=== PATIENT | female | born 1940 | race African-American/Black ===

== ENCOUNTER 2016-10-22 23:25 | Observation (INO) ==
[2016-10-22] MEDS ORDERED: Furosemide 40 MG/4 ML VIAL IVP ONE (23:55)
[2016-10-22] MEDS ORDERED: *HR* Morphine 2 MG/ML SYRINGE IV ONE (23:57)
[2016-10-23] MEDS ORDERED: Ondansetron 4 MG/2 ML VIAL IVP ONE
[2016-10-23 00:12] LABS: Basophils % 0.2 %; Eosinophils # 0.1 K/mcL (0.0-0.6); Eosinophils % 2.1 %; Hematocrit 38.8 % (35.3-44.9); Immature Granulocytes % 0.2 % (0-4); Lymphocytes # 1.4 K/mcL (0.6-4.6); Lymphocytes % 27.5 %; Mean Corpuscular HGB Conc 30.9 g/dL (31.6-35.5); Mean Corpuscular Hemoglobin 31.5 pg (28.0-33.3); Mean Corpuscular Volume 101.8 fL (83.0-100.0); Mean Platelet Volume 9.2 fL (9.4-12.4); Monocytes # 0.5 K/mcL (0.0-1.3); Monocytes % 8.9 %; Neutrophils # 3.2 K/mcL (1.6-8.9); Platelet Count 311 K/mcL (140-400); Red Blood Count 3.81 M/mcL (3.82-4.97); Red Cell Distribution Width 14.1 % (11.5-14.5); Segmented Neutrophils % 61.1 %
[2016-10-23 00:24] LABS: INR 2.3; Prothrombin Time 25.8 Seconds (9.4-12.1)
[2016-10-23 00:25] LABS: BUN/Creatinine Ratio 16 (6-26); Blood Urea Nitrogen 15 mg/dL (7-20); Calcium 9.4 mg/dL (8.6-10.8); Carbon Dioxide 29 mEq/L (19-29); Chloride 107 mEq/L (98-109); Glucose 121 mg/dL (70-99); Osmolality,Calculated 298 (280-300); Potassium 3.6 mEq/L (3.5-4.5); Sodium 143 mEq/L (136-145); eGFR For African Americans > 60 (> 60); eGFR For Non-African Americans 56 (> 60)
[2016-10-23 00:26] LABS: Activated Partial Thrombo Time 47.6 Seconds (26.0-36.0)
--- NOTE | 2016-10-23 00:30 | Emergency Department Note ---
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 Patient states that she is not able to walk and that her pain and swelling is gotten progressively worse over the last week. Patient was previously on Eliquis and was transitioned to Coumadin week ago. Patient normally goes to [place] for medical care. Onset (ago): week(s) (1) Radiation: extremity Pain Severity: moderate Pain Scale: 10 Improves with: nothing Worsens with: nothing Associated symptoms: Reports: denies other symptoms Treatments Prior to Arrival: none - Related Data Allergies Allergy/AdvReac Type Severity Reaction Status Date / Time amlodipine [From [facility]] Allergy See Verified 10/22/16 23:34 Comments Review of Systems: All systems were reviewed with historian and negative except as per below, or as documented in the HPI. Constitutional: Denies: fever, chills, weight changes Eyes: Denies: vision changes, eye pain ENT: Denies: nasal congestion, sore throat CV: Denies: chest pain, palpitations Resp: Denies: cough, dyspnea, wheezes, hemoptysis GI: Denies: abdominal pain, N/V/D/C MSK: Positive for bilateral lower extremity pain Denies: back pain, neck pain, Skin: Positive for lower swelling Denies: new rashes, new lesions Neuro: Denies: VALADEZ, weakness, sensory changes, gait difficulty All systems ED: reviewed and negative except as stated. Past Medical History - Past Medical History Attestation: Yes The following information was validated with the patient. Source: patient Medical history: Reports: arthritis, asthma, COPD, DVT, GERD, migraine, pulmonary embolus - Social History Smoking Status: Former smoker Alcohol use: Reports: none Drug use: Reports: none Physical Exam Constitutional: Obese female elderly appears stated age, mild distress, very tender to palpation of lower extremities, hypoxic on 2 L at 96% HEENT: NCAT, sclera anicteric, PERRLA bilaterally, normal external ears bilaterally, nasal septum nondeviated, average dentition, MMM Neck: normal inspection, neck is supple, trachea midline Resp: normal chest inspection, CTA bilaterally, no resp distres +Homans sign CV: RRR, no m/g/r, +3 pitting edema bilateral lower extremities GI: normal inspection, Soft, NTND, BS present Back: normal inspection, no tenderness to palpation Neuro: A&O3, no gross motor or sensory deficits bilaterally MSK: Palpation bilateral calves, Psych: normal mood, normal affect Skin: No rashes, skin warm, dry, intact - General General appearance: alert Course Course Narrative: 76-year-old female with bilateral lower surgery swelling, suspect possible DVTs given that she was off Eliquis in transition to Coumadin will check coagulation studies basic lab work. He reassessed - Reevaluation(s) Reevaluation #1: She is read as acute initially then preliminary read now says chronic, after discussing with [place] in flight technician, so concern given the acuity of her symptoms as gotten worse in the last 1 week and she is unable to ambulate will admit for pain bilateral lower extremity swelling, DVT is chronic for subcutaneous. Time: 04:00 Vital Signs Temperature 98.1 F 10/22/16 23:26 Pulse Rate 104 10/22/16 23:26 Respiratory Rate 20 10/22/16 23:26 Blood Pressure 186/96 10/22/16 23:26 O2 Sat by Pulse Oximetry 0 L 10/22/16 23:26 Temperature 98.1 F 10/22/16 23:26 Pulse Rate 97 10/23/16 00:59 Respiratory Rate 16 10/23/16 03:20 Blood Pressure 106/72 10/23/16 03:20 O2 Sat by Pulse Oximetry 100 10/23/16 00:59 Oxygen Delivery Oxygen Delivery Nasal Cannula Medical Decision Making - Medical Records Medical records reviewed: Yes I reviewed the patient's medical records. - Lab Data Lab results reviewed: Yes I reviewed the patient's lab results. Result diagrams: 10/23/16 00:03 10/23/16 00:03 Lab Results 10/23/16 10/23/16 10/23/16 Range/Units 00:03 00:03 00:03 WBC 5.2 (4.3-11.1) K/mcL RBC 3.81 L (3.82-4.97) M/mcL Hgb 12.0 (11.5-15.4) g/dL Hct 38.8 (35.3-44.9) % MCV 101.8 H (83.0-100.0) fL MCH 31.5 (28.0-33.3) pg MCHC 30.9 L (31.6-35.5) g/dL RDW 14.1 (11.5-14.5) % Plt Count 311 (140-400) K/mcL MPV 9.2 L (9.4-12.4) fL Immature Gran % 0.2 (0-4) % Seg Neutrophils % 61.1 % Lymphocytes % 27.5 % Monocytes % 8.9 % Eosinophils % 2.1 % Basophils % 0.2 % Neutrophils # 3.2 (1.6-8.9) K/mcL Lymphocytes # 1.4 (0.6-4.6) K/mcL Monocytes # 0.5 (0.0-1.3) K/mcL Eosinophils # 0.1 (0.0-0.6) K/mcL Basophils # 0.0 (0.0-0.2) K/mcL PT (9.4-12.1) Seconds INR APTT (26.0-36.0) Seconds Sodium 143 (136-145) mEq/L Potassium 3.6 (3.5-4.5) mEq/L Chloride 107 (98-109) mEq/L Carbon Dioxide 29 (19-29) mEq/L BUN 15 (7-20) mg/dL Creatinine 0.96 (0.57-1.11) mg/dL Est GFR ( Amer) > 60 (> 60) Est GFR (Non-Af Amer) 56 L (> 60) BUN/Creatinine Ratio 16 (6-26) Glucose 121 H (70-99) mg/dL Calculated Osmolality 298 (280-300) Calcium 9.4 (8.6-10.8) mg/dL Troponin I 0.01 (0-0.03) ng/mL B-Natriuretic Peptide (0-100) pg/mL 10/23/16 10/23/16 Range/Units 00:03 00:03 WBC (4.3-11.1) K/mcL RBC (3.82-4.97) M/mcL Hgb (11.5-15.4) g/dL Hct (35.3-44.9) % MCV (83.0-100.0) fL MCH (28.0-33.3) pg MCHC (31.6-35.5) g/dL RDW (11.5-14.5) % Plt Count (140-400) K/mcL MPV (9.4-12.4) fL Immature Gran % (0-4) % Seg Neutrophils % % Lymphocytes % % Monocytes % % Eosinophils % % Basophils % % Neutrophils # (1.6-8.9) K/mcL Lymphocytes # (0.6-4.6) K/mcL Monocytes # (0.0-1.3) K/mcL Eosinophils # (0.0-0.6) K/mcL Basophils # (0.0-0.2) K/mcL PT 25.8 H (9.4-12.1) Seconds INR 2.3 APTT 47.6 H (26.0-36.0) Seconds Sodium (136-145) mEq/L Potassium (3.5-4.5) mEq/L Chloride (98-109) mEq/L Carbon Dioxide (19-29) mEq/L BUN (7-20) mg/dL Creatinine (0.57-1.11) mg/dL Est GFR ( Amer) (> 60) Est GFR (Non-Af Amer) (> 60) BUN/Creatinine Ratio (6-26) Glucose (70-99) mg/dL Calculated Osmolality (280-300) Calcium (8.6-10.8) mg/dL Troponin I (0-0.03) ng/mL B-Natriuretic Peptide 77 (0-100) pg/mL - Radiology Data Radiology results reviewed: Yes I reviewed the patient's radiology results. Chest X-Ray 10/23/16 00:00 IMPRESSION: No acute cardiopulmonary process. D/ / Darell Martinez MD / Darell Martinez MD Interpreting Provider: Darell Martinez MD - EKG Data EKG #1 EKG attestation: Yes I reviewed and interpreted this EKG. EKG shows normal: sinus rhythm ( 90 bpm OH 198 QRS 79 QTC 390elevations or depressions, Q waves in lead 3. ) Rate: normal Rhythm: NSR [place]/QRS: normal, left axis deviation When compared to previous EKG there are: previous EKG unavailable - Core Measures AMI Core Measures Followed: No Measure Exclusions: not indicated Attestation Statement - Attestation Attestation: I, Rudi Ceja MD, personally performed a history and physical exam of the patient and discussed their management with the resident. I reviewed the resident's note and agree with the documented findings, medical decision making , and plan of care. 76-year-old female with history of DVT and is on Coumadin. She states that recently her doctor stopped her Coumadin. Her on Eliquis. She was unable to tolerate the Eliquis because it caused headache. They stopped the Eliquis and put her back on her Coumadin about a week ago. She presents tonight complaining that for the past 3 days she has had increasing swelling and pain in both lower extremities to the point she is unable to get around or walk. No cough or chest pain or shortness of breath. No palpitations. No fever. On examination patient is a well-developed obese elderly female in no acute distress. She is alert and oriented 3. There is no cyanosis or diaphoresis. A equal bilaterally. Heart regular rate and rhythm. Abdomen soft with normal bowel sounds. There is marked edema of the lower extremities bilaterally with diffuse tenderness to palpation, especially over the medial aspect of the eyes bilaterally and popliteal area and calves bilaterally. Labs reviewed. INR therapeutic. Venous Doppler shows bilateral DVT in the common femoral veins. The hospitalist, Dr. Nixon, was consulted and accepted admission of the patient.
[2016-10-23] MEDS ORDERED: *HR* HYDROmorphone (PF) 1 MG/ML SYRINGE IVP ONE (01:33)
[2016-10-23] MEDS ORDERED: Naloxone 0.4 MG/ML INJ IVP PRN (03:40)
[2016-10-23] MEDS ORDERED: Acetaminophen 325 MG TABLET PO PRN (03:40)
[2016-10-23] MEDS ORDERED: Ondansetron ODT 4 MG TAB.RAPDIS SL PRN (03:40)
--- NOTE | 2016-10-23 04:02 | Internal Med History&Physical ---
<Mihaela Aguirre - Last Filed: 10/23/16 05:32> Date of Encounter: 10/23/16 Time of Encounter: 03:45 Assessment and Plan (1) Pedal edema Current visit: Yes Status: Acute bilateral compression stockings PT/ OT consult due to decreased mobility INR therapeutic in ER - coumadin pharmacy to dose (2) Chronic deep vein thrombosis (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 Current visit: Yes Status: Chronic (3) COPD (chronic obstructive pulmonary disease) Current visit: Yes Status: Chronic Qualifiers: COPD type: chronic bronchitis Chronic bronchitis type: unspecified Qualified Code(s): J42 - Unspecified chronic bronchitis (4) HTN (hypertension) Current visit: Yes Status: Chronic Qualifiers: Hypertension type: essential hypertension Qualified Code(s): I10 - Essential (primary) hypertension (5) Hx of pulmonary embolus Current visit: Yes Status: Chronic (6) History of DVT (deep vein thrombosis) Current visit: Yes Status: Chronic Internal Medicine - H&P: HPI Chief complaint: bilateral LE edema Admitted From: Emergency Dept Plans for Post Hospital Care: Home History of present illness: Ms. Mcclure is a 76 year old female with a PMH of multiple DVT/PE, HTN, COPD, and migraines presents to the ER with a 3 day history of increasing bilateral lower extremity swelling and pain. She is currently anticoagulated on coumadin - this was switched from Eliquis one week ago. (Review of medical records show that she was from coumadin to Eliquis in the middle of September - she switched back due to Eliquis causing headache.) She has had several previous DVT/PE that were unprovoked and states that the most recent was approximately 4 months ago. She came to the ER due to decreased ability to ambulate: at baseline she ambulates with a walker. Past Med Surg Social Fam HX - Past Medical History Medical history: arthritis, asthma, COPD, DVT, GERD, hypertension, migraine, pulmonary embolus - Social History Smoking Status: Former smoker Alcohol use: none Drug use: none - Family History Father Adopted: [place]: HERI Family Member Ethnicity: Non- Living Status: Age at : 83 Cause of : ASPERATION PNE Hx Family Cardiac Disorders: Yes Hx Family Respiratory Disorders: Yes Hx Family Cancer: Yes Hx Family GI Disorders: Yes Hx Family Genitourinary Disorders: No Hx Family Endocrine Disorder: Yes Hx Family Musculoskeletal Disorders: No Hx Family Neuromuscular Disorders: No Hx Family Neurologic Disorders: Yes Hx Family HEENT Disorders: No Hx Family Autoimmune Disorders: No Hx Family Reproductive Disorders: No Hx Family Psychosocial Disorders: No Hx Family Medical Disorders: No Internal Medicine - H&P: Meds Albuterol Sulfate [Ventolin Hfa] 2 puff IH Q6HR PRN 10/23/16 [History] Alendronate Sodium [Fosamax] 70 mg PO QWEEK 10/23/16 [History] Budesonide [Pulmicort] 1 inh IH BID 10/23/16 [History] Budesonide/Formoterol 160/4.5 [Symbicort 160/4.5] 2 puff IH BID 10/23/16 [ History] Calcium Carb, Citrate/Vit D3 [Calcium + D3 ER Tablet] 1 tab PO DAILY 10/23/16 [ History] Carvedilol 1 tab PO BID 10/23/16 [History] CloNIDine HCl [Kapvay] 0.1 mg PO BID 10/23/16 [History] Diclofenac Sodium [Voltaren] 1 appl TP QID PRN 10/23/16 [History] Diphenoxylate/Atropine [Lomotil 2.5 mg/0.025 mg] 1 tab PO DAILY PRN 10/23/16 [ History] Docusate Sodium [Colace] 100 mg PO BID 10/23/16 [History] Duoneb Q4HR PRN 10/23/16 [History] Folic Acid 1 tab PO DAILY 10/23/16 [History] Furosemide [Lasix] 40 mg PO DAILY 10/23/16 [History] Gabapentin [Neurontin] 600 mg PO BID 10/23/16 [History] Hydrocortisone Rectal CRM [Proctosol-HC] 1 appl RC TID PRN 10/23/16 [History] Lubiprostone [Amitiza] 1 tab PO DAILY PRN 10/23/16 [History] Nasonex 1 spray BID PRN 10/23/16 [History] Ondansetron HCl [Zofran] 4 mg PO BID PRN 10/23/16 [History] Oxycodone HCl/Acetaminophen [Percocet 10-325 mg Tablet] 1 each PO TID PRN [History] Oxygen 10/23/16 [History] Polyethylene Glycol 3350 [MiraLAX Powder Bulk 17.9 Oz] 1 scoop PO DAILY PRN 01/04 [History] Potassium Chloride [K-Tab ER] 2 meq PO QAM 10/23/16 [History] Potassium Chloride [Klor-Con 10] 30 meq PO QPM 10/23/16 [History] PredniSONE [Prednisone] 10 mg PO DAILY 10/23/16 [History] Ranitidine HCl [Acid Change Control Specialist] 150 mg PO DAILY 10/23/16 [History] Ropinirole [Requip] 2 mg PO QPM 10/23/16 [History] Theophylline Anhydrous [Andrea-24] 400 mg PO DAILY 10/23/16 [History] Tizanidine HCl [Zanaflex] 4 mg PO TID PRN 10/23/16 [History] Topiramate [Topamax] 1 tab PO BID 10/23/16 [History] Allergies amlodipine [From [facility]] Allergy (Verified 10/22/16 23:34) See Comments All Systems PM: A 10-system review of systems was performed and is negative for pertinent findings except as documented above in the HPI. - Constitutional Constitutional: no chills, no fever(s), no night sweats - EENT Eyes: no change in vision, no discharge, no pain, no photophobia Ears: no ear discharge, no ear pain, no tinnitus Nose, mouth and throat: no dysphagia, no nasal discharge, no neck pain, no sore throat - Cardiovascular Cardiovascular ROS IM: no chest pain, no diaphoresis, no dyspnea, no lightheadedness, no palpitations, no syncope - Respiratory Respiratory: no cough, no dyspnea, no wheezing, no excessive phlegm production - Gastrointestinal Gastrointestinal: no abdominal pain, no diarrhea, no hematemesis, no hematochezia, no melena, no nausea, no vomiting - Genitourinary Genitourinary: no change in urinary stream, no dysuria, no flank pain, no hematuria - Musculoskeletal Musculoskeletal ROS IM: no numbness, no tingling - Integumentary Integumentary IM: no rash, no unusual bruising - Neurological Neurological ROS: weakness, no confusion, no convulsions, no focal weakness, no numbness, no tingling, no tremor(s) - Hematologic/Lymphatic Hematologic/Lymphatic: no easy bruising - Constitutional Vitals: Temp Pulse Resp BP Pulse Ox 98.1 F 97 16 106/72 100 10/22/16 23:26 10/23/16 00:59 10/23/16 03:20 10/23/16 03:20 10/23/16 00:59 General appearance: Present: A&O X 3, pleasant, no acute distress, obese, answers questions appropriately - Head Head exam: Present: atraumatic, normocephalic - Eye Eye exam: Present: PERRL, conjuntiva pink, sclera anicteric Pupils: Present: PERRL - Neck Neck exam general surgery: Present: supple, trachea midline. Absent: lymphadenopathy - Respiratory Respiratory exam: Present: decreased breath sounds, prolonged expiratory phase. Absent: accessory muscle use, rales, rhonchi, wheezes - Cardiovascular Cardiovascular exam: Present: RRR, +S1, +S2. Absent: diastolic murmur, gallop, rubs, systolic murmur - GI/Abdominal GI/Abdominal exam: Present: normal bowel sounds, soft, no peritoneal signs. Absent: distended, tenderness - Extremities Exam Extremities exam: Present: calf tenderness, pedal edema (3+ pitting ), tenderness, warm, radial pulses palpable and symetrical. Absent: cyanotic - Neurological Exam Neurological exam: Present: CN II-XII intact, oriented X3, no focal deficits. Absent: pronater drift, facial droop, speech deficit - Skin Skin exam: Present: dry, intact Internal Med - H&P Results - Labs CBC & Chem 7: 10/23/16 00:03 10/23/16 00:03 <Edgar Nixon - Last Filed: 10/23/16 07:01> Date of Encounter: 10/23/16 Time of Encounter: 04:15 Assessment and Plan (1) Pedal edema Current visit: Yes Status: Acute (2) COPD (chronic obstructive pulmonary disease) Current visit: Yes Status: Chronic Qualifiers: COPD type: chronic bronchitis Chronic bronchitis type: unspecified Qualified Code(s): J42 - Unspecified chronic bronchitis (3) Chronic deep vein thrombosis (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 Current visit: Yes Status: Chronic (4) HTN (hypertension) Current visit: Yes Status: Chronic Qualifiers: Hypertension type: essential hypertension Qualified Code(s): I10 - Essential (primary) hypertension Internal Medicine - H&P: HPI Admitted From: Emergency Dept Plans for Post Hospital Care: Home History of present illness: I examined this patient and my medical decision-making was reviewed with the Resident Physician. I agree with the documented history of present illness, review of systems, past medical, surgical social and family histories and examination findings, disposition and treatment plan as described above except to any changes set forth below. Ms. Mcclure is a 76 year old female patient with a history of multiple DVT, pulmonary embolism, hypertension, COPD who presented to the ER complaining of bilateral lower extremity edema and pain. Her symptoms have been going on for about a week now and progressively getting worse. Patient is currently on Coumadin for anticoagulation. Recently this was changed to Eliquis but patient began to have headache with it and so was changed back to Coumadin for 2 weeks back. She denies any fever or chills or night sweats. No nausea or vomiting. No chest pain or palpitations. She does get occasional shortness of breath with ambulation. All Systems PM: A 10-system review of systems was performed and is negative for pertinent findings except as documented above in the HPI. - Constitutional Vitals: Temp Pulse Resp BP Pulse Ox 97.5 F L 84 16 138/83 100 10/23/16 05:22 10/23/16 05:22 10/23/16 05:22 10/23/16 05:22 10/23/16 05:22 General appearance: Present: cooperative, mild distress, A&O X 3, pleasant, answers questions appropriately - Eye Eye exam: Present: EOMI, PERRL, conjuntiva pink, sclera anicteric - Neck Neck exam general surgery: Present: supple, trachea midline. Absent: lymphadenopathy - Respiratory Respiratory exam: Present: decreased breath sounds, prolonged expiratory phase. Absent: accessory muscle use, rales, rhonchi, wheezes - Cardiovascular Cardiovascular exam: Present: RRR, +S1, +S2. Absent: diastolic murmur, gallop, rubs, systolic murmur - GI/Abdominal GI/Abdominal exam: Present: normal bowel sounds, soft, no peritoneal signs. Absent: distended, tenderness - Extremities Exam Extremities exam: Present: pedal edema (3+ pitting pedal edema with tenderness and mild erythema involving the bilateral lower extremities.), tenderness, warm , radial pulses palpable and symetrical. Absent: calf tenderness, cyanotic - Neurological Exam Neurological exam: Present: CN II-XII intact, oriented X3, no focal deficits, strengths equal and symetr throughout. Absent: facial droop, speech deficit - Skin Skin exam: Present: dry, intact Internal Med - H&P Results - Labs CBC & Chem 7: 10/23/16 00:03 10/23/16 00:03 - Attending Attestation Patient with bilateral pitting pedal edema: Most likely related to chronic DVT in bilateral lower extremities. Continue coumadin. On Lasix at home. Will change to IV Lasix. Leg elevation. Will also prescribe compression stockings. Although both lower extremities are warm to touch and mildly erythematous, she does not appear to be having cellulitis yet although she is at increased risk for developing cellulitis. May need further evaluation with 2-D echocardiogram. This document has been at least partially created by [employer] recognition technology by Dr. Nixon. Errors in grammar, wording or other phrases may exist. If errors are found after the documentation is signed, they will be addressed individually in the addendum section of this document when appropriate.
[2016-10-23] MEDS ORDERED: POTASSIUM CHLORIDE PO SCH (09:00)
[2016-10-23] MEDS ORDERED: CARVEDILOL PO SCH (09:00)
[2016-10-23] MEDS ORDERED: TOPIRAMATE PO SCH (09:00)
[2016-10-23] MEDS: Famotidine 20 MG TABLET PO SCH (09:37)
[2016-10-23] MEDS: Topiramate 25 MG TABLET PO SCH ×2 (09:37→22:24)
[2016-10-23] MEDS: cloNIDine HCl 0.1 MG TABLET PO SCH ×2 (09:39→22:24)
[2016-10-23] MEDS: Furosemide 20 MG TABLET PO SCH (09:39)
[2016-10-23] MEDS: predniSONE 10 MG TABLET PO SCH (09:40)
[2016-10-23] MEDS: Gabapentin 300 MG CAPSULE PO SCH ×2 (09:40→22:24)
--- NOTE | 2016-10-23 10:12 | Internal Med Progress Note ---
Date of Encounter: 10/23/16 Time of Encounter: 10:11 - Assessment and plan (1) Leg swelling Current Visit: Yes Status: Acute Assessment and plan: Bilateral leg swelling in the setting of patient with chronic DVT, currently on Coumadin. INR 2.3. We will continue with Coumadin therapy, monitor INR tomorrow in a.m. Pharmacy to dose Coumadin according to INR levels. Generalized weakness, will obtain vitamin B12 levels, TSH. Patient is not in respiratory distress, brain natruretic peptide 77. Chest x-ray did not reveal any acute process. Consultation with both physical therapy and occupational therapy. eligibility services representative evaluation. Discussed with patient and family members. (2) Obesity Current Visit: Yes Status: Acute Qualifiers: Obesity type: unspecified obesity type Obesity severity: non-morbid Qualified Code(s): E66.9 - Obesity, unspecified (3) COPD (chronic obstructive pulmonary disease) Current Visit: Yes Status: Chronic Assessment and plan: She is on long-term oxygen therapy, continue with oxygen therapy, monitor oxygen saturation. No evidence of COPD exacerbation at this point. Qualifiers: COPD type: chronic bronchitis Chronic bronchitis type: unspecified Qualified Code(s): J42 - Unspecified chronic bronchitis (4) Chronic deep vein thrombosis (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 Current Visit: Yes Status: Chronic Assessment and plan: Continue with Coumadin therapy, monitor INR levels. (5) HTN (hypertension) Current Visit: Yes Status: Chronic Assessment and plan: Blood pressure levels controlled, continue monitoring the patient closely. Qualifiers: Hypertension type: essential hypertension Qualified Code(s): I10 - Essential (primary) hypertension (6) History of DVT (deep vein thrombosis) Current Visit: Yes Status: Chronic Assessment and plan: Continue with anticoagulation. - Subjective Interval history: This is my first encounter with the patient. The patient was seen and examined in [facility]. Her daughter and grandmother were present during this encounter. She is complaining of swelling in both lower extremities along with generalized pain. Denies fevers, shortness of breath. Patient is status unable to walk, she normally walks with a walker. The patient needs in [place], and is considering about moving to [place] to live with one of her daughters. - Constitutional Vitals: Temp Pulse Resp BP Pulse Ox 98.6 F 71 16 110/66 99 10/23/16 07:58 10/23/16 07:58 10/23/16 07:58 10/23/16 07:58 10/23/16 07:58 General appearance: Present: cooperative, mild distress, A&O X 3, pleasant, obese, answers questions appropriately - Head Head exam: Present: atraumatic, normocephalic - Eye Eye exam: Present: PERRL, conjuntiva pink, sclera anicteric Pupils: Present: PERRL - Neck Neck exam general surgery: Present: supple, trachea midline. Absent: lymphadenopathy - Respiratory Respiratory exam: Present: CTAB. Absent: accessory muscle use, rales, rhonchi, wheezes - Cardiovascular Cardiovascular exam: Present: RRR, +S1, +S2. Absent: diastolic murmur, gallop, rubs, systolic murmur - GI/Abdominal GI/Abdominal exam: Present: normal bowel sounds, soft, no peritoneal signs. Absent: distended, tenderness - Extremities Exam Extremities exam: Present: pedal edema, warm, radial pulses palpable and symetrical. Absent: calf tenderness, cyanotic Additional comments: Bilateral swelling in both lower extremities, left more than the right. - Neurological Exam Neurological exam: Present: CN II-XII intact, oriented X3, no focal deficits. Absent: pronater drift, facial droop, speech deficit - Skin Skin exam: Present: dry, intact Internal Medicine: Result - Labs CBC & Chem 7: 10/23/16 00:03 10/23/16 00:03 - ABG Interpretation ABG results: PT/INR, D-dimer PT 25.8 Seconds (9.4-12.1) H 10/23/16 00:03 - VTE Documentation of Mechanical Device: Graduated compression elastic hosiery Consult Discharge Plan - Plan Referrals: NO,PCP [Primary Care Provider] -
[2016-10-23] MEDS: *HR* OxyCODONE/APAP 10/325 TABLET PO PRN ×2 (10:36→22:27)
[2016-10-23] MEDS: Budesonide/Formoterol 160/4.5 MDI IH SCH (10:45)
[2016-10-23] MEDS: rOPINIRole 1 MG TABLET PO SCH (17:16)
[2016-10-23] MEDS: *HR* Warfarin 5 MG TABLET PO SCH (17:17)
[2016-10-23] MEDS ORDERED: Warfarin perPT PO PRN (18:00)
[2016-10-24] MEDS: Budesonide/Formoterol 160/4.5 MDI IH SCH ×3 (00:19→23:08)
[2016-10-24 05:31] LABS: Basophils % 0.2 %; Eosinophils # 0.1 K/mcL (0.0-0.6); Eosinophils % 1.6 %; Hematocrit 38.1 % (35.3-44.9); Hemoglobin 11.3 g/dL (11.5-15.4); Immature Granulocytes % 0.2 % (0-4); Lymphocytes % 41.8 %; Mean Corpuscular HGB Conc 29.7 g/dL (31.6-35.5); Mean Corpuscular Hemoglobin 31.5 pg (28.0-33.3); Mean Corpuscular Volume 106.1 fL (83.0-100.0); Mean Platelet Volume 9.2 fL (9.4-12.4); Monocytes # 0.6 K/mcL (0.0-1.3); Monocytes % 12.3 %; Neutrophils # 2.1 K/mcL (1.6-8.9); Platelet Count 314 K/mcL (140-400); Red Blood Count 3.59 M/mcL (3.82-4.97); Red Cell Distribution Width 14.2 % (11.5-14.5); Segmented Neutrophils % 43.9 %
[2016-10-24 05:38] LABS: INR 2.4; Prothrombin Time 26.6 Seconds (9.4-12.1)
[2016-10-24 05:46] LABS: Alanine Aminotransferase 15 Units/L (0-55); Albumin 2.9 g/dL (3.5-5.0); Albumin/Globulin Ratio 0.8 (1.1-2.2); Alkaline Phosphatase 50 Units/L (38-126); Aspartate Amino Transferase 14 Units/L (5-34); BUN/Creatinine Ratio 17 (6-26); Bilirubin,Direct 0.1 mg/dL (0.0-0.5); Bilirubin,Indirect 0.1 mg/dL (0.0-1.2); Bilirubin,Total 0.2 mg/dL (0.2-1.2); Blood Urea Nitrogen 16 mg/dL (7-20); Calcium 8.9 mg/dL (8.6-10.8); Carbon Dioxide 29 mEq/L (19-29); Chloride 108 mEq/L (98-109); Globulin 3.6 g/dL (2.4-3.5); Glucose 111 mg/dL (70-99); Magnesium 1.9 mg/dL (1.6-2.6); Osmolality,Calculated 296 (280-300); Potassium 4.5 mEq/L (3.5-4.5); Sodium 142 mEq/L (136-145); Total Protein 6.5 g/dL (6.0-8.3); eGFR For African Americans > 60 (> 60); eGFR For Non-African Americans 56 (> 60)
[2016-10-24 06:25] LABS: Folate 15.6 ng/mL (7.0-31.4)
--- NOTE | 2016-10-24 07:31 | Electrocardiograph Report ---
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
[2016-10-24] MEDS: Gabapentin 300 MG CAPSULE PO SCH ×2 (09:04→22:40)
[2016-10-24] MEDS: cloNIDine HCl 0.1 MG TABLET PO SCH ×2 (09:04→22:40)
[2016-10-24] MEDS: Furosemide 20 MG TABLET PO SCH (09:04)
[2016-10-24] MEDS: predniSONE 10 MG TABLET PO SCH (09:05)
[2016-10-24] MEDS: Famotidine 20 MG TABLET PO SCH (09:05)
[2016-10-24] MEDS: Topiramate 25 MG TABLET PO SCH ×2 (09:05→22:39)
[2016-10-24] MEDS: *HR* OxyCODONE/APAP 10/325 TABLET PO PRN ×2 (09:20→22:40)
--- NOTE | 2016-10-24 11:37 | Discharge Summary ---
<ChrisNhan seymour - Last Filed: 10/24/16 11:33> Date of Encounter: 10/24/16 Time of Encounter: 11:33 - Discharge Diagnosis (1) Leg swelling Priority: Primary Status: Acute Comments: 10/24/16 INR is therapeutic at 2.4 this morning PT/OT evaluation pending 10/23/16 Bilateral leg swelling in the setting of patient with chronic DVT, currently on Coumadin. INR 2.3. We will continue with Coumadin therapy, monitor INR tomorrow in a.m. Pharmacy to dose Coumadin according to INR levels. Generalized weakness, will obtain vitamin B12 levels, TSH. Patient is not in respiratory distress, brain natruretic peptide 77. Chest x-ray did not reveal any acute process. Consultation with both physical therapy and occupational therapy. caseworker protective services evaluation. Discussed with patient and family members. (2) Obesity Priority: Secondary Status: Acute Qualifiers: Obesity type: unspecified obesity type Obesity severity: non-morbid Qualified Code(s): E66.9 - Obesity, unspecified (3) COPD (chronic obstructive pulmonary disease) Priority: Secondary Status: Chronic Comments: 10/24/16 Stable 10/23/16 She is on long-term oxygen therapy, continue with oxygen therapy, monitor oxygen saturation. No evidence of COPD exacerbation at this point. Qualifiers: COPD type: chronic bronchitis Chronic bronchitis type: unspecified Qualified Code(s): J42 - Unspecified chronic bronchitis (4) Chronic deep vein thrombosis (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 Priority: Secondary Status: Chronic Comments: 10/23/16 Continue with Coumadin therapy, monitor INR levels (5) HTN (hypertension) Priority: Secondary Status: Chronic Comments: Blood pressure has been stable with elevated reading this morning Recheck after morning medications administered Qualifiers: Hypertension type: essential hypertension Qualified Code(s): I10 - Essential (primary) hypertension (6) History of DVT (deep vein thrombosis) Priority: Secondary Status: Chronic Comments: Continue anticoagulation - Discharge Medications Prescriptions: Oxycodone HCl/Acetaminophen [Percocet 10-325 mg Tablet] 1 tab PO TID PRN #30 tablet PRN Reason: Pain Home Medications: Albuterol Sulfate [Ventolin Hfa] 2 puff IH Q6HR PRN 10/23/16 [History] Alendronate Sodium [Fosamax] 70 mg PO QWEEK 10/23/16 [History] Budesonide [Pulmicort] 2 ml IH BID 10/23/16 [History] Budesonide/Formoterol 160/4.5 [Symbicort 160/4.5] 2 puff IH BID 10/23/16 [ History] Calcium Carb, Citrate/Vit D3 [Calcium + D3 ER Tablet] 1 tab PO DAILY 10/23/16 [ History] Carvedilol 12.5 mg PO BID 10/23/16 [History] CloNIDine HCl [Kapvay] 0.1 mg PO BID 10/23/16 [History] Diclofenac Sodium [Voltaren] 1 appl TP QID PRN 10/23/16 [History] Diphenoxylate/Atropine [Lomotil 2.5 mg/0.025 mg] 1 tab PO DAILY PRN 10/23/16 [ History] Docusate Sodium [Colace] 100 mg PO BID 10/23/16 [History] Folic Acid 1 mg PO DAILY 10/23/16 [History] Furosemide [Lasix] 40 mg PO DAILY 10/23/16 [History] Gabapentin [Neurontin] 600 mg PO BID 10/23/16 [History] Hydrocortisone Rectal CRM [Proctosol-Hc] 1 appl RC TID PRN 10/23/16 [History] Ipratropium/Albuterol Neb [Duoneb] 3 ml IH Q4HR PRN 10/23/16 [History] Lisinopril [Zestril] 20 mg PO DAILY 10/23/16 [History] Lubiprostone [Amitiza] 8 mcg PO DAILY PRN 10/23/16 [History] Mometasone Furoate [Nasonex] 50 mcg NS DAILY 10/23/16 [History] Ondansetron HCl [Zofran] 4 mg PO BID PRN 10/23/16 [History] Oxygen 2 l .ROUTE AD 10/23/16 [History] Polyethylene Glycol 3350 [MiraLAX Powder Bulk 17.9 Oz] 17 gm PO DAILY PRN [History] Potassium Chloride [K-Tab ER] 20 meq PO QAM 10/23/16 [History] Potassium Chloride [Klor-Con 10] 30 meq PO QPM 10/23/16 [History] PredniSONE [Prednisone] 10 mg PO DAILY 10/23/16 [History] Ranitidine HCl [Acid Maritime Pilot] 150 mg PO DAILY 10/23/16 [History] Ropinirole [Requip] 2 mg PO HS 10/23/16 [History] Theophylline Anhydrous [Andrea-24] 400 mg PO DAILY 10/23/16 [History] Tizanidine HCl [Zanaflex] 2 mg PO TID PRN 10/23/16 [History] Topiramate [Topamax] 50 mg PO BID 10/23/16 [History] Warfarin [Coumadin] 6 mg PO SUTUTHSA 10/23/16 [History] Warfarin [Coumadin] 7 mg PO MOWEFR 10/23/16 [History] Oxycodone HCl/Acetaminophen [Percocet 10-325 mg Tablet] 1 tab PO TID PRN #30 tablet 10/24/16 [Rx] Allergies/Adverse Reactions: Allergies amlodipine [From [facility]] Allergy (Verified 10/22/16 23:34) See Comments Date of admission: 10/23/16 02:50 Primary care physician: PCP NO Consults: 10/23/16 05:23 Consult to Physical Therapy [CONS] Routine Comment: Evaluate, develop and implement POC OT [Consult to Occupational Therapy] [CONS] Routine Comment: Evaluate, develop and implement POC 10/23/16 08:26 Consult to Electrotype Molder [CONS] Routine Reason for SW Consult: d/c planning Discharging clinician: Nhan Perez Anticipated date of discharge: 10/24/16 - Patient Status Disposition: Transfer SNF Condition: Fair Functional capacity at discharge: uses cane/walker Overall status at discharge: patient is progressing back to baseline - Discharge Instructions Follow Up With: Amanda Torres MD [Partnered Physician] - 10/31/16 1:45 pm - Diet and Activity Activity: as per physical therapy Diet: advance to your usual diet Hospital course: Ms. Mcclure is a 76 year old female with past medical history significant for COPD present (on oxygen at home), hypertension, pulmonary embolism, and chronic DVTs. The patient relates that she had been on Coumadin long-term but was switched to Eliquis recently but within a few days of starting Eliquis she began having bad headaches. She was switched back to Coumadin one week ago and began developing swelling/pain in bilateral lower extremities. INR in the emergency department was 2.3 and she continued to receive Coumadin during her hospitalization. INR this morning = 2.4. BN P = 77, chest x-ray negative for any acute abnormalities. Doppler ultrasound revealed DVTs in bilateral common femoral veins that appear chronic and nonocclusive. We recommended PT/OT evaluation and outpatient rehabilitation if appropriate. Patient exhibited reticence to this - Time Spent with Patient Total time spent providing and/or coordinating discharge services: Greater than 30 minutes - Constitutional Vitals: Temp Pulse Resp BP Pulse Ox 98.5 F 98 20 185/101 97 10/24/16 08:10 10/24/16 08:10 10/24/16 08:10 10/24/16 08:10 10/24/16 08:10 General appearance: Present: cooperative, mild distress, A&O X 3, pleasant, obese, answers questions appropriately - Head Head exam: Present: atraumatic, normocephalic - Eye Eye exam: Present: PERRL, conjuntiva pink, sclera anicteric Pupils: Present: PERRL - Neck Neck exam general surgery: Present: supple, trachea midline. Absent: lymphadenopathy - Respiratory Respiratory exam: Present: CTAB. Absent: accessory muscle use, rales, rhonchi, wheezes - Cardiovascular Cardiovascular exam: Present: RRR, +S1, +S2. Absent: diastolic murmur, gallop, rubs, systolic murmur - GI/Abdominal GI/Abdominal exam: Present: normal bowel sounds, soft, no peritoneal signs. Absent: distended, tenderness - Extremities Exam Extremities exam: Present: warm, radial pulses palpable and symetrical. Absent : cyanotic, pedal edema Additional comments: Diffuse tenderness to palpation in all extremities. Patient is wearing compression stockings on BLEs which demonstrated mild edema - Neurological Exam Neurological exam: Present: CN II-XII intact, oriented X3, no focal deficits. Absent: pronater drift, facial droop, speech deficit - Skin Skin exam: Present: dry, intact - VTE Documentation of Mechanical Device: Graduated compression elastic hosiery <Dawood Lee - Last Filed: 10/24/16 18:02> Date of Encounter: 10/24/16 - Discharge Diagnosis (1) Leg swelling Status: Acute (2) Obesity Status: Acute Qualifiers: Obesity type: unspecified obesity type Obesity severity: non-morbid Qualified Code(s): E66.9 - Obesity, unspecified (3) COPD (chronic obstructive pulmonary disease) Status: Chronic Qualifiers: COPD type: chronic bronchitis Chronic bronchitis type: unspecified Qualified Code(s): J42 - Unspecified chronic bronchitis (4) Chronic deep vein thrombosis (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 Status: Chronic (5) HTN (hypertension) Status: Chronic Qualifiers: Hypertension type: essential hypertension Qualified Code(s): I10 - Essential (primary) hypertension (6) History of DVT (deep vein thrombosis) Status: Chronic Date of admission: 10/23/16 02:50 Primary care physician: PCP NO Consults: 10/23/16 05:23 Consult to Physical Therapy [CONS] Routine Comment: Evaluate, develop and implement POC OT [Consult to Occupational Therapy] [CONS] Routine Comment: Evaluate, develop and implement POC 10/23/16 08:26 Consult to Electrotype Molder [CONS] Routine Reason for SW Consult: d/c planning Hospital course: Ms. Mcclure is a 76 year old female - Time Spent with Patient Total time spent providing and/or coordinating discharge services: - Constitutional Vitals: Temp Pulse Resp BP Pulse Ox 98.2 F 93 20 154/83 97 10/24/16 16:38 10/24/16 16:38 10/24/16 16:38 10/24/16 16:38 10/24/16 16:38 - Attending Attestation I examined this patient and my medical decision-making was reviewed with the PREFINISH OPERATOR/PA/Advanced Practice Nurse/Resident Physician. I agree with the documented findings, disposition and treatment plan as described except to the extent set forth below. Bilateral leg swelling in the setting of patient with chronic DVT, currently on Coumadin. INR 2.4. Weakness, PT recommended ECF. D/C today.
--- NOTE | 2016-10-24 12:14 | Physician Discharge Referral ---
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 Priority: Secondary Status: Chronic (5) HTN (hypertension) Priority: Secondary Status: Chronic (6) History of DVT (deep vein thrombosis) Priority: Secondary Status: Chronic - Transfer Medications Prescriptions: Oxycodone HCl/Acetaminophen [Percocet 10-325 mg Tablet] 1 tab PO TID PRN #30 tablet PRN Reason: Pain Home Medications: Albuterol Sulfate [Ventolin Hfa] 2 puff IH Q6HR PRN 10/23/16 [History] Alendronate Sodium [Fosamax] 70 mg PO QWEEK 10/23/16 [History] Budesonide [Pulmicort] 2 ml IH BID 10/23/16 [History] Budesonide/Formoterol 160/4.5 [Symbicort 160/4.5] 2 puff IH BID 10/23/16 [ History] Calcium Carb, Citrate/Vit D3 [Calcium + D3 ER Tablet] 1 tab PO DAILY 10/23/16 [ History] Carvedilol 12.5 mg PO BID 10/23/16 [History] CloNIDine HCl [Kapvay] 0.1 mg PO BID 10/23/16 [History] Diclofenac Sodium [Voltaren] 1 appl TP QID PRN 10/23/16 [History] Diphenoxylate/Atropine [Lomotil 2.5 mg/0.025 mg] 1 tab PO DAILY PRN 10/23/16 [ History] Docusate Sodium [Colace] 100 mg PO BID 10/23/16 [History] Folic Acid 1 mg PO DAILY 10/23/16 [History] Furosemide [Lasix] 40 mg PO DAILY 10/23/16 [History] Gabapentin [Neurontin] 600 mg PO BID 10/23/16 [History] Hydrocortisone Rectal CRM [Proctosol-Hc] 1 appl RC TID PRN 10/23/16 [History] Ipratropium/Albuterol Neb [Duoneb] 3 ml IH Q4HR PRN 10/23/16 [History] Lisinopril [Zestril] 20 mg PO DAILY 10/23/16 [History] Lubiprostone [Amitiza] 8 mcg PO DAILY PRN 10/23/16 [History] Mometasone Furoate [Nasonex] 50 mcg NS DAILY 10/23/16 [History] Ondansetron HCl [Zofran] 4 mg PO BID PRN 10/23/16 [History] Oxygen 2 l .ROUTE AD 10/23/16 [History] Polyethylene Glycol 3350 [MiraLAX Powder Bulk 17.9 Oz] 17 gm PO DAILY PRN [History] Potassium Chloride [K-Tab ER] 20 meq PO QAM 10/23/16 [History] Potassium Chloride [Klor-Con 10] 30 meq PO QPM 10/23/16 [History] PredniSONE [Prednisone] 10 mg PO DAILY 10/23/16 [History] Ranitidine HCl [Acid Truck Shop Mechanic] 150 mg PO DAILY 10/23/16 [History] Ropinirole [Requip] 2 mg PO HS 10/23/16 [History] Theophylline Anhydrous [Andrea-24] 400 mg PO DAILY 10/23/16 [History] Tizanidine HCl [Zanaflex] 2 mg PO TID PRN 10/23/16 [History] Topiramate [Topamax] 50 mg PO BID 10/23/16 [History] Warfarin [Coumadin] 6 mg PO SUTUTHSA 10/23/16 [History] Warfarin [Coumadin] 7 mg PO MOWEFR 10/23/16 [History] Oxycodone HCl/Acetaminophen [Percocet 10-325 mg Tablet] 1 tab PO TID PRN #30 tablet 10/24/16 [Rx] Allergies/Adverse Reactions: Allergies amlodipine [From [facility]] Allergy (Verified 10/22/16 23:34) See Comments - Respiratory Orders Oxygen / L per min (2) Smoking Cessation: Smoking cessation has been advised. For more information, call the [employer] Quit Line at 1-131-KXYZ-NOW. - Mobility Orders Ambulate - Rehabiliation Orders Rehab Potential: Fair Rehab Orders: Evaluation for Physical Therapy, Evaluation for Occupational Therapy - Diet Orders Regular CERTIFICATION: I certify that the transfer of the above named patient to an Extended Care Facility is necessary for the continuing treatment of the diagnosis listed. The above information is true and accurate reflection of patient's current condition. Confidential - Redisclosure prohibited without a patient's written consent.
[2016-10-24] MEDS: *HR* Warfarin 5 MG TABLET PO SCH (18:17)
[2016-10-24] MEDS: rOPINIRole 1 MG TABLET PO SCH (18:17)
[2016-10-25 06:54] LABS: Basophils % 0.4 %; Eosinophils # 0.1 K/mcL (0.0-0.6); Eosinophils % 1.8 %; Hematocrit 35.1 % (35.3-44.9); Hemoglobin 10.8 g/dL (11.5-15.4); Immature Granulocytes % 0.2 % (0-4); Lymphocytes % 43.2 %; Mean Corpuscular HGB Conc 30.8 g/dL (31.6-35.5); Mean Corpuscular Hemoglobin 32.3 pg (28.0-33.3); Mean Corpuscular Volume 105.1 fL (83.0-100.0); Mean Platelet Volume 10.1 fL (9.4-12.4); Monocytes # 0.7 K/mcL (0.0-1.3); Monocytes % 14.7 %; Neutrophils # 1.8 K/mcL (1.6-8.9); Platelet Count 299 K/mcL (140-400); Red Blood Count 3.34 M/mcL (3.82-4.97); Segmented Neutrophils % 39.7 %
[2016-10-25 06:56] LABS: INR 2.1; Prothrombin Time 23.3 Seconds (9.4-12.1)
[2016-10-25 07:05] LABS: BUN/Creatinine Ratio 18 (6-26); Blood Urea Nitrogen 15 mg/dL (7-20); Calcium 8.5 mg/dL (8.6-10.8); Carbon Dioxide 29 mEq/L (19-29); Chloride 107 mEq/L (98-109); Glucose 80 mg/dL (70-99); Osmolality,Calculated 294 (280-300); Potassium 3.8 mEq/L (3.5-4.5); Sodium 142 mEq/L (136-145); eGFR For African Americans > 60 (> 60); eGFR For Non-African Americans > 60 (> 60)
[2016-10-25 07:58] VITALS: BP 164/86
[2016-10-25] MEDS: Gabapentin 300 MG CAPSULE PO SCH (08:58)
[2016-10-25] MEDS: Furosemide 20 MG TABLET PO SCH (08:59)
[2016-10-25] MEDS: *HR* OxyCODONE/APAP 10/325 TABLET PO PRN (08:59)
[2016-10-25] MEDS: cloNIDine HCl 0.1 MG TABLET PO SCH (08:59)
[2016-10-25] MEDS: predniSONE 10 MG TABLET PO SCH (09:00)
[2016-10-25] MEDS: Famotidine 20 MG TABLET PO SCH (09:00)
[2016-10-25] MEDS: Topiramate 25 MG TABLET PO SCH (09:00)
--- NOTE | 2016-10-25 10:43 | Event Note ---
Date of Encounter: 10/25/16 Time of Encounter: 09:15 Patient seen and examined. On examination, patient sitting upright in bed watching television. Patient denies pain at this time and states she ate all of her breakfast. In review of her chart over the course of her 2 day admission , her lower extremity edema has lessened according to the patient. OT and PT recommended ECF which the patient refused. Patient will be taken back home to [place] per family and will see her primary care provider on 11/01/16 at which time primary care provider will send a nurse out to her home to recommend first individual needs for home health. Patient was alert and oriented 3 on day of discharge and again refused to go to a retirement. I did review her OARRS report which was negative in [place], [place], and [place]. We will send her with one weeks supply of pain medication and have her follow-up with her primary care provider as scheduled. Coumadin therapeutic on day of discharge with INR of 2.1.
--- NOTE | 2016-10-25 10:44 | Physician Discharge Referral ---
Home Health/Hosp Referral Info Transfer to: Home Health Attending Provider: Kim Stiles CNP Provider in Charge Post Discharge: PCP - Diagnosis (1) Leg pain Priority: Primary Status: Acute (2) Leg swelling Priority: Primary Status: Acute (3) Obesity Priority: Secondary Status: Chronic (4) Pedal edema Priority: Primary Status: Acute (5) COPD (chronic obstructive pulmonary disease) Priority: Secondary Status: Chronic (6) Chronic deep vein thrombosis (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 Priority: Secondary Status: Chronic (7) HTN (hypertension) Priority: Secondary Status: Chronic (8) History of DVT (deep vein thrombosis) Priority: Secondary Status: Chronic (9) Hx of pulmonary embolus Priority: Secondary Status: Chronic - Respiratory Orders Oxygen / L per min (2) Smoking Cessation: Smoking cessation has been advised. For more information, call the [employer]uit Line at 2-298-EOYI-NOW. - Diet/Nutrition Diet/Nutrition Orders: No Added Salt (TREVER) - Activity Activity Orders: Ambulate (per PT) - Services Needed Following services are medically necessary services: Nursing, Home Health Aide, Physical Therapy, Occupational Therapy - Transfer Medications Prescriptions: Oxycodone HCl/Acetaminophen [Percocet 10-325 mg Tablet] 1 tab PO TID PRN #30 tablet PRN Reason: Pain Home Medications: Albuterol Sulfate [Ventolin Hfa] 2 puff IH Q6HR PRN 10/23/16 [History] Alendronate Sodium [Fosamax] 70 mg PO QWEEK 10/23/16 [History] Budesonide [Pulmicort] 2 ml IH BID 10/23/16 [History] Budesonide/Formoterol 160/4.5 [Symbicort 160/4.5] 2 puff IH BID 10/23/16 [ History] Calcium Carb, Citrate/Vit D3 [Calcium + D3 ER Tablet] 1 tab PO DAILY 10/23/16 [ History] Carvedilol 12.5 mg PO BID 10/23/16 [History] CloNIDine HCl [Kapvay] 0.1 mg PO BID 10/23/16 [History] Diclofenac Sodium [Voltaren] 1 appl TP QID PRN 10/23/16 [History] Diphenoxylate/Atropine [Lomotil 2.5 mg/0.025 mg] 1 tab PO DAILY PRN 10/23/16 [ History] Docusate Sodium [Colace] 100 mg PO BID 10/23/16 [History] Folic Acid 1 mg PO DAILY 10/23/16 [History] Furosemide [Lasix] 40 mg PO DAILY 10/23/16 [History] Gabapentin [Neurontin] 600 mg PO BID 10/23/16 [History] Hydrocortisone Rectal CRM [Proctosol-Hc] 1 appl RC TID PRN 10/23/16 [History] Ipratropium/Albuterol Neb [Duoneb] 3 ml IH Q4HR PRN 10/23/16 [History] Lisinopril [Zestril] 20 mg PO DAILY 10/23/16 [History] Lubiprostone [Amitiza] 8 mcg PO DAILY PRN 10/23/16 [History] Mometasone Furoate [Nasonex] 50 mcg NS DAILY 10/23/16 [History] Ondansetron HCl [Zofran] 4 mg PO BID PRN 10/23/16 [History] Oxygen 2 l .ROUTE AD 10/23/16 [History] Polyethylene Glycol 3350 [MiraLAX Powder Bulk 17.9 Oz] 17 gm PO DAILY PRN [History] Potassium Chloride [K-Tab ER] 20 meq PO QAM 10/23/16 [History] Potassium Chloride [Klor-Con 10] 30 meq PO QPM 10/23/16 [History] PredniSONE [Prednisone] 10 mg PO DAILY 10/23/16 [History] Ranitidine HCl [Acid Finish Mixer] 150 mg PO DAILY 10/23/16 [History] Ropinirole [Requip] 2 mg PO HS 10/23/16 [History] Theophylline Anhydrous [Andrea-24] 400 mg PO DAILY 10/23/16 [History] Tizanidine HCl [Zanaflex] 2 mg PO TID PRN 10/23/16 [History] Topiramate [Topamax] 50 mg PO BID 10/23/16 [History] Warfarin [Coumadin] 6 mg PO SUTUTHSA 10/23/16 [History] Warfarin [Coumadin] 7 mg PO MOWEFR 10/23/16 [History] Oxycodone HCl/Acetaminophen [Percocet 10-325 mg Tablet] 1 tab PO TID PRN #30 tablet 10/24/16 [Rx] Allergies/Adverse Reactions: Allergies amlodipine [From [facility]] Allergy (Verified 10/22/16 23:34) See Comments Certification: Further, I certify that my clinical findings support that this patient is homebound (i.e. absences from home require considerable and taxing effort and are for medical reasons or mandaeism services or infrequently or short duration when for other reasons) because: Homebound Reason: Leaving home requires considerable and taxing effort due to condition, Severity of cardiac or pulmonary status limits activity tolerance Attestation: My signature below is to certify that this patient is under my care and that I, or nurse practitioner, or a physician's wet process assistant head miller working with me, has a face-to -face encounter with this patient.
[2016-10-25] MEDS: Budesonide/Formoterol 160/4.5 MDI IH SCH (11:33)
--- NOTE | 2016-10-25 17:36 | Venous Imaging Report ---
LE Venous Duplex Patient Name:Zulma Mcclure Order Number:[id number] Procedure Date:10/23/2016 Date:1940ge:76 yrs Gender:Female Location:[facility] Room #: Penciller:Santiago Conroy RDCS Referring MD:DO Pat Castillo MD:Miguel Fernandez MD Primary Indications:Swelling of limb Secondary Indications: Risk Factors Yes/No Anticoagulants Hx of DVT Impressions: Chronic deep venous thrombosis is present in the right common femoral vein. Normal right lower extremity superficial venous exam. Chronic deep venous thrombosis is present in the left common femoral vein. Normal left lower extremity superficial venous exam. Findings Venous Duplex Results: Right: Venous imaging of the lower extremity reveals full patency and normal vessel compressibility of the right superficial femoral, right popliteal, right posterior tibial, right peroneal, right saphenofemoral junction and right great saphenous. Doppler signals in the evaluated veins were normal. There is a chronic thrombus seen in the right common femoral. It demonstrates a partially compressible vein. Flow was phasic and it did not augment. Left: Venous imaging of the lower extremity reveals full patency and normal vessel compressibility of the left superficial femoral, left popliteal, left posterior tibial, left peroneal, left saphenofemoral junction and left great saphenous. Doppler signals in the evaluated veins were normal. There is a chronic thrombus seen in the left common femoral. It demonstrates a partially compressible vein. Flow was phasic and it did not augment. Prior Study: Patient was very uncooperative during study. Technically Challenging Study. Lower Extremity Venous Duplex Side Vein Compress Spontaneous Flow Augment Diameter (cm) Depth (cm) Right Common Femoral Partial yes Phasic no Right Superficial Femoral Normal Yes Phasic Yes Right Popliteal Normal Yes Phasic Yes Right Posterior Tibial Normal Yes Phasic Yes Right Peroneal Normal Yes Phasic Yes Right Saphenofemoral Junction Normal Yes Phasic Yes Right Great Saphenous Normal Yes Phasic Yes Left Common Femoral Partial yes Phasic no Left Superficial Femoral Normal Yes Phasic Yes Left Popliteal Normal Yes Phasic Yes Left Posterior Tibial Normal Yes Phasic Yes Left Peroneal Normal Yes Phasic Yes Left Saphenofemoral Junction Normal Yes Phasic Yes Left Great Saphenous Normal Yes Phasic Yes Updated by Miguel Fernandez MD on 10/25/2016 5:31:00 PM electronically signed on 10/25/2016 5:32:06 PM with status of Final
== END 2016-10-25 11:41 | disposition home health service (06) ==
LOC: EMEROO 23:25 → 3BNU 23:25
PROVIDERS: ADMIT Internal Medicine; ATTEND Nurse Practitioner Family

== ENCOUNTER 2018-05-04 09:51 | Inpatient (IN) ==
[2018-05-04] MEDS ORDERED: Ipratropium/Albuterol Neb 3 ML IH ONE (09:58)
[2018-05-04] MEDS ORDERED: methylPREDNISolone 125 MG/2 ML VIAL IVP ONE (09:58)
--- NOTE | 2018-05-04 10:39 | Emergency Department Note ---
Disposition Clinical Impression: Acute exacerbation of chronic obstructive airways disease Hypercapnic respiratory failure Qualifiers: Chronicity: acute on chronic Qualified Code(s): J96.22 - Acute and chronic respiratory failure with hypercapnia Disposition: Admitted As Inpatient Referrals: NONE,PCP [Primary Care Provider] - Forms: ED Satisfaction Letter Time of Disposition: 13:59 General Adult HPI - General Chief complaint: ED Shortness of Breath/Dyspnea Stated complaint: SOB Time Seen by Provider: 05/04/18 09:54 Source: EMS Limitations: no limitations - History of Present Illness Pain Scale: 0 - Related Data Home Medications Medication Instructions Recorded Confirmed Alendronate Sodium [Fosamax] 70 mg PO QWEEK 10/23/16 05/04/18 Budesonide [Pulmicort] 2 ml IH BID 10/23/16 05/04/18 Budesonide/Formoterol 160/4.5 2 puff IH BID 10/23/16 05/04/18 [Symbicort 160/4.5] Calcium Carb, Citrate/Vit D3 1 tab PO DAILY 10/23/16 05/04/18 [Calcium + D3 ER Tablet] Carvedilol 12.5 mg PO BID 10/23/16 05/04/18 CloNIDine HCl [Kapvay] 0.1 mg PO BID 10/23/16 05/04/18 Diclofenac Sodium [Voltaren] 1 appl TP QID PRN 10/23/16 05/04/18 Diphenoxylate/Atropine [Lomotil 1 tab PO DAILY PRN 10/23/16 05/04/18 2.5 mg/0.025 mg] Docusate Sodium [Colace] 100 mg PO BID 10/23/16 05/04/18 Folic Acid 1 mg PO DAILY 10/23/16 05/04/18 Furosemide [Lasix] 40 mg PO DAILY 10/23/16 05/04/18 Gabapentin [Neurontin] 600 mg PO BID 10/23/16 05/04/18 Hydrocortisone Rectal CRM 1 appl RC TID PRN 10/23/16 05/04/18 [Proctosol-Hc] Ipratropium/Albuterol Neb [Duoneb] 3 ml IH Q4HR PRN 10/23/16 05/04/18 Mometasone Furoate [Nasonex] 50 mcg NS DAILY 10/23/16 05/04/18 Ondansetron HCl [Zofran] 4 mg PO BID PRN 10/23/16 05/04/18 Oxygen 2 l .ROUTE AD 10/23/16 05/04/18 Potassium Chloride [K-Tab ER] 20 meq PO BID 10/23/16 05/04/18 Ranitidine HCl [Acid Signs Cleaner] 150 mg PO DAILY 10/23/16 05/04/18 Tizanidine HCl [Zanaflex] 2 mg PO TID PRN 10/23/16 05/04/18 Topiramate [Topamax] 50 mg PO BID 10/23/16 05/04/18 Warfarin [Coumadin] 7 mg PO DAILY 10/23/16 05/04/18 predniSONE [Prednisone] 10 mg PO DAILY 10/23/16 05/04/18 rOPINIRole [Requip] 2 mg PO HS 10/23/16 05/04/18 Celecoxib [Celebrex] 200 mg PO DAILY 05/04/18 05/04/18 Cyanocobalamin (Vitamin B-12) 1,000 mcg PO DAILY 05/04/18 05/04/18 [Vitamin B-12] Ipratropium/Albuterol Sulfate 1 puff IH Q4-6H PRN 05/04/18 05/04/18 [Combivent Respimat Inhal [place]] Methotrexate [Otrexup] 15 mg PO QWEEK 05/04/18 05/04/18 Sulfasalazine [Azulfidine] 1,000 mg PO BID 05/04/18 05/04/18 Theophylline Anhydrous [Andrea-24] 300 mg PO DAILY 05/04/18 05/04/18 Allergies Allergy/AdvReac Type Severity Reaction Status Date / Time amlodipine [From [facility]] Allergy See Verified 05/04/18 10:23 Comments Past Medical History - Past Medical History Medical history: Reports: arthritis, asthma, COPD, DVT, GERD, hypertension, migraine, pulmonary embolus Psychiatric history: Reports: no psych history - Social History Smoking Status: Former smoker Smokeless Tobacco Status: No Alcohol use: Reports: none Drug use: Reports: none Physical Exam - General Limitations: no limitations General appearance: alert, in no apparent distress Course Vital Signs Temperature 98.1 F 05/04/18 09:56 Pulse Rate 88 05/04/18 09:56 Respiratory Rate 20 05/04/18 09:56 Blood Pressure 162/94 05/04/18 09:56 O2 Sat by Pulse Oximetry 95 05/04/18 09:56 Temperature 98.1 F 05/04/18 09:56 Pulse Rate 83 05/04/18 13:23 Respiratory Rate 20 05/04/18 13:23 Blood Pressure 121/85 05/04/18 13:23 O2 Sat by Pulse Oximetry 99 05/04/18 13:23 Oxygen Delivery Oxygen Delivery Bipap Medical Decision Making - Lab Data Result diagrams: 05/04/18 12:21 05/04/18 12:21 Lab Results 05/04/18 05/04/18 05/04/18 Range/Units 10:41 10:58 12:21 WBC 4.3 (4.3-11.1) K/mcL RBC 3.98 (3.82-4.97) M/mcL Hgb 13.0 (11.5-15.4) g/dL Hct 42.9 (35.3-44.9) % MCV 107.8 H (83.0-100.0) fL MCH 32.7 (28.0-33.3) pg MCHC 30.3 L (31.6-35.5) g/dL RDW 14.0 (11.5-14.5) % Plt Count 173 (140-400) K/mcL MPV 9.9 (9.4-12.4) fL Immature Gran % 0.5 (0-4) % Seg Neutrophils % 44.2 % Lymphocytes % 38.6 % Monocytes % 12.1 % Eosinophils % 4.4 % Basophils % 0.2 % Neutrophils # 1.9 (1.6-8.9) K/mcL Lymphocytes # 1.7 (0.6-4.6) K/mcL Monocytes # 0.5 (0.0-1.3) K/mcL Eosinophils # 0.2 (0.0-0.6) K/mcL Basophils # 0.0 (0.0-0.2) K/mcL ABG pH 7.16 L* (7.32-7.45) pH Units ABG pCO2 121 H* (35-45) mmHg ABG pO2 75 L (85-104) mmHg ABG HCO3 43 H (21-27) mEq/L ABG Total CO2 46 H (20-26) mEq/L ABG O2 Saturation 88 L (95-98) % ABG Base Excess 8 H (-2 to 3) mEq/L O2 Delivery Device Oxy Mask Inspired O2 8.0 (1-15=lpm qg74-280=%) PEEP cm H2O Pressure Support cm H2O Sodium (136-145) mEq/L Potassium (3.5-5.1) mEq/L Chloride (98-107) mEq/L Carbon Dioxide (23-29) mEq/L BUN (8-23) mg/dL Creatinine (0.60-1.20) mg/dL Est GFR ( Amer) (> 60) Est GFR (Non-Af Amer) (> 60) BUN/Creatinine Ratio (6-26) Glucose (70-105) mg/dL Calculated Osmolality (280-300) Calcium (8.6-10.3) mg/dL Troponin I (< 0.04) ng/mL Urine Color Yellow (Yellow) Urine Clarity Clear (Clear) Urine pH 6.5 (5.0-8.0) pH Units Ur Specific [place] 1.007 L (1.010-1.025) Urine Protein Negative (Neg-Trace) mg/dL Urine Glucose (UA) Normal (Normal) mg/dL Urine Ketones Negative (Negative) mg/dL Urine Blood Negative (Negative) Urine Nitrite Negative (Negative) Urine Bilirubin Negative (Negative) Urine Urobilinogen Normal (Normal) mg/dL Ur Leukocyte Esterase Negative (Negative) Ur Culture Indicated? NO (NO) 05/04/18 05/04/18 Range/Units 12:21 12:54 WBC (4.3-11.1) K/mcL RBC (3.82-4.97) M/mcL Hgb (11.5-15.4) g/dL Hct (35.3-44.9) % MCV (83.0-100.0) fL MCH (28.0-33.3) pg MCHC (31.6-35.5) g/dL RDW (11.5-14.5) % Plt Count (140-400) K/mcL MPV (9.4-12.4) fL Immature Gran % (0-4) % Seg Neutrophils % % Lymphocytes % % Monocytes % % Eosinophils % % Basophils % % Neutrophils # (1.6-8.9) K/mcL Lymphocytes # (0.6-4.6) K/mcL Monocytes # (0.0-1.3) K/mcL Eosinophils # (0.0-0.6) K/mcL Basophils # (0.0-0.2) K/mcL ABG pH 7.30 L D (7.32-7.45) pH Units ABG pCO2 78 H* D (35-45) mmHg ABG pO2 105 H (85-104) mmHg ABG HCO3 39 H (21-27) mEq/L ABG Total CO2 41 H (20-26) mEq/L ABG O2 Saturation 97 (95-98) % ABG Base Excess 9 H (-2 to 3) mEq/L O2 Delivery Device BiPAP Inspired O2 35.0 (1-15=lpm tf00-833=%) PEEP 14 cm H2O Pressure Support 8 cm H2O Sodium 137 (136-145) mEq/L Potassium 4.0 (3.5-5.1) mEq/L Chloride 98 (98-107) mEq/L Carbon Dioxide 35 H (23-29) mEq/L BUN 13 (8-23) mg/dL Creatinine 0.89 (0.60-1.20) mg/dL Est GFR ( Amer) > 60 (> 60) Est GFR (Non-Af Amer) > 60 (> 60) BUN/Creatinine Ratio 15 (6-26) Glucose 124 H (70-105) mg/dL Calculated Osmolality 286 (280-300) Calcium 9.3 (8.6-10.3) mg/dL Troponin I < 0.03 (< 0.04) ng/mL Urine Color (Yellow) Urine Clarity (Clear) Urine pH (5.0-8.0) pH Units Ur Specific [place] (1.010-1.025) Urine Protein (Neg-Trace) mg/dL Urine Glucose (UA) (Normal) mg/dL Urine Ketones (Negative) mg/dL Urine Blood (Negative) Urine Nitrite (Negative) Urine Bilirubin (Negative) Urine Urobilinogen (Normal) mg/dL Ur Leukocyte Esterase (Negative) Ur Culture Indicated? (NO) Critical Care Time Critical Care Time: Yes Total Critical Care Time: 40 Attestation: Critical care performed: Time is exclusive of separately billable procedures. Time includes: direct patient care, patient reassessment, coordination of patient care, interpretation of data (laboratory data, radiology data, and respiratory data), review of patient's medical records, medical consultation and documentation of patient care. Procedures included in critical care time: Procedures excluded from critical care time: Attestation Statement - Attestation Attestation: I examined this patient and my medical decision-making was reviewed with the Resident Physician. I agree with the documented findings, disposition and treatment plan as described except to the extent set forth below. Patient to the ED with altered mental status shortness of breath. Daughter states she was hypoxic in the 60s at home. History of COPD. Daughter states she is acting as she normally does when she is hypercapnic. On examination she is awake alert. Pleasantly confused. Lungs diminished with expiratory wheezing. Plan. steroids. ABG on BiPAP. Cardiac workup and admission. Patient with a CO2 of 120 and a pH of 7.1. Starting BiPAP. Patient improved after an hour on BiPAP. Improvement in her pH and CO2. Admitted to medicine. Chest X-Ray 05/04/18 09:58 IMPRESSION: Cardiomegaly with pulmonary vascular congestion D/ / Abdiel Regalado MD / Abdiel Regalado MD Interpreting Provider: Abdiel Regalado MD
--- NOTE | 2018-05-04 10:41 | Emergency Department Note ---
Disposition Clinical Impression: Acute exacerbation of chronic obstructive airways disease Hypercapnic respiratory failure Qualifiers: Chronicity: acute on chronic Qualified Code(s): J96.22 - Acute and chronic respiratory failure with hypercapnia Disposition: Admitted As Inpatient General Adult HPI - General Chief complaint: ED Shortness of Breath/Dyspnea Stated complaint: SOB Time Seen by Provider: 05/04/18 09:54 Source: patient, family, EMS Mode of arrival: EMS Limitations: no limitations Nursing Notes Reviewed: Yes Vital Signs Reviewed: Yes - History of Present Illness HPI Narrative: Patient is a 77-year-old female with a past medical history of DVT/PE is, COPD on 2 L and CPAP at home, presents to the emergency department for concerns for altered mental status as well as dyspnea. According to the patient's daughter states that initially the patient began having shortness of breath and her oxygen saturation was falling to the 70s on 2 L at home. She states that the patient is also been acting confused which she is normal at baseline and states that the last time this happened was a couple months ago when she was found to be retaining CO2. Pain Scale: 0 - Related Data Home Medications Medication Instructions Recorded Confirmed Alendronate Sodium [Fosamax] 70 mg PO QWEEK 10/23/16 05/04/18 Budesonide [Pulmicort] 2 ml IH BID 10/23/16 05/04/18 Budesonide/Formoterol 160/4.5 2 puff IH BID 10/23/16 05/04/18 [Symbicort 160/4.5] Calcium Carb, Citrate/Vit D3 1 tab PO DAILY 10/23/16 05/04/18 [Calcium + D3 ER Tablet] Carvedilol 12.5 mg PO BID 10/23/16 05/04/18 CloNIDine HCl [Kapvay] 0.1 mg PO BID 10/23/16 05/04/18 Diclofenac Sodium [Voltaren] 1 appl TP QID PRN 10/23/16 05/04/18 Diphenoxylate/Atropine [Lomotil 1 tab PO DAILY PRN 10/23/16 05/04/18 2.5 mg/0.025 mg] Docusate Sodium [Colace] 100 mg PO BID 10/23/16 05/04/18 Folic Acid 1 mg PO DAILY 10/23/16 05/04/18 Furosemide [Lasix] 40 mg PO DAILY 10/23/16 05/04/18 Gabapentin [Neurontin] 600 mg PO BID 10/23/16 05/04/18 Hydrocortisone Rectal CRM 1 appl RC TID PRN 10/23/16 05/04/18 [Proctosol-Hc] Ipratropium/Albuterol Neb [Duoneb] 3 ml IH Q4HR PRN 10/23/16 05/04/18 Mometasone Furoate [Nasonex] 50 mcg NS DAILY 10/23/16 05/04/18 Ondansetron HCl [Zofran] 4 mg PO BID PRN 10/23/16 05/04/18 Oxygen 2 l .ROUTE AD 10/23/16 05/04/18 Potassium Chloride [K-Tab ER] 20 meq PO BID 10/23/16 05/04/18 Ranitidine HCl [Acid Chief Operator Hydroformer] 150 mg PO DAILY 10/23/16 05/04/18 Tizanidine HCl [Zanaflex] 2 mg PO TID PRN 10/23/16 05/04/18 Topiramate [Topamax] 50 mg PO BID 10/23/16 05/04/18 Warfarin [Coumadin] 7 mg PO DAILY 10/23/16 05/04/18 predniSONE [Prednisone] 10 mg PO DAILY 10/23/16 05/04/18 rOPINIRole [Requip] 2 mg PO HS 10/23/16 05/04/18 Celecoxib [Celebrex] 200 mg PO DAILY 05/04/18 05/04/18 Cyanocobalamin (Vitamin B-12) 1,000 mcg PO DAILY 05/04/18 05/04/18 [Vitamin B-12] Ipratropium/Albuterol Sulfate 1 puff IH Q4-6H PRN 05/04/18 05/04/18 [Combivent Respimat Inhal [place]] Methotrexate [Otrexup] 15 mg PO QWEEK 05/04/18 05/04/18 Sulfasalazine [Azulfidine] 1,000 mg PO BID 05/04/18 05/04/18 Theophylline Anhydrous [Andrea-24] 300 mg PO DAILY 05/04/18 05/04/18 Allergies Allergy/AdvReac Type Severity Reaction Status Date / Time amlodipine [From [facility]] Allergy See Verified 05/04/18 10:23 Comments Past Medical History - Past Medical History Medical history: Reports: arthritis, asthma, COPD, DVT, GERD, hypertension, migraine, pulmonary embolus Psychiatric history: Reports: no psych history - Social History Smoking Status: Former smoker Smokeless Tobacco Status: No Alcohol use: Reports: none Drug use: Reports: none Physical Exam - General Limitations: no limitations General appearance: alert, in no apparent distress Course - Reevaluation(s) Reevaluation #1: Bipap ordered. Time: 10:38 Vital Signs Temperature 98.1 F 05/04/18 09:56 Pulse Rate 88 05/04/18 09:56 Respiratory Rate 20 05/04/18 09:56 Blood Pressure 162/94 05/04/18 09:56 O2 Sat by Pulse Oximetry 95 05/04/18 09:56 Temperature 98.9 F 05/04/18 19:16 Pulse Rate 87 05/04/18 19:16 Respiratory Rate 18 05/04/18 19:16 Blood Pressure 152/73 05/04/18 19:16 O2 Sat by Pulse Oximetry 93 05/04/18 19:16 Oxygen Delivery Oxygen Delivery Bipap Medical Decision Making - Medical Records Medical records reviewed: Yes I reviewed the patient's medical records. - Lab Data Lab results reviewed: Yes I reviewed the patient's lab results. Result diagrams: 05/04/18 12:21 05/04/18 12:21 Lab Results 05/04/18 05/04/18 05/04/18 Range/Units 10:41 10:58 12:21 WBC 4.3 (4.3-11.1) K/mcL RBC 3.98 (3.82-4.97) M/mcL Hgb 13.0 (11.5-15.4) g/dL Hct 42.9 (35.3-44.9) % MCV 107.8 H (83.0-100.0) fL MCH 32.7 (28.0-33.3) pg MCHC 30.3 L (31.6-35.5) g/dL RDW 14.0 (11.5-14.5) % Plt Count 173 (140-400) K/mcL MPV 9.9 (9.4-12.4) fL Immature Gran % 0.5 (0-4) % Seg Neutrophils % 44.2 % Lymphocytes % 38.6 % Monocytes % 12.1 % Eosinophils % 4.4 % Basophils % 0.2 % Neutrophils # 1.9 (1.6-8.9) K/mcL Lymphocytes # 1.7 (0.6-4.6) K/mcL Monocytes # 0.5 (0.0-1.3) K/mcL Eosinophils # 0.2 (0.0-0.6) K/mcL Basophils # 0.0 (0.0-0.2) K/mcL PT (9.4-12.1) Seconds INR ABG pH 7.16 L* (7.32-7.45) pH Units ABG pCO2 121 H* (35-45) mmHg ABG pO2 75 L (85-104) mmHg ABG HCO3 43 H (21-27) mEq/L ABG Total CO2 46 H (20-26) mEq/L ABG O2 Saturation 88 L (95-98) % ABG Base Excess 8 H (-2 to 3) mEq/L O2 Delivery Device Oxy Mask Inspired O2 8.0 (1-15=lpm ic50-476=%) PEEP cm H2O Pressure Support cm H2O Sodium (136-145) mEq/L Potassium (3.5-5.1) mEq/L Chloride (98-107) mEq/L Carbon Dioxide (23-29) mEq/L BUN (8-23) mg/dL Creatinine (0.60-1.20) mg/dL Est GFR ( Amer) (> 60) Est GFR (Non-Af Amer) (> 60) BUN/Creatinine Ratio (6-26) Glucose (70-105) mg/dL Calculated Osmolality (280-300) Calcium (8.6-10.3) mg/dL Troponin I (< 0.04) ng/mL B-Natriuretic Peptide (Less than 100) pg/mL Urine Color Yellow (Yellow) Urine Clarity Clear (Clear) Urine pH 6.5 (5.0-8.0) pH Units Ur Specific [place] 1.007 L (1.010-1.025) Urine Protein Negative (Neg-Trace) mg/dL Urine Glucose (UA) Normal (Normal) mg/dL Urine Ketones Negative (Negative) mg/dL Urine Blood Negative (Negative) Urine Nitrite Negative (Negative) Urine Bilirubin Negative (Negative) Urine Urobilinogen Normal (Normal) mg/dL Ur Leukocyte Esterase Negative (Negative) Ur Culture Indicated? NO (NO) 05/04/18 05/04/18 05/04/18 Range/Units 12:21 12:21 12:54 WBC (4.3-11.1) K/mcL RBC (3.82-4.97) M/mcL Hgb (11.5-15.4) g/dL Hct (35.3-44.9) % MCV (83.0-100.0) fL MCH (28.0-33.3) pg MCHC (31.6-35.5) g/dL RDW (11.5-14.5) % Plt Count (140-400) K/mcL MPV (9.4-12.4) fL Immature Gran % (0-4) % Seg Neutrophils % % Lymphocytes % % Monocytes % % Eosinophils % % Basophils % % Neutrophils # (1.6-8.9) K/mcL Lymphocytes # (0.6-4.6) K/mcL Monocytes # (0.0-1.3) K/mcL Eosinophils # (0.0-0.6) K/mcL Basophils # (0.0-0.2) K/mcL PT (9.4-12.1) Seconds INR ABG pH 7.30 L D (7.32-7.45) pH Units ABG pCO2 78 H* D (35-45) mmHg ABG pO2 105 H (85-104) mmHg ABG HCO3 39 H (21-27) mEq/L ABG Total CO2 41 H (20-26) mEq/L ABG O2 Saturation 97 (95-98) % ABG Base Excess 9 H (-2 to 3) mEq/L O2 Delivery Device BiPAP Inspired O2 35.0 (1-15=lpm pg42-212=%) PEEP 14 cm H2O Pressure Support 8 cm H2O Sodium 137 (136-145) mEq/L Potassium 4.0 (3.5-5.1) mEq/L Chloride 98 (98-107) mEq/L Carbon Dioxide 35 H (23-29) mEq/L BUN 13 (8-23) mg/dL Creatinine 0.89 (0.60-1.20) mg/dL Est GFR ( Amer) > 60 (> 60) Est GFR (Non-Af Amer) > 60 (> 60) BUN/Creatinine Ratio 15 (6-26) Glucose 124 H (70-105) mg/dL Calculated Osmolality 286 (280-300) Calcium 9.3 (8.6-10.3) mg/dL Troponin I < 0.03 (< 0.04) ng/mL B-Natriuretic Peptide 101 H (Less than 100) pg/mL Urine Color (Yellow) Urine Clarity (Clear) Urine pH (5.0-8.0) pH Units Ur Specific [place] (1.010-1.025) Urine Protein (Neg-Trace) mg/dL Urine Glucose (UA) (Normal) mg/dL Urine Ketones (Negative) mg/dL Urine Blood (Negative) Urine Nitrite (Negative) Urine Bilirubin (Negative) Urine Urobilinogen (Normal) mg/dL Ur Leukocyte Esterase (Negative) Ur Culture Indicated? (NO) 05/04/18 Range/Units 14:34 WBC (4.3-11.1) K/mcL RBC (3.82-4.97) M/mcL Hgb (11.5-15.4) g/dL Hct (35.3-44.9) % MCV (83.0-100.0) fL MCH (28.0-33.3) pg MCHC (31.6-35.5) g/dL RDW (11.5-14.5) % Plt Count (140-400) K/mcL MPV (9.4-12.4) fL Immature Gran % (0-4) % Seg Neutrophils % % Lymphocytes % % Monocytes % % Eosinophils % % Basophils % % Neutrophils # (1.6-8.9) K/mcL Lymphocytes # (0.6-4.6) K/mcL Monocytes # (0.0-1.3) K/mcL Eosinophils # (0.0-0.6) K/mcL Basophils # (0.0-0.2) K/mcL PT 17.4 H (9.4-12.1) Seconds INR 1.5 ABG pH (7.32-7.45) pH Units ABG pCO2 (35-45) mmHg ABG pO2 (85-104) mmHg ABG HCO3 (21-27) mEq/L ABG Total CO2 (20-26) mEq/L ABG O2 Saturation (95-98) % ABG Base Excess (-2 to 3) mEq/L O2 Delivery Device Inspired O2 (1-15=lpm ol43-660=%) PEEP cm H2O Pressure Support cm H2O Sodium (136-145) mEq/L Potassium (3.5-5.1) mEq/L Chloride (98-107) mEq/L Carbon Dioxide (23-29) mEq/L BUN (8-23) mg/dL Creatinine (0.60-1.20) mg/dL Est GFR ( Amer) (> 60) Est GFR (Non-Af Amer) (> 60) BUN/Creatinine Ratio (6-26) Glucose (70-105) mg/dL Calculated Osmolality (280-300) Calcium (8.6-10.3) mg/dL Troponin I (< 0.04) ng/mL B-Natriuretic Peptide (Less than 100) pg/mL Urine Color (Yellow) Urine Clarity (Clear) Urine pH (5.0-8.0) pH Units Ur Specific [place] (1.010-1.025) Urine Protein (Neg-Trace) mg/dL Urine Glucose (UA) (Normal) mg/dL Urine Ketones (Negative) mg/dL Urine Blood (Negative) Urine Nitrite (Negative) Urine Bilirubin (Negative) Urine Urobilinogen (Normal) mg/dL Ur Leukocyte Esterase (Negative) Ur Culture Indicated? (NO) - Radiology Data Radiology results reviewed: Yes I reviewed the patient's radiology results. Chest X-Ray 05/04/18 09:58 IMPRESSION: Cardiomegaly with pulmonary vascular congestion D/ / Abdiel Regalado MD / Abdiel Regalado MD Interpreting Provider: Abdiel Regalado MD - EKG Data EKG #1 EKG attestation: Yes I reviewed and interpreted this EKG. EKG results narrative: EKG done at 10:00 shows sinus rhythm at rate 87 bpm. Normal axis. Intervals within normal limits. No signs of ST elevation, ST depression or Q waves present in this EKG is unchanged from EKG on October [id number].
[2018-05-04 11:01] LABS: Bilirubin,Urine Negative (Negative); Blood,Urine Negative (Negative); Clarity,Urine Clear (Clear); Color,Urine Yellow (Yellow); Glucose,Urine (UA) Normal (Normal); Ketones,Urine Negative (Negative); Leukocyte Esterase,Urine Negative (Negative); Nitrite,Urine Negative (Negative); PH,Urine 6.5 pH Units (5.0-8.0); Protein,Urine Negative (Neg-Trace); Specific Gravity,Urine 1.007 (1.010-1.025); Urobilinogen,Urine Normal (Normal)
[2018-05-04 11:02] LABS: ABG Base Excess 8 mEq/L (-2 to 3); ABG HCO3 43 mEq/L (21-27); ABG Oxygen Saturation 88 % (95-98); ABG PCO2 121 mmHg (35-45); ABG PH 7.16 pH Units (7.32-7.45); ABG PO2 75 mmHg (85-104); ABG TCO2 46 mEq/L (20-26)
--- NOTE | 2018-05-04 11:34 | Emergency Department Note ---
Disposition Clinical Impression: Acute exacerbation of chronic obstructive airways disease Hypercapnic respiratory failure Qualifiers: Chronicity: acute on chronic Qualified Code(s): J96.22 - Acute and chronic respiratory failure with hypercapnia Disposition: Admitted As Inpatient SOB HPI - General Chief Complaint: ED Shortness of Breath/Dyspnea Stated Complaint: SOB Time Seen by Provider: 05/04/18 09:54 Source: EMS Mode of arrival: EMS Limitations: no limitations Nursing Notes Reviewed: Yes Vital Signs Reviewed: Yes - History of Present Illness Zulma Mcclure is a 77-yo female patient with PMHx of HTN, COPD with recent exacerbation (hospitalized "a couple months ago," according to family), and spontaneous DVT and PE, who quit smoking 13 years ago. She is complaining of gradual onset, severe shortness of breath for the past day. Her symptoms are worse with exertion, and are accompanied by a cough productive of clear/yellow sputum, as well as generalized weakness, fatigue, and tremors/flailing that are similar to her last exacerbation according to family, when she was retaining CO2. Family also states that she has been mildly confused, with short-term memory loss (forgot that she ate breakfast today). She denies any chest pain, palpitations, fever, chills, nausea, vomiting, bowel or urinary symptoms, focal weakness, numbness, tingling, calf tenderness, recent trauma or surgery, or immobilization. She lives on her own near family and is usually ambulatory with a walker and on 2L of O2. She has no other complaints at this time. Pt Subjective Complaint: shortness of breath, cough Onset (ago): day(s) (1) Context: occurred during exertion Severity: severe Consistency/Duration: gradually worsening Improves with: oxygen, bronchodilators Worsens with: exertion Known history of: COPD, asthma Associated symptoms: Reports: sputum production Treatment prior to arrival: oxygen, bronchodilator Cough Description: Productive Cough Frequency: Intermittent Sputum production: Yes Sputum Amount: Small Sputum Color: White, Yellow - Related Data Home oxygen amount: 2 liters Home Medications Medication Instructions Recorded Confirmed Alendronate Sodium [Fosamax] 70 mg PO QWEEK 10/23/16 05/04/18 Budesonide [Pulmicort] 2 ml IH BID 10/23/16 05/04/18 Budesonide/Formoterol 160/4.5 2 puff IH BID 10/23/16 05/04/18 [Symbicort 160/4.5] Calcium Carb, Citrate/Vit D3 1 tab PO DAILY 10/23/16 05/04/18 [Calcium + D3 ER Tablet] Carvedilol 12.5 mg PO BID 10/23/16 05/04/18 CloNIDine HCl [Kapvay] 0.1 mg PO BID 10/23/16 05/04/18 Diclofenac Sodium [Voltaren] 1 appl TP QID PRN 10/23/16 05/04/18 Diphenoxylate/Atropine [Lomotil 1 tab PO DAILY PRN 10/23/16 05/04/18 2.5 mg/0.025 mg] Docusate Sodium [Colace] 100 mg PO BID 10/23/16 05/04/18 Folic Acid 1 mg PO DAILY 10/23/16 05/04/18 Furosemide [Lasix] 40 mg PO DAILY 10/23/16 05/04/18 Gabapentin [Neurontin] 600 mg PO BID 10/23/16 05/04/18 Hydrocortisone Rectal CRM 1 appl RC TID PRN 10/23/16 05/04/18 [Proctosol-Hc] Ipratropium/Albuterol Neb [Duoneb] 3 ml IH Q4HR PRN 10/23/16 05/04/18 Mometasone Furoate [Nasonex] 50 mcg NS DAILY 10/23/16 05/04/18 Ondansetron HCl [Zofran] 4 mg PO BID PRN 10/23/16 05/04/18 Oxygen 2 l .ROUTE AD 10/23/16 05/04/18 Potassium Chloride [K-Tab ER] 20 meq PO BID 10/23/16 05/04/18 Ranitidine HCl [Acid Pediatrician/Medical Doctor] 150 mg PO DAILY 10/23/16 05/04/18 Tizanidine HCl [Zanaflex] 2 mg PO TID PRN 10/23/16 05/04/18 Topiramate [Topamax] 50 mg PO BID 10/23/16 05/04/18 Warfarin [Coumadin] 7 mg PO DAILY 10/23/16 05/04/18 predniSONE [Prednisone] 10 mg PO DAILY 10/23/16 05/04/18 rOPINIRole [Requip] 2 mg PO HS 10/23/16 05/04/18 Celecoxib [Celebrex] 200 mg PO DAILY 05/04/18 05/04/18 Cyanocobalamin (Vitamin B-12) 1,000 mcg PO DAILY 05/04/18 05/04/18 [Vitamin B-12] Ipratropium/Albuterol Sulfate 1 puff IH Q4-6H PRN 05/04/18 05/04/18 [Combivent Respimat Inhal [place]] Methotrexate [Otrexup] 15 mg PO QWEEK 05/04/18 05/04/18 Sulfasalazine [Azulfidine] 1,000 mg PO BID 05/04/18 05/04/18 Theophylline Anhydrous [Andrea-24] 300 mg PO DAILY 05/04/18 05/04/18 Allergies Allergy/AdvReac Type Severity Reaction Status Date / Time amlodipine [From [facility]] Allergy See Verified 05/04/18 10:23 Comments Constitutional: Reports: weakness. Denies: fever, chills Cardiovascular: Reports: dyspnea on exertion. Denies: chest pain, palpitations , edema Respiratory: Reports: cough, dyspnea, sputum production. Denies: wheezes, hemoptysis Neurological: Reports: headache, weakness, confusion. Denies: numbness, paresthesias Past Medical History - Past Medical History Medical history: Reports: arthritis, asthma, COPD, DVT, GERD, hypertension, migraine, pulmonary embolus Psychiatric history: Reports: no psych history - Social History Smoking Status: Former smoker Smokeless Tobacco Status: No Alcohol use: Reports: none Drug use: Reports: none Physical Exam On exam, patient is intermittently somnolent and oriented to person and place but not time. She is in mild distress and has some difficulty with respiration. Her heart has RRR and lungs are CTAB but with decreased air movement throughout. Abdomen is soft and nontender, and there is no swelling or tenderness to palpation of the lower extremities except for some "muscle soreness" that is typical for her, and Nuno sign is negative. Neurological exam is normal aside from increased effort with extraocular muscle movement and some weakness upon lifting the upper extremities, although she has good strength with flexion. - General Limitations: no limitations General appearance: alert, in no apparent distress - Head Head exam: atraumatic, normocephalic - Eye Eye exam: Present: normal appearance, PERRL, EOMI - ENT ENT exam: normal exam, normal oropharynx - Respiratory Respiratory exam: Present: respiratory distress, accessory muscle use - Cardiovascular Cardiovascular exam: Present: regular rate, normal rhythm - Abdominal Exam Abdominal exam: Present: soft, Non-Tender - Extremities Exam Extremities exam: Present: normal inspection - Neurological Exam Neurological exam: Present: alert, oriented X3, CN II-XII intact, motor sensory deficit (mild upper extremity weakness) - Psychiatric Psychiatric exam: Present: normal affect, normal mood - Skin Skin exam: Present: warm, dry, intact Course Vital Signs Temperature 98.1 F 05/04/18 09:56 Pulse Rate 88 05/04/18 09:56 Respiratory Rate 20 05/04/18 09:56 Blood Pressure 162/94 05/04/18 09:56 O2 Sat by Pulse Oximetry 95 05/04/18 09:56 Temperature 98.9 F 05/04/18 19:16 Pulse Rate 87 05/04/18 19:16 Respiratory Rate 18 05/04/18 19:16 Blood Pressure 152/73 05/04/18 19:16 O2 Sat by Pulse Oximetry 93 05/04/18 19:16 Oxygen Delivery Oxygen Delivery Bipap Shortness of Breath/Dyspnea - Lab Data Result diagrams: 05/04/18 12:21 05/04/18 12:21 Lab Results 05/04/18 05/04/18 05/04/18 Range/Units 10:41 10:58 12:21 WBC 4.3 (4.3-11.1) K/mcL RBC 3.98 (3.82-4.97) M/mcL Hgb 13.0 (11.5-15.4) g/dL Hct 42.9 (35.3-44.9) % MCV 107.8 H (83.0-100.0) fL MCH 32.7 (28.0-33.3) pg MCHC 30.3 L (31.6-35.5) g/dL RDW 14.0 (11.5-14.5) % Plt Count 173 (140-400) K/mcL MPV 9.9 (9.4-12.4) fL Immature Gran % 0.5 (0-4) % Seg Neutrophils % 44.2 % Lymphocytes % 38.6 % Monocytes % 12.1 % Eosinophils % 4.4 % Basophils % 0.2 % Neutrophils # 1.9 (1.6-8.9) K/mcL Lymphocytes # 1.7 (0.6-4.6) K/mcL Monocytes # 0.5 (0.0-1.3) K/mcL Eosinophils # 0.2 (0.0-0.6) K/mcL Basophils # 0.0 (0.0-0.2) K/mcL PT (9.4-12.1) Seconds INR ABG pH 7.16 L* (7.32-7.45) pH Units ABG pCO2 121 H* (35-45) mmHg ABG pO2 75 L (85-104) mmHg ABG HCO3 43 H (21-27) mEq/L ABG Total CO2 46 H (20-26) mEq/L ABG O2 Saturation 88 L (95-98) % ABG Base Excess 8 H (-2 to 3) mEq/L O2 Delivery Device Oxy Mask Inspired O2 8.0 (1-15=lpm [id number]=%) PEEP cm H2O Pressure Support cm H2O Sodium (136-145) mEq/L Potassium (3.5-5.1) mEq/L Chloride (98-107) mEq/L Carbon Dioxide (23-29) mEq/L BUN (8-23) mg/dL Creatinine (0.60-1.20) mg/dL Est GFR ( Amer) (> 60) Est GFR (Non-Af Amer) (> 60) BUN/Creatinine Ratio (6-26) Glucose (70-105) mg/dL Calculated Osmolality (280-300) Calcium (8.6-10.3) mg/dL Troponin I (< 0.04) ng/mL B-Natriuretic Peptide (Less than 100) pg/mL Urine Color Yellow (Yellow) Urine Clarity Clear (Clear) Urine pH 6.5 (5.0-8.0) pH Units Ur Specific [place] 1.007 L (1.010-1.025) Urine Protein Negative (Neg-Trace) mg/dL Urine Glucose (UA) Normal (Normal) mg/dL Urine Ketones Negative (Negative) mg/dL Urine Blood Negative (Negative) Urine Nitrite Negative (Negative) Urine Bilirubin Negative (Negative) Urine Urobilinogen Normal (Normal) mg/dL Ur Leukocyte Esterase Negative (Negative) Ur Culture Indicated? NO (NO) 05/04/18 05/04/18 05/04/18 Range/Units 12:21 12:21 12:54 WBC (4.3-11.1) K/mcL RBC (3.82-4.97) M/mcL Hgb (11.5-15.4) g/dL Hct (35.3-44.9) % MCV (83.0-100.0) fL MCH (28.0-33.3) pg MCHC (31.6-35.5) g/dL RDW (11.5-14.5) % Plt Count (140-400) K/mcL MPV (9.4-12.4) fL Immature Gran % (0-4) % Seg Neutrophils % % Lymphocytes % % Monocytes % % Eosinophils % % Basophils % % Neutrophils # (1.6-8.9) K/mcL Lymphocytes # (0.6-4.6) K/mcL Monocytes # (0.0-1.3) K/mcL Eosinophils # (0.0-0.6) K/mcL Basophils # (0.0-0.2) K/mcL PT (9.4-12.1) Seconds INR ABG pH 7.30 L D (7.32-7.45) pH Units ABG pCO2 78 H* D (35-45) mmHg ABG pO2 105 H (85-104) mmHg ABG HCO3 39 H (21-27) mEq/L ABG Total CO2 41 H (20-26) mEq/L ABG O2 Saturation 97 (95-98) % ABG Base Excess 9 H (-2 to 3) mEq/L O2 Delivery Device BiPAP Inspired O2 35.0 (1-15=lpm [id number]=%) PEEP 14 cm H2O Pressure Support 8 cm H2O Sodium 137 (136-145) mEq/L Potassium 4.0 (3.5-5.1) mEq/L Chloride 98 (98-107) mEq/L Carbon Dioxide 35 H (23-29) mEq/L BUN 13 (8-23) mg/dL Creatinine 0.89 (0.60-1.20) mg/dL Est GFR ( Amer) > 60 (> 60) Est GFR (Non-Af Amer) > 60 (> 60) BUN/Creatinine Ratio 15 (6-26) Glucose 124 H (70-105) mg/dL Calculated Osmolality 286 (280-300) Calcium 9.3 (8.6-10.3) mg/dL Troponin I < 0.03 (< 0.04) ng/mL B-Natriuretic Peptide 101 H (Less than 100) pg/mL Urine Color (Yellow) Urine Clarity (Clear) Urine pH (5.0-8.0) pH Units Ur Specific [place] (1.010-1.025) Urine Protein (Neg-Trace) mg/dL Urine Glucose (UA) (Normal) mg/dL Urine Ketones (Negative) mg/dL Urine Blood (Negative) Urine Nitrite (Negative) Urine Bilirubin (Negative) Urine Urobilinogen (Normal) mg/dL Ur Leukocyte Esterase (Negative) Ur Culture Indicated? (NO) 05/04/18 Range/Units 14:34 WBC (4.3-11.1) K/mcL RBC (3.82-4.97) M/mcL Hgb (11.5-15.4) g/dL Hct (35.3-44.9) % MCV (83.0-100.0) fL MCH (28.0-33.3) pg MCHC (31.6-35.5) g/dL RDW (11.5-14.5) % Plt Count (140-400) K/mcL MPV (9.4-12.4) fL Immature Gran % (0-4) % Seg Neutrophils % % Lymphocytes % % Monocytes % % Eosinophils % % Basophils % % Neutrophils # (1.6-8.9) K/mcL Lymphocytes # (0.6-4.6) K/mcL Monocytes # (0.0-1.3) K/mcL Eosinophils # (0.0-0.6) K/mcL Basophils # (0.0-0.2) K/mcL PT 17.4 H (9.4-12.1) Seconds INR 1.5 ABG pH (7.32-7.45) pH Units ABG pCO2 (35-45) mmHg ABG pO2 (85-104) mmHg ABG HCO3 (21-27) mEq/L ABG Total CO2 (20-26) mEq/L ABG O2 Saturation (95-98) % ABG Base Excess (-2 to 3) mEq/L O2 Delivery Device Inspired O2 (1-15=lpm [id number]=%) PEEP cm H2O Pressure Support cm H2O Sodium (136-145) mEq/L Potassium (3.5-5.1) mEq/L Chloride (98-107) mEq/L Carbon Dioxide (23-29) mEq/L BUN (8-23) mg/dL Creatinine (0.60-1.20) mg/dL Est GFR ( Amer) (> 60) Est GFR (Non-Af Amer) (> 60) BUN/Creatinine Ratio (6-26) Glucose (70-105) mg/dL Calculated Osmolality (280-300) Calcium (8.6-10.3) mg/dL Troponin I (< 0.04) ng/mL B-Natriuretic Peptide (Less than 100) pg/mL Urine Color (Yellow) Urine Clarity (Clear) Urine pH (5.0-8.0) pH Units Ur Specific [place] (1.010-1.025) Urine Protein (Neg-Trace) mg/dL Urine Glucose (UA) (Normal) mg/dL Urine Ketones (Negative) mg/dL Urine Blood (Negative) Urine Nitrite (Negative) Urine Bilirubin (Negative) Urine Urobilinogen (Normal) mg/dL Ur Leukocyte Esterase (Negative) Ur Culture Indicated? (NO)
[2018-05-04 12:53] LABS: Basophils % 0.2 %; Eosinophils # 0.2 K/mcL (0.0-0.6); Eosinophils % 4.4 %; Hematocrit 42.9 % (35.3-44.9); Immature Granulocytes % 0.5 % (0-4); Lymphocytes # 1.7 K/mcL (0.6-4.6); Lymphocytes % 38.6 %; Mean Corpuscular HGB Conc 30.3 g/dL (31.6-35.5); Mean Corpuscular Hemoglobin 32.7 pg (28.0-33.3); Mean Corpuscular Volume 107.8 fL (83.0-100.0); Mean Platelet Volume 9.9 fL (9.4-12.4); Monocytes # 0.5 K/mcL (0.0-1.3); Monocytes % 12.1 %; Neutrophils # 1.9 K/mcL (1.6-8.9); Platelet Count 173 K/mcL (140-400); Red Blood Count 3.98 M/mcL (3.82-4.97); Segmented Neutrophils % 44.2 %
[2018-05-04 13:01] LABS: ABG Base Excess 9 mEq/L (-2 to 3); ABG HCO3 39 mEq/L (21-27); ABG Oxygen Saturation 97 % (95-98); ABG PCO2 78 mmHg (35-45); ABG PO2 105 mmHg (85-104); ABG TCO2 41 mEq/L (20-26); Blood Gas PEEP 14 cm H2O; Blood Gas Pressure Support 8 cm H2O
[2018-05-04 13:11] LABS: Troponin I < 0.03 ng/mL (< 0.04)
[2018-05-04 13:16] LABS: BUN/Creatinine Ratio 15 (6-26); Blood Urea Nitrogen 13 mg/dL (8-23); Calcium 9.3 mg/dL (8.6-10.3); Carbon Dioxide 35 mEq/L (23-29); Chloride 98 mEq/L (98-107); Glucose 124 mg/dL (70-105); Osmolality,Calculated 286 (280-300); Sodium 137 mEq/L (136-145); eGFR For Non-African Americans > 60 (> 60)
[2018-05-04] MEDS ORDERED: Furosemide 40 MG/4 ML VIAL IVP ONE (13:31)
[2018-05-04] MEDS ORDERED: Albuterol 2.5 MG/3 ML NEBULIZER IH PRN (13:41)
[2018-05-04] MEDS ORDERED: Diphenoxylate/Atropine 1 TAB TABLET PO PRN (13:42)
[2018-05-04] MEDS ORDERED: Hydrocortisone Rectal 2.5% CRM 28 GM TUBE RC PRN (13:42)
[2018-05-04] MEDS ORDERED: NON-FORMULARY MEDICATION 1 EACH EACH (Diclofenac Sodium [Voltaren] 1 APPL) TP PRN (13:42)
[2018-05-04] MEDS ORDERED: Naloxone 0.4 MG/ML INJ IVP PRN (13:48)
--- NOTE | 2018-05-04 13:55 | Internal Med History&Physical ---
Date of Encounter: 05/04/18 Time of Encounter: 14:20 Internal Medicine - H&P: HPI Chief complaint: "Acting funny" Admitted From: Home Plans for Post Hospital Care: Home History of present illness: Ms. Mcclure is a 77 year old female with PMH of Chronic resp failure on home O2 and BIPAP, DVT/PE on anticoagulation, HTN, COPD, Restless leg syndrome She presented to the ER in company of her daughter who lives across from her and brought her in for 'acting not herself, having the shakes" Her daughter reports the patient has just moved to [place] from [place] and had been hospitalized multiple times at [place] for "too much CO2". Therefore when patient started acting funny last night, she though her C02 might be building up again. She reports associated increasing SOB, and difficulty breathing. They deny fever or chills, no recent travels and no sick contacts. She has no chest pain, nausea, vomiting or diarrhea and there is no change in her urinary habits. She reports leg swelling at the baseline, no orthopnea or PND On presentation to the ER, patient found to be acidemic with PH of 7.16, PCO2 121 and PO2 75 on 8L Oxymask.CBC was unremarkable and Chem showed metabolic alkalosis. trop negative. CXR showed pulmonary vascular congestion and cardiomegaly. EKG was NSR with normal axis. UA is negative for any abnormality She was placed on BIPAP with improvement and presented for admission Patient states she has a living will and wants a trial of intubation if need be , but does not want it more than 5 days, daughter at the bedside attests to this , they will bring in a copy Past Med Surg Social Fam HX - Past Medical History Medical history: arthritis, asthma, COPD, DVT, GERD, hypertension, migraine, pulmonary embolus Psychiatric history: no psych history - Past Surgical History Additional surgical history: back stimulator, carpal tunnel surgery - Social History Smoking Status: Former smoker Smokeless Tobacco Status: No Alcohol use: none Drug use: none - Family History Father Adopted: No Family Member Ethnicity: Non- Living Status: Hx Family Cardiac Disorders: Yes Hx Family Respiratory Disorders: Yes Hx Family Cancer: Yes Hx Family GI Disorders: Yes Hx Family Endocrine Disorder: Yes Hx Family Neuromuscular Disorders: No Hx Family Neurologic Disorders: Yes Hx Family HEENT Disorders: No Hx Family Autoimmune Disorders: No Internal Medicine - H&P: Meds Alendronate Sodium [Fosamax] 70 mg PO QWEEK 10/23/16 [History] Budesonide [Pulmicort] 2 ml IH BID 10/23/16 [History] Budesonide/Formoterol 160/4.5 [Symbicort 160/4.5] 2 puff IH BID 10/23/16 [ History] Calcium Carb, Citrate/Vit D3 [Calcium + D3 ER Tablet] 1 tab PO DAILY 10/23/16 [ History] Carvedilol 12.5 mg PO BID 10/23/16 [History] CloNIDine HCl [Kapvay] 0.1 mg PO BID 10/23/16 [History] Diclofenac Sodium [Voltaren] 1 appl TP QID PRN 10/23/16 [History] Diphenoxylate/Atropine [Lomotil 2.5 mg/0.025 mg] 1 tab PO DAILY PRN 10/23/16 [ History] Docusate Sodium [Colace] 100 mg PO BID 10/23/16 [History] Folic Acid 1 mg PO DAILY 10/23/16 [History] Furosemide [Lasix] 40 mg PO DAILY 10/23/16 [History] Gabapentin [Neurontin] 600 mg PO BID 10/23/16 [History] Hydrocortisone Rectal CRM [Proctosol-Hc] 1 appl RC TID PRN 10/23/16 [History] Ipratropium/Albuterol Neb [Duoneb] 3 ml IH Q4HR PRN 10/23/16 [History] Mometasone Furoate [Nasonex] 50 mcg NS DAILY 10/23/16 [History] Ondansetron HCl [Zofran] 4 mg PO BID PRN 10/23/16 [History] Oxygen 2 l .ROUTE AD 10/23/16 [History] Potassium Chloride [K-Tab ER] 20 meq PO BID 10/23/16 [History] Ranitidine HCl [Acid Incising Machine Operator] 150 mg PO DAILY 10/23/16 [History] Tizanidine HCl [Zanaflex] 2 mg PO TID PRN 10/23/16 [History] Topiramate [Topamax] 50 mg PO BID 10/23/16 [History] Warfarin [Coumadin] 7 mg PO DAILY 10/23/16 [History] predniSONE [Prednisone] 10 mg PO DAILY 10/23/16 [History] rOPINIRole [Requip] 2 mg PO HS 10/23/16 [History] Celecoxib [Celebrex] 200 mg PO DAILY 05/04/18 [History] Cyanocobalamin (Vitamin B-12) [Vitamin B-12] 1,000 mcg PO DAILY 05/04/18 [ History] Ipratropium/Albuterol Sulfate [Combivent Respimat Inhal [place]] 1 puff IH Q4-6H PRN 05/04/18 [History] Methotrexate [Otrexup] 15 mg PO QWEEK 05/04/18 [History] Sulfasalazine [Azulfidine] 1,000 mg PO BID 05/04/18 [History] Theophylline Anhydrous [Andrea-24] 300 mg PO DAILY 05/04/18 [History] 3 Allergy/AdvReac Type Severity Reaction Status Date / Time amlodipine [From [facility]] Allergy See Verified 05/04/18 10:23 Comments All Systems PM: A 10-system review of systems was performed and is negative for pertinent findings except as documented above in the HPI. - Constitutional Constitutional: as per HPI - EENT Eyes: as per HPI Ears: as per HPI Nose, mouth and throat: as per HPI - Cardiovascular Cardiovascular ROS IM: as per HPI - Respiratory Respiratory: as per HPI - Gastrointestinal Gastrointestinal: as per HPI - Genitourinary Genitourinary: as per HPI - Musculoskeletal Musculoskeletal ROS IM: as per HPI - Integumentary Integumentary IM: as per HPI - Neurological Neurological ROS: as per HPI - Hematologic/Lymphatic Hematologic/Lymphatic: as per HPI - Constitutional Vitals: Temp Pulse Resp BP Pulse Ox 98.1 F 83 20 121/85 99 05/04/18 09:56 05/04/18 13:23 05/04/18 13:23 05/04/18 13:23 05/04/18 13:23 General appearance: Present: mild distress, A&O X 3, pleasant, obese Exam: see detailed exam below - Head Head exam: Present: atraumatic, normocephalic - Eye Eye exam: Present: PERRL, conjuntiva pink, sclera anicteric Pupils: Present: PERRL - Neck Neck exam general surgery: Present: supple, trachea midline. Absent: lymphadenopathy - Respiratory Respiratory exam: Present: decreased breath sounds, wheezes. Absent: accessory muscle use, rales, rhonchi - Cardiovascular Cardiovascular exam: Present: RRR, +S1, +S2. Absent: diastolic murmur, gallop, rubs, systolic murmur - GI/Abdominal GI/Abdominal exam: Present: normal bowel sounds, soft, no peritoneal signs. Absent: distended, tenderness - Extremities Exam Extremities exam: Present: pedal edema (trace bilateral piting pedal edema), warm, radial pulses palpable and symmetrical. Absent: calf tenderness, cyanotic - Neurological Exam Neurological exam: Present: alert, CN II-XII intact, oriented X3, no focal deficits. Absent: pronater drift, facial droop, speech deficit - Skin Skin exam: Present: dry, intact Internal Med - H&P Results - Labs CBC & Chem 7: 05/04/18 12:21 05/04/18 12:21 Labs: Short CBC 05/04/18 Range/Units 12:21 WBC 4.3 (4.3-11.1) K/mcL Hgb 13.0 (11.5-15.4) g/dL Hct 42.9 (35.3-44.9) % Plt Count 173 (140-400) K/mcL Neutrophils # 1.9 (1.6-8.9) K/mcL BMP 05/04/18 12:21 Sodium 137 Potassium 4.0 Chloride 98 Carbon Dioxide 35 H BUN 13 Creatinine 0.89 Glucose 124 H Calcium 9.3 Cardiac Enzymes 05/04/18 Range/Units 12:21 Troponin I < 0.03 (< 0.04) ng/mL Urine 05/04/18 Range/Units 10:41 Urine Color Yellow (Yellow) Urine Clarity Clear (Clear) Urine pH 6.5 (5.0-8.0) pH Units Ur Specific [place] 1.007 L (1.010-1.025) Urine Protein Negative (Neg-Trace) mg/dL Urine Glucose (UA) Normal (Normal) mg/dL - ABG Interpretation ABG results: 05/04/18 05/04/18 10:58 12:54 ABG pH 7.16 L* 7.30 L D ABG pCO2 121 H* 78 H* D ABG pO2 75 L 105 H ABG HCO3 43 H 39 H ABG Total CO2 46 H 41 H ABG O2 Saturation 88 L 97 ABG Base Excess 8 H 9 H - Impressions ITS Impressions Chest X-Ray 05/04/18 09:58 IMPRESSION: Cardiomegaly with pulmonary vascular congestion D/ / Abdiel Regalado MD / Abdiel Regalado MD Interpreting Provider: Abdiel Regalado MD - Assessment and plan (1) Respiratory failure Current Visit: Yes Status: Acute Assessment and plan: Patient with known hypoxic and hypercapneic resp failure on home O2 and Home BiPAP Her daughter believes the home BiPAP is not working Patient presented with altered mentation At time of review, alert and oriented X3 ABG on presentation 7.121/75 2 hrs after BIPAP 7.3078/105 Continue BIPAP Actively wheezing on exam Continue solumedrol Continue duonebs q4h Alb prn q2h Add levaquin 500mg IV daily Rpt ABG in 2 hrs Patient may get a break from BiPAP if ABG continues to improve, but needs to wear it at bedtime and when taking a nap technical services analyst consult for dysfunction of chasity BiPAP Patient is full code Qualifiers: Chronicity: acute on chronic Respiratory failure complication: hypoxia and hypercapnia Qualified Code(s): J96.21 - Acute and chronic respiratory failure with hypoxia; J96.22 - Acute and chronic respiratory failure with hypercapnia (2) COPD (chronic obstructive pulmonary disease) Current Visit: Yes Status: Acute Assessment and plan: as above Qualifiers: COPD type: COPD with acute exacerbation Qualified Code(s): J44.1 - Chronic obstructive pulmonary disease with (acute) exacerbation (3) HTN (hypertension) Current Visit: Yes Status: Chronic Assessment and plan: continue home meds Qualifiers: Hypertension type: essential hypertension Qualified Code(s): I10 - Essential (primary) hypertension (4) History of DVT (deep vein thrombosis) Current Visit: Yes Status: Chronic Assessment and plan: Check INR today Resume warfarin per PT-pharmacy to dose (5) Hx of pulmonary embolus Current Visit: Yes Status: Chronic Assessment and plan: Resume coumadin after INR check (6) Obesity Current Visit: Yes Status: Chronic Assessment and plan: lifestyle modification Qualifiers: Obesity type: unspecified obesity type Obesity classification: adult class 2 (BMI 35 - 39.9) Serious obesity comorbidity presence: without serious comorbidity Body mass index: BMI 37.0-37.9 Qualified Code(s): E66.9 - Obesity, unspecified; Z68.37 - Body mass index (BMI) 37.0-37.9, adult (7) Encephalopathy Current Visit: Yes Status: Resolved Assessment and plan: resolved Patient is AAOX3 Monitor closely (8) CHF (congestive heart failure) Current Visit: Yes Status: Chronic Assessment and plan: patient is on lasix at home Unknown if EF is preserved Trop negative EKG unremarkable BNP 101 Continue home lasix Qualifiers: Heart failure type: unspecified Heart failure chronicity: chronic Qualified Code(s): I50.9 - Heart failure, unspecified - Time Spent With Patient Total time spent is greater than 50% in coordination of care (as documented) at patient's floor/unit and/or counseling patient:
[2018-05-04 15:06] LABS: INR 1.5; Prothrombin Time 17.4 Seconds (9.4-12.1)
[2018-05-04] MEDS: Ipratropium/Albuterol Neb 3 ML IH SCH ×2 (15:56→22:55)
[2018-05-04] MEDS: Levofloxacin 500 MG/100 ML 500 MG/100 ML BAG IVPB SCH (17:07)
[2018-05-04] MEDS: MethylPREDNISolone 40 MG/ML VIAL IVP SCH (17:07)
[2018-05-04] MEDS ORDERED: Warfarin perPT PO PRN (18:00)
[2018-05-04] MEDS: Gabapentin 300 MG CAPSULE PO SCH (20:48)
[2018-05-04] MEDS: rOPINIRole 1 MG TABLET PO SCH (20:48)
[2018-05-04] MEDS: Topiramate 25 MG TABLET PO SCH (20:48)
[2018-05-04] MEDS: sulfaSALAzine 500 MG TABLET PO SCH (20:48)
[2018-05-04] MEDS: cloNIDine HCl 0.1 MG TABLET PO SCH (20:48)
[2018-05-04] MEDS ORDERED: NON-FORMULARY MEDICATION 1 EACH EACH (Carvedilol [Carvedilol] 12.5 MG) PO SCH (21:00)
[2018-05-04] MEDS ORDERED: NON-FORMULARY MEDICATION 1 EACH EACH (Potassium Chloride [K-Tab Er] 20 MEQ) PO SCH (21:00)
[2018-05-05] MEDS: MethylPREDNISolone 40 MG/ML VIAL IVP SCH ×3 (00:17→15:45)
[2018-05-05] MEDS: Ipratropium/Albuterol Neb 3 ML IH SCH ×4 (04:28→22:39)
[2018-05-05 05:02] LABS: ABG Base Excess 12 mEq/L (-2 to 3); ABG HCO3 41 mEq/L (21-27); ABG Oxygen Saturation 82 % (95-98); ABG PCO2 72 mmHg (35-45); ABG PH 7.36 pH Units (7.32-7.45); ABG PO2 51 mmHg (85-104); ABG TCO2 43 mEq/L (20-26); Blood Gas Modality NIV
[2018-05-05 05:15] LABS: ABG Base Excess 12 mEq/L (-2 to 3); ABG HCO3 41 mEq/L (21-27); ABG Oxygen Saturation 95 % (95-98); ABG PCO2 72 mmHg (35-45); ABG PH 7.36 pH Units (7.32-7.45); ABG PO2 84 mmHg (85-104); ABG TCO2 43 mEq/L (20-26); Blood Gas Modality NIV
[2018-05-05 06:58] LABS: Hematocrit 38.8 % (35.3-44.9); Hemoglobin 12.2 g/dL (11.5-15.4); Immature Granulocytes % 0.6 % (0-4); Lymphocytes # 1.1 K/mcL (0.6-4.6); Lymphocytes % 19.9 %; Mean Corpuscular HGB Conc 31.4 g/dL (31.6-35.5); Mean Corpuscular Volume 104.9 fL (83.0-100.0); Monocytes # 0.3 K/mcL (0.0-1.3); Monocytes % 4.6 %; Platelet Count 214 K/mcL (140-400); Red Cell Distribution Width 13.7 % (11.5-14.5); Segmented Neutrophils % 74.9 %
[2018-05-05 07:03] LABS: INR 1.5; Prothrombin Time 16.8 Seconds (9.4-12.1)
[2018-05-05 07:18] LABS: BUN/Creatinine Ratio 16 (6-26); Blood Urea Nitrogen 17 mg/dL (8-23); Calcium 9.5 mg/dL (8.6-10.3); Carbon Dioxide 38 mEq/L (23-29); Chloride 95 mEq/L (98-107); Glucose 125 mg/dL (70-105); Osmolality,Calculated 289 (280-300); Potassium 4.2 mEq/L (3.5-5.1); Sodium 138 mEq/L (136-145); eGFR For Non-African Americans 50 (> 60)
[2018-05-05] MEDS ORDERED: VIT D3 PO SCH (09:00)
[2018-05-05] MEDS ORDERED: CALCIUM CARB CITRATE PO SCH (09:00)
[2018-05-05] MEDS ORDERED: [UNRECOGNIZED DRUG - OTHER] PO SCH (09:00)
[2018-05-05] MEDS: Famotidine 20 MG TABLET PO SCH (09:53)
[2018-05-05] MEDS: Topiramate 25 MG TABLET PO SCH ×2 (09:54→20:32)
[2018-05-05] MEDS: Folic Acid 1 MG TABLET PO SCH (09:54)
[2018-05-05] MEDS: sulfaSALAzine 500 MG TABLET PO SCH ×2 (09:54→20:31)
[2018-05-05] MEDS: Gabapentin 300 MG CAPSULE PO SCH ×2 (09:54→20:32)
[2018-05-05] MEDS: Furosemide 20 MG TABLET PO SCH (09:54)
[2018-05-05] MEDS: cloNIDine HCl 0.1 MG TABLET PO SCH ×2 (09:54→20:32)
[2018-05-05] MEDS: Cholecalciferol (D-3) 1,000 UNIT TABLET PO SCH (09:54)
[2018-05-05] MEDS: Cyanocobalamin (B-12) 1,000 MCG TABLET PO SCH (09:54)
--- NOTE | 2018-05-05 10:13 | Internal Med Progress Note ---
Hospitalist Progress Note - Encounter Date of Encounter: 05/05/18 Time of Encounter: 10:06 - Subjective Interval History: Patient seen and examined at bedside. Patient no acute overnight events. Patient currently on nasal cannula. Patient states she is feeling much improved. Patient states that she really believes her home BiPAP was not working because she has been using it and continues to get worse and improved rapidly with our BiPAP. Patient states that he is still somewhat short of breath but approaching her baseline. Patient denies any chest pain, shortness breath, nausea, vomiting, diarrhea. Denies orthopnea. - Exam Vitals: Temp Pulse Resp BP Pulse Ox 98.4 F 70 16 140/80 95 05/05/18 06:44 05/05/18 06:44 05/05/18 06:44 05/05/18 06:44 05/05/18 06:44 Exam: Constitutional: No acute distress, Alert Psych: AAO x 3 HEENT: NCAT, EOMI Neck: supple, no JVD Cardio: regular rate and rhythm, +s1s2, no murmurs/rubs/gallops, no JVD Resp: Very decreased breath sounds and poor air exchange; expiratory wheezing; no retractions or accessory muscle use, no respiratory distress Abd: soft, non tender/non distended, positive bowel sounds Extremities: no clubbing/cyanosis/edema appreciated Neuro: no focal deficits appreciated - Assessment and Plan (1) Respiratory failure Current Visit: Yes Status: Acute Assessment and Plan: Patient with acute on chronic respiratory failure with hypercapnia and hypoxia -Secondary to acute exacerbation of COPD -There is question whether home BiPAP is working we will await social worker clinical to evaluate likely will not happen until Monday -Respiratory failure is improving and approaching baseline ABG is much improved ; and mentation is now normal -continue IV steroids will likely start weaning tomorrow -Given one-time dose of IV Lasix in ED for pulmonary edema seen on imaging; no orthopnea crackles or edema today, continue home Lasix -Continue Levaquin for now -Continue BiPAP when napping, when necessary, daily at bedtime (2) COPD (chronic obstructive pulmonary disease) Current Visit: Yes Status: Acute Assessment and Plan: as above (3) HTN (hypertension) Current Visit: Yes Status: Chronic Assessment and Plan: continue home meds (4) Hx of pulmonary embolus Current Visit: Yes Status: Chronic Assessment and Plan: -INR subtherapeutic -Continue Coumadin -Start heparin drip until INR therapeutic (5) History of DVT (deep vein thrombosis) Current Visit: Yes Status: Chronic Assessment and Plan: Subtherapeutic INR -Continue Coumadin pharmacy to dose -Heparin drip until therapeutic INR (6) Obesity Current Visit: Yes Status: Chronic Assessment and Plan: lifestyle modification (7) Encephalopathy Current Visit: Yes Status: Resolved Assessment and Plan: -toxic metabolic encephalopathy due to hypercapnea -resovled -Patient is AAOX3 -Monitor closely (8) CHF (congestive heart failure) Current Visit: Yes Status: Chronic Assessment and Plan: -Chronic compensated congestive heart failure with diastolic dysfunction -patient is on lasix at home -Unknown if EF is preserved -Trop negative -EKG unremarkable -BNP 101 -Continue home lasix; given one time dose IV in ed -No Orthopnea DVT Prophylaxis: Heparin drip, Coumadin - Summary of Assessment and Plan Summary of Assessment and Plan: We will need evaluation of home BiPAP prior to discharge, continue IV steroids wean as tolerated, continue BiPAP when necessary, heparin drip until INR therapeutic - Time Spent with Patient Total time spent is greater than 50% in coordination of care (as documented) at patient's floor/unit and/or counseling patient: 25 - 35 minutes Plan of Care Discussed with: patient Internal Medicine: Result - Labs CBC & Chem 7: 05/05/18 06:20 05/05/18 06:20 Labs: Short CBC 05/05/18 Range/Units 06:20 WBC 5.4 (4.3-11.1) K/mcL Hgb 12.2 (11.5-15.4) g/dL Hct 38.8 (35.3-44.9) % Plt Count 214 (140-400) K/mcL Neutrophils # 4.0 (1.6-8.9) K/mcL BMP 05/05/18 06:20 Sodium 138 Potassium 4.2 Chloride 95 L Carbon Dioxide 38 H BUN 17 Creatinine 1.06 Glucose 125 H Calcium 9.5 - ABG Interpretation ABG results: ABG ABG pH 7.36 pH Units (7.32-7.45) 05/05/18 05:11 ABG pCO2 72 mmHg (35-45) H* 05/05/18 05:11 ABG pO2 84 mmHg (85-104) L 05/05/18 05:11 ABG O2 Saturation 95 % (95-98) 05/05/18 05:11 PT/INR, D-dimer PT 16.8 Seconds (9.4-12.1) H 05/05/18 06:20 Consult Discharge Plan - Plan Referrals: NONE,PCP [Primary Care Provider] - (1) Respiratory failure Qualifiers: Chronicity: acute on chronic Respiratory failure complication: hypoxia and hypercapnia Qualified Code(s): J96.21 - Acute and chronic respiratory failure with hypoxia; J96.22 - Acute and chronic respiratory failure with hypercapnia (2) COPD (chronic obstructive pulmonary disease) Qualifiers: COPD type: COPD with acute exacerbation Qualified Code(s): J44.1 - Chronic obstructive pulmonary disease with (acute) exacerbation (3) HTN (hypertension) Qualifiers: Hypertension type: essential hypertension Qualified Code(s): I10 - Essential (primary) hypertension (6) Obesity Qualifiers: Obesity type: unspecified obesity type Obesity classification: adult class 2 (BMI 35 - 39.9) Serious obesity comorbidity presence: without serious comorbidity Body mass index: BMI 37.0-37.9 Qualified Code(s): E66.9 - Obesity , unspecified; Z68.37 - Body mass index (BMI) 37.0-37.9, adult (8) CHF (congestive heart failure) Qualifiers: Heart failure type: unspecified Heart failure chronicity: chronic Qualified Code(s): I50.9 - Heart failure, unspecified
[2018-05-05] MEDS ORDERED: *HR* Heparin 5,000 UNIT/ML VIAL IVP PRN ×2 (10:29)
[2018-05-05] MEDS ORDERED: *HR* Heparin 5,000 UNIT/ML VIAL IVP ONE (10:29)
[2018-05-05 12:38] LABS: Hematocrit 40.3 % (35.3-44.9); Hemoglobin 12.8 g/dL (11.5-15.4); Mean Corpuscular HGB Conc 31.8 g/dL (31.6-35.5); Mean Corpuscular Hemoglobin 33.7 pg (28.0-33.3); Mean Corpuscular Volume 106.1 fL (83.0-100.0); Mean Platelet Volume 9.8 fL (9.4-12.4); Platelet Count 197 K/mcL (140-400); Red Cell Distribution Width 13.5 % (11.5-14.5)
[2018-05-05 12:42] LABS: Heparin anti-factor XA UFH 0.02 IU/mL (0.30-0.70); INR 1.4
[2018-05-05] MEDS: Heparin 25,000 UNIT/500 ML D5W 25,000 UNIT/500 ML BAG IVC SCH (13:48)
[2018-05-05] MEDS: Levofloxacin 500 MG/100 ML 500 MG/100 ML BAG IVPB SCH (15:47)
--- NOTE | 2018-05-05 17:10 | Electrocardiograph Report ---
[facility] [employer] Test Date: 2018-05-04 Pat Name: Zulma Mcclure Department: EXAM8 Room: 2A23 Gender: F Swatch Checker: : 1940 Requested By: Ruel White Order Number: [id number] Reading MD: Jeremias Rodríguez Measurements Intervals [place] Rate: 87 P: 84 SC: 197 QRS: 63 QRSD: 85 T: 77 QT: 366 QTc: 441 Interpretive Statements Sinus rhythm Anteroseptal infarct, old Electronically Signed On 05-05-2018 17:08:24 EDT by Jeremias Rodríguez
[2018-05-05] MEDS: rOPINIRole 1 MG TABLET PO SCH (20:32)
[2018-05-06] MEDS: MethylPREDNISolone 40 MG/ML VIAL IVP SCH ×3 (01:12→17:37)
[2018-05-06 03:28] LABS: Hematocrit 38.4 % (35.3-44.9); Hemoglobin 12.2 g/dL (11.5-15.4); Immature Granulocytes % 0.3 % (0-4); Lymphocytes # 1.3 K/mcL (0.6-4.6); Mean Corpuscular HGB Conc 31.8 g/dL (31.6-35.5); Mean Corpuscular Hemoglobin 33.4 pg (28.0-33.3); Mean Corpuscular Volume 105.2 fL (83.0-100.0); Mean Platelet Volume 9.8 fL (9.4-12.4); Monocytes # 0.4 K/mcL (0.0-1.3); Monocytes % 5.9 %; Neutrophils # 5.3 K/mcL (1.6-8.9); Platelet Count 218 K/mcL (140-400); Red Blood Count 3.65 M/mcL (3.82-4.97); Segmented Neutrophils % 74.8 %
[2018-05-06 03:36] LABS: INR 1.5; Prothrombin Time 17.4 Seconds (9.4-12.1)
[2018-05-06 03:43] LABS: Calcium 9.1 mg/dL (8.6-10.3); Phosphorous 1.8 mg/dL (2.7-4.5); Potassium 4.7 mEq/L (3.5-5.1)
[2018-05-06] MEDS: Ipratropium/Albuterol Neb 3 ML IH SCH ×4 (03:46→19:52)
--- NOTE | 2018-05-06 08:43 | Internal Med Progress Note ---
Hospitalist Progress Note - Encounter Date of Encounter: 05/06/18 Time of Encounter: 08:40 - Subjective Interval History: Patient seen and examined at bedside. Patient no acute overnight events. Patient currently on nasal cannula. Patient states that her breathing is much improved and close to baseline. Patient denies any chest pain, nausea, cough, diarrhea, abdominal pain. Has been afebrile. - Exam Vitals: Temp Pulse Resp BP Pulse Ox 98.1 F 81 18 155/83 94 05/06/18 06:25 05/06/18 06:25 05/06/18 06:25 05/06/18 06:25 05/06/18 06:25 Exam: Constitutional: No acute distress, Alert Psych: AAO x 3 HEENT: NCAT, EOMI Neck: supple Cardio: regular rate and rhythm, +s1s2 Resp: decreased breath sounds but improved air movement; still with expiratory wheezing Abd: soft, non tender/non distended, positive bowel sounds Extremities: no clubbing/cyanosis/edema appreciated Neuro: no focal deficits appreciated - Assessment and Plan (1) Respiratory failure Current Visit: Yes Status: Acute Assessment and Plan: Patient with acute on chronic respiratory failure with hypercapnia and hypoxia -Secondary to acute exacerbation of COPD -There is question whether home BiPAP is working we will await social science research assistant to evaluate likely will not happen until Monday -Respiratory failure is improving, mentation is normal -Wean IV steroids Solu-Medrol 40 mg twice a day -continue home lasix -De-escalate Levaquin to doxycycline for COPD exacerbation -Continue BiPAP at bedtime (2) COPD (chronic obstructive pulmonary disease) Current Visit: Yes Status: Acute Assessment and Plan: as above (3) HTN (hypertension) Current Visit: Yes Status: Chronic Assessment and Plan: continue home meds (4) Hx of pulmonary embolus Current Visit: Yes Status: Chronic Assessment and Plan: -INR subtherapeutic -Continue Coumadin -Start heparin drip until INR therapeutic -Pharmacy to dose Coumadin (5) History of DVT (deep vein thrombosis) Current Visit: Yes Status: Chronic (6) Obesity Current Visit: Yes Status: Chronic Assessment and Plan: lifestyle modification (7) Encephalopathy Current Visit: Yes Status: Resolved Assessment and Plan: -toxic metabolic encephalopathy due to hypercapnea -resovled -Patient is AAOX3 -Continue to monitor (8) CHF (congestive heart failure) Current Visit: Yes Status: Chronic Assessment and Plan: -Chronic compensated congestive heart failure with diastolic dysfunction -patient is on lasix at home -Unknown if EF is preserved -Trop negative -EKG unremarkable -BNP 101 -Continue home lasix; given one time dose IV in ed -Watch renal function -No Orthopnea DVT Prophylaxis: Heparin drip, Coumadin - Time Spent with Patient Total time spent is greater than 50% in coordination of care (as documented) at patient's floor/unit and/or counseling patient: 25 - 35 minutes Plan of Care Discussed with: patient Internal Medicine: Result - Labs CBC & Chem 7: 05/06/18 03:08 05/06/18 03:08 Labs: Short CBC 05/05/18 05/06/18 Range/Units 12:25 03:08 WBC 6.8 7.1 (4.3-11.1) K/mcL Hgb 12.8 12.2 (11.5-15.4) g/dL Hct 40.3 38.4 (35.3-44.9) % Plt Count 197 218 (140-400) K/mcL Neutrophils # 5.3 (1.6-8.9) K/mcL BMP 05/06/18 03:08 Sodium 139 Potassium 4.7 Chloride 97 L Carbon Dioxide 38 H BUN 23 Creatinine 1.14 Glucose 133 H Calcium 9.1 - ABG Interpretation ABG results: ABG ABG pH 7.36 pH Units (7.32-7.45) 05/05/18 05:11 ABG pCO2 72 mmHg (35-45) H* 05/05/18 05:11 ABG pO2 84 mmHg (85-104) L 05/05/18 05:11 ABG O2 Saturation 95 % (95-98) 05/05/18 05:11 PT/INR, D-dimer PT 17.4 Seconds (9.4-12.1) H 05/06/18 03:08 Consult Discharge Plan - Plan Referrals: NONE,PCP [Primary Care Provider] - (1) Respiratory failure Qualifiers: Chronicity: acute on chronic Respiratory failure complication: hypoxia and hypercapnia Qualified Code(s): J96.21 - Acute and chronic respiratory failure with hypoxia; J96.22 - Acute and chronic respiratory failure with hypercapnia (2) COPD (chronic obstructive pulmonary disease) Qualifiers: COPD type: COPD with acute exacerbation Qualified Code(s): J44.1 - Chronic obstructive pulmonary disease with (acute) exacerbation (3) HTN (hypertension) Qualifiers: Hypertension type: essential hypertension Qualified Code(s): I10 - Essential (primary) hypertension (6) Obesity Qualifiers: Obesity type: unspecified obesity type Obesity classification: adult class 2 (BMI 35 - 39.9) Serious obesity comorbidity presence: without serious comorbidity Body mass index: BMI 37.0-37.9 Qualified Code(s): E66.9 - Obesity , unspecified; Z68.37 - Body mass index (BMI) 37.0-37.9, adult (8) CHF (congestive heart failure) Qualifiers: Heart failure type: unspecified Heart failure chronicity: chronic Qualified Code(s): I50.9 - Heart failure, unspecified
[2018-05-06] MEDS: Doxycycline 100 MG CAPSULE PO SCH ×2 (09:18→20:56)
[2018-05-06] MEDS: Famotidine 20 MG TABLET PO SCH (09:19)
[2018-05-06] MEDS: cloNIDine HCl 0.1 MG TABLET PO SCH ×2 (09:19→20:56)
[2018-05-06] MEDS: Furosemide 20 MG TABLET PO SCH (09:19)
[2018-05-06] MEDS: Cholecalciferol (D-3) 1,000 UNIT TABLET PO SCH (09:19)
[2018-05-06] MEDS: Folic Acid 1 MG TABLET PO SCH (09:20)
[2018-05-06] MEDS: Cyanocobalamin (B-12) 1,000 MCG TABLET PO SCH (09:20)
[2018-05-06] MEDS: Topiramate 25 MG TABLET PO SCH ×2 (09:20→20:56)
[2018-05-06] MEDS: Gabapentin 300 MG CAPSULE PO SCH ×2 (09:21→20:56)
[2018-05-06] MEDS: sulfaSALAzine 500 MG TABLET PO SCH ×2 (09:21→20:55)
[2018-05-06] MEDS ORDERED: *HR* Warfarin 3 MG TABLET PO ONE (19:05)
[2018-05-06] MEDS: rOPINIRole 1 MG TABLET PO SCH (20:56)
[2018-05-06] MEDS: Heparin 25,000 UNIT/500 ML D5W 25,000 UNIT/500 ML BAG IVC SCH (21:08)
[2018-05-07] MEDS: Ipratropium/Albuterol Neb 3 ML IH SCH ×4 (03:32→21:56)
[2018-05-07] MEDS: MethylPREDNISolone 40 MG/ML VIAL IVP SCH ×2 (05:30→18:13)
[2018-05-07 08:10] LABS: INR 1.7
[2018-05-07 08:39] LABS: Calcium 9.2 mg/dL (8.6-10.3); Potassium 4.4 mEq/L (3.5-5.1)
[2018-05-07] MEDS: Furosemide 20 MG TABLET PO SCH (09:32)
[2018-05-07] MEDS: Cyanocobalamin (B-12) 1,000 MCG TABLET PO SCH (09:32)
[2018-05-07] MEDS: Doxycycline 100 MG CAPSULE PO SCH ×2 (09:32→21:15)
[2018-05-07] MEDS: Topiramate 25 MG TABLET PO SCH ×2 (09:33→21:15)
[2018-05-07] MEDS: cloNIDine HCl 0.1 MG TABLET PO SCH ×2 (09:33→21:15)
[2018-05-07] MEDS: Gabapentin 300 MG CAPSULE PO SCH ×2 (09:33→21:14)
[2018-05-07] MEDS: Cholecalciferol (D-3) 1,000 UNIT TABLET PO SCH (09:34)
[2018-05-07] MEDS: Folic Acid 1 MG TABLET PO SCH (09:34)
[2018-05-07] MEDS: Famotidine 20 MG TABLET PO SCH (09:34)
[2018-05-07] MEDS: sulfaSALAzine 500 MG TABLET PO SCH ×2 (09:34→21:14)
--- NOTE | 2018-05-07 12:09 | Internal Med Progress Note ---
Hospitalist Progress Note - Encounter Date of Encounter: 05/07/18 Time of Encounter: 12:04 - Subjective Interval History: Patient seen and examined at bedside. Patient no acute overnight events. Patient currently on nasal cannula. Patient states her breathing is approaching baseline. However daughter says that she is not quite there yet. Case management contacted [place] to see if home BiPAP is working. She denies any chest pain, cough, nausea, vomiting, diarrhea. Patient is not short of breath at rest but with exertion. - Exam Vitals: Temp Pulse Resp BP Pulse Ox 97.9 F 97 17 165/82 95 05/07/18 11:48 05/07/18 11:48 05/07/18 11:48 05/07/18 11:48 05/07/18 11:48 Exam: Constitutional: No acute distress, Alert Psych: AAO x 3 HEENT: NCAT, EOMI Neck: supple Cardio: regular rate and rhythm, +s1s2 Resp: decreased breath sounds but improved air movement; still with expiratory wheezing but improving Abd: soft, non tender/non distended, positive bowel sounds Extremities: no clubbing/cyanosis/edema appreciated Neuro: no focal deficits appreciated - Assessment and Plan (1) Respiratory failure Current Visit: Yes Status: Acute Assessment and Plan: Patient with acute on chronic respiratory failure with hypercapnia and hypoxia -Secondary to acute exacerbation of COPD -There is question whether home BiPAP is working we will await social problems specialist to evaluate likely will not happen until Monday -Respiratory failure is improving, mentation is normal -Wean IV steroids Solu-Medrol 40 mg twice a day now; will change to PO in am -continue home lasix -continue doxycycline -Continue BiPAP at bedtime (2) COPD (chronic obstructive pulmonary disease) Current Visit: Yes Status: Acute Assessment and Plan: as above (3) HTN (hypertension) Current Visit: Yes Status: Chronic Assessment and Plan: continue home meds (4) Hx of pulmonary embolus Current Visit: Yes Status: Chronic Assessment and Plan: -INR subtherapeutic -Continue Coumadin -heparin drip until INR therapeutic -Pharmacy to dose Coumadin (5) History of DVT (deep vein thrombosis) Current Visit: Yes Status: Chronic Assessment and Plan: Subtherapeutic INR -Continue Coumadin pharmacy to dose -Heparin drip until therapeutic INR (6) Obesity Current Visit: Yes Status: Chronic Assessment and Plan: lifestyle modification (7) Encephalopathy Current Visit: Yes Status: Resolved Assessment and Plan: -toxic metabolic encephalopathy due to hypercapnea -resovled -Patient is AAOX3 -Continue to monitor (8) CHF (congestive heart failure) Current Visit: Yes Status: Chronic Assessment and Plan: -Chronic compensated congestive heart failure with diastolic dysfunction -patient is on lasix at home -Unknown if EF is preserved -Trop negative -EKG unremarkable -BNP 101 -Continue home lasix; given one time dose IV in ed -Watch renal function -continues to have no Orthopnea DVT Prophylaxis: Heparin drip, Coumadin - Time Spent with Patient Total time spent is greater than 50% in coordination of care (as documented) at patient's floor/unit and/or counseling patient: 25 - 35 minutes Plan of Care Discussed with: patient Internal Medicine: Result - Labs CBC & Chem 7: 05/06/18 03:08 05/07/18 07:13 Labs: BMP 05/07/18 07:13 Sodium 137 Potassium 4.4 Chloride 101 Carbon Dioxide 32 H BUN 25 H Creatinine 1.11 Glucose 98 Calcium 9.2 - ABG Interpretation ABG results: ABG ABG pH 7.36 pH Units (7.32-7.45) 05/05/18 05:11 ABG pCO2 72 mmHg (35-45) H* 05/05/18 05:11 ABG pO2 84 mmHg (85-104) L 05/05/18 05:11 ABG O2 Saturation 95 % (95-98) 05/05/18 05:11 PT/INR, D-dimer PT 19.0 Seconds (9.4-12.1) H 05/07/18 07:13 Consult Discharge Plan - Plan Referrals: NONE,PCP [Primary Care Provider] - (1) Respiratory failure Qualifiers: Chronicity: acute on chronic Respiratory failure complication: hypoxia and hypercapnia Qualified Code(s): J96.21 - Acute and chronic respiratory failure with hypoxia; J96.22 - Acute and chronic respiratory failure with hypercapnia (2) COPD (chronic obstructive pulmonary disease) Qualifiers: COPD type: COPD with acute exacerbation Qualified Code(s): J44.1 - Chronic obstructive pulmonary disease with (acute) exacerbation (3) HTN (hypertension) Qualifiers: Hypertension type: essential hypertension Qualified Code(s): I10 - Essential (primary) hypertension (6) Obesity Qualifiers: Obesity type: unspecified obesity type Obesity classification: adult class 2 (BMI 35 - 39.9) Serious obesity comorbidity presence: without serious comorbidity Body mass index: BMI 37.0-37.9 Qualified Code(s): E66.9 - Obesity , unspecified; Z68.37 - Body mass index (BMI) 37.0-37.9, adult (8) CHF (congestive heart failure) Qualifiers: Heart failure type: unspecified Heart failure chronicity: chronic Qualified Code(s): I50.9 - Heart failure, unspecified
[2018-05-07] MEDS ORDERED: Levofloxacin 500 MG/100 ML 500 MG/100 ML BAG IVPB SCH (16:00)
[2018-05-07] MEDS ORDERED: *HR* Warfarin 5 MG TABLET PO ONE (18:00)
[2018-05-07] MEDS ORDERED: *HR* Warfarin 1 MG TABLET PO ONE (18:00)
[2018-05-07] MEDS ORDERED: *HR* Warfarin 2 MG TABLET PO ONE (18:00)
[2018-05-07] MEDS: rOPINIRole 1 MG TABLET PO SCH (21:14)
[2018-05-08 02:44] LABS: Prothrombin Time 22.5 Seconds (9.4-12.1)
[2018-05-08] MEDS: Ipratropium/Albuterol Neb 3 ML IH SCH ×2 (04:03→10:44)
[2018-05-08] MEDS: Topiramate 25 MG TABLET PO SCH (08:13)
[2018-05-08] MEDS: Famotidine 20 MG TABLET PO SCH (08:13)
[2018-05-08] MEDS: sulfaSALAzine 500 MG TABLET PO SCH (08:14)
[2018-05-08] MEDS: Cholecalciferol (D-3) 1,000 UNIT TABLET PO SCH (08:14)
[2018-05-08] MEDS: Cyanocobalamin (B-12) 1,000 MCG TABLET PO SCH (08:14)
[2018-05-08] MEDS: Folic Acid 1 MG TABLET PO SCH (08:14)
[2018-05-08] MEDS: Gabapentin 300 MG CAPSULE PO SCH (08:14)
[2018-05-08] MEDS: cloNIDine HCl 0.1 MG TABLET PO SCH (08:15)
[2018-05-08] MEDS: Doxycycline 100 MG CAPSULE PO SCH (08:15)
[2018-05-08] MEDS: Furosemide 20 MG TABLET PO SCH (08:15)
[2018-05-08] MEDS: Heparin 25,000 UNIT/500 ML D5W 25,000 UNIT/500 ML BAG IVC SCH (08:58)
[2018-05-08] MEDS ORDERED: predniSONE 20 MG TABLET PO SCH (09:00)
--- NOTE | 2018-05-08 10:49 | Discharge Summary ---
- NOTES TO OUTPATIENT PROVIDER Notes to Outpatient Provider: Patient was hospitalized with acute COPD exacerbation and acute respiratory failure. She was treated with bronchodilators, steroids and antibiotics. She is clinically getting better and is stable to be discharged home. She does use home BiPAP and has been having some issues with that. bank worker and case management have made arrangements for that this can be rectified when she reaches home. She will be discharged today on a tapering course of steroids and will complete antibiotic course. We will also arrange for follow-up with pulmonology. INR was subtherapeutic on admission here and patient was placed on heparin. She is on Coumadin for prior PE. We will make arrangements for her to follow up with PCP and continue Coumadin to keep INR between 2 and 3. Orders not resulted at time of discharge: Pending orders 05/09/18 04:00 PT/INR [Prothrombin Time INR] [COAG] AM 0400 05/10/18 04:00 PT/INR [Prothrombin Time INR] [COAG] AM 0400 05/11/18 04:00 PT/INR [Prothrombin Time INR] [COAG] AM 0400 05/12/18 04:00 PT/INR [Prothrombin Time INR] [COAG] AM 0400 Date of Encounter: 05/08/18 Time of Encounter: 10:47 - Discharge Diagnosis (1) COPD (chronic obstructive pulmonary disease) Priority: Primary Status: Acute Qualifiers: COPD type: COPD with acute exacerbation Qualified Code(s): J44.1 - Chronic obstructive pulmonary disease with (acute) exacerbation (2) HTN (hypertension) Priority: Secondary Status: Chronic Qualifiers: Hypertension type: essential hypertension Qualified Code(s): I10 - Essential (primary) hypertension (3) Hx of pulmonary embolus Priority: Secondary Status: Chronic (4) History of DVT (deep vein thrombosis) Priority: Secondary Status: Chronic (5) Obesity Priority: Secondary Status: Chronic Qualifiers: Obesity type: unspecified obesity type Obesity classification: adult class 2 (BMI 35 - 39.9) Serious obesity comorbidity presence: without serious comorbidity Body mass index: BMI 37.0-37.9 Qualified Code(s): E66.9 - Obesity, unspecified; Z68.37 - Body mass index (BMI) 37.0-37.9, adult (6) Respiratory failure Priority: Secondary Status: Acute Qualifiers: Chronicity: acute on chronic Respiratory failure complication: hypoxia and hypercapnia Qualified Code(s): J96.21 - Acute and chronic respiratory failure with hypoxia; J96.22 - Acute and chronic respiratory failure with hypercapnia (7) Encephalopathy Priority: Secondary Status: Resolved Assessment and Plan: Acute metabolic encephalopathy. Now resolved (8) CHF (congestive heart failure) Priority: Secondary Status: Chronic Qualifiers: Heart failure type: unspecified Heart failure chronicity: chronic Qualified Code(s): I50.9 - Heart failure, unspecified Hospital course: Ms. Mcclure is a 77 year old female Patient with history of COPD, hypertension, PE who was hospitalized with acute COPD exacerbation and acute respiratory failure. She was treated with bronchodilators, steroids and antibiotics. She is clinically getting better and is stable to be discharged home. She does use home BiPAP and has been having some issues with that. bank worker and case management have made arrangements for that this can be rectified when she reaches home. She will be discharged today on a tapering course of steroids and will complete antibiotic course. We will also arrange for follow-up with pulmonology. INR was subtherapeutic on admission here and patient was placed on heparin. She is on Coumadin for prior PE. We will make arrangements for her to follow up with PCP and continue Coumadin to keep INR between 2 and 3. Discharge discussed with: patient, family, nurse - Time Spent with Patient Total time spent providing and/or coordinating discharge services: Greater than 30 minutes (35 min) - Discharge Medications Prescriptions: Doxycycline 100 mg PO BID #7 capsule predniSONE [PredniSONE] 10 mg PO DAILY 8 Days tablet Warfarin [Coumadin] 1 mg PO 1800 #60 tablet Warfarin [Coumadin] 5 mg PO 1800 #30 tablet Home Medications: Alendronate Sodium [Fosamax] 70 mg PO QWEEK 10/23/16 [History] Budesonide [Pulmicort] 2 ml IH BID 10/23/16 [History] Budesonide/Formoterol 160/4.5 [Symbicort 160/4.5] 2 puff IH BID 10/23/16 [ History] Calcium Carb, Citrate/Vit D3 [Calcium + D3 ER Tablet] 1 tab PO DAILY 10/23/16 [ History] Carvedilol 12.5 mg PO BID 10/23/16 [History] CloNIDine HCl [Kapvay] 0.1 mg PO BID 10/23/16 [History] Diclofenac Sodium [Voltaren] 1 appl TP QID PRN 10/23/16 [History] Diphenoxylate/Atropine [Lomotil 2.5 mg/0.025 mg] 1 tab PO DAILY PRN 10/23/16 [ History] Docusate Sodium [Colace] 100 mg PO BID 10/23/16 [History] Folic Acid 1 mg PO DAILY 10/23/16 [History] Furosemide [Lasix] 40 mg PO DAILY 10/23/16 [History] Gabapentin [Neurontin] 600 mg PO BID 10/23/16 [History] Hydrocortisone Rectal CRM [Proctosol-Hc] 1 appl RC TID PRN 10/23/16 [History] Ipratropium/Albuterol Neb [Duoneb] 3 ml IH Q4HR PRN 10/23/16 [History] Mometasone Furoate [Nasonex] 50 mcg NS DAILY 10/23/16 [History] Ondansetron HCl [Zofran] 4 mg PO BID PRN 10/23/16 [History] Oxygen 2 l .ROUTE AD 10/23/16 [History] Potassium Chloride [K-Tab ER] 20 meq PO BID 10/23/16 [History] Ranitidine HCl [Acid [employer]] 150 mg PO DAILY 10/23/16 [History] Tizanidine HCl [Zanaflex] 2 mg PO TID PRN 10/23/16 [History] Topiramate [Topamax] 50 mg PO BID 10/23/16 [History] rOPINIRole [Requip] 2 mg PO HS 10/23/16 [History] Celecoxib [Celebrex] 200 mg PO DAILY 05/04/18 [History] Cyanocobalamin (Vitamin B-12) [Vitamin B-12] 1,000 mcg PO DAILY 05/04/18 [ History] Ipratropium/Albuterol Sulfate [Combivent Respimat 20-100 Mcg] 1 puff IH Q4-6H PRN 05/04/18 [History] Methotrexate [Otrexup] 15 mg PO QWEEK 05/04/18 [History] Sulfasalazine [Azulfidine] 1,000 mg PO BID 05/04/18 [History] Theophylline Anhydrous [Andrea-24] 300 mg PO DAILY 05/04/18 [History] Doxycycline 100 mg PO BID #7 capsule 05/08/18 [Rx] Warfarin [Coumadin] 1 mg PO 1800 #60 tablet 05/08/18 [Rx] Warfarin [Coumadin] 5 mg PO 1800 #30 tablet 05/08/18 [Rx] predniSONE [PredniSONE] 10 mg PO DAILY 8 Days tablet 05/08/18 [Rx] Allergies/Adverse Reactions: 3 Allergy/AdvReac Type Severity Reaction Status Date / Time amlodipine [From [facility]] Allergy See Verified 05/04/18 10:23 Comments Date of admission: 05/04/18 15:33 Primary care physician: PCP NONE Consults: 05/04/18 16:49 Consult to Pastoral Services [CONS] Routine Comment: Consult to Single Fold Machine Operator [CONS] Routine Reason for SW Consult: discharge planning 05/07/18 11:33 Consult to Occupational Therapy [CONS] Routine Comment: Evaluate, develop and implement POC Reason for Consult: Possible need for HH - PT/OT Does patient have active BEDREST order?: No Is patient medically & hemodynamically stable?: No Patient assessed for mobility or mobilized this visit?: No Consult to Physical Therapy [CONS] Routine Comment: Evaluate, develop and implement POC Reason for Consult: Possible need for HH - PT/OT Does patient have active BEDREST order?: No Is patient medically & hemodynamically stable?: Yes Patient assessed for mobility or mobilized this visit?: No Discharging clinician: Edgar Nixon Anticipated date of discharge: 05/08/18 - Constitutional Vitals: Temp Pulse Resp BP Pulse Ox 98.2 F 83 18 149/77 94 05/08/18 07:39 05/08/18 07:39 05/08/18 10:46 05/08/18 07:39 05/08/18 10:46 General appearance: Present: mild distress, A&O X 3, pleasant, obese Exam: General: Patient is alert, no acute distress, oriented x 3 Respiratory: Minimal wheezing bilaterally. Cardiovascular: Regular rate and rhythm. s1 and s2 normal No clicks, rubs, gallops, or murmurs. No pedal edema Abdomen: Abdomen is soft, nontender. Bowel sounds are present - Neck Neck exam general surgery: Present: supple, trachea midline. Absent: lymphadenopathy - Patient Status Disposition: Home, Self-Care Condition: Good Functional capacity at discharge: independent ambulation Overall status at discharge: patient is progressing back to baseline - Discharge Instructions Instructions: Chronic Obstructive Pulmonary Disease (DC) Follow Up With: Celia Proctor MD [Partnered Physician] - (in 1-2 weeks Web requested 05/08/2018) Amanda Torres MD [Partnered Physician] - 05/11/18 10:45 am (Be sure to keep this appointment for your home health set up) NONE,PCP [Primary Care Provider] - - Diet and Activity Activity: increase activity as tolerated Diet: advance to your usual diet, low salt diet
[2018-05-08 11:37] VITALS: BP 159/81
[2018-05-08] MEDS ORDERED: *HR* Warfarin 1 MG TABLET PO ONE (18:00)
== END 2018-05-08 12:52 | disposition home or self-care (01) | DRG 189 ==
LOC: EMEROOARM 09:51 → 2ANU 09:51 → SUATTDRO 15:33
PROVIDERS: ADMIT Student in an Organized Health Care Education/Training Program; ATTEND Internal Medicine

== ENCOUNTER 2018-07-02 09:54 | Observation (INO) ==
[2018-07-02] MEDS ORDERED: Ipratropium/Albuterol Neb 3 ML IH ONE (10:18)
--- NOTE | 2018-07-02 10:20 | Emergency Department Note ---
Disposition Clinical Impression: GUARDADO (dyspnea on exertion), SOB (shortness of breath), COPD (chronic obstructive pulmonary disease) Disposition: Admitted As Inpatient Condition: Good Forms: ED Satisfaction Letter General Adult HPI - General Chief complaint: ED Chest Pain Stated complaint: LIZZY/CP Time Seen by Provider: 07/02/18 10:06 Source: EMS Mode of arrival: ambulatory Limitations: no limitations Nursing Notes Reviewed: Yes Vital Signs Reviewed: Yes - History of Present Illness HPI Narrative: 77-year-old female presents emergency room for shortness of breath. Onset a few days ago up to more than a week. States she has had increasing cough with some green phlegm production. There is been no documented fevers. She states she has pain all over her chest along both sides of her abdomen. She states mostly that she does feels more short of breath and is been more dyspnea on exertion. She was at urgent care and they sent her to the emergency room. She does have a history of COPD. She does wear chronic home oxygen and does use home nebulizer treatments. She denies any vomiting or diarrhea. No other complaints at this time other than the above-mentioned shortness of breath and dyspnea on exertion. She did have a history of smoking but no longer does any smoking. She denies any cardiac history. No reports of any CHF. hx of bilat DVT on coumadin Pain Scale: 7 - Related Data Home Medications Medication Instructions Recorded Confirmed Alendronate Sodium [Fosamax] 70 mg PO QWEEK 10/23/16 07/02/18 Budesonide [Pulmicort] 2 ml IH BID 10/23/16 07/02/18 Budesonide/Formoterol 160/4.5 2 puff IH BID 10/23/16 07/02/18 [Symbicort 160/4.5] Calcium Carb, Citrate/Vit D3 1 tab PO DAILY 10/23/16 07/02/18 [Calcium + D3 ER Tablet] Carvedilol 12.5 mg PO BID 10/23/16 07/02/18 CloNIDine HCl [Kapvay] 0.1 mg PO BID 10/23/16 07/02/18 Diclofenac Sodium [Voltaren] 1 appl TP QID PRN 10/23/16 07/02/18 Diphenoxylate/Atropine [Lomotil 1 tab PO DAILY PRN 10/23/16 07/02/18 2.5 mg/0.025 mg] Docusate Sodium [Colace] 100 mg PO BID 10/23/16 07/02/18 Folic Acid 1 mg PO DAILY 10/23/16 07/02/18 Furosemide [Lasix] 40 mg PO DAILY 10/23/16 07/02/18 Gabapentin [Neurontin] 600 mg PO BID 10/23/16 07/02/18 Hydrocortisone Rectal CRM 1 appl RC TID PRN 10/23/16 07/02/18 [Proctosol-Hc] Ipratropium/Albuterol Neb [Duoneb] 3 ml IH Q4HR PRN 10/23/16 07/02/18 Mometasone Furoate [Nasonex] 50 mcg NS DAILY 10/23/16 07/02/18 Ondansetron HCl [Zofran] 4 mg PO BID PRN 10/23/16 07/02/18 Oxygen 2 l .ROUTE AD 10/23/16 07/02/18 Potassium Chloride [K-Tab ER] 20 meq PO BID 10/23/16 07/02/18 Ranitidine HCl [Acid Party Plan Selling Distributor] 150 mg PO DAILY 10/23/16 07/02/18 Tizanidine HCl [Zanaflex] 2 mg PO TID PRN 10/23/16 07/02/18 Topiramate [Topamax] 50 mg PO BID 10/23/16 07/02/18 rOPINIRole [Requip] 2 mg PO HS 10/23/16 07/02/18 Celecoxib [Celebrex] 200 mg PO DAILY 05/04/18 07/02/18 Cyanocobalamin (Vitamin B-12) 1,000 mcg PO DAILY 05/04/18 07/02/18 [Vitamin B-12] Ipratropium/Albuterol Sulfate 1 puff IH Q4-6H PRN 05/04/18 07/02/18 [Combivent Respimat 20-100 Mcg] Methotrexate [Otrexup] 15 mg PO QWEEK 05/04/18 07/02/18 Sulfasalazine [Azulfidine] 1,000 mg PO BID 05/04/18 07/02/18 Theophylline Anhydrous [Andrea-24] 300 mg PO DAILY 05/04/18 07/02/18 Previous Rx's Medication Instructions Recorded Doxycycline 100 mg PO BID #7 capsule 05/08/18 Warfarin [Coumadin] 1 mg PO 1800 #60 tablet 05/08/18 Warfarin [Coumadin] 5 mg PO 1800 #30 tablet 05/08/18 predniSONE [PredniSONE] 10 mg PO DAILY 8 Days tablet 05/08/18 Allergies Allergy/AdvReac Type Severity Reaction Status Date / Time amlodipine [From Norvasc] Allergy See Verified 07/02/18 09:58 Comments All systems ED: reviewed and negative except as stated. Constitutional: Denies: fever ENT ED: Reports: as per HPI Cardiovascular: Denies: chest pain Respiratory: Reports: cough, dyspnea Gastrointestinal: Reports: as per HPI Genitourinary: Reports: as per HPI Musculoskeletal: Reports: as per HPI Integumentary: Reports: as per HPI Neurological: Reports: as per HPI Psychiatric: Reports: as per HPI Endocrine: Reports: as per HPI Hematological/Lymphatic: Reports: as per HPI Allergic/Immunologic: Reports: as per HPI Past Medical History - Past Medical History Medical history: Reports: COPD, hypertension, other Psychiatric history: Reports: no psych history - Social History Smoking Status: Former smoker Smokeless Tobacco Status: No Alcohol use: Reports: none Drug use: Reports: none Physical Exam - General Limitations: no limitations General appearance: alert, in no apparent distress - Head Head exam: atraumatic, normocephalic - Eye Eye exam: Present: normal appearance - ENT ENT exam: normal exam - Neck Neck exam: Present: normal inspection, trachea midline - Chest Chest inspection: Present: normal inspection, symmetric chest wall rise - Respiratory Respiratory exam: Present: other (Decreased breath sounds bilaterally. She has some crackles bilaterally.) - Cardiovascular Cardiovascular exam: Present: regular rate, normal rhythm - Abdominal Exam Abdominal exam: Present: soft, Non-Tender, normal bowel sounds - Extremities Exam Extremities exam: Present: normal inspection. Absent: pedal edema - Neurological Exam Neurological exam: Present: alert, oriented X3 - Psychiatric Psychiatric exam: Present: normal affect, normal mood Course Vital Signs Temperature 98.6 F 07/02/18 10:03 Pulse Rate 72 07/02/18 10:03 Respiratory Rate 20 07/02/18 10:03 Blood Pressure 160/74 07/02/18 10:03 O2 Sat by Pulse Oximetry 100 07/02/18 10:03 Temperature 98.6 F 07/02/18 10:03 Pulse Rate 68 07/02/18 10:13 Respiratory Rate 20 07/02/18 10:22 Blood Pressure 160/74 07/02/18 10:13 O2 Sat by Pulse Oximetry 99 07/02/18 10:26 Oxygen Delivery Oxygen Delivery Nasal Cannula Medical Decision Making - MDM Narrative Medical decision making narrative: Patient states she is unable to walk more than 5-10 feet without becoming more short of breath. This seems to be worse for her than normal. Her Coumadin l evels greater than 3. I do not suspect any pulmonary embolus. No significant lab abnormalities. Patient will be admitted for cardiac workup for this dyspnea on exertion. This could also be a straightforward COPD but she does not feel like it is bad at this time. I also give her some steroids. - Medical Records Medical records reviewed: Yes I reviewed the patient's medical records. - Lab Data Lab results reviewed: Yes I reviewed the patient's lab results. Result diagrams: 07/02/18 10:13 07/02/18 10:13 Lab Results 07/02/18 07/02/18 07/02/18 Range/Units 10:13 10:13 10:13 WBC 4.3 (4.3-11.1) K/mcL RBC 3.72 L (3.82-4.97) M/mcL Hgb 12.1 (11.5-15.4) g/dL Hct 38.8 (35.3-44.9) % MCV 104.3 H (83.0-100.0) fL MCH 32.5 (28.0-33.3) pg MCHC 31.2 L (31.6-35.5) g/dL RDW 13.4 (11.5-14.5) % Plt Count 214 (140-400) K/mcL MPV 9.8 (9.4-12.4) fL Immature Gran % 0.0 (0-4) % Seg Neutrophils % 37.3 % Lymphocytes % 45.3 % Monocytes % 12.1 % Eosinophils % 5.1 % Basophils % 0.2 % Neutrophils # 1.6 (1.6-8.9) K/mcL Lymphocytes # 1.9 (0.6-4.6) K/mcL Monocytes # 0.5 (0.0-1.3) K/mcL Eosinophils # 0.2 (0.0-0.6) K/mcL Basophils # 0.0 (0.0-0.2) K/mcL PT 44.3 H* (9.4-12.1) Seconds INR 3.9 APTT 52.7 H (26.0-36.0) Seconds Sodium 139 (136-145) mEq/L Potassium 4.5 (3.5-5.1) mEq/L Chloride 98 (98-107) mEq/L Carbon Dioxide 34 H (23-29) mEq/L BUN 12 (8-23) mg/dL Creatinine 0.82 (0.60-1.20) mg/dL Est GFR ( Amer) > 60 (> 60) Est GFR (Non-Af Amer) > 60 (> 60) BUN/Creatinine Ratio 15 (6-26) Glucose 92 (70-105) mg/dL Calculated Osmolality 287 (280-300) Calcium 9.7 (8.6-10.3) mg/dL Troponin I < 0.03 (< 0.04) ng/mL B-Natriuretic Peptide (Less than 100) pg/mL 07/02/18 Range/Units 10:13 WBC (4.3-11.1) K/mcL RBC (3.82-4.97) M/mcL Hgb (11.5-15.4) g/dL Hct (35.3-44.9) % MCV (83.0-100.0) fL MCH (28.0-33.3) pg MCHC (31.6-35.5) g/dL RDW (11.5-14.5) % Plt Count (140-400) K/mcL MPV (9.4-12.4) fL Immature Gran % (0-4) % Seg Neutrophils % % Lymphocytes % % Monocytes % % Eosinophils % % Basophils % % Neutrophils # (1.6-8.9) K/mcL Lymphocytes # (0.6-4.6) K/mcL Monocytes # (0.0-1.3) K/mcL Eosinophils # (0.0-0.6) K/mcL Basophils # (0.0-0.2) K/mcL PT (9.4-12.1) Seconds INR APTT (26.0-36.0) Seconds Sodium (136-145) mEq/L Potassium (3.5-5.1) mEq/L Chloride (98-107) mEq/L Carbon Dioxide (23-29) mEq/L BUN (8-23) mg/dL Creatinine (0.60-1.20) mg/dL Est GFR ( Amer) (> 60) Est GFR (Non-Af Amer) (> 60) BUN/Creatinine Ratio (6-26) Glucose (70-105) mg/dL Calculated Osmolality (280-300) Calcium (8.6-10.3) mg/dL Troponin I (< 0.04) ng/mL B-Natriuretic Peptide 119 H (Less than 100) pg/mL - Radiology Data Radiology results reviewed: Yes I reviewed the patient's radiology results. - EKG Data EKG #1 EKG attestation: Yes I reviewed and interpreted this EKG. EKG results narrative: EKG shows a rate of 68. Normal sinus rhythm. Normal axis. WI interval 170. QRS 82. QTC 406.
[2018-07-02 10:34] LABS: Basophils % 0.2 %; Eosinophils # 0.2 K/mcL (0.0-0.6); Eosinophils % 5.1 %; Hematocrit 38.8 % (35.3-44.9); Hemoglobin 12.1 g/dL (11.5-15.4); Lymphocytes # 1.9 K/mcL (0.6-4.6); Lymphocytes % 45.3 %; Mean Corpuscular HGB Conc 31.2 g/dL (31.6-35.5); Mean Corpuscular Hemoglobin 32.5 pg (28.0-33.3); Mean Corpuscular Volume 104.3 fL (83.0-100.0); Mean Platelet Volume 9.8 fL (9.4-12.4); Monocytes # 0.5 K/mcL (0.0-1.3); Monocytes % 12.1 %; Neutrophils # 1.6 K/mcL (1.6-8.9); Platelet Count 214 K/mcL (140-400); Red Blood Count 3.72 M/mcL (3.82-4.97); Red Cell Distribution Width 13.4 % (11.5-14.5); Segmented Neutrophils % 37.3 %
[2018-07-02 10:41] LABS: INR 3.9
[2018-07-02 10:43] LABS: Activated Partial Thrombo Time 52.7 Seconds (26.0-36.0)
[2018-07-02 10:50] LABS: Troponin I < 0.03 ng/mL (< 0.04)
[2018-07-02 11:11] LABS: Prothrombin Time 44.3 Seconds (9.4-12.1)
[2018-07-02 11:35] LABS: BUN/Creatinine Ratio 15 (6-26); Blood Urea Nitrogen 12 mg/dL (8-23); Calcium 9.7 mg/dL (8.6-10.3); Carbon Dioxide 34 mEq/L (23-29); Chloride 98 mEq/L (98-107); Glucose 92 mg/dL (70-105); Osmolality,Calculated 287 (280-300); Potassium 4.5 mEq/L (3.5-5.1); Sodium 139 mEq/L (136-145); eGFR For Non-African Americans > 60 (> 60)
[2018-07-02] MEDS ORDERED: methylPREDNISolone 125 MG/2 ML VIAL IVP ONE (11:54)
[2018-07-02] MEDS ORDERED: Isovue-370 500 ML INFUS..BTL IV ONE (11:57)
--- NOTE | 2018-07-02 13:03 | Internal Med History&Physical ---
Date of Encounter: 07/02/18 Time of Encounter: 12:59 Internal Medicine - H&P: HPI Chief complaint: Shortness of breath Admitted From: Home Plans for Post Hospital Care: Home History of present illness: Ms. Mcclure is a 77 year old female history of COPD on home oxygen, rheumatoid arthritis on methotrexate and prednisone, pulmonary embolism and DVT on Coumadin presented to the emergency department with shortness of breath. As per patient her shortness of breath started about 2 weeks ago and is progressively worsening. She reports that she is unable to ambulate as well as she used to because of her shortness of breath. Typically she is able to ambulate while using her oxygen for more than 50 feet however currently she is unable to ambulate more than a few feet without having to use her rescue inhaler. Her exertional shortness of breath is also associated with wheezing and nonproductive cough. She reports that she has difficulty breathing at baseline however its progressively worsened for the past 2 weeks. Family decided to bring her to the hospital as she was complaining that she cannot ambulate around her house anymore because of shortness of breath. She reports that she is compliant with her inhalers, has never had any pulmonary function tests performed, denies having echocardiogram performed. She denies sick contacts or recent travel. She denies fever, chills, palpitations, nausea, vomiting, diarrhea, leg swelling, calf tenderness, heat or cold intolerance, LOC, syncope, headache, vi junior changes, loss of function in her extremities, PND or orthopnea. While in the emergency department she was saturating well on nasal cannula however she had difficulty ambulating secondary to shortness of breath she was admitted for further evaluation of exertional dyspnea. Past Med Surg Social Fam HX - Past Medical History Medical history: COPD, hypertension, other Additional medical history: unspecified lung problem Psychiatric history: no psych history - Past Surgical History Additional surgical history: back stimulator, carpal tunnel surgery - Social History Smoking Status: Former smoker Smokeless Tobacco Status: No Alcohol use: none Drug use: none - Family History Father Adopted: No Family Member Ethnicity: Non- Living Status: Hx Family Cardiac Disorders: Yes Hx Family Respiratory Disorders: Yes Hx Family Cancer: Yes Hx Family GI Disorders: Yes Hx Family Endocrine Disorder: Yes Hx Family Neuromuscular Disorders: No Hx Family Neurologic Disorders: Yes Hx Family HEENT Disorders: No Hx Family Autoimmune Disorders: No Internal Medicine - H&P: Meds Alendronate Sodium [Fosamax] 70 mg PO TH 10/23/16 [History] Budesonide/Formoterol 160/4.5 [Symbicort 160/4.5] 2 puff IH BID 10/23/16 [History] Calcium Carb, Citrate/Vit D3 [Calcium + D3 ER Tablet] 1 tab PO DAILY 10/23/16 [History] Diclofenac Sodium [Voltaren] 1 appl TP QID PRN 10/23/16 [History] Docusate Sodium [Colace] 100 mg PO DAILY 10/23/16 [History] Folic Acid 1 mg PO DAILY 10/23/16 [History] Gabapentin [Neurontin] 300 mg PO BID 10/23/16 [History] Ipratropium/Albuterol Neb [Duoneb] 3 ml IH Q4HR PRN 10/23/16 [History] Ondansetron HCl [Zofran] 4 mg PO Q8H PRN 10/23/16 [History] Oxygen 2 l NS AD 10/23/16 [History] Potassium Chloride [K-Tab ER] 10 meq PO DAILY 10/23/16 [History] Ranitidine HCl [Acid Dovetail Machine Operator] 150 mg PO DAILY 10/23/16 [History] Topiramate [Topamax] 50 mg PO BID 10/23/16 [History] rOPINIRole [Requip] 2 mg PO HS 10/23/16 [History] Celecoxib [Celebrex] 200 mg PO DAILY 05/04/18 [History] Cyanocobalamin (Vitamin B-12) [Vitamin B-12] 1,000 mcg PO DAILY 05/04/18 [History] Ipratropium/Albuterol Sulfate [Combivent Respimat 20-100 Mcg] 1 puff IH Q4-6H PRN 05/04/18 [History] Methotrexate [Otrexup] 10 mg PO TH 05/04/18 [History] Sulfasalazine [Azulfidine] 1,000 mg PO BID 05/04/18 [History] Theophylline Anhydrous [Andrea-24] 300 mg PO DAILY 05/04/18 [History] Warfarin [Coumadin] 5 mg PO 1800 #30 tablet 05/08/18 [Rx] Carvedilol [Coreg] 25 mg PO BID 07/02/18 [History] Furosemide [Lasix] 40 mg PO BID 07/02/18 [History] Warfarin [Coumadin] 2 mg PO 1800 07/02/18 [History] cloNIDine HCl [CloNIDine HCl] 0.1 mg PO BID 07/02/18 [History] predniSONE [Prednisone] 2.5 mg PO Q48H 07/02/18 [History] Allergy/AdvReac Type Severity Reaction Status Date / Time amlodipine [From [facility]] Allergy See Verified 07/02/18 09:58 Comments All Systems PM: A 10-system review of systems was performed and is negative for pertinent findings except as documented above in the HPI. - Constitutional Vitals: Temp Pulse Resp BP Pulse Ox 98.6 F 84 16 184/90 99 07/02/18 10:03 07/02/18 12:51 07/02/18 12:51 07/02/18 12:51 07/02/18 12:51 Exam: General: Patient is alert, oriented, no acute distress, Head: atraumatic, normocephalic, Eye: normal appearance, PERRL, no scleral icterus, no conjunctival injection ENT: mucous membranes moist, normal external ear exam Neck: normal inspection, trachea midline, full ROM, no carotid bruits Chest: normal inspection, symmetric chest rise Respiratory: Good respiratory effort. Bilateral breath sounds are decreased with occasional wheezing in the anterior chest, no crackles Cardiovascular: Regular rate and rhythm. s1 and s2 No clicks, rubs, gallops, or murmors. Abdomen: Bowel sounds present normoactive x-4 quadrants. Abdomen is soft, nondistended. no Epigastric tenderness. No guarding or rebound. No organomegaly noted, obese musculoskeletal: Spontaneously moving all extremities. no edema, no calf tenderness Skin: warm, dry, intact. Neuro: Alert and oriented x4. Sensation light touch intact. Cranial nerves 2- 12 is intact. No focal deficit Psych: Patient's affect is normal Internal Med - H&P Results - Labs CBC & Chem 7: 07/02/18 10:13 07/02/18 10:13 Labs: Short CBC 07/02/18 Range/Units 10:13 WBC 4.3 (4.3-11.1) K/mcL Hgb 12.1 (11.5-15.4) g/dL Hct 38.8 (35.3-44.9) % Plt Count 214 (140-400) K/mcL Neutrophils # 1.6 (1.6-8.9) K/mcL BMP 07/02/18 10:13 Sodium 139 Potassium 4.5 Chloride 98 Carbon Dioxide 34 H BUN 12 Creatinine 0.82 Glucose 92 Calcium 9.7 Cardiac Enzymes 07/02/18 Range/Units 10:13 Troponin I < 0.03 (< 0.04) ng/mL - EKG Data -: EKG Interpreted by Myself (Normal sinus rhythm, questionable left atrial enlargement Q waves in the se) - EKG Data Prior EKG available for review: yes - Impressions ITS Impressions Chest X-Ray 07/02/18 10:17 IMPRESSION: No acute cardiopulmonary disease D/ / Reuben Robb MD / Reuben Robb MD Interpreting Provider: Reuben Robb MD - Assessment and plan (1) Acute exacerbation of chronic obstructive airways disease Current Visit: No Status: Acute Assessment and plan: Acute COPD exacerbation We will start her on Solu-Medrol 40 mg every 8 hours Levaquin IV Urine antigens, sputum cultures, viral respiratory panel Continue home inhalers Duo nebs every 4 hours Oxygen via nasal cannula to keep saturations above 92% Continuous pulse ox ABG stat as her bicarbonate is elevated on BMP most likely secondary to chronic hypercapnia also addition to hypoxemia Evaluate for home BiPAP BiPAP at night' and as needed for respiratory distress Will need outpatient pulmonology follow-up for PFTs and sleep study Consider pulmonology consult (2) Acute and chronic respiratory failure with hypoxia Current Visit: Yes Status: Acute Assessment and plan: Secondary to above Obese on methotrexate and most likely has a combination of restrictive and obstructive disease Will need outpatient pulmonology follow-up for PFTs and sleep study Management as per above (3) Chronic deep vein thrombosis (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 Current Visit: No Status: Chronic Assessment and plan: On Coumadin INR is 3.8 Pharmacy to dose Coumadin (4) Hx of pulmonary embolus Current Visit: No Status: Chronic Assessment and plan: On Coumadinpharmacy to dose Questionable pulmonary hypertension will get echocardiogram if pulm HTN consider V/Q scan INR is subtherapeutic (5) HTN (hypertension) Current Visit: No Status: Chronic Assessment and plan: Continue home medications if not contraindicated Qualifiers: Hypertension type: essential hypertension Qualified Code(s): I10 - Essential (primary) hypertension (6) Obesity Current Visit: No Status: Chronic Assessment and plan: Was counseled on nutrition Evaluated for home BiPAP as she most likely has MATA contributing to her respiratory failure Will need outpatient pulmonology follow-up for PFTs and sleep study Qualifiers: Obesity type: unspecified obesity type Obesity classification: adult class 2 (BMI 35 - 39.9) Serious obesity comorbidity presence: without serious comorbidity Body mass index: BMI 37.0-37.9 Qualified Code(s): E66.9 - Obesity, unspecified; Z68.37 - Body mass index (BMI) 37.0-37.9, adult (7) Rheumatoid arthritis Current Visit: Yes Status: Acute Assessment and plan: Continue home medications if not contraindicated Qualifiers: Rheumatoid factor presence: unspecified presence Laterality: unspecified laterality Qualified Code(s): M06.9 - Rheumatoid arthritis, unspecified (8) DVT prophylaxis Current Visit: Yes Status: Acute Assessment and plan: On Coumadin - Time Spent With Patient Total time spent is greater than 50% in coordination of care (as documented) at patient's floor/unit and/or counseling patient:
[2018-07-02] MEDS ORDERED: Naloxone 0.4 MG/ML INJ IVP PRN (13:11)
[2018-07-02] MEDS ORDERED: Ipratropium/Albuterol Neb 3 ML IH PRN (13:16)
[2018-07-02] MEDS ORDERED: (Diclofenac Sodium [Voltaren] 1 APPL) TP PRN (15:11)
[2018-07-02] MEDS ORDERED: Ondansetron ODT 4 MG TAB.RAPDIS PO PRN (15:11)
[2018-07-02] MEDS: Levofloxacin 750 MG/150 ML 750 MG/150 ML BAG IVPB SCH (15:23)
[2018-07-02] MEDS: Folic Acid 1 MG TABLET PO SCH (15:23)
[2018-07-02 16:45] LABS: Adenovirus Not Detected (Not Detect); Bordetella Pertussis Not Detected (Not Detect); Chlamydophila pneumoniae Not Detected (Not Detect); Coronavirus 229E Not Detected (Not Detect); Coronavirus HKU1 Not Detected (Not Detect); Coronavirus NL63 Not Detected (Not Detect); Coronavirus OC43 Not Detected (Not Detect); Human Metapneumovirus Not Detected (Not Detect); Human Rhinovirus/Enterovirus Not Detected (Not Detect); Influenza A Subtype 2009 H1 Not Detected (Not Detect); Influenza A Untypeable Not Detected (Not Detect); Influenza B Not Detected (Not Detect); Mycoplasma pneumoniae Not Detected (Not Detect); Parainfluenza Virus 1 Not Detected (Not Detect); Parainfluenza Virus 2 Not Detected (Not Detect); Parainfluenza Virus 3 Not Detected (Not Detect); Parainfluenza Virus 4 Not Detected (Not Detect); Respiratory Syncytial Virus Not Detected (Not Detect)
[2018-07-02] MEDS: Budesonide/Formoterol 160/4.5 1 PUFF INH IH SCH ×2 (16:49→19:46)
[2018-07-02 17:16] LABS: ABG Base Excess 10 mEq/L (-2 to 3); ABG HCO3 37 mEq/L (21-27); ABG Oxygen Saturation 98 % (95-98); ABG PCO2 54 mmHg (35-45); ABG PH 7.44 pH Units (7.32-7.45); ABG PO2 103 mmHg (85-104); ABG TCO2 38 mEq/L (20-26); Blood Gas FiO2 2.5 (1-15=lpm or21-100=%)
[2018-07-02] MEDS: Furosemide 40 MG TABLET PO SCH (17:20)
[2018-07-02] MEDS ORDERED: Warfarin perPT PO PRN (18:00)
[2018-07-02 18:08] LABS: Bilirubin,Urine Negative (Negative); Blood,Urine Negative (Negative); Clarity,Urine Clear (Clear); Color,Urine Yellow (Yellow); Glucose,Urine (UA) Normal (Normal); Ketones,Urine Negative (Negative); Leukocyte Esterase,Urine Negative (Negative); Nitrite,Urine Negative (Negative); Protein,Urine Trace mg/dL (Neg-Trace); Specific Gravity,Urine 1.022 (1.010-1.025); Urobilinogen,Urine Normal (Normal)
[2018-07-02 18:12] LABS: Bacteria,Urine None Seen per hpf (None-Few); Hyaline Casts,Urine None Seen per lpf (None-Few); RBC,Urine 0-3 per hpf (0-3); Squamous Epithelial Cell,Urine Many per lpf (None-Few); WBC,Urine 0-3 per hpf (0-3)
[2018-07-02] MEDS: cloNIDine HCl 0.1 MG TABLET PO SCH (20:51)
[2018-07-02] MEDS: Topiramate 25 MG TABLET PO SCH (20:51)
[2018-07-02] MEDS: Gabapentin 300 MG CAPSULE PO SCH (20:51)
[2018-07-02] MEDS: sulfaSALAzine 500 MG TABLET PO SCH (20:52)
[2018-07-02] MEDS ORDERED: rOPINIRole 1 MG TABLET PO SCH (21:00)
[2018-07-02] MEDS ORDERED: Acetaminophen 325 MG TABLET PO PRN (22:00)
[2018-07-02] MEDS ORDERED: *HR* HYDROcodone/Acet 7.5/325 mg TABLET PO PRN (22:01)
[2018-07-03] MEDS ORDERED: MethylPREDNISolone 40 MG/ML VIAL IVP SCH
[2018-07-03 05:37] LABS: Hematocrit 41.7 % (35.3-44.9); Hemoglobin 13.2 g/dL (11.5-15.4); Immature Granulocytes % 0.2 % (0-4); Lymphocytes % 21.9 %; Mean Corpuscular HGB Conc 31.7 g/dL (31.6-35.5); Mean Corpuscular Hemoglobin 32.3 pg (28.0-33.3); Mean Platelet Volume 9.8 fL (9.4-12.4); Monocytes # 0.1 K/mcL (0.0-1.3); Monocytes % 2.6 %; Neutrophils # 3.5 K/mcL (1.6-8.9); Platelet Count 237 K/mcL (140-400); Red Blood Count 4.09 M/mcL (3.82-4.97); Red Cell Distribution Width 13.5 % (11.5-14.5); Segmented Neutrophils % 75.3 %
[2018-07-03 05:40] LABS: INR 3.2; Prothrombin Time 36.3 Seconds (9.4-12.1)
[2018-07-03 06:35] LABS: BUN/Creatinine Ratio 14 (6-26); Blood Urea Nitrogen 13 mg/dL (8-23); Calcium 10.2 mg/dL (8.6-10.3); Carbon Dioxide 35 mEq/L (23-29); Chloride 96 mEq/L (98-107); Chol/HDL Ratio 3.1 (0-4.9); Cholesterol 233 mg/dL (< 200); Glucose 121 mg/dL (70-105); HDL Cholesterol 75 mg/dL (40-59); LDL Cholesterol,Calculated 143 mg/dL (0-99); Osmolality,Calculated 295 (280-300); Potassium 4.1 mEq/L (3.5-5.1); Sodium 142 mEq/L (136-145); Thyroid Stimulating Hormone 0.723 mcIU/mL (0.340-5.600); Triglycerides 75 mg/dL (< 150); eGFR For Non-African Americans 60 (> 60)
[2018-07-03] MEDS: Budesonide/Formoterol 160/4.5 1 PUFF INH IH SCH (08:06)
[2018-07-03] MEDS ORDERED: Famotidine 20 MG TABLET PO SCH (09:00)
[2018-07-03] MEDS ORDERED: THEOPHYLLINE ANHYDROUS 300 MG PO SCH (09:00)
[2018-07-03] MEDS ORDERED: (Calcium Carb, Citrate/Vit D3 [Calcium + D3 Er Tablet) PO SCH (09:00)
[2018-07-03] MEDS ORDERED: Cyanocobalamin (B-12) 1,000 MCG TABLET PO SCH (09:00)
[2018-07-03 09:14] LABS: Estimated Average Glucose 111 mg/dl; Hemoglobin A1C 5.5 %
[2018-07-03] MEDS: Gabapentin 300 MG CAPSULE PO SCH (10:43)
[2018-07-03] MEDS: Topiramate 25 MG TABLET PO SCH (10:43)
[2018-07-03] MEDS: Furosemide 40 MG TABLET PO SCH (10:43)
[2018-07-03] MEDS: sulfaSALAzine 500 MG TABLET PO SCH (10:43)
[2018-07-03] MEDS: cloNIDine HCl 0.1 MG TABLET PO SCH (10:43)
[2018-07-03] MEDS: Folic Acid 1 MG TABLET PO SCH (10:44)
[2018-07-03] MEDS: Levofloxacin 750 MG/150 ML 750 MG/150 ML BAG IVPB SCH (10:47)
[2018-07-03] MEDS ORDERED: predniSONE 20 MG TABLET PO SCH (11:15)
[2018-07-03 11:36] VITALS: BP 161/84
--- NOTE | 2018-07-03 12:46 | Discharge Summary ---
- NOTES TO OUTPATIENT PROVIDER Notes to Outpatient Provider: Follow up with PCP in one week. please continue taking tapering dose of steroids Orders not resulted at time of discharge: Pending orders 07/02/18 13:12 Culture,Urine [RM] Stat 07/04/18 04:00 INR/PT [Prothrombin Time INR] [COAG] AM 0400 07/05/18 04:00 INR/PT [Prothrombin Time INR] [COAG] AM 0400 07/06/18 04:00 INR/PT [Prothrombin Time INR] [COAG] AM 0400 Date of Encounter: 07/03/18 Time of Encounter: 12:46 - Discharge Diagnosis (1) Acute bronchitis Priority: Primary Status: Acute Qualifiers: Bronchitis organism: unspecified organism Qualified Code(s): J20.9 - Acute bronchitis, unspecified (2) Acute exacerbation of chronic obstructive airways disease Priority: Primary Status: Acute (3) Chronic deep vein thrombosis (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 Priority: Secondary Status: Chronic (4) HTN (hypertension) Priority: Secondary Status: Chronic Qualifiers: Hypertension type: essential hypertension Qualified Code(s): I10 - Essential (primary) hypertension (5) Hx of pulmonary embolus Priority: Secondary Status: Chronic (6) Obesity Priority: Secondary Status: Chronic Qualifiers: Obesity type: unspecified obesity type Obesity classification: adult class 2 (BMI 35 - 39.9) Serious obesity comorbidity presence: without serious comorbidity Body mass index: BMI 37.0-37.9 Qualified Code(s): E66.9 - Obesity, unspecified; Z68.37 - Body mass index (BMI) 37.0-37.9, adult (7) Acute and chronic respiratory failure with hypoxia Priority: Primary Status: Acute (8) DVT prophylaxis Priority: Secondary Status: Acute Hospital course: Ms. Mcclure is a 77 year old female history of COPD on home oxygen, rheumatoid arthritis on methotrexate and prednisone, pulmonary embolism and DVT on Coumadin presented to the emergency department with shortness of breath and generalized body pains. As per patient her shortness of breath started about 2 weeks ago and is progressively worsening. Her exertional shortness of breath is also associated with wheezing and nonproductive cough. She reports that she has difficulty breathing at baseline however its progressively worsened for the past 2 weeks. Patient was admitted in the hospital and placed on right of way clearer. She was started on prophylactic antibiotic and IV steroids. Patient states that she is feeling better today and seems like almost back to baseline. Currently she is breathing comfortably on 2 lit oxygen. So will discharge her home in a stable condition with oral antibiotic as well as tapering dose of steroids. INR slightly elevated 3.2, so recommend to hold today Coumadin dose. Will do ambulating pulse oxy study before she leaves. - Time Spent with Patient Total time spent providing and/or coordinating discharge services: - Discharge Medications Prescriptions: Cephalexin [Keflex] 500 mg PO TID #4 capsule predniSONE [PredniSONE] 40 mg PO DAILY #10 tablet Home Medications: Alendronate Sodium [Fosamax] 70 mg PO TH 10/23/16 [History] Budesonide/Formoterol 160/4.5 [Symbicort 160/4.5] 2 puff IH BID 10/23/16 [History] Calcium Carb, Citrate/Vit D3 [Calcium + D3 ER Tablet] 1 tab PO DAILY 10/23/16 [History] Diclofenac Sodium [Voltaren] 1 appl TP QID PRN 10/23/16 [History] Docusate Sodium [Colace] 100 mg PO DAILY 10/23/16 [History] Folic Acid 1 mg PO DAILY 10/23/16 [History] Gabapentin [Neurontin] 300 mg PO BID 10/23/16 [History] Ipratropium/Albuterol Neb [Duoneb] 3 ml IH Q4HR PRN 10/23/16 [History] Ondansetron HCl [Zofran] 4 mg PO Q8H PRN 10/23/16 [History] Oxygen 2 l NS AD 10/23/16 [History] Potassium Chloride [K-Tab ER] 10 meq PO DAILY 10/23/16 [History] Ranitidine HCl [Acid Ekg Monitor] 150 mg PO DAILY 10/23/16 [History] Topiramate [Topamax] 50 mg PO BID 10/23/16 [History] rOPINIRole [Requip] 2 mg PO HS 10/23/16 [History] Celecoxib [Celebrex] 200 mg PO DAILY 05/04/18 [History] Cyanocobalamin (Vitamin B-12) [Vitamin B-12] 1,000 mcg PO DAILY 05/04/18 [History] Ipratropium/Albuterol Sulfate [Combivent Respimat 20-100 Mcg] 1 puff IH Q4-6H PRN 05/04/18 [History] Methotrexate [Otrexup] 10 mg PO TH 05/04/18 [History] Sulfasalazine [Azulfidine] 1,000 mg PO BID 05/04/18 [History] Theophylline Anhydrous [Andrea-24] 300 mg PO DAILY 05/04/18 [History] Carvedilol [Coreg] 25 mg PO BID 07/02/18 [History] Furosemide [Lasix] 40 mg PO BID 07/02/18 [History] Warfarin [Coumadin] 2 mg PO 1800 07/02/18 [History] cloNIDine HCl [CloNIDine HCl] 0.1 mg PO BID 07/02/18 [History] predniSONE [Prednisone] 2.5 mg PO Q48H 07/02/18 [History] Cephalexin [Keflex] 500 mg PO TID #4 capsule 07/03/18 [Rx] predniSONE [PredniSONE] 40 mg PO DAILY #10 tablet 07/03/18 [Rx] Allergies/Adverse Reactions: Allergy/AdvReac Type Severity Reaction Status Date / Time amlodipine [From [facility]] Allergy See Verified 07/02/18 09:58 Comments Date of admission: 07/02/18 12:44 Primary care physician: Amanda Torres Consults: 07/02/18 13:12 Consult to Case Management [CONS] Routine Comment: Consult to Physical Therapy [CONS] Routine Comment: Evaluate, develop and implement POC Reason for Consult: dispostion Does patient have active BEDREST order?: No Is patient medically & hemodynamically stable?: Yes Patient assessed for mobility or mobilized this visit?: Yes OT [Consult to Occupational Therapy] [CONS] Routine Comment: Evaluate, develop and implement POC Reason for Consult: disposition Does patient have active BEDREST order?: No Is patient medically & hemodynamically stable?: Yes Patient assessed for mobility or mobilized this visit?: Yes 07/02/18 13:19 Consult to Nutrition [CONS] Routine Comment: Consulting Provider: NUTRITION Reason for Dietary Consult: PO Supplementation - Constitutional Vitals: Temp Pulse Resp BP Pulse Ox 97.9 F 98 16 161/84 98 07/03/18 11:35 07/03/18 11:35 07/03/18 11:35 07/03/18 11:35 07/03/18 11:35 Exam: Gen: Alert, awake, Oriented to time,place and person Chest: Diminished breath sounds B/L, Mild wheezing, No crackles, No rales Heart: S1S2+ RRR No murmurs Abd: Soft, NT, BS +, No organomegaly Ext: No edema, pulses are palpable, No calf tenderness Neuro : Benign findings Skin: No rash. - Patient Status Disposition: Home Health Service Condition: Good Overall status at discharge: patient is back to baseline - Discharge Instructions Follow Up With: Amanda Torres MD [Primary Care Provider] - - Diet and Activity Activity: increase activity as tolerated, wear oxygen at all times Diet: low salt diet
--- NOTE | 2018-07-03 14:50 | Physician Discharge Referral ---
Home Health/Hosp Referral Info Transfer to: Home Health Provider in Charge Post Discharge: PCP - Diagnosis (1) Acute bronchitis Status: Acute (2) Acute exacerbation of chronic obstructive airways disease Status: Acute (3) Chronic deep vein thrombosis (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 Status: Chronic (4) HTN (hypertension) Status: Chronic (5) Hx of pulmonary embolus Status: Chronic (6) Obesity Status: Chronic (7) Acute and chronic respiratory failure with hypoxia Status: Acute (8) DVT prophylaxis Status: Acute - Respiratory Orders Smoking Cessation: Smoking cessation has been advised. For more information, call the [place] Tobacco Quit Line at 9-187-BXUB-NOW. - Services Needed Following services are medically necessary services: Nursing, Physical Therapy, Occupational Therapy - Transfer Medications Prescriptions: Cephalexin [Keflex] 500 mg PO TID #4 capsule predniSONE [PredniSONE] 40 mg PO DAILY #10 tablet Home Medications: Alendronate Sodium [Fosamax] 70 mg PO TH 10/23/16 [History] Budesonide/Formoterol 160/4.5 [Symbicort 160/4.5] 2 puff IH BID 10/23/16 [History] Calcium Carb, Citrate/Vit D3 [Calcium + D3 ER Tablet] 1 tab PO DAILY 10/23/16 [History] Diclofenac Sodium [Voltaren] 1 appl TP QID PRN 10/23/16 [History] Docusate Sodium [Colace] 100 mg PO DAILY 10/23/16 [History] Folic Acid 1 mg PO DAILY 10/23/16 [History] Gabapentin [Neurontin] 300 mg PO BID 10/23/16 [History] Ipratropium/Albuterol Neb [Duoneb] 3 ml IH Q4HR PRN 10/23/16 [History] Ondansetron HCl [Zofran] 4 mg PO Q8H PRN 10/23/16 [History] Oxygen 2 l NS AD 10/23/16 [History] Potassium Chloride [K-Tab ER] 10 meq PO DAILY 10/23/16 [History] Ranitidine HCl [Acid Vertica Architect] 150 mg PO DAILY 10/23/16 [History] Topiramate [Topamax] 50 mg PO BID 10/23/16 [History] rOPINIRole [Requip] 2 mg PO HS 10/23/16 [History] Celecoxib [Celebrex] 200 mg PO DAILY 05/04/18 [History] Cyanocobalamin (Vitamin B-12) [Vitamin B-12] 1,000 mcg PO DAILY 05/04/18 [History] Ipratropium/Albuterol Sulfate [Combivent Respimat 20-100 Mcg] 1 puff IH Q4-6H ID N 05/04/18 [History] Methotrexate [Otrexup] 10 mg PO TH 05/04/18 [History] Sulfasalazine [Azulfidine] 1,000 mg PO BID 05/04/18 [History] Theophylline Anhydrous [Andrea-24] 300 mg PO DAILY 05/04/18 [History] Carvedilol [Coreg] 25 mg PO BID 07/02/18 [History] Furosemide [Lasix] 40 mg PO BID 07/02/18 [History] Warfarin [Coumadin] 2 mg PO 1800 07/02/18 [History] cloNIDine HCl [CloNIDine HCl] 0.1 mg PO BID 07/02/18 [History] predniSONE [Prednisone] 2.5 mg PO Q48H 07/02/18 [History] Cephalexin [Keflex] 500 mg PO TID #4 capsule 07/03/18 [Rx] predniSONE [PredniSONE] 40 mg PO DAILY #10 tablet 07/03/18 [Rx] Allergies/Adverse Reactions: Allergy/AdvReac Type Severity Reaction Status Date / Time amlodipine [From [facility]] Allergy See Verified 07/02/18 09:58 Comments Certification: Further, I certify that my clinical findings support that this patient is homebound (i.e. absences from home require considerable and taxing effort and ar e for medical reasons or adventism services or infrequently or short duration when for other reasons) because: Homebound Reason: Patient requires assistance of a person or device to safely leave home Attestation: My signature below is to certify that this patient is under my care and that I, or nurse practitioner, or a physician's assistant bookkeeper working with me, has a [id number] encounter with this patient.
[2018-07-03] MEDS ORDERED: *HR* Warfarin 5 MG TABLET PO ONE (18:00)
--- NOTE | 2018-07-03 22:26 | Electrocardiograph Report ---
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
[2018-07-05] MEDS ORDERED: Levofloxacin 750 MG/150 ML 750 MG/150 ML BAG IVPB SCH (09:00)
[2018-07-05] MEDS ORDERED: *HR* Methotrexate 2.5 MG TABLET PO SCH (09:00)
== END 2018-07-03 17:29 | disposition home health service (06) ==
LOC: 3BNU 09:54 → EMEROOARM 09:54 → 3BNU 13:30
PROVIDERS: ADMIT Internal Medicine; ATTEND Internal Medicine

== ENCOUNTER 2018-09-24 22:25 | Observation (INO) ==
[2018-09-24] MEDS ORDERED: methylPREDNISolone 125 MG/2 ML VIAL IVP ONE (22:32)
--- NOTE | 2018-09-24 22:37 | Emergency Department Note ---
Disposition Clinical Impression: COPD (chronic obstructive pulmonary disease) Disposition: Still a Patient Condition: Fair Time of Disposition: 22:48 General Adult HPI - General Stated complaint: nai Time Seen by Provider: 09/24/18 22:31 Source: patient, EMS Mode of arrival: EMS Limitations: no limitations Nursing Notes Reviewed: Yes Vital Signs Reviewed: Yes - History of Present Illness HPI Narrative: 78 yo female with past medical history of COPD and chronic pain presents to the emergency department via EMS with the chief complaint of shortness of breath. She states she has been slowly getting more short of breath over the past week but called the squad today because she felt like she could not breathe. The EMS state her pulse ox was 85% when they got there she was on 2 L home O2. They gave her DuoNeb on the way here and she increased to 99%. She denies fever, chest pain, abdominal pain, nausea and vomiting. She has not been around anyone sick recently. She does have chronic leg pain and hand numbness. She denies other symptoms at this time. She states she normally takes 2 mg of prednisone at home on Tuesdays and but took 2 pills today due to her increased shortness of breath. - Related Data Home Medications Medication Instructions Recorded Confirmed Alendronate Sodium [Fosamax] 70 mg PO TH 10/23/16 07/28/18 Budesonide/Formoterol 160/4.5 2 puff IH BID 10/23/16 07/28/18 [Symbicort 160/4.5] Calcium Carb, Citrate/Vit D3 1 tab PO DAILY 10/23/16 07/28/18 [Calcium + D3 ER Tablet] Diclofenac Sodium [Voltaren] 1 appl TP QID PRN 10/23/16 07/28/18 Folic Acid 1 mg PO DAILY 10/23/16 07/28/18 Ondansetron HCl [Zofran] 4 mg PO Q8H PRN 10/23/16 07/28/18 Oxygen 2 l NS AD 10/23/16 07/28/18 Potassium Chloride [K-Tab ER] 10 meq PO DAILY 10/23/16 07/28/18 Ranitidine HCl [Acid Associate Data Scientist] 150 mg PO DAILY 10/23/16 07/28/18 rOPINIRole [Requip] 1 - 2 mg PO HS 10/23/16 07/28/18 Celecoxib [Celebrex] 200 mg PO DAILY 05/04/18 07/28/18 Cyanocobalamin (Vitamin B-12) 5,000 mcg PO DAILY 05/04/18 07/28/18 [Vitamin B-12] Ipratropium/Albuterol Sulfate 1 puff IH Q4-6H PRN 05/04/18 07/28/18 [Combivent Respimat 20-100 Mcg] Methotrexate [Otrexup] 10 mg PO TH 05/04/18 07/28/18 Sulfasalazine [Azulfidine] 1,000 mg PO BID 05/04/18 07/28/18 Carvedilol [Coreg] 25 mg PO BID 07/02/18 07/28/18 Furosemide [Lasix] 40 mg PO DAILY 07/02/18 07/28/18 Warfarin [Coumadin] 5 mg PO 1800 07/02/18 07/28/18 cloNIDine HCl [CloNIDine HCl] 0.1 mg PO BID 07/02/18 07/28/18 Albuterol Sulfate [Proair Hfa] 2 puff IH Q6H PRN 07/28/18 07/28/18 Diphenoxylate/Atropine [Lomotil 1 tab PO QID PRN MDD 20MG/24HOURS 07/28/18 07/28/18 2.5 mg/0.025 mg] Docusate [Colace] 100 mg PO DAILY 07/28/18 07/28/18 Lactulose 10 gm PO DAILY PRN 07/28/18 07/28/18 Losartan Potassium [Cozaar] 50 mg PO DAILY 07/28/18 07/28/18 OxyCODONE/APAP 5/325 [Percocet 1 tab PO Q12H PRN 07/28/18 07/28/18 5/325 MG] Previous Rx's Medication Instructions Recorded Chlorthalidone 25 mg PO DAILY #30 tablet 07/29/18 Allergies Allergy/AdvReac Type Severity Reaction Status Date / Time amlodipine [From [facility]] Allergy See Verified 07/28/18 14:49 Comments All systems ED: reviewed and negative except as stated. Review of Systems: As Per HPI Constitutional: Denies: fever, chills, weakness Cardiovascular: Reports: dyspnea on exertion. Denies: chest pain, palpitations, orthopnea, edema, syncope Respiratory: Reports: cough, dyspnea, sputum production. Denies: wheezes, hemoptysis, stridor Gastrointestinal: Denies: abdominal pain, nausea, vomiting, diarrhea, constipation, hematemesis, melena, hematochezia Genitourinary: Reports: dysuria. Denies: hematuria Musculoskeletal: Denies: back pain, neck pain Integumentary: Denies: rash Neurological: Denies: headache, weakness, numbness, paresthesias Endocrine: Reports: fatigue Past Medical History - Past Medical History Medical history: Reports: COPD, hypertension, other Surgical history: Reports: no surgical history Psychiatric history: Reports: no psych history - Social History Smoking Status: Former smoker Smokeless Tobacco Status: No Alcohol use: Reports: none Drug use: Reports: none Physical Exam - General Limitations: no limitations General appearance: alert, in no apparent distress - Head Head exam: atraumatic, normocephalic - Eye Eye exam: Present: normal appearance, PERRL, EOMI - ENT ENT exam: normal exam - Neck Neck exam: Present: normal inspection. Absent: tenderness, lymphadenopathy - Chest Chest inspection: Present: tenderness. Absent: rash - Respiratory Respiratory exam: Present: wheezes, other (Diminished breath sounds bilaterally) - Cardiovascular Cardiovascular exam: Present: regular rate, normal rhythm - Abdominal Exam Abdominal exam: Present: soft, Non-Tender. Absent: distention, guarding, rebound, rigidity Abdominal tenderness: Absent: suprapubic - Extremities Exam Extremities exam: Present: tenderness. Absent: pedal edema - Neurological Exam Neurological exam: Present: alert, oriented X3 - Psychiatric Psychiatric exam: Present: normal affect, normal mood - Skin Skin exam: Present: warm, dry, intact Medical Decision Making - [facility] Narrative Medical decision making narrative: This patient presents with signs and symptoms concerning for COPD exacerbation versus other cardiopulmonary disease. We will do chest x-ray, EKG, lab work to rule out cardiopulmonary processes. We will give the patient Solu-Medrol and breathing treatments as needed. This patient will be signed out to Dr. Saunders for further treatment. - Medical Records Medical records reviewed: Yes I reviewed the patient's medical records. - Lab Data Lab results reviewed: Yes I reviewed the patient's lab results. - Radiology Data Radiology results reviewed: Yes I reviewed the patient's radiology results.
[2018-09-24 23:03] LABS: Basophils % 0.1 %; Eosinophils # 0.2 K/mcL (0.0-0.6); Eosinophils % 3.4 %; Hematocrit 36.7 % (35.3-44.9); Hemoglobin 11.8 g/dL (11.5-15.4); Immature Granulocytes % 0.3 % (0-4); Lymphocytes # 1.7 K/mcL (0.6-4.6); Lymphocytes % 24.6 %; Mean Corpuscular HGB Conc 32.2 g/dL (31.6-35.5); Mean Corpuscular Hemoglobin 33.5 pg (28.0-33.3); Mean Corpuscular Volume 104.3 fL (83.0-100.0); Mean Platelet Volume 9.5 fL (9.4-12.4); Monocytes # 0.7 K/mcL (0.0-1.3); Monocytes % 9.6 %; Neutrophils # 4.2 K/mcL (1.6-8.9); Platelet Count 244 K/mcL (140-400); Red Blood Count 3.52 M/mcL (3.82-4.97); Red Cell Distribution Width 13.7 % (11.5-14.5)
[2018-09-24] MEDS ORDERED: Ipratropium/Albuterol Neb 3 ML IH ONE (23:23)
--- NOTE | 2018-09-24 23:27 | Emergency Department Note ---
Disposition Clinical Impression: COPD (chronic obstructive pulmonary disease) Disposition: Admitted As Inpatient Condition: Fair Referrals: Amanda Torres MD [Primary Care Provider] - General Adult HPI - General Chief complaint: ED Shortness of Breath/Dyspnea Stated complaint: nai Time Seen by Provider: 09/24/18 22:31 Source: patient, EMS Mode of arrival: EMS Limitations: no limitations - History of Present Illness Pain Scale: 8 - Related Data Home Medications Medication Instructions Recorded Confirmed Alendronate Sodium [Fosamax] 70 mg PO TH 10/23/16 07/28/18 Budesonide/Formoterol 160/4.5 2 puff IH BID 10/23/16 07/28/18 [Symbicort 160/4.5] Calcium Carb, Citrate/Vit D3 1 tab PO DAILY 10/23/16 07/28/18 [Calcium + D3 ER Tablet] Diclofenac Sodium [Voltaren] 1 appl TP QID PRN 10/23/16 07/28/18 Folic Acid 1 mg PO DAILY 10/23/16 07/28/18 Ondansetron HCl [Zofran] 4 mg PO Q8H PRN 10/23/16 07/28/18 Oxygen 2 l NS AD 10/23/16 07/28/18 Potassium Chloride [K-Tab ER] 10 meq PO DAILY 10/23/16 07/28/18 Ranitidine HCl [Acid Leather Shaver] 150 mg PO DAILY 10/23/16 07/28/18 rOPINIRole [Requip] 1 - 2 mg PO HS 10/23/16 07/28/18 Celecoxib [Celebrex] 200 mg PO DAILY 05/04/18 07/28/18 Cyanocobalamin (Vitamin B-12) 5,000 mcg PO DAILY 05/04/18 07/28/18 [Vitamin B-12] Ipratropium/Albuterol Sulfate 1 puff IH Q4-6H PRN 05/04/18 07/28/18 [Combivent Respimat 20-100 Mcg] Methotrexate [Otrexup] 10 mg PO TH 05/04/18 07/28/18 Sulfasalazine [Azulfidine] 1,000 mg PO BID 05/04/18 07/28/18 Carvedilol [Coreg] 25 mg PO BID 07/02/18 07/28/18 Furosemide [Lasix] 40 mg PO DAILY 07/02/18 07/28/18 Warfarin [Coumadin] 5 mg PO 1800 07/02/18 07/28/18 cloNIDine HCl [CloNIDine HCl] 0.1 mg PO BID 07/02/18 07/28/18 Albuterol Sulfate [Proair Hfa] 2 puff IH Q6H PRN 07/28/18 07/28/18 Diphenoxylate/Atropine [Lomotil 1 tab PO QID PRN MDD 20MG/24HOURS 07/28/18 07/28/18 2.5 mg/0.025 mg] Docusate [Colace] 100 mg PO DAILY 07/28/18 07/28/18 Lactulose 10 gm PO DAILY PRN 07/28/18 07/28/18 Losartan Potassium [Cozaar] 50 mg PO DAILY 07/28/18 07/28/18 OxyCODONE/APAP 5/325 [Percocet 1 tab PO Q12H PRN 07/28/18 07/28/18 5/325 MG] Previous Rx's Medication Instructions Recorded Chlorthalidone 25 mg PO DAILY #30 tablet 07/29/18 Allergies Allergy/AdvReac Type Severity Reaction Status Date / Time amlodipine [From [facility]] Allergy See Verified 07/28/18 14:49 Comments Constitutional: Denies: fever, chills, weakness Cardiovascular: Reports: dyspnea on exertion. Denies: chest pain, palpitations, orthopnea, edema, syncope Respiratory: Reports: cough, dyspnea, sputum production. Denies: wheezes, hemoptysis, stridor Gastrointestinal: Denies: abdominal pain, nausea, vomiting, diarrhea, constipation, hematemesis, melena, hematochezia Genitourinary: Reports: dysuria. Denies: hematuria Musculoskeletal: Denies: back pain, neck pain Integumentary: Denies: rash Neurological: Denies: headache, weakness, numbness, paresthesias Endocrine: Reports: fatigue Past Medical History - Past Medical History Medical history: Reports: COPD, hypertension, other Surgical history: Reports: no surgical history Psychiatric history: Reports: no psych history - Social History Smoking Status: Former smoker Smokeless Tobacco Status: No Alcohol use: Reports: none Drug use: Reports: none Physical Exam - General Limitations: no limitations General appearance: alert, in no apparent distress Course Vital Signs Temperature 99.2 F 09/24/18 22:36 Pulse Rate 93 09/24/18 22:36 Respiratory Rate 24 09/24/18 22:36 Blood Pressure 153/85 09/24/18 22:36 O2 Sat by Pulse Oximetry 100 09/24/18 22:36 Temperature 99.2 F 09/24/18 22:36 Pulse Rate 93 09/24/18 22:36 Respiratory Rate 24 09/24/18 22:36 Blood Pressure 153/85 09/24/18 22:36 O2 Sat by Pulse Oximetry 100 09/24/18 22:36 Oxygen Delivery Oxygen Delivery Nasal Cannula Medical Decision Making - Medical Records Medical records reviewed: Yes I reviewed the patient's medical records. - Lab Data Lab results reviewed: Yes I reviewed the patient's lab results. Result diagrams: 09/24/18 22:32 Lab Results 09/24/18 Range/Units 22:32 WBC 6.7 (4.3-11.1) K/mcL RBC 3.52 L (3.82-4.97) M/mcL Hgb 11.8 (11.5-15.4) g/dL Hct 36.7 (35.3-44.9) % MCV 104.3 H (83.0-100.0) fL MCH 33.5 H (28.0-33.3) pg MCHC 32.2 (31.6-35.5) g/dL RDW 13.7 (11.5-14.5) % Plt Count 244 (140-400) K/mcL MPV 9.5 (9.4-12.4) fL Immature Gran % 0.3 (0-4) % Seg Neutrophils % 62.0 % Lymphocytes % 24.6 % Monocytes % 9.6 % Eosinophils % 3.4 % Basophils % 0.1 % Neutrophils # 4.2 (1.6-8.9) K/mcL Lymphocytes # 1.7 (0.6-4.6) K/mcL Monocytes # 0.7 (0.0-1.3) K/mcL Eosinophils # 0.2 (0.0-0.6) K/mcL Basophils # 0.0 (0.0-0.2) K/mcL - Radiology Data Radiology results reviewed: Yes I reviewed the patient's radiology results. - EKG Data EKG #1 EKG attestation: Yes I reviewed and interpreted this EKG. EKG results narrative: EKG shows a rate of 91. Normal sinus rhythm. Normal axis. IL interval 188. QRS 75. QTC 436. Attestation Statement - Attestation Attestation: I examined this patient and my medical decision-making was reviewed with the Resident Physician. I agree with the documented findings, disposition and treatment plan as described except to the extent set forth below. 78-year-old female presents emergency room for shortness of breath. History of COPD. She states for the past couple days her breathing getting worse. Worse with exertion. Admits to wheezing and tightness in her chest. History again of COPD from smoking in the past. She is no longer a smoker. She does wear chronic home oxygen. She denies any active chest pain at this time. The family states she has had some problems with ambulation getting around from room to room home secondary to the shortness of breath. Is take some chronic steroids at home. She does have some breathing treatments at home but has not had much relief. Her chest x-ray is stable today. Patient states she feels too short of breath and weak to go home. Patient will be admitted for pulmonary treatments and observation.
[2018-09-24 23:48] LABS: Chloride 91 mEq/L (98-107); Potassium 3.8 mEq/L (3.5-5.1); Sodium 141 mEq/L (136-145); Troponin I < 0.03 ng/mL (< 0.04)
[2018-09-25 00:07] LABS: BUN/Creatinine Ratio 14 (6-26); Blood Urea Nitrogen 25 mg/dL (8-23); Calcium 10.2 mg/dL (8.6-10.3); Carbon Dioxide 42 mEq/L (23-29); Glucose 139 mg/dL (70-105); Osmolality,Calculated 299 (280-300); eGFR For Non-African Americans 28 (> 60)
[2018-09-25] MEDS ORDERED: 0.9 % Sodium Chloride 1,000 ML IVC ONE (00:08)
[2018-09-25] MEDS ORDERED: Furosemide 40 MG/4 ML VIAL IVP ONE (00:59)
[2018-09-25] MEDS ORDERED: GuaiFENesin Liq 200 MG/10 ML UDC PO PRN (01:09)
[2018-09-25] MEDS ORDERED: NON-FORMULARY MEDICATION 1 EACH EACH (Oxygen [Oxygen] 2 L) NS SCH (01:15)
--- NOTE | 2018-09-25 01:19 | Internal Med History&Physical ---
Date of Encounter: 09/25/18 Time of Encounter: 01: Internal Medicine - H&P: HPI Chief complaint: Shortness of breath Admitted From: Home Plans for Post Hospital Care: Home History of present illness: Zulma Mcclure is a 78-year-old obese woman with COPD on home oxygen, hypertension, DVT/PE now on rivaroxaban and rheumatoid arthritis previously on methotrexate and steroids who has been admitted here 4 times over the past 1 year for acute respiratory failure who presents now with increasing shortness of breath that has been worsening over the past week associated with poorly productive cough. The EMS she was saturating at 85% when they got there and she was on 2 L home oxygen which is her baseline. She received duo nebs on Route with improvement in her oxygen saturation. She denied any fever, chest pain or associated nausea and vomiting. She denies any sick contacts. In the ER she had signs and symptoms concerning for COPD exacerbation and was treated accordingly with high-dose steroids and nebulizer therapy. On my assessment she says she feels much better with that therapy but she is still not back to baseline. Chest x-ray on my interpretation had some vascular congestion on the lower bases and no appeared grossly unchanged from prior study. Labs reveal a serum creatinine of 1.76 and bicarbonate of 42. She will be admitted for ongoing care. Past Med Surg Social Fam HX - Past Medical History Medical history: COPD, hypertension, other Additional medical history: unspecified lung problem Psychiatric history: no psych history - Past Surgical History Surgical History: no surgical history Additional surgical history: back stimulator, carpal tunnel surgery - Social History Smoking Status: Former smoker Smokeless Tobacco Status: No Alcohol use: none Drug use: none - Family History Father Adopted: No Family Member Ethnicity: Non- Living Status: Hx Family Cardiac Disorders: Yes Hx Family Respiratory Disorders: Yes Hx Family Cancer: Yes Hx Family GI Disorders: Yes Hx Family Endocrine Disorder: Yes Hx Family Neuromuscular Disorders: No Hx Family Neurologic Disorders: Yes Hx Family HEENT Disorders: No Hx Family Autoimmune Disorders: No Internal Medicine - H&P: Meds Alendronate Sodium [Fosamax] 70 mg PO TH 10/23/16 [History] Budesonide/Formoterol 160/4.5 [Symbicort 160/4.5] 2 puff IH BID 10/23/16 [History] Calcium Carb, Citrate/Vit D3 [Calcium + D3 ER Tablet] 1 tab PO DAILY 10/23/16 [History] Diclofenac Sodium [Voltaren] 1 appl TP QID PRN 10/23/16 [History] Folic Acid 1 mg PO DAILY 10/23/16 [History] Ondansetron HCl [Zofran] 4 mg PO Q8H PRN 10/23/16 [History] Oxygen 2 l NS AD 10/23/16 [History] Potassium Chloride [K-Tab ER] 10 meq PO DAILY 10/23/16 [History] Ranitidine HCl [Acid Blasting Entry Specialist] 150 mg PO DAILY 10/23/16 [History] rOPINIRole [Requip] 1 - 2 mg PO HS 10/23/16 [History] Celecoxib [Celebrex] 200 mg PO DAILY 05/04/18 [History] Cyanocobalamin (Vitamin B-12) [Vitamin B-12] 5,000 mcg PO DAILY 05/04/18 [History] Ipratropium/Albuterol Sulfate [Combivent Respimat 20-100 Mcg] 1 puff IH Q4-6H PRN 05/04/18 [History] Methotrexate [Otrexup] 10 mg PO TH 05/04/18 [History] Sulfasalazine [Azulfidine] 1,000 mg PO BID 05/04/18 [History] Carvedilol [Coreg] 25 mg PO BID 07/02/18 [History] Furosemide [Lasix] 40 mg PO DAILY 07/02/18 [History] Warfarin [Coumadin] 5 mg PO 1800 07/02/18 [History] cloNIDine HCl [CloNIDine HCl] 0.1 mg PO BID 07/02/18 [History] Albuterol Sulfate [Proair Hfa] 2 puff IH Q6H PRN 07/28/18 [History] Diphenoxylate/Atropine [Lomotil 2.5 mg/0.025 mg] 1 tab PO QID PRN MDD 20MG/24HOURS 07/28/18 [History] Docusate [Colace] 100 mg PO DAILY 07/28/18 [History] Lactulose 10 gm PO DAILY PRN 07/28/18 [History] Losartan Potassium [Cozaar] 50 mg PO DAILY 07/28/18 [History] OxyCODONE/APAP 5/325 [Percocet 5/325 MG] 1 tab PO Q12H PRN 07/28/18 [History] Chlorthalidone 25 mg PO DAILY #30 tablet 07/29/18 [Rx] Allergy/AdvReac Type Severity Reaction Status Date / Time amlodipine [From [facility]] Allergy See Verified 07/28/18 14:49 Comments All Systems PM: A 10-system review of systems was performed and is negative for pertinent findings except as documented above in the HPI. - Constitutional Vitals: Temp Pulse Resp BP Pulse Ox 99.2 F 93 19 153/85 100 09/24/18 22:36 09/24/18 22:36 09/24/18 23:46 09/24/18 22:36 09/24/18 23:46 Exam: Vitals: Reviewed General: Obese AA F lying in bed in NAD Skin: Warm and supple. HEENT: Moist mucous membranes. No conjunctivae pallor. Neck: No lymphadenopathy. No JVD. No carotid bruits. No palpable thyroid. Chest: Normal thoracic expansion. Scattered wheezes in both upper lung duncan and coarse rales in the lower lung duncan. Heart: Normal S1 & S2; rhythmic. No rubs or murmurs. Abdomen: Non-distended, soft and non-tender to palpation. No peritoneal reaction. Extremities: No clubbing, cyanosis. 1+ edema. No calf tenderness. Normal distal pulses. Neurological: Awake, alert and oriented to person, place and time. No focal deficits. Psych: Affect appropriate. Internal Med - H&P Results - Labs CBC & Chem 7: 09/24/18 22:32 09/24/18 22:32 Labs: Short CBC 09/24/18 Range/Units 22:32 WBC 6.7 (4.3-11.1) K/mcL Hgb 11.8 (11.5-15.4) g/dL Hct 36.7 (35.3-44.9) % Plt Count 244 (140-400) K/mcL Neutrophils # 4.2 (1.6-8.9) K/mcL BMP 09/24/18 22:32 Sodium 141 Potassium 3.8 Chloride 91 L Carbon Dioxide 42 H* BUN 25 H Creatinine 1.76 H Glucose 139 H Calcium 10.2 Cardiac Enzymes 09/24/18 Range/Units 22:32 Troponin I < 0.03 (< 0.04) ng/mL - Impressions ITS Impressions Chest X-Ray 09/24/18 22:32 IMPRESSION: No acute process. D/ / Abdiel Regalado MD / Abdiel Regalado MD Interpreting Provider: Abdiel Regalado MD - Assessment and plan (1) Acute and chronic respiratory failure with hypoxia Current Visit: Yes Status: Acute Assessment and plan: Secondary to COPD exacerbation which will be treated accordingly. She also has some crackles on her lower lungs and mild edema which concerns me for concomitan t fluid buildup which could be adding to her symptoms. She was getting a 1L bolus of saline in the ER at the time of my exam presumably for her noted acute kidney injury however I stopped this and will give 1 dose of IVP furosemide 40 mg to assess if that actually helps in ameliorating her symptoms. Continue supplemental oxygen and if she declines will get a blood gas and place on Bipap. (2) Acute exacerbation of chronic obstructive airways disease Current Visit: Yes Status: Acute Assessment and plan: Will continue nebulizer therapy q4hrs, steroids and start azithromycin more so for its additional anti-inflammatory properties than anti-infective. (3) ABRAHAM (acute kidney injury) Current Visit: Yes Status: Acute Assessment and plan: Unclear if this is renal in etiology or from intravascular depletion. She does have notable rales on lung auscultation which worries me in terms of giving a fluid trial especially with her symptomatic respiratory state. Will give a dose of furosemide to see if that will bring volume from her interstitium to her vessels and in turn improve diuresis and kidney function while also relieving pressure from her lungs. If this does not work but rather worsens her CrCl, then fluids should be attempted. (4) Chronic deep vein thrombosis (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 Current Visit: Yes Status: Chronic Assessment and plan: No longer on warfarin and now on rivaroxaban. Will continue. (5) HTN (hypertension) Current Visit: Yes Status: Chronic Assessment and plan: Will resume home antihypertensives once verified. Qualifiers: Hypertension type: essential hypertension Qualified Code(s): I10 - Essential (primary) hypertension (6) Obesity Current Visit: Yes Status: Chronic Assessment and plan: Counseled and educated on therapeutic lifestyle changes for weight loss as it will be of benefit in controlling comorbidities. Gas Station Cashier evaluation advised. Qualifiers: Obesity type: due to excess calories Obesity classification: adult class 2 (BMI 35 - 39.9) Serious obesity comorbidity presence: unspecified whether serious comorbidity present Body mass index: BMI 36.0-36.9 Qualified Code(s): E66.09 - Other obesity due to excess calories; Z68.36 - Body mass index (BMI) 36.0-36.9, adult (7) Rheumatoid arthritis Current Visit: Yes Status: Chronic Assessment and plan: States that she has been taking off methotrexate and now uses only low-dose steroids every other day and analgesics as needed. Qualifiers: Rheumatoid arthritis location: unspecified site Rheumatoid factor presence: unspecified presence Qualified Code(s): M06.9 - Rheumatoid arthritis, unspecified - Time Spent With Patient Total time spent is greater than 50% in coordination of care (as documented) at patient's floor/unit and/or counseling patient: Greater than 35 minutes
[2018-09-25] MEDS: Azithromycin 500 MG in D5% in Water 250 ML IVPB SCH (04:39)
[2018-09-25] MEDS: Ipratropium/Albuterol Neb 3 ML IH SCH ×6 (05:41→23:52)
--- NOTE | 2018-09-25 07:43 | Event Note ---
Date of Encounter: 09/25/18 Time of Encounter: 11:00 Patient seen and evaluated by oven equipment repairer earlier this morning and also by jose luis gama. Briefly, patient is a 78 year old female with PMH for chronic respiratory failure with COPD who presents due to shortness of breath due to acute on chronic hypoxic/hypercapnic respiratory failure with COPD exacerbation. Chest x-ray showed no acute findings and patient afebrile without leukocytosis Patient now on baseline O2 requirements Will continue IV azithromycin in addition to scheduled DuoNebs with oral prednisone He also received a liter of IV fluids for ABRAHAM; continue to monitor
[2018-09-25] MEDS: predniSONE 20 MG TABLET PO SCH (09:16)
[2018-09-25] MEDS: *HR* OxyCODONE/APAP 5/325 TABLET PO PRN ×2 (09:16→22:17)
[2018-09-25] MEDS: Folic Acid 1 MG TABLET PO SCH (09:16)
[2018-09-25] MEDS: cloNIDine HCl 0.1 MG TABLET PO SCH ×2 (09:16→22:17)
[2018-09-25] MEDS: Famotidine 20 MG TABLET PO SCH (09:16)
[2018-09-25 10:45] LABS: Calcium 9.8 mg/dL (8.6-10.3); Potassium 3.8 mEq/L (3.5-5.1)
[2018-09-25 11:43] LABS: ABG Base Excess 16 mEq/L (-2 to 3); ABG HCO3 45 mEq/L (21-27); ABG Oxygen Saturation 94 % (95-98); ABG PCO2 79 mmHg (35-45); ABG PH 7.37 pH Units (7.32-7.45); ABG PO2 80 mmHg (85-104); ABG TCO2 48 mEq/L (20-26)
[2018-09-25] MEDS: *HR* Rivaroxaban 10 MG TABLET PO SCH (16:53)
--- NOTE | 2018-09-25 23:40 | Electrocardiograph Report ---
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
[2018-09-26] MEDS: Azithromycin 500 MG in D5% in Water 250 ML IVPB SCH (01:21)
[2018-09-26] MEDS ORDERED: rOPINIRole 1 MG TABLET PO ONE (02:36)
[2018-09-26] MEDS: Ipratropium/Albuterol Neb 3 ML IH SCH ×6 (03:35→23:54)
[2018-09-26] MEDS: Folic Acid 1 MG TABLET PO SCH (07:50)
[2018-09-26] MEDS: Famotidine 20 MG TABLET PO SCH (07:50)
[2018-09-26] MEDS: cloNIDine HCl 0.1 MG TABLET PO SCH ×2 (07:50→20:16)
[2018-09-26] MEDS: predniSONE 20 MG TABLET PO SCH (07:51)
[2018-09-26] MEDS: Acetaminophen 325 MG TABLET PO PRN ×2 (07:51→20:16)
[2018-09-26] MEDS: Budesonide/Formoterol 160/4.5 1 PUFF INH IH SCH ×2 (08:30→19:43)
[2018-09-26] MEDS: *HR* OxyCODONE/APAP 5/325 TABLET PO PRN (12:03)
--- NOTE | 2018-09-26 12:12 | Internal Med Progress Note ---
Hospitalist Progress Note - Encounter Date of Encounter: 09/26/18 Time of Encounter: 11:00 - Subjective Interval History: Patient presents due to shortness of breath due to acute on chronic hypoxic/hypercapnic respiratory failure with COPD exacerbation. - Exam Vitals: Temp Pulse Resp BP Pulse Ox 98.6 F 70 16 143/73 96 09/26/18 11:28 09/26/18 11:28 09/26/18 11:49 09/26/18 11:28 09/26/18 11:49 Exam: Gen.: Nonacute distress, alert and oriented 3 ENT: Mucosal membranes moist Respiratory: Lungs are clear to auscultation bilaterally without any wheezing rhonchi or rales Cardiovascular: Normal S1 and S2 regular rate rhythm no murmurs rubs or gallops Abdomen: Soft, nontender and nondistended with positive bowel sounds Extremities: No lower extremity edema Skin: Normal color - Assessment and Plan (1) Acute exacerbation of chronic obstructive airways disease Current Visit: Yes Status: Acute Assessment and Plan: Continue day 2 of IV azithromycin with scheduled DuoNeb's with oral prednisone. (2) Acute and chronic respiratory failure with hypoxia Current Visit: Yes Status: Acute Assessment and Plan: Resolved as patient now on baseline O2 requirements (3) ABRAHAM (acute kidney injury) Current Visit: Yes Status: Acute Assessment and Plan: Serum creatinine 1.76->1.41-> (4) Chronic deep vein thrombosis (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 Current Visit: Yes Status: Chronic Assessment and Plan: Continue Xarelto (5) HTN (hypertension) Current Visit: Yes Status: Chronic Assessment and Plan: Continue home medications (6) Rheumatoid arthritis Current Visit: Yes Status: Chronic Assessment and Plan: States that she has been taking off methotrexate and now uses only low-dose steroids every other day (7) Obesity Current Visit: Yes Status: Chronic Assessment and Plan: BMI 38 DVT Prophylaxis: On Xarelto as above - Time Spent with Patient Total time spent is greater than 50% in coordination of care (as documented) at patient's floor/unit and/or counseling patient: Internal Medicine: Result - Labs CBC & Chem 7: 09/26/18 12:28 09/26/18 12:28 - ABG Interpretation ABG results: ABG ABG pH 7.37 pH Units (7.32-7.45) 09/25/18 11:40 ABG pCO2 79 mmHg (35-45) H* 09/25/18 11:40 ABG pO2 80 mmHg (85-104) L 09/25/18 11:40 ABG O2 Saturation 94 % (95-98) L 09/25/18 11:40 Consult Discharge Plan - Plan Referrals: Amanda Torres MD [Primary Care Provider] - __ (5) HTN (hypertension) Qualifiers: Hypertension type: essential hypertension Qualified Code(s): I10 - Essential (primary) hypertension (6) Rheumatoid arthritis Qualifiers: Rheumatoid arthritis location: unspecified site Rheumatoid factor presence: unspecified presence Qualified Code(s): M06.9 - Rheumatoid arthritis, unspecified (7) Obesity Qualifiers: Obesity type: due to excess calories Obesity classification: adult class 2 (BMI 35 - 39.9) Serious obesity comorbidity presence: unspecified whether serious comorbidity present Body mass index: BMI 36.0-36.9 Qualified Code(s): E66.09 - Other obesity due to excess calories; Z68.36 - Body mass index (BMI) 36.0-36.9, adult
[2018-09-26 12:48] LABS: Basophils % 0.2 %; Eosinophils % 0.5 %; Hematocrit 37.1 % (35.3-44.9); Hemoglobin 11.8 g/dL (11.5-15.4); Immature Granulocytes % 0.3 % (0-4); Lymphocytes % 16.2 %; Mean Corpuscular HGB Conc 31.8 g/dL (31.6-35.5); Mean Corpuscular Hemoglobin 33.5 pg (28.0-33.3); Mean Corpuscular Volume 105.4 fL (83.0-100.0); Mean Platelet Volume 9.7 fL (9.4-12.4); Monocytes # 0.2 K/mcL (0.0-1.3); Monocytes % 3.1 %; Neutrophils # 4.9 K/mcL (1.6-8.9); Platelet Count 263 K/mcL (140-400); Red Blood Count 3.52 M/mcL (3.82-4.97); Red Cell Distribution Width 14.1 % (11.5-14.5); Segmented Neutrophils % 79.7 %
[2018-09-26 13:10] LABS: Potassium 3.7 mEq/L (3.5-5.1)
[2018-09-26] MEDS: *HR* Rivaroxaban 10 MG TABLET PO SCH (17:55)
[2018-09-26] MEDS ORDERED: Ondansetron ODT 4 MG TAB.RAPDIS PO PRN (19:34)
[2018-09-26] MEDS ORDERED: (Diclofenac Sodium [Voltaren] 1 APPL) TP PRN (19:34)
[2018-09-26] MEDS: Gabapentin 300 MG CAPSULE PO SCH (20:16)
[2018-09-26] MEDS: sulfaSALAzine 500 MG TABLET PO SCH (20:19)
[2018-09-26] MEDS ORDERED: cloNIDine HCl 0.1 MG TABLET PO SCH (21:00)
[2018-09-26] MEDS ORDERED: rOPINIRole 1 MG TABLET PO SCH (21:00)
[2018-09-27] MEDS: Azithromycin 500 MG in D5% in Water 250 ML IVPB SCH (02:22)
[2018-09-27] MEDS: Ipratropium/Albuterol Neb 3 ML IH SCH ×4 (03:47→16:04)
[2018-09-27] MEDS: Budesonide/Formoterol 160/4.5 1 PUFF INH IH SCH (08:02)
[2018-09-27] MEDS: Gabapentin 300 MG CAPSULE PO SCH (08:20)
[2018-09-27] MEDS: Famotidine 20 MG TABLET PO SCH (08:20)
[2018-09-27] MEDS: cloNIDine HCl 0.1 MG TABLET PO SCH (08:20)
[2018-09-27] MEDS: Folic Acid 1 MG TABLET PO SCH (08:20)
[2018-09-27] MEDS: predniSONE 20 MG TABLET PO SCH (08:20)
[2018-09-27] MEDS: sulfaSALAzine 500 MG TABLET PO SCH (08:21)
[2018-09-27] MEDS ORDERED: NON-FORMULARY MEDICATION 1 EACH EACH (Rivaroxaban [Xarelto] 20 MG) PO SCH (09:00)
[2018-09-27] MEDS ORDERED: Furosemide 40 MG TABLET PO SCH (09:00)
[2018-09-27] MEDS ORDERED: Cyanocobalamin (B-12) 1,000 MCG TABLET PO SCH (09:00)
[2018-09-27 15:19] VITALS: BP 134/65
--- NOTE | 2018-09-27 15:21 | Discharge Summary ---
Date of Encounter: 09/27/18 Time of Encounter: 11:00 - Discharge Diagnosis (1) Acute exacerbation of chronic obstructive airways disease Priority: Primary Status: Acute (2) Acute and chronic respiratory failure with hypoxia Priority: Primary Status: Acute (3) ABRAHAM (acute kidney injury) Priority: Secondary Status: Acute (4) Chronic deep vein thrombosis (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 Priority: Secondary Status: Chronic (5) HTN (hypertension) Priority: Secondary Status: Chronic Qualifiers: Hypertension type: essential hypertension Qualified Code(s): I10 - Essential (primary) hypertension (6) Rheumatoid arthritis Priority: Secondary Status: Chronic Qualifiers: Rheumatoid arthritis location: unspecified site Rheumatoid factor presence: unspecified presence Qualified Code(s): M06.9 - Rheumatoid arthritis, unspecified (7) Obesity Priority: Secondary Status: Chronic Qualifiers: Obesity type: due to excess calories Obesity classification: adult class 2 (BMI 35 - 39.9) Serious obesity comorbidity presence: unspecified whether serious comorbidity present Body mass index: BMI 36.0-36.9 Qualified Code(s): E66.09 - Other obesity due to excess calories; Z68.36 - Body mass index (BMI) 36.0-36.9, adult Hospital course: Patient is a 78-year-old female with past medical history significant for COPD on home oxygen, hypertension, DVT/PE now on rivaroxaban and rheumatoid arthritis previously on methotrexate and steroids who has been admitted here 4 times over the past 1 year for acute respiratory failure who presents now with increasing shortness of breath that has been worsening over the past week associated with poorly productive cough. The EMS she was saturating at 85% when they got there and she was on 2 L home oxygen which is her baseline. She received duo nebs on Route with improvement in her oxygen saturation In the ER she had signs and symptoms concerning for COPD exacerbation and was treated accordingly with high-dose steroids and nebulizer therapy. During patients hospital stay her COPD exacerbation resolved with treatment on IV azithromycin with scheduled DuoNebs and steroids. Patient will be discharged to follow up with primary care provider. - Time Spent with Patient Total time spent providing and/or coordinating discharge services: Less than 30 minutes - Discharge Medications Prescriptions: Azithromycin [Zithromax Tri-Santos] 500 mg PO DAILY #5 tablet predniSONE [PredniSONE] 40 mg PO DAILY #10 tablet Home Medications: Alendronate Sodium [Fosamax] 70 mg PO TH 10/23/16 [History] Budesonide/Formoterol 160/4.5 [Symbicort 160/4.5] 2 puff IH BID 10/23/16 [History] Calcium Carb, Citrate/Vit D3 [Calcium + D3 ER Tablet] 1 tab PO DAILY 10/23/16 [History] Diclofenac Sodium [Voltaren] 1 appl TP QID PRN 10/23/16 [History] Folic Acid 1 mg PO DAILY 10/23/16 [History] Ondansetron HCl [Zofran] 4 mg PO Q8H PRN 10/23/16 [History] Oxygen 2 l NS AD 10/23/16 [History] Potassium Chloride [K-Tab ER] 10 meq PO DAILY 10/23/16 [History] Ranitidine HCl [Acid Editor Producer] 150 mg PO DAILY 10/23/16 [History] rOPINIRole [Requip] 1 - 2 mg PO HS 10/23/16 [History] Cyanocobalamin (Vitamin B-12) [Vitamin B-12] 5,000 mcg PO DAILY 05/04/18 [History] Ipratropium/Albuterol Sulfate [Combivent Respimat 20-100 Mcg] 1 puff IH Q4-6H PRN 05/04/18 [History] Methotrexate [Otrexup] 10 mg PO TH 05/04/18 [History] Sulfasalazine [Azulfidine] 1,000 mg PO BID 05/04/18 [History] Carvedilol [Coreg] 25 mg PO BID 07/02/18 [History] Furosemide [Lasix] 40 mg PO DAILY 07/02/18 [History] cloNIDine HCl [CloNIDine HCl] 0.1 mg PO BID 07/02/18 [History] Albuterol Sulfate [Proair Hfa] 2 puff IH Q6H PRN 07/28/18 [History] Docusate [Colace] 100 mg PO DAILY 07/28/18 [History] Losartan Potassium [Cozaar] 50 mg PO DAILY 07/28/18 [History] OxyCODONE/APAP 5/325 [Percocet 5/325 MG] 1 tab PO Q12H PRN 07/28/18 [History] Chlorthalidone 25 mg PO DAILY #30 tablet 07/29/18 [Rx] Gabapentin [Neurontin] 300 mg PO BID 09/25/18 [History] Rivaroxaban [Xarelto] 20 mg PO DAILY 09/25/18 [History] Azithromycin [Zithromax Tri-Santos] 500 mg PO DAILY #5 tablet 09/27/18 [Rx] predniSONE [PredniSONE] 40 mg PO DAILY #10 tablet 09/27/18 [Rx] Allergies/Adverse Reactions: Allergy/AdvReac Type Severity Reaction Status Date / Time amlodipine [From [facility]] Allergy See Verified 07/28/18 14:49 Comments Date of admission: 09/25/18 03:56 Primary care physician: Amanda Torres Consults: 09/25/18 05:02 Consult to Logistics Director [CONS] Routine Reason for SW Consult: discharge planning 09/25/18 12:55 Consult to Nurse Navigator [CONS] Routine Comment: COPD education - Constitutional Vitals: Temp Pulse Resp BP Pulse Ox 98.6 F 86 16 134/65 98 09/27/18 15:18 09/27/18 15:18 09/27/18 15:18 09/27/18 15:18 09/27/18 15:18 Exam: Gen.: Nonacute distress, alert and oriented 3 Skin: Normal color - Patient Status Disposition: Home, Self-Care Condition: Fair - Discharge Instructions Instructions: Prednisone (By mouth), Azithromycin (By mouth) Follow Up With: Amanda Torres MD [Primary Care Provider] - 10/05/18 10:45 am ()
[2018-09-27] MEDS ORDERED: *HR* Methotrexate 2.5 MG TABLET PO SCH (19:34)
[2018-09-27] MEDS ORDERED: NON-FORMULARY MEDICATION 1 EACH EACH (Alendronate Sodium [Fosamax] 70 MG) PO SCH (19:34)
--- NOTE | 2018-09-28 14:35 | Physician Discharge Referral ---
Home Health/Hosp Referral Info Transfer to: Home Health Provider in Charge Post Discharge: PCP - Diagnosis (1) Acute and chronic respiratory failure with hypoxia Priority: Primary Status: Acute (2) ABRAHAM (acute kidney injury) Priority: Secondary Status: Acute (3) Acute exacerbation of chronic obstructive airways disease Priority: Secondary Status: Acute (4) HTN (hypertension) Priority: Secondary Status: Chronic - Respiratory Orders Smoking Cessation: Smoking cessation has been advised. For more information, call the [place] Tobacco Quit Line at 6-126-HDAH-NOW. - Services Needed Following services are medically necessary services: Nursing, Physical Therapy, Occupational Therapy - Transfer Medications Prescriptions: Azithromycin [Zithromax Tri-Santos] 500 mg PO DAILY #5 tablet predniSONE [PredniSONE] 40 mg PO DAILY #10 tablet Home Medications: Alendronate Sodium [Fosamax] 70 mg PO TH 10/23/16 [History] Budesonide/Formoterol 160/4.5 [Symbicort 160/4.5] 2 puff IH BID 10/23/16 [History] Calcium Carb, Citrate/Vit D3 [Calcium + D3 ER Tablet] 1 tab PO DAILY 10/23/16 [History] Diclofenac Sodium [Voltaren] 1 appl TP QID PRN 10/23/16 [History] Folic Acid 1 mg PO DAILY 10/23/16 [History] Ondansetron HCl [Zofran] 4 mg PO Q8H PRN 10/23/16 [History] Oxygen 2 l NS AD 10/23/16 [History] Potassium Chloride [K-Tab ER] 10 meq PO DAILY 10/23/16 [History] Ranitidine HCl [Acid Collection Development Librarian] 150 mg PO DAILY 10/23/16 [History] rOPINIRole [Requip] 1 - 2 mg PO HS 10/23/16 [History] Cyanocobalamin (Vitamin B-12) [Vitamin B-12] 5,000 mcg PO DAILY 05/04/18 [History] Ipratropium/Albuterol Sulfate [Combivent Respimat 20-100 Mcg] 1 puff IH Q4-6H PRN 05/04/18 [History] Methotrexate [Otrexup] 10 mg PO TH 05/04/18 [History] Sulfasalazine [Azulfidine] 1,000 mg PO BID 05/04/18 [History] Carvedilol [Coreg] 25 mg PO BID 07/02/18 [History] Furosemide [Lasix] 40 mg PO DAILY 07/02/18 [History] cloNIDine HCl [CloNIDine HCl] 0.1 mg PO BID 07/02/18 [History] Albuterol Sulfate [Proair Hfa] 2 puff IH Q6H PRN 07/28/18 [History] Docusate [Colace] 100 mg PO DAILY 07/28/18 [History] Losartan Potassium [Cozaar] 50 mg PO DAILY 07/28/18 [History] OxyCODONE/APAP 5/325 [Percocet 5/325 MG] 1 tab PO Q12H PRN 07/28/18 [History] Chlorthalidone 25 mg PO DAILY #30 tablet 07/29/18 [Rx] Gabapentin [Neurontin] 300 mg PO BID 09/25/18 [History] Rivaroxaban [Xarelto] 20 mg PO DAILY 09/25/18 [History] Azithromycin [Zithromax Tri-Santos] 500 mg PO DAILY #5 tablet 09/27/18 [Rx] predniSONE [PredniSONE] 40 mg PO DAILY #10 tablet 09/27/18 [Rx] Allergies/Adverse Reactions: Allergy/AdvReac Type Severity Reaction Status Date / Time amlodipine [From [facility]] Allergy See Verified 07/28/18 14:49 Comments Certification: Further, I certify that my clinical findings support that this patient is homebound (i.e. absences from home require considerable and taxing effort and are for medical reasons or christian services or infrequently or short duration when for other reasons) because: Homebound Reason: Patient requires assistance of a person or device to safely leave home Attestation: My signature below is to certify that this patient is under my care and that I, or nurse practitioner, or a physician's assistant family teacher working with me, has a [id number] encounter with this patient.
== END 2018-09-27 16:45 | disposition home or self-care (01) ==
LOC: EMEROOARM 22:25 → 2SOUTHHOLD 22:25 → SUATTDRO 09-25 03:56 → 2SOUTHHOLD 09-25 04:35
PROVIDERS: ADMIT Internal Medicine; ATTEND Hospitalist

== ENCOUNTER 2018-11-11 10:36 | Inpatient (IN) ==
[~2018-11-11 10:36] MED LIST: *HR* Atropine Sulfate 1 MG/10 ML SYRINGE IV ONE; *HR* EPINEPHrine 1 MG/10 ML SYRINGE IVP ONE; *HR* EPINEPHrine 30 MG/30 ML MDV IM ONE; *HR* Norepinephrine 4 MG/4 ML VIAL IVC ONE; Aminoglycoside Consult 1 EACH MC ONE
[2018-11-11] MEDS ORDERED: *HR* Rocuronium Bromide 50 MG/5 ML VIAL IVP ONE (10:56)
[2018-11-11] MEDS ORDERED: *HR* Etomidate 20 MG/10 ML AMPUL IVP ONE ×2 (10:56→11:30)
[2018-11-11] MEDS ORDERED: 0.9 % Sodium Chloride 1,000 ML ONE ×2 (10:59→11:12)
--- NOTE | 2018-11-11 11:00 | Emergency Department Note ---
Disposition Clinical Impression: Cardiac arrest, Respiratory failure, Elevated troponin, Shock circulatory, Altered mental status Disposition: Admitted As Inpatient Condition: Serious General Adult HPI - General Stated complaint: Unresponsive Time Seen by Provider: 11/11/18 10:54 - Related Data Home Medications Medication Instructions Recorded Confirmed Budesonide/Formoterol 160/4.5 2 puff IH BID 10/23/16 11/11/18 [Symbicort 160/4.5] Diclofenac Sodium [Voltaren] 1 appl TP QID PRN 10/23/16 11/11/18 Folic Acid 1 mg PO DAILY 10/23/16 11/11/18 Ondansetron HCl [Zofran] 4 mg PO Q8H PRN 10/23/16 11/11/18 Ranitidine HCl [Acid Buffer Nickel] 150 mg PO DAILY 10/23/16 11/11/18 rOPINIRole [Requip] 1 mg PO HS 10/23/16 11/11/18 Ipratropium/Albuterol Sulfate 1 puff IH Q4H PRN 05/04/18 11/11/18 [Combivent Respimat 20-100 Mcg] Carvedilol [Coreg] 25 mg PO BID 07/02/18 11/11/18 Albuterol Sulfate [Proair Hfa] 2 puff IH Q6H PRN 07/28/18 11/11/18 Docusate [Colace] 100 mg PO DAILY 07/28/18 11/11/18 Gabapentin [Neurontin] 300 mg PO HS 09/25/18 11/11/18 Rivaroxaban [Xarelto] 20 mg PO QPM 09/25/18 11/11/18 Cyanocobalamin (Vitamin B-12) 5,000 mcg PO DAILY 10/22/18 11/11/18 [Vitamin B-12] Losartan Potassium [Cozaar] 50 mg PO DAILY 10/22/18 11/11/18 Acetaminophen [Tylenol] 500 mg PO Q6HR PRN 11/11/18 11/11/18 Alendronate Sodium [Fosamax] 70 mg PO TH 11/11/18 11/11/18 Calcium Carbonate/Vitamin D3 1 each PO DAILY 11/11/18 11/11/18 [Calcium 600-Vit D3 800 Tablet] OxyCODONE/APAP 5/325 [Percocet 1 tab PO Q12H PRN 11/11/18 11/11/18 5/325 MG] Sodium Chloride for inhalation 3 ml IH Q6H 11/11/18 11/11/18 [Sodium Chloride, Saline 3 ML] Previous Rx's Medication Instructions Recorded Benzonatate [Tessalon] 100 mg PO TID PRN capsule 11/06/18 GuaiFENesin ER [Mucinex] 600 mg PO BID PRN tbbp.12hr 11/06/18 Ipratropium [ATROVENT Inhaler] 2 puff IH [id number] PRN inhaler 11/06/18 Quetiapine Fumarate [Seroquel] 25 mg PO HS tablet 11/06/18 predniSONE [PredniSONE] 10 mg PO DAILY #10 tablet 11/06/18 Allergies Allergy/AdvReac Type Severity Reaction Status Date / Time amlodipine [From [facility]] Allergy See Verified 10/22/18 09:42 Comments Past Medical History - Past Medical History Medical history: Reports: arthritis, atrial fibrillation, CHF, COPD, DVT, hyperlipidemia, hypertension, osteoporosis, pulmonary embolus, RA, renal disease, other Surgical history: Reports: non-contributory Psychiatric history: Reports: no psych history - Social History Smoking Status: Former smoker Smokeless Tobacco Status: No Alcohol use: Reports: none Drug use: Reports: none Course Vital Signs Respiratory Rate 20 11/11/18 10:52 Blood Pressure 58/29 11/11/18 10:52 O2 Sat by Pulse Oximetry 100 11/11/18 10:52 Temperature 0 F L 11/11/18 11:00 Pulse Rate 138 11/11/18 11:36 Respiratory Rate 16 11/11/18 15:10 Blood Pressure 92/58 11/11/18 15:10 O2 Sat by Pulse Oximetry 97 11/11/18 15:10 Oxygen Delivery Oxygen Delivery Non Rebreather Mask Medical Decision Making - Lab Data Result diagrams: 11/11/18 14:43 11/11/18 10:54 Lab Results 11/11/18 11/11/18 11/11/18 Range/Units 10:54 11:03 11:03 WBC (4.3-11.1) K/mcL RBC (3.82-4.97) M/mcL Hgb (11.5-15.4) g/dL Hct (35.3-44.9) % MCV (83.0-100.0) fL MCH (28.0-33.3) pg MCHC (31.6-35.5) g/dL RDW (11.5-14.5) % Plt Count (140-400) K/mcL MPV (9.4-12.4) fL Immature Gran % (0-4) % Seg Neutrophils % % Lymphocytes % % Monocytes % % Eosinophils % % Basophils % % Neutrophils # (1.6-8.9) K/mcL Lymphocytes # (0.6-4.6) K/mcL Monocytes # (0.0-1.3) K/mcL Eosinophils # (0.0-0.6) K/mcL Basophils # (0.0-0.2) K/mcL Nucleated RBCs/100 WBC (0) /100 WBC Platelet Estimate (Normal) Anisocytosis (Not Present) Macrocytosis (Not Present) PT 11.6 (9.4-12.1) Seconds INR 1.0 APTT 29.2 (26.0-36.0) Seconds Sample Site ABG pH (7.32-7.45) pH Units ABG pCO2 (35-45) mmHg ABG pO2 (85-104) mmHg ABG HCO3 (21-27) mEq/L ABG Total CO2 (20-26) mEq/L ABG O2 Saturation (95-98) % ABG Base Excess (-2 to 3) mEq/L Respiration Rate O2 Delivery Device Blood Gas Modality Inspired O2 (1-15=lpm [id number]=%) Tidal Volume cc PEEP cm H2O Sodium 144 (136-145) mEq/L Potassium 4.7 (3.5-5.1) mEq/L Chloride 97 L (98-107) mEq/L Carbon Dioxide > 45 H* (23-29) mEq/L BUN 22 (8-23) mg/dL Creatinine 0.91 (0.60-1.20) mg/dL Est GFR ( Amer) > 60 (> 60) Est GFR (Non-Af Amer) 60 (> 60) BUN/Creatinine Ratio 24 (6-26) Glucose 181 H (70-105) mg/dL Calculated Osmolality 306 H (280-300) Lactic Acid 0.7 (0.5-2.2) mmol/L Calcium 9.5 (8.6-10.3) mg/dL Phosphorus 6.2 H (2.7-4.5) mg/dL Magnesium 2.1 (1.6-2.6) mg/dL Total Bilirubin 0.3 (0.3-1.0) mg/dL Direct Bilirubin 0.0 (0.0-0.2) mg/dL Indirect Bilirubin 0.3 (0.0-1.2) mg/dL AST 12 L (13-39) Units/L ALT 23 (7-52) Units/L Alkaline Phosphatase 42 (34-104) Units/L Troponin I 0.05 H* (< 0.04) ng/mL B-Natriuretic Peptide (Less than 100) pg/mL Serum Total Protein 5.9 L (6.4-8.9) g/dL Albumin 3.3 L (3.5-5.7) g/dL Globulin 2.6 (2.4-3.5) g/dL Albumin/Globulin Ratio 1.3 (1.1-2.2) Urine Color (Yellow) Urine Clarity (Clear) Urine pH (5.0-8.0) pH Units Ur Specific [place] (1.010-1.025) Urine Protein (Neg-Trace) mg/dL Urine Glucose (UA) (Normal) mg/dL Urine Ketones (Negative) mg/dL Urine Blood (Negative) Urine Nitrite (Negative) Urine Bilirubin (Negative) Urine Urobilinogen (Normal) mg/dL Ur Leukocyte Esterase (Negative) Urine Microscopic RBC (0-3) per hpf Urine Microscopic WBC (0-3) per hpf Ur Squamous Epith Cells (None-Few) per lpf Urine Bacteria (None-Few) per hpf Urine Yeast (None Seen) per hpf Ur Culture Indicated? (NO) Urine Opiates Screen (Npzvel=853) ng/mL Ur Barbiturates Screen (Qxpmpp=798) ng/mL Ur Phencyclidine Scrn (Cutoff=25) ng/mL Ur Amphetamines Screen (Ndzhdt=8257) ng/mL U Benzodiazepines Scrn (Oezhsb=727) ng/mL Urine Cocaine Screen (Cutoff= 300) ng/mL U Marijuana (THC) Screen (Cutoff = 50) ng/mL Ur Drug Screen Interp Specimen Rejected 11/11/18 11/11/18 11/11/18 Range/Units 11:03 11:03 11:28 WBC (4.3-11.1) K/mcL RBC (3.82-4.97) M/mcL Hgb (11.5-15.4) g/dL Hct (35.3-44.9) % MCV (83.0-100.0) fL MCH (28.0-33.3) pg MCHC (31.6-35.5) g/dL RDW (11.5-14.5) % Plt Count (140-400) K/mcL MPV (9.4-12.4) fL Immature Gran % (0-4) % Seg Neutrophils % % Lymphocytes % % Monocytes % % Eosinophils % % Basophils % % Neutrophils # (1.6-8.9) K/mcL Lymphocytes # (0.6-4.6) K/mcL Monocytes # (0.0-1.3) K/mcL Eosinophils # (0.0-0.6) K/mcL Basophils # (0.0-0.2) K/mcL Nucleated RBCs/100 WBC (0) /100 WBC Platelet Estimate (Normal) Anisocytosis (Not Present) Macrocytosis (Not Present) PT (9.4-12.1) Seconds INR APTT (26.0-36.0) Seconds Sample Site ABG pH 7.14 L* (7.32-7.45) pH Units ABG pCO2 146 H* (35-45) mmHg ABG pO2 30 L* (85-104) mmHg ABG HCO3 50 H (21-27) mEq/L ABG Total CO2 > 50 H (20-26) mEq/L ABG O2 Saturation 35 L (95-98) % ABG Base Excess 15 H (-2 to 3) mEq/L Respiration Rate O2 Delivery Device Blood Gas Modality Inspired O2 (1-15=lpm ax19-267=%) Tidal Volume cc PEEP cm H2O Sodium (136-145) mEq/L Potassium (3.5-5.1) mEq/L Chloride (98-107) mEq/L Carbon Dioxide (23-29) mEq/L BUN (8-23) mg/dL Creatinine (0.60-1.20) mg/dL Est GFR ( Amer) (> 60) Est GFR (Non-Af Amer) (> 60) BUN/Creatinine Ratio (6-26) Glucose (70-105) mg/dL Calculated Osmolality (280-300) Lactic Acid (0.5-2.2) mmol/L Calcium (8.6-10.3) mg/dL Phosphorus (2.7-4.5) mg/dL Magnesium (1.6-2.6) mg/dL Total Bilirubin (0.3-1.0) mg/dL Direct Bilirubin (0.0-0.2) mg/dL Indirect Bilirubin (0.0-1.2) mg/dL AST (13-39) Units/L ALT (7-52) Units/L Alkaline Phosphatase (34-104) Units/L Troponin I (< 0.04) ng/mL B-Natriuretic Peptide 371 H (Less than 100) pg/mL Serum Total Protein (6.4-8.9) g/dL Albumin (3.5-5.7) g/dL Globulin (2.4-3.5) g/dL Albumin/Globulin Ratio (1.1-2.2) Urine Color (Yellow) Urine Clarity (Clear) Urine pH (5.0-8.0) pH Units Ur Specific [place] (1.010-1.025) Urine Protein (Neg-Trace) mg/dL Urine Glucose (UA) (Normal) mg/dL Urine Ketones (Negative) mg/dL Urine Blood (Negative) Urine Nitrite (Negative) Urine Bilirubin (Negative) Urine Urobilinogen (Normal) mg/dL Ur Leukocyte Esterase (Negative) Urine Microscopic RBC (0-3) per hpf Urine Microscopic WBC (0-3) per hpf Ur Squamous Epith Cells (None-Few) per lpf Urine Bacteria (None-Few) per hpf Urine Yeast (None Seen) per hpf Ur Culture Indicated? (NO) Urine Opiates Screen (Mcjfcj=447) ng/mL Ur Barbiturates Screen (Gpydwm=594) ng/mL Ur Phencyclidine Scrn (Cutoff=25) ng/mL Ur Amphetamines Screen (Plnbca=1085) ng/mL U Benzodiazepines Scrn (Emrlld=506) ng/mL Urine Cocaine Screen (Cutoff= 300) ng/mL U Marijuana (THC) Screen (Cutoff = 50) ng/mL Ur Drug Screen Interp Specimen Rejected MCV Delta 11/11/18 11/11/18 11/11/18 Range/Units 11:53 13:02 13:02 WBC (4.3-11.1) K/mcL RBC (3.82-4.97) M/mcL Hgb (11.5-15.4) g/dL Hct (35.3-44.9) % MCV (83.0-100.0) fL MCH (28.0-33.3) pg MCHC (31.6-35.5) g/dL RDW (11.5-14.5) % Plt Count (140-400) K/mcL MPV (9.4-12.4) fL Immature Gran % (0-4) % Seg Neutrophils % % Lymphocytes % % Monocytes % % Eosinophils % % Basophils % % Neutrophils # (1.6-8.9) K/mcL Lymphocytes # (0.6-4.6) K/mcL Monocytes # (0.0-1.3) K/mcL Eosinophils # (0.0-0.6) K/mcL Basophils # (0.0-0.2) K/mcL Nucleated RBCs/100 WBC (0) /100 WBC Platelet Estimate (Normal) Anisocytosis (Not Present) Macrocytosis (Not Present) PT (9.4-12.1) Seconds INR APTT (26.0-36.0) Seconds Sample Site Art Line ABG pH 7.52 H D (7.32-7.45) pH Units ABG pCO2 57 H D (35-45) mmHg ABG pO2 430 H D (85-104) mmHg ABG HCO3 47 H (21-27) mEq/L ABG Total CO2 49 H (20-26) mEq/L ABG O2 Saturation 100 H (95-98) % ABG Base Excess 21 H (-2 to 3) mEq/L Respiration Rate 24 O2 Delivery Device Adult Vent Blood Gas Modality ASSIST CONTROL Inspired O2 100.0 (1-15=lpm vn25-223=%) Tidal Volume 400 cc PEEP 5 cm H2O Sodium (136-145) mEq/L Potassium (3.5-5.1) mEq/L Chloride (98-107) mEq/L Carbon Dioxide (23-29) mEq/L BUN (8-23) mg/dL Creatinine (0.60-1.20) mg/dL Est GFR ( Amer) (> 60) Est GFR (Non-Af Amer) (> 60) BUN/Creatinine Ratio (6-26) Glucose (70-105) mg/dL Calculated Osmolality (280-300) Lactic Acid (0.5-2.2) mmol/L Calcium (8.6-10.3) mg/dL Phosphorus (2.7-4.5) mg/dL Magnesium (1.6-2.6) mg/dL Total Bilirubin (0.3-1.0) mg/dL Direct Bilirubin (0.0-0.2) mg/dL Indirect Bilirubin (0.0-1.2) mg/dL AST (13-39) Units/L ALT (7-52) Units/L Alkaline Phosphatase (34-104) Units/L Troponin I (< 0.04) ng/mL B-Natriuretic Peptide (Less than 100) pg/mL Serum Total Protein (6.4-8.9) g/dL Albumin (3.5-5.7) g/dL Globulin (2.4-3.5) g/dL Albumin/Globulin Ratio (1.1-2.2) Urine Color Yellow (Yellow) Urine Clarity Cloudy A (Clear) Urine pH 5.5 (5.0-8.0) pH Units Ur Specific [place] 1.023 (1.010-1.025) Urine Protein 30 H (Neg-Trace) mg/dL Urine Glucose (UA) Normal (Normal) mg/dL Urine Ketones Negative (Negative) mg/dL Urine Blood Negative (Negative) Urine Nitrite Negative (Negative) Urine Bilirubin Negative (Negative) Urine Urobilinogen Normal (Normal) mg/dL Ur Leukocyte Esterase Negative (Negative) Urine Microscopic RBC 0-3 (0-3) per hpf Urine Microscopic WBC 15-30 H (0-3) per hpf Ur Squamous Epith Cells Many H (None-Few) per lpf Urine Bacteria None Seen (None-Few) per hpf Urine Yeast Many H (None Seen) per hpf Ur Culture Indicated? NO (NO) Urine Opiates Screen Negative (Jqsjyv=587) ng/mL Ur Barbiturates Screen Negative (Lhwxlo=614) ng/mL Ur Phencyclidine Scrn Negative (Cutoff=25) ng/mL Ur Amphetamines Screen Negative (Hwdjmx=7602) ng/mL U Benzodiazepines Scrn Negative (Yajjzm=586) ng/mL Urine Cocaine Screen Negative (Cutoff= 300) ng/mL U Marijuana (THC) Screen Negative (Cutoff = 50) ng/mL Ur Drug Screen Interp See Below Specimen Rejected 11/11/18 11/11/18 Range/Units 13:17 14:43 WBC 12.3 H (4.3-11.1) K/mcL RBC 2.37 L (3.82-4.97) M/mcL Hgb 8.2 L (11.5-15.4) g/dL Hct 27.1 L (35.3-44.9) % MCV 114.3 H D (83.0-100.0) fL MCH 34.6 H (28.0-33.3) pg MCHC 30.3 L (31.6-35.5) g/dL RDW 13.9 (11.5-14.5) % Plt Count 175 (140-400) K/mcL MPV 9.9 (9.4-12.4) fL Immature Gran % 1.5 (0-4) % Seg Neutrophils % 88.3 % Lymphocytes % 5.3 % Monocytes % 4.6 % Eosinophils % 0.2 % Basophils % 0.1 % Neutrophils # 10.9 H (1.6-8.9) K/mcL Lymphocytes # 0.7 (0.6-4.6) K/mcL Monocytes # 0.6 (0.0-1.3) K/mcL Eosinophils # 0.0 (0.0-0.6) K/mcL Basophils # 0.0 (0.0-0.2) K/mcL Nucleated RBCs/100 WBC 1.1 H (0) /100 WBC Platelet Estimate Normal (Normal) Anisocytosis 1+ A (Not Present) Macrocytosis Present A (Not Present) PT (9.4-12.1) Seconds INR APTT (26.0-36.0) Seconds Sample Site Art Line ABG pH 7.36 D (7.32-7.45) pH Units ABG pCO2 68 H (35-45) mmHg ABG pO2 564 H D (85-104) mmHg ABG HCO3 39 H (21-27) mEq/L ABG Total CO2 41 H (20-26) mEq/L ABG O2 Saturation 100 H (95-98) % ABG Base Excess 11 H (-2 to 3) mEq/L Respiration Rate 16 O2 Delivery Device Adult Vent Blood Gas Modality ASSIST CONTROL Inspired O2 (1-15=lpm qo51-663=%) Tidal Volume 400 cc PEEP cm H2O Sodium (136-145) mEq/L Potassium (3.5-5.1) mEq/L Chloride (98-107) mEq/L Carbon Dioxide (23-29) mEq/L BUN (8-23) mg/dL Creatinine (0.60-1.20) mg/dL Est GFR ( Amer) (> 60) Est GFR (Non-Af Amer) (> 60) BUN/Creatinine Ratio (6-26) Glucose (70-105) mg/dL Calculated Osmolality (280-300) Lactic Acid (0.5-2.2) mmol/L Calcium (8.6-10.3) mg/dL Phosphorus (2.7-4.5) mg/dL Magnesium (1.6-2.6) mg/dL Total Bilirubin (0.3-1.0) mg/dL Direct Bilirubin (0.0-0.2) mg/dL Indirect Bilirubin (0.0-1.2) mg/dL AST (13-39) Units/L ALT (7-52) Units/L Alkaline Phosphatase (34-104) Units/L Troponin I (< 0.04) ng/mL B-Natriuretic Peptide (Less than 100) pg/mL Serum Total Protein (6.4-8.9) g/dL Albumin (3.5-5.7) g/dL Globulin (2.4-3.5) g/dL Albumin/Globulin Ratio (1.1-2.2) Urine Color (Yellow) Urine Clarity (Clear) Urine pH (5.0-8.0) pH Units Ur Specific [place] (1.010-1.025) Urine Protein (Neg-Trace) mg/dL Urine Glucose (UA) (Normal) mg/dL Urine Ketones (Negative) mg/dL Urine Blood (Negative) Urine Nitrite (Negative) Urine Bilirubin (Negative) Urine Urobilinogen (Normal) mg/dL Ur Leukocyte Esterase (Negative) Urine Microscopic RBC (0-3) per hpf Urine Microscopic WBC (0-3) per hpf Ur Squamous Epith Cells (None-Few) per lpf Urine Bacteria (None-Few) per hpf Urine Yeast (None Seen) per hpf Ur Culture Indicated? (NO) Urine Opiates Screen (Kahxhq=029) ng/mL Ur Barbiturates Screen (Zwihxy=809) ng/mL Ur Phencyclidine Scrn (Cutoff=25) ng/mL Ur Amphetamines Screen (Njpfgy=6972) ng/mL U Benzodiazepines Scrn (Bnkzry=427) ng/mL Urine Cocaine Screen (Cutoff= 300) ng/mL U Marijuana (THC) Screen (Cutoff = 50) ng/mL Ur Drug Screen Interp Specimen Rejected Critical Care Time Critical Care Time: Yes Total Critical Care Time: 45 Attestation: Critical care performed: Time is exclusive of separately billable procedures. Time includes: direct patient care, patient reassessment, coordination of patient care, interpretation of data (laboratory data, radiology data, and respiratory data), review of patient's medical records, medical consultation and documentation of patient care. Procedures included in critical care time: Procedures excluded from critical care time: Attestation Statement - Attestation Attestation: I examined this patient and my medical decision-making was reviewed with the Resident Physician. I agree with the documented findings, disposition and treatment plan as described except to the extent set forth below. Patient arrives to the ED unresponsive. Patient was found this way this morning at the alf. Recent admission for respiratory failure. Concern for hypercapnia. On arrival here patient opens her eyes to verbal stimulus. Does not follow commands. Nonverbal. Plan. Patient's vital signs were obtained. She was satting in the 30s on room air. She was placed on a nonrebreather. We began [id number]. ABG pending at this time. Patient was intubated. Will place central line. Septic workup. CT head. Patient will be admitted for respiratory failure. Patient was intubated and had central line and arterial line placed by Dr. Enriquez with my supervision. Patient has lost pulses twice. Continues to be hypotensive. On Levophed at 20. Patient with acute respiratory failure. Hypercapnia. Questionable septic shock. Labs still pending. Will be admitted to ICU. Patient being transferred to ICU. Patient has required increase in her pressors. Now on an epi drip as well. Unclear at this time that the patient is septic. No obvious source. Patient is receiving IV antibiotic. She is receiv ed fluids. Continuing to monitor closely. Head CT 11/11/18 10:54 IMPRESSION: Atrophy and mild small vessel ischemic disease. Right maxillary sinus disease. D/ / Pedro Davenport MD / Pedro Davenport MD Interpreting Provider: Pedro Davenport MD Chest X-Ray 11/11/18 14:35 IMPRESSION: Endotracheal tube has been advanced with the tip approximately 15 mm above the level of the bo. Consider minimally retracting. D/ / 11/11/2018 14:54:50 Reuben Ferguson MD / Shy Davis Interpreting Provider: Reuben Ferguson MD
[2018-11-11 11:12] LABS: ABG Base Excess 15 mEq/L (-2 to 3); ABG HCO3 50 mEq/L (21-27); ABG Oxygen Saturation 35 % (95-98); ABG PCO2 146 mmHg (35-45); ABG PH 7.14 pH Units (7.32-7.45); ABG PO2 30 mmHg (85-104); ABG TCO2 > 50 mEq/L (20-26)
[2018-11-11] MEDS ORDERED: *HR* Rocuronium Bromide 100 MG/10 ML VIAL IVC ONE (11:30)
[2018-11-11 11:41] LABS: Prothrombin Time 11.6 Seconds (9.4-12.1)
[2018-11-11 11:44] LABS: Activated Partial Thrombo Time 29.2 Seconds (26.0-36.0)
--- NOTE | 2018-11-11 11:56 | Emergency Department Note ---
Disposition Clinical Impression: Cardiac arrest, Elevated troponin, Shock circulatory Respiratory failure Qualifiers: Chronicity: acute on chronic Respiratory failure complication: hypoxia and hypercapnia Qualified Code(s): J96.21 - Acute and chronic respiratory failure with hypoxia Altered mental status Qualifiers: Altered mental status type: unspecified Qualified Code(s): R41.82 - Altered mental status, unspecified Disposition: Admitted As Inpatient Condition: Serious Altered Mental Status HPI - General Chief Complaint: ED Altered Mental Status Stated Complaint: Unresponsive Time Seen by Provider: 11/11/18 10:54 Source: EMS Mode of arrival: EMS Limitations: altered mental status Nursing Notes Reviewed: Yes Vital Signs Reviewed: Yes - History of Present Illness HPI Narrative: 78-year-old female history of oxygen-dependent COPD recently discharged from the hospital 4 days ago after mechanical ventilation who presents to the ER from [facility] unresponsive. History is obtained from EMS. Reports that she was found altered this morning. Family soon arrived reporting that yesterday she seemed "lethargic" and then this morning when they were there she was foaming at the mouth. Patient presents with an oxygen saturation of 25% and apneic. She is unresponsive to sternal rub. MD complaint: altered mental status Onset (ago): day(s) Treatments prior to arrival: glucose, oxygen - Related Data Home Medications Medication Instructions Recorded Confirmed Budesonide/Formoterol 160/4.5 2 puff IH BID 10/23/16 11/11/18 [Symbicort 160/4.5] Diclofenac Sodium [Voltaren] 1 appl TP QID PRN 10/23/16 11/11/18 Folic Acid 1 mg PO DAILY 10/23/16 11/11/18 Ondansetron HCl [Zofran] 4 mg PO Q8H PRN 10/23/16 11/11/18 Ranitidine HCl [Acid Rice Dryer Mechanic] 150 mg PO DAILY 10/23/16 11/11/18 rOPINIRole [Requip] 1 mg PO HS 10/23/16 11/11/18 Ipratropium/Albuterol Sulfate 1 puff IH Q4H PRN 05/04/18 11/11/18 [Combivent Respimat 20-100 Mcg] Carvedilol [Coreg] 25 mg PO BID 07/02/18 11/11/18 Albuterol Sulfate [Proair Hfa] 2 puff IH Q6H PRN 07/28/18 11/11/18 Docusate [Colace] 100 mg PO DAILY 07/28/18 11/11/18 Gabapentin [Neurontin] 300 mg PO HS 09/25/18 11/11/18 Rivaroxaban [Xarelto] 20 mg PO QPM 09/25/18 11/11/18 Cyanocobalamin (Vitamin B-12) 5,000 mcg PO DAILY 10/22/18 11/11/18 [Vitamin B-12] Losartan Potassium [Cozaar] 50 mg PO DAILY 10/22/18 11/11/18 Acetaminophen [Tylenol] 500 mg PO Q6HR PRN 11/11/18 11/11/18 Alendronate Sodium [Fosamax] 70 mg PO TH 11/11/18 11/11/18 Calcium Carbonate/Vitamin D3 1 each PO DAILY 11/11/18 11/11/18 [Calcium 600-Vit D3 800 Tablet] OxyCODONE/APAP 5/325 [Percocet 1 tab PO Q12H PRN 11/11/18 11/11/18 5/325 MG] Sodium Chloride for inhalation 3 ml IH Q6H 11/11/18 11/11/18 [Sodium Chloride, Saline 3 ML] Previous Rx's Medication Instructions Recorded Benzonatate [Tessalon] 100 mg PO TID PRN capsule 11/06/18 GuaiFENesin ER [Mucinex] 600 mg PO BID PRN tbbp.12hr 11/06/18 Ipratropium [ATROVENT Inhaler] 2 puff IH [id number] PRN inhaler 11/06/18 Quetiapine Fumarate [Seroquel] 25 mg PO HS tablet 11/06/18 predniSONE [PredniSONE] 10 mg PO DAILY #10 tablet 11/06/18 Allergies Allergy/AdvReac Type Severity Reaction Status Date / Time amlodipine [From [facility]] Allergy See Verified 10/22/18 09:42 Comments Limitations: ROS unobtainable due to patients medical condition Past Medical History - Past Medical History Source: old records reviewed, obtained from family Medical history: Reports: arthritis, atrial fibrillation, CHF, COPD, DVT, hyperlipidemia, hypertension, osteoporosis, pulmonary embolus, RA, renal disease, other Surgical history: Reports: non-contributory Psychiatric history: Reports: no psych history - Social History Smoking Status: Former smoker Smokeless Tobacco Status: No Alcohol use: Reports: none Drug use: Reports: none Physical Exam - General Limitations: altered mental status General appearance: lethargic - Head Head exam: atraumatic, normocephalic, normal inspection - Eye Eye exam: Present: normal appearance - ENT ENT exam: normal exam - Neck Neck exam: Present: normal inspection - Chest Chest inspection: Present: normal inspection, symmetric chest wall rise - Respiratory Respiratory exam: Present: other (Diminished breath sounds bilaterally) - Cardiovascular Cardiovascular exam: Present: regular rate, normal rhythm, normal heart sounds - Abdominal Exam Abdominal exam: Present: soft. Absent: distention, guarding, rigidity - Extremities Exam Extremities exam: Present: normal inspection - Expanded Upper Extremity Exam Shoulder exam: Present: normal inspection Arm exam: Present: normal inspection Elbow exam: Present: normal inspection, ecchymosis (Bruising to the bilateral upper extremities) Forearm/Wrist exam: Present: normal inspection Hand exam: Present: normal inspection - Expanded Lower Extremity Exam Hip/Pelvis exam: Present: normal inspection Upper leg exam: Present: normal inspection Knee exam: Present: normal inspection Lower leg exam: Present: normal inspection Ankle exam: Present: normal inspection Foot/toe exam: Present: normal inspection - Skin Skin exam: Present: warm, dry Course Course Narrative: Patient seen and examined at time of arrival. She is obtunded and is not responsive to painful stimuli. Patient was intubated first pass without issue. Subsequently approximately 5 minutes later the patient was hypotensive 50/28 and no pulse felt. Patient had 4 minutes of ACLS for PEA. A right femoral central an arterial line were placed. The patient was started on Levophed. Repeat ABG after initial pH of 7.1 is now 7.5. Patient received 2 A of bicarbonate during ACLS. Family updated on critical nature of the patient's current medical condition. - Reevaluation(s) Reevaluation #1: Called back into the room. A line unable to assess blood pressure. No pulse was felt. CPR was initiated. 2 minutes of ACLS with pulse found after 1 mg of epinephrine. That said ultrasound demonstrates cardiac activity. One of the ICU nurses came down to trouble shoot the A-line with a pressure now of 60/30. Levophed increased with goal map 65. Awaiting CT imaging of the head. Labs reviewed this far showing a troponin of 0.05 with a mildly elevated BNP. Reevaluation #2: Called back to the patient's room. Patient's blood pressure 30/20 and now bradycardic. Total 100 g of epinephrine was placed as well as a milligram of atropine. Levophed was started again up to 20. She had a profound response to this and is still hypertensive. We will continue to titrate the Levaphed fed down with a map goal of 65 Vital Signs Respiratory Rate 20 11/11/18 10:52 Blood Pressure 58/29 11/11/18 10:52 O2 Sat by Pulse Oximetry 100 11/11/18 10:52 Temperature 0 F L 11/11/18 11:00 Pulse Rate 138 11/11/18 11:36 Respiratory Rate 16 11/11/18 16:28 Blood Pressure 136/69 11/11/18 16:28 O2 Sat by Pulse Oximetry 97 11/11/18 15:10 Oxygen Delivery Oxygen Delivery Non Rebreather Mask Procedures - Arterial Line Size (Gauge): 14 Technique Used: guide wire technique Post-Procedure: line sutured into place Patient Tolerated Procedure: well Complications: none Site: right, femoral - Central Line Placement Right Femoral Central Line Insertion: emergent Procedural Pause: nicol and assess the site, assemble equipment and verify supplies, perform hand hygiene Patient Placed on Monitor/Pulse Ox: Yes During the Procedure: clinician is wearing sterile gloves, cap, mask,& gown during insertion, sterile field and sterile technique are maintained, patient's face is covered with drape or mask and wearing a cap, everyone in room is wearing a mask Central Line Prep: Chlorhexidine scrub Prep the Procedure Site: apply chloraprep to the skin using a back and forth scr ubbing motion, apply chloraprep for 30 seconds (upper body), 1-2 min (femoral sites), allow prep to dry, drape the patient with a full body drape Ultrasound Used for Placement: Yes Central Line Lumen Inserted: triple Post Procedure: sutured in place, good blood return, all ports aspirated, flushed, capped, guide wire removed and visualized Patient Tolerated Procedure: well Complications: none Name of Clinician Inserting Central Line: Ilia Mina - Intubation sedative: Etomidate Mg Given: 20 paralytic: Rocuronium Mg Given: 100 Laryngoscope: Dee ET Tube Size: 7.5 Tube Secured Depth (cm): 21 Tube Secured Location: lips Tube Placement Confirmation: visualized tube passing through cords, equal breath sounds bilaterally, no breath sounds over epigastrium, confirmation by capnometry Patient Tolerated Procedure: well Intubation Complications: none Additional Comments: Intubated by Rose Mary Bolden Altered Mental Status - [facility] Narrative Medical decision making narrative: 78-year-old female presenting for altered mental status. The patient was noted to be significantly hypoxic. She was intubated for altered mental status and hypoxia. The patient then had 2 cardiac arrests. She is noted to be profoundly hypotensive requiring vasopressor support. A central line and arterial line were placed for management. Her peripheral blood pressure cuff was not correlating well with her arterial line and I suspect that she was hypotensive at presentation. Her labs reviewed showing a mildly elevated troponin 0.05. She has had continually changing rhythm strips here from sinus tachycardia to bigeminy to trigeminy. The patient was evaluated by the insurance claim auditor in the emergency department and accepted to the ICU. CT imaging of the head is unremarkable. Chest x-ray is unremarkable as well. The patient is admitted in critical condition to the intensive care unit. - Lab Data Lab results reviewed: Yes I reviewed the patient's lab results. Result diagrams: 11/11/18 14:43 11/11/18 10:54 Lab Results 11/11/18 11/11/18 11/11/18 Range/Units 10:54 11:03 11:03 WBC (4.3-11.1) K/mcL RBC (3.82-4.97) M/mcL Hgb (11.5-15.4) g/dL Hct (35.3-44.9) % MCV (83.0-100.0) fL MCH (28.0-33.3) pg MCHC (31.6-35.5) g/dL RDW (11.5-14.5) % Plt Count (140-400) K/mcL MPV (9.4-12.4) fL Immature Gran % (0-4) % Seg Neutrophils % % Lymphocytes % % Monocytes % % Eosinophils % % Basophils % % Neutrophils # (1.6-8.9) K/mcL Lymphocytes # (0.6-4.6) K/mcL Monocytes # (0.0-1.3) K/mcL Eosinophils # (0.0-0.6) K/mcL Basophils # (0.0-0.2) K/mcL Nucleated RBCs/100 WBC (0) /100 WBC Platelet Estimate (Normal) Anisocytosis (Not Present) Macrocytosis (Not Present) PT 11.6 (9.4-12.1) Seconds INR 1.0 APTT 29.2 (26.0-36.0) Seconds Sample Site ABG pH (7.32-7.45) pH Units ABG pCO2 (35-45) mmHg ABG pO2 (85-104) mmHg ABG HCO3 (21-27) mEq/L ABG Total CO2 (20-26) mEq/L ABG O2 Saturation (95-98) % ABG Base Excess (-2 to 3) mEq/L Respiration Rate O2 Delivery Device Blood Gas Modality Inspired O2 (1-15=lpm [id number]=%) Tidal Volume cc PEEP cm H2O Sodium 144 (136-145) mEq/L Potassium 4.7 (3.5-5.1) mEq/L Chloride 97 L (98-107) mEq/L Carbon Dioxide > 45 H* (23-29) mEq/L BUN 22 (8-23) mg/dL Creatinine 0.91 (0.60-1.20) mg/dL Est GFR ( Amer) > 60 (> 60) Est GFR (Non-Af Amer) 60 (> 60) BUN/Creatinine Ratio 24 (6-26) Glucose 181 H (70-105) mg/dL Calculated Osmolality 306 H (280-300) Lactic Acid 0.7 (0.5-2.2) mmol/L Calcium 9.5 (8.6-10.3) mg/dL Phosphorus 6.2 H (2.7-4.5) mg/dL Magnesium 2.1 (1.6-2.6) mg/dL Total Bilirubin 0.3 (0.3-1.0) mg/dL Direct Bilirubin 0.0 (0.0-0.2) mg/dL Indirect Bilirubin 0.3 (0.0-1.2) mg/dL AST 12 L (13-39) Units/L ALT 23 (7-52) Units/L Alkaline Phosphatase 42 (34-104) Units/L Troponin I 0.05 H* (< 0.04) ng/mL B-Natriuretic Peptide (Less than 100) pg/mL Serum Total Protein 5.9 L (6.4-8.9) g/dL Albumin 3.3 L (3.5-5.7) g/dL Globulin 2.6 (2.4-3.5) g/dL Albumin/Globulin Ratio 1.3 (1.1-2.2) Urine Color (Yellow) Urine Clarity (Clear) Urine pH (5.0-8.0) pH Units Ur Specific [place] (1.010-1.025) Urine Protein (Neg-Trace) mg/dL Urine Glucose (UA) (Normal) mg/dL Urine Ketones (Negative) mg/dL Urine Blood (Negative) Urine Nitrite (Negative) Urine Bilirubin (Negative) Urine Urobilinogen (Normal) mg/dL Ur Leukocyte Esterase (Negative) Urine Microscopic RBC (0-3) per hpf Urine Microscopic WBC (0-3) per hpf Ur Squamous Epith Cells (None-Few) per lpf Urine Bacteria (None-Few) per hpf Urine Yeast (None Seen) per hpf Ur Culture Indicated? (NO) Urine Opiates Screen (Oxrppv=198) ng/mL Ur Barbiturates Screen (Kkxtop=373) ng/mL Ur Phencyclidine Scrn (Cutoff=25) ng/mL Ur Amphetamines Screen (Vcwsck=4010) ng/mL U Benzodiazepines Scrn (Brvasn=125) ng/mL Urine Cocaine Screen (Cutoff= 300) ng/mL U Marijuana (THC) Screen (Cutoff = 50) ng/mL Ur Drug Screen Interp Specimen Rejected 11/11/18 11/11/18 11/11/18 Range/Units 11:03 11:03 11:28 WBC (4.3-11.1) K/mcL RBC (3.82-4.97) M/mcL Hgb (11.5-15.4) g/dL Hct (35.3-44.9) % MCV (83.0-100.0) fL MCH (28.0-33.3) pg MCHC (31.6-35.5) g/dL RDW (11.5-14.5) % Plt Count (140-400) K/mcL MPV (9.4-12.4) fL Immature Gran % (0-4) % Seg Neutrophils % % Lymphocytes % % Monocytes % % Eosinophils % % Basophils % % Neutrophils # (1.6-8.9) K/mcL Lymphocytes # (0.6-4.6) K/mcL Monocytes # (0.0-1.3) K/mcL Eosinophils # (0.0-0.6) K/mcL Basophils # (0.0-0.2) K/mcL Nucleated RBCs/100 WBC (0) /100 WBC Platelet Estimate (Normal) Anisocytosis (Not Present) Macrocytosis (Not Present) PT (9.4-12.1) Seconds INR APTT (26.0-36.0) Seconds Sample Site ABG pH 7.14 L* (7.32-7.45) pH Units ABG pCO2 146 H* (35-45) mmHg ABG pO2 30 L* (85-104) mmHg ABG HCO3 50 H (21-27) mEq/L ABG Total CO2 > 50 H (20-26) mEq/L ABG O2 Saturation 35 L (95-98) % ABG Base Excess 15 H (-2 to 3) mEq/L Respiration Rate O2 Delivery Device Blood Gas Modality Inspired O2 (1-15=lpm iv55-293=%) Tidal Volume cc PEEP cm H2O Sodium (136-145) mEq/L Potassium (3.5-5.1) mEq/L Chloride (98-107) mEq/L Carbon Dioxide (23-29) mEq/L BUN (8-23) mg/dL Creatinine (0.60-1.20) mg/dL Est GFR ( Amer) (> 60) Est GFR (Non-Af Amer) (> 60) BUN/Creatinine Ratio (6-26) Glucose (70-105) mg/dL Calculated Osmolality (280-300) Lactic Acid (0.5-2.2) mmol/L Calcium (8.6-10.3) mg/dL Phosphorus (2.7-4.5) mg/dL Magnesium (1.6-2.6) mg/dL Total Bilirubin (0.3-1.0) mg/dL Direct Bilirubin (0.0-0.2) mg/dL Indirect Bilirubin (0.0-1.2) mg/dL AST (13-39) Units/L ALT (7-52) Units/L Alkaline Phosphatase (34-104) Units/L Troponin I (< 0.04) ng/mL B-Natriuretic Peptide 371 H (Less than 100) pg/mL Serum Total Protein (6.4-8.9) g/dL Albumin (3.5-5.7) g/dL Globulin (2.4-3.5) g/dL Albumin/Globulin Ratio (1.1-2.2) Urine Color (Yellow) Urine Clarity (Clear) Urine pH (5.0-8.0) pH Units Ur Specific [place] (1.010-1.025) Urine Protein (Neg-Trace) mg/dL Urine Glucose (UA) (Normal) mg/dL Urine Ketones (Negative) mg/dL Urine Blood (Negative) Urine Nitrite (Negative) Urine Bilirubin (Negative) Urine Urobilinogen (Normal) mg/dL Ur Leukocyte Esterase (Negative) Urine Microscopic RBC (0-3) per hpf Urine Microscopic WBC (0-3) per hpf Ur Squamous Epith Cells (None-Few) per lpf Urine Bacteria (None-Few) per hpf Urine Yeast (None Seen) per hpf Ur Culture Indicated? (NO) Urine Opiates Screen (Hjqpuf=019) ng/mL Ur Barbiturates Screen (Emhekr=305) ng/mL Ur Phencyclidine Scrn (Cutoff=25) ng/mL Ur Amphetamines Screen (Zoizni=7466) ng/mL U Benzodiazepines Scrn (Ankpcs=707) ng/mL Urine Cocaine Screen (Cutoff= 300) ng/mL U Marijuana (THC) Screen (Cutoff = 50) ng/mL Ur Drug Screen Interp Specimen Rejected MCV Delta 11/11/18 11/11/18 11/11/18 Range/Units 11:53 13:02 13:02 WBC (4.3-11.1) K/mcL RBC (3.82-4.97) M/mcL Hgb (11.5-15.4) g/dL Hct (35.3-44.9) % MCV (83.0-100.0) fL MCH (28.0-33.3) pg MCHC (31.6-35.5) g/dL RDW (11.5-14.5) % Plt Count (140-400) K/mcL MPV (9.4-12.4) fL Immature Gran % (0-4) % Seg Neutrophils % % Lymphocytes % % Monocytes % % Eosinophils % % Basophils % % Neutrophils # (1.6-8.9) K/mcL Lymphocytes # (0.6-4.6) K/mcL Monocytes # (0.0-1.3) K/mcL Eosinophils # (0.0-0.6) K/mcL Basophils # (0.0-0.2) K/mcL Nucleated RBCs/100 WBC (0) /100 WBC Platelet Estimate (Normal) Anisocytosis (Not Present) Macrocytosis (Not Present) PT (9.4-12.1) Seconds INR APTT (26.0-36.0) Seconds Sample Site Art Line ABG pH 7.52 H D (7.32-7.45) pH Units ABG pCO2 57 H D (35-45) mmHg ABG pO2 430 H D (85-104) mmHg ABG HCO3 47 H (21-27) mEq/L ABG Total CO2 49 H (20-26) mEq/L ABG O2 Saturation 100 H (95-98) % ABG Base Excess 21 H (-2 to 3) mEq/L Respiration Rate 24 O2 Delivery Device Adult Vent Blood Gas Modality ASSIST CONTROL Inspired O2 100.0 (1-15=lpm qd93-265=%) Tidal Volume 400 cc PEEP 5 cm H2O Sodium (136-145) mEq/L Potassium (3.5-5.1) mEq/L Chloride (98-107) mEq/L Carbon Dioxide (23-29) mEq/L BUN (8-23) mg/dL Creatinine (0.60-1.20) mg/dL Est GFR ( Amer) (> 60) Est GFR (Non-Af Amer) (> 60) BUN/Creatinine Ratio (6-26) Glucose (70-105) mg/dL Calculated Osmolality (280-300) Lactic Acid (0.5-2.2) mmol/L Calcium (8.6-10.3) mg/dL Phosphorus (2.7-4.5) mg/dL Magnesium (1.6-2.6) mg/dL Total Bilirubin (0.3-1.0) mg/dL Direct Bilirubin (0.0-0.2) mg/dL Indirect Bilirubin (0.0-1.2) mg/dL AST (13-39) Units/L ALT (7-52) Units/L Alkaline Phosphatase (34-104) Units/L Troponin I (< 0.04) ng/mL B-Natriuretic Peptide (Less than 100) pg/mL Serum Total Protein (6.4-8.9) g/dL Albumin (3.5-5.7) g/dL Globulin (2.4-3.5) g/dL Albumin/Globulin Ratio (1.1-2.2) Urine Color Yellow (Yellow) Urine Clarity Cloudy A (Clear) Urine pH 5.5 (5.0-8.0) pH Units Ur Specific [place] 1.023 (1.010-1.025) Urine Protein 30 H (Neg-Trace) mg/dL Urine Glucose (UA) Normal (Normal) mg/dL Urine Ketones Negative (Negative) mg/dL Urine Blood Negative (Negative) Urine Nitrite Negative (Negative) Urine Bilirubin Negative (Negative) Urine Urobilinogen Normal (Normal) mg/dL Ur Leukocyte Esterase Negative (Negative) Urine Microscopic RBC 0-3 (0-3) per hpf Urine Microscopic WBC 15-30 H (0-3) per hpf Ur Squamous Epith Cells Many H (None-Few) per lpf Urine Bacteria None Seen (None-Few) per hpf Urine Yeast Many H (None Seen) per hpf Ur Culture Indicated? NO (NO) Urine Opiates Screen Negative (Uolhas=222) ng/mL Ur Barbiturates Screen Negative (Qfvaxk=374) ng/mL Ur Phencyclidine Scrn Negative (Cutoff=25) ng/mL Ur Amphetamines Screen Negative (Xtgvga=1280) ng/mL U Benzodiazepines Scrn Negative (Gsiqsy=151) ng/mL Urine Cocaine Screen Negative (Cutoff= 300) ng/mL U Marijuana (THC) Screen Negative (Cutoff = 50) ng/mL Ur Drug Screen Interp See Below Specimen Rejected 11/11/18 11/11/18 Range/Units 13:17 14:43 WBC 12.3 H (4.3-11.1) K/mcL RBC 2.37 L (3.82-4.97) M/mcL Hgb 8.2 L (11.5-15.4) g/dL Hct 27.1 L (35.3-44.9) % MCV 114.3 H D (83.0-100.0) fL MCH 34.6 H (28.0-33.3) pg MCHC 30.3 L (31.6-35.5) g/dL RDW 13.9 (11.5-14.5) % Plt Count 175 (140-400) K/mcL MPV 9.9 (9.4-12.4) fL Immature Gran % 1.5 (0-4) % Seg Neutrophils % 88.3 % Lymphocytes % 5.3 % Monocytes % 4.6 % Eosinophils % 0.2 % Basophils % 0.1 % Neutrophils # 10.9 H (1.6-8.9) K/mcL Lymphocytes # 0.7 (0.6-4.6) K/mcL Monocytes # 0.6 (0.0-1.3) K/mcL Eosinophils # 0.0 (0.0-0.6) K/mcL Basophils # 0.0 (0.0-0.2) K/mcL Nucleated RBCs/100 WBC 1.1 H (0) /100 WBC Platelet Estimate Normal (Normal) Anisocytosis 1+ A (Not Present) Macrocytosis Present A (Not Present) PT (9.4-12.1) Seconds INR APTT (26.0-36.0) Seconds Sample Site Art Line ABG pH 7.36 D (7.32-7.45) pH Units ABG pCO2 68 H (35-45) mmHg ABG pO2 564 H D (85-104) mmHg ABG HCO3 39 H (21-27) mEq/L ABG Total CO2 41 H (20-26) mEq/L ABG O2 Saturation 100 H (95-98) % ABG Base Excess 11 H (-2 to 3) mEq/L Respiration Rate 16 O2 Delivery Device Adult Vent Blood Gas Modality ASSIST CONTROL Inspired O2 (1-15=lpm ql45-961=%) Tidal Volume 400 cc PEEP cm H2O Sodium (136-145) mEq/L Potassium (3.5-5.1) mEq/L Chloride (98-107) mEq/L Carbon Dioxide (23-29) mEq/L BUN (8-23) mg/dL Creatinine (0.60-1.20) mg/dL Est GFR ( Amer) (> 60) Est GFR (Non-Af Amer) (> 60) BUN/Creatinine Ratio (6-26) Glucose (70-105) mg/dL Calculated Osmolality (280-300) Lactic Acid (0.5-2.2) mmol/L Calcium (8.6-10.3) mg/dL Phosphorus (2.7-4.5) mg/dL Magnesium (1.6-2.6) mg/dL Total Bilirubin (0.3-1.0) mg/dL Direct Bilirubin (0.0-0.2) mg/dL Indirect Bilirubin (0.0-1.2) mg/dL AST (13-39) Units/L ALT (7-52) Units/L Alkaline Phosphatase (34-104) Units/L Troponin I (< 0.04) ng/mL B-Natriuretic Peptide (Less than 100) pg/mL Serum Total Protein (6.4-8.9) g/dL Albumin (3.5-5.7) g/dL Globulin (2.4-3.5) g/dL Albumin/Globulin Ratio (1.1-2.2) Urine Color (Yellow) Urine Clarity (Clear) Urine pH (5.0-8.0) pH Units Ur Specific [place] (1.010-1.025) Urine Protein (Neg-Trace) mg/dL Urine Glucose (UA) (Normal) mg/dL Urine Ketones (Negative) mg/dL Urine Blood (Negative) Urine Nitrite (Negative) Urine Bilirubin (Negative) Urine Urobilinogen (Normal) mg/dL Ur Leukocyte Esterase (Negative) Urine Microscopic RBC (0-3) per hpf Urine Microscopic WBC (0-3) per hpf Ur Squamous Epith Cells (None-Few) per lpf Urine Bacteria (None-Few) per hpf Urine Yeast (None Seen) per hpf Ur Culture Indicated? (NO) Urine Opiates Screen (Tpkyfy=605) ng/mL Ur Barbiturates Screen (Oknred=763) ng/mL Ur Phencyclidine Scrn (Cutoff=25) ng/mL Ur Amphetamines Screen (Kldekk=2017) ng/mL U Benzodiazepines Scrn (Hhwwcj=537) ng/mL Urine Cocaine Screen (Cutoff= 300) ng/mL U Marijuana (THC) Screen (Cutoff = 50) ng/mL Ur Drug Screen Interp Specimen Rejected - Radiology Data Radiology results reviewed: Yes I reviewed the patient's radiology results. Head CT 11/11/18 10:54 IMPRESSION: Atrophy and mild small vessel ischemic disease. Right maxillary sinus disease. D/ / Pedro Davenport MD / Pedro Davenport MD Interpreting Provider: Pedro Davenport MD Chest X-Ray 11/11/18 14:35 IMPRESSION: Endotracheal tube has been advanced with the tip approximately 15 mm above the level of the bo. Consider minimally retracting. D/ / 11/11/2018 14:54:50 Reuben Ferguson MD / [employer]y [employer] Interpreting Provider: Reuben Ferguson MD - EKG Data EKG attestation: Yes I reviewed and interpreted this EKG. EKG results narrative: EKG demonstrates ventricular bigeminy with a rate of 154. Normal axis. Normal intervals. Normal R-wave ration. There are ST elevations in the PVCs. No previous EKG at this time for comparison. TPA Checklist - LKW: 3-4.5 hrs Add. Warnings/Precautions Patient/family understanding: The patient/family members have been counseled and understood the risk, benefit, and alternatives of treatment.
[2018-11-11 12:05] LABS: Alanine Aminotransferase 23 Units/L (7-52); Albumin 3.3 g/dL (3.5-5.7); Albumin/Globulin Ratio 1.3 (1.1-2.2); Alkaline Phosphatase 42 Units/L (34-104); Aspartate Amino Transferase 12 Units/L (13-39); BUN/Creatinine Ratio 24 (6-26); Bilirubin,Indirect 0.3 mg/dL (0.0-1.2); Bilirubin,Total 0.3 mg/dL (0.3-1.0); Blood Urea Nitrogen 22 mg/dL (8-23); Calcium 9.5 mg/dL (8.6-10.3); Carbon Dioxide > 45 mEq/L (23-29); Chloride 97 mEq/L (98-107); Globulin 2.6 g/dL (2.4-3.5); Glucose 181 mg/dL (70-105); Magnesium 2.1 mg/dL (1.6-2.6); Osmolality,Calculated 306 (280-300); Phosphorous 6.2 mg/dL (2.7-4.5); Potassium 4.7 mEq/L (3.5-5.1); Sodium 144 mEq/L (136-145); Total Protein 5.9 g/dL (6.4-8.9); Troponin I 0.05 ng/mL (< 0.04); eGFR For Non-African Americans 60 (> 60)
[2018-11-11 12:11] LABS: ABG Base Excess 21 mEq/L (-2 to 3); ABG HCO3 47 mEq/L (21-27); ABG Oxygen Saturation 100 % (95-98); ABG PCO2 57 mmHg (35-45); ABG PH 7.52 pH Units (7.32-7.45); ABG PO2 430 mmHg (85-104); ABG TCO2 49 mEq/L (20-26); Blood Gas Modality ASSIST CONTROL; Blood Gas PEEP 5 cm H2O; Blood Gas Respiration Rate 24; Blood Gas VT 400 cc
[2018-11-11] MEDS ORDERED: Piperacillin/Tazobactam 3.375 GM in 0.9 % Sodium Chloride Mini Bag 100 ML IVPB ONE (12:26)
[2018-11-11] MEDS ORDERED: Levofloxacin 500 MG/100 ML 500 MG/100 ML BAG IVPB ONE (12:26)
[2018-11-11] MEDS: 0.9 % Sodium Chloride 1,000 ML IVC ONE ×2 (12:32→14:13)
[2018-11-11] MEDS ORDERED: Propofol 500 MG/50 ML INFUS..BTL ONE (12:34)
[2018-11-11] MEDS ORDERED: Albuterol 2.5 MG/3 ML NEBULIZER ONE (12:50)
[2018-11-11] MEDS ORDERED: Albuterol 2.5 MG/3 ML NEBULIZER IH ONE (12:51)
[2018-11-11] MEDS ORDERED: 0.9 % Sodium Chloride 2,000 ML ONE (13:04)
[2018-11-11] MEDS ORDERED: D5% in Water 250 ML ONE (13:09)
[2018-11-11 13:20] LABS: ABG Base Excess 11 mEq/L (-2 to 3); ABG HCO3 39 mEq/L (21-27); ABG Oxygen Saturation 100 % (95-98); ABG PCO2 68 mmHg (35-45); ABG PH 7.36 pH Units (7.32-7.45); ABG PO2 564 mmHg (85-104); ABG TCO2 41 mEq/L (20-26); Blood Gas Modality ASSIST CONTROL; Blood Gas Respiration Rate 16; Blood Gas VT 400 cc
[2018-11-11 13:33] LABS: Bilirubin,Urine Negative (Negative); Blood,Urine Negative (Negative); Clarity,Urine Cloudy (Clear); Color,Urine Yellow (Yellow); Glucose,Urine (UA) Normal (Normal); Ketones,Urine Negative (Negative); Leukocyte Esterase,Urine Negative (Negative); Nitrite,Urine Negative (Negative); PH,Urine 5.5 pH Units (5.0-8.0); Protein,Urine 30 mg/dL (Neg-Trace); Specific Gravity,Urine 1.023 (1.010-1.025); Urobilinogen,Urine Normal (Normal)
[2018-11-11 13:34] LABS: Bacteria,Urine None Seen per hpf (None-Few); Squamous Epithelial Cell,Urine Many per lpf (None-Few); WBC,Urine 15-30 per hpf (0-3)
[2018-11-11 13:44] LABS: Amphetamine Screen,Urine Negative ng/mL (Cutoff=1000); Barbiturate Screen,Urine Negative ng/mL (Cutoff=200); Benzodiazepines Screen,Urine Negative ng/mL (Cutoff=200); Cannabinoid Screen,Urine Negative ng/mL (Cutoff = 50); Cocaine Screen,Urine Negative ng/mL (Cutoff= 300); Opiate Screen,Urine Negative ng/mL (Cutoff=300); Phencyclidine Screen,Urine Negative ng/mL (Cutoff=25)
[2018-11-11 13:50] LABS: RBC,Urine 0-3 per hpf (0-3)
[2018-11-11 13:51] LABS: Yeast,Urine Many per hpf (None Seen)
[2018-11-11] MEDS ORDERED: Propofol 500 MG/50 ML INFUS..BTL IVC SCH (14:00)
[2018-11-11] MEDS: 0.9 % Sodium Chloride 1,000 ML IVC SCH ×2 (14:14→14:28)
[2018-11-11] MEDS: FentaNYL (PF) 1,000 MCG in 0.9 % Sodium Chloride 80 ML IVC SCH (14:29)
--- NOTE | 2018-11-11 14:33 | Pulmonology History & Physical ---
<Maday Orozco - Last Filed: 11/11/18 18:47> Date of Encounter: 11/11/18 Time of Encounter: 14:23 Assessment and Plan (1) Shock circulatory Current visit: Yes Status: Acute * Uncertain etiology for requirement of pressors but differential to include cardiogenic and septic * Will evaluate cardiac function with stat echocardiogram given arrest and requirement of pressors * Patient given 2L fluid bolus in the ED * Initiated on Levophed with intermittent response, epinephrine drip on hold unless requiring further vasopressor support * Continue propofol and fentanyl for sedation with plan to decrease propofol as the patient tolerates (2) Cardiac arrest Current visit: Yes Status: Acute * Patient had 2 episodes of PEA arrest and was given 2 amp bicarb, epinephrine, and 1mg atropine in the ED * Patient has had several different morphologies seen on EKG including bigeminy, sinus tachycardia, and ST elevations in V1-V4. Discussed the case with Dr. Porter, supervisor lime who recommends STAT echo * Troponin initially 0.05, repeat 0.21, will trend * Will monitor EKG for changes overnight (3) Respiratory failure with hypoxia and hypercapnia Current visit: Yes Status: Acute * On initial presentation the patient's pulse ox was reportedly in the 30s therefore she was intubated * Initial ABG shows significant acidosis with hypercarbia with pH of 7.14 and PCO2 of 146. Bicarbonate high at 50. Patient was intubated and repeat ABGs has showed improvement in her acidosis and hypercarbia. * Patient's presentation likely secondary to under utilization of her BiPAP with resultant hypercarbia and acidosis worsened by her COPD * We will evaluate for infectious source of her symptoms with blood cultures, respiratory infectious panel, nasal MRSA swab * Will empirically treat with Vancomycin and and Zosyn Qualifiers: Chronicity: acute on chronic Qualified Code(s): J96.21 - Acute and chronic respiratory failure with hypoxia; J96.22 - Acute and chronic respiratory failure with hypercapnia (4) Elevated troponin I level Current visit: Yes Status: Acute * Upon presentation to the ED the patient was intubated, First troponin 0.05, repeat 0.21 * EKG intermittently shows ST elevation in V1-V4 without reciprocal changes but morphology continues to change throughout the course of her stay * Discussed case with supervisor lime, Dr. Porter who is following, will evaluate for wall motion abnormalities with stat echo and trend troponins * D-dimer to evaluate for PE as the patient has history of DVT on xarelto (5) Acute exacerbation of chronic obstructive airways disease Current visit: Yes Status: Acute * Patient was recently discharged from the hospital on 11/07 status post influenz a and pneumonia * We will give the patients every hour duonebs as patient had wheezing upon presentation and COPD likely exacerbation the patients presentation * Chest x-ray x 2 shows no evidence of acute focal consolidation (6) HTN (hypertension) Current visit: Yes Status: Chronic * Patient requiring vasopressors and therefore will hold home antihypertensives at this time Qualifiers: Hypertension type: essential hypertension Qualified Code(s): I10 - Essential (primary) hypertension (7) Encephalopathy Current visit: Yes Status: Resolved * Likely secondary to hypercarbia * Patient sedated but making purposeful movement prior to initiation of fentanyl and propofol. (8) Elevated d-dimer Current visit: Yes Status: Acute * D-dimer 4983 * Will place on heparin * Takes xarelto for DVT per chart review * Will evaluate for need for CTA once more stable History of Present Illness HPI: Ms. Mcclure is a 78 year old female with history of COPD, Rheumatoid arthritis, atrial fibrillation, DVT, CKD, and diastolic heart failure with preserved ejection fraction who was recently discharged from [facility] on 11/07/18 after a 20 day stay for COPD exacerbation complicated by influenza A and pneumonia. She was tolerating BiPAP at night and was sent to nursing facility where she was to continue utilizing BiPAP at night. Per reports she was not found using BiPAP overnight and was found to be unresponsive, altered and foaming at the mouth. When she arrived to the emergency department her oxygen saturation was Significantly low and she was obtunded and not responsive to painful stimuli. The patient was therefore intubated and following intubation was significantly hypotensive without pulses. The patient had PA arrest with ROS see after approximately 4 minutes. The patient was then started on levophed via right femoral central venous catheter. Arterial line was plac ed. Initial ABG shows pH of 7.1 which improved to 7.5 after 2 A of bicarbonate. During stabilization in the ED she did have another round of ACLS after inability to assess blood pressure via A line and no pulse. Levophed was therefore increased and additionally she was given 100 g of epinephrine as well as 1 milligram of atropine for bradycardia. Upon arrival to the ICU the patient is intubated, sedated and continues on the Levophed. When placed on monitor, noted ST elevations were seen. EKG was obtained and shows ST elevation in V1-[address] Porter contacted and he recommends d-dimer, stat echo, and trending troponin. Past Med Surg Social Fam HX - Past Medical History Medical history: arthritis, atrial fibrillation, CHF, COPD, DVT, hyperlipidemia, hypertension, osteoporosis, pulmonary embolus, RA, renal disease, other Additional medical history: unspecified lung problem Psychiatric history: no psych history - Past Surgical History Surgical History: non-contributory Additional surgical history: back stimulator, carpal tunnel surgery - Social History Smoking Status: Former smoker Smokeless Tobacco Status: No Alcohol use: none Drug use: none - Family History Father Adopted: No Family Member Ethnicity: Non- Living Status: Hx Family Cardiac Disorders: Yes Hx Family Respiratory Disorders: Yes Hx Family Cancer: Yes Hx Family GI Disorders: Yes Hx Family Endocrine Disorder: Yes Hx Family Neuromuscular Disorders: No Hx Family Neurologic Disorders: Yes Hx Family HEENT Disorders: No Hx Family Autoimmune Disorders: Yes (arthritis) Mother Hx Family Cardiac Disorders: Yes (HTN) Medications and Allergies Budesonide/Formoterol 160/4.5 [Symbicort 160/4.5] 2 puff IH BID 10/23/16 [History] Diclofenac Sodium [Voltaren] 1 appl TP QID PRN 10/23/16 [History] Folic Acid 1 mg PO DAILY 10/23/16 [History] Ondansetron HCl [Zofran] 4 mg PO Q8H PRN 10/23/16 [History] Ranitidine HCl [Ac[employer]] 150 mg PO DAILY 10/23/16 [History] rOPINIRole [Requip] 1 mg PO HS 10/23/16 [History] Ipratropium/Albuterol Sulfate [Combivent Respimat 20-100 Mcg] 1 puff IH Q4H PRN 05/04/18 [History] Carvedilol [Coreg] 25 mg PO BID 07/02/18 [History] Albuterol Sulfate [Proair Hfa] 2 puff IH Q6H PRN 07/28/18 [History] Docusate [Colace] 100 mg PO DAILY 07/28/18 [History] Gabapentin [Neurontin] 300 mg PO HS 09/25/18 [History] Rivaroxaban [Xarelto] 20 mg PO QPM 09/25/18 [History] Cyanocobalamin (Vitamin B-12) [Vitamin B-12] 5,000 mcg PO DAILY 10/22/18 [History] Losartan Potassium [Cozaar] 50 mg PO DAILY 10/22/18 [History] Benzonatate [Tessalon] 100 mg PO TID PRN capsule 11/06/18 [Rx] GuaiFENesin ER [Mucinex] 600 mg PO BID PRN tbbp.12hr 11/06/18 [Rx] Ipratropium [ATROVENT Inhaler] 2 puff IH R0AXMAP PRN inhaler 11/06/18 [Rx] Quetiapine Fumarate [Seroquel] 25 mg PO HS tablet 11/06/18 [Rx] predniSONE [PredniSONE] 10 mg PO DAILY #10 tablet 11/06/18 [Rx] Acetaminophen [Tylenol] 500 mg PO Q6HR PRN 11/11/18 [History] Alendronate Sodium [Fosamax] 70 mg PO TH 11/11/18 [History] Calcium Carbonate/Vitamin D3 [Calcium 600-Vit D3 800 Tablet] 1 each PO DAILY 11/11/18 [History] OxyCODONE/APAP 5/325 [Percocet 5/325 MG] 1 tab PO Q12H PRN 11/11/18 [History] Sodium Chloride for inhalation [Sodium Chloride, Saline 3 ML] 3 ml IH Q6H 11/11/18 [History] Allergy/AdvReac Type Severity Reaction Status Date / Time amlodipine [From [facility]] Allergy See Verified 10/22/18 09:42 Comments ROS unobtainable: due to endotracheal tube All Systems: The remainder of the systems were reviewed and are negative Physical Examination Vital Signs: Vital Signs, Last 4 Hours Temp Pulse Resp BP Pulse Ox 11/11/18 12:55 16 149/79 11/11/18 11:36 138 12 138/118 11/11/18 11:00 0 F L 109 10 161/77 35 11/11/18 10:52 20 58/29 100 General appearance: other (sedated and mechanically ventilated) Eyes: nonicteric ENT: oropharynx moist Neck: supple Effort: other (on mechanical ventilation) Inspection: normal Auscultation: bilateral: wheezes Cardiovascular: regular rate and rhythm Gastrointestinal: normoactive bowel sounds, non-tender Integumentary: normal Extremities: no cyanosis Musculoskeletal: no deformities unable to assess due to mental status Results - Laboratory Findings CBC and BMP: 11/11/18 16:45 11/11/18 16:45 ABG ABG pH 7.36 pH Units (7.32-7.45) D 11/11/18 13:17 ABG pCO2 68 mmHg (35-45) H 11/11/18 13:17 ABG pO2 564 mmHg (85-104) H D 11/11/18 13:17 ABG O2 Saturation 100 % (95-98) H 11/11/18 13:17 PT/INR, D-dimer PT 11.6 Seconds (9.4-12.1) 11/11/18 11:03 Abnormal lab findings: Abnormal lab results ABG pCO2 68 mmHg (35-45) H 11/11/18 13:17 ABG pO2 564 mmHg (85-104) H D 11/11/18 13:17 ABG HCO3 39 mEq/L (21-27) H 11/11/18 13:17 ABG Total CO2 41 mEq/L (20-26) H 11/11/18 13:17 ABG O2 Saturation 100 % (95-98) H 11/11/18 13:17 ABG Base Excess 11 mEq/L (-2 to 3) H 11/11/18 13:17 Chloride 97 mEq/L (98-107) L 11/11/18 10:54 Carbon Dioxide > 45 mEq/L (23-29) H* 11/11/18 10:54 Glucose 181 mg/dL (70-105) H 11/11/18 10:54 Calculated Osmolality 306 (280-300) H 11/11/18 10:54 Phosphorus 6.2 mg/dL (2.7-4.5) H 11/11/18 10:54 AST 12 Units/L (13-39) L 11/11/18 10:54 Troponin I 0.05 ng/mL (< 0.04) H* 11/11/18 10:54 B-Natriuretic Peptide 371 pg/mL (Less than 100) H 11/11/18 11:03 Serum Total Protein 5.9 g/dL (6.4-8.9) L 11/11/18 10:54 Albumin 3.3 g/dL (3.5-5.7) L 11/11/18 10:54 Urine Clarity Cloudy (Clear) A 11/11/18 13:02 Urine Protein 30 mg/dL (Neg-Trace) H 11/11/18 13:02 Urine Microscopic WBC 15-30 per hpf (0-3) H 11/11/18 13:02 Ur Squamous Epith Cells Many per lpf (None-Few) H 11/11/18 13:02 Urine Yeast Many per hpf (None Seen) H 11/11/18 13:02 <Myron Castellanos S - Last Filed: 11/11/18 19:19> Date of Encounter: 11/11/18 History of Present Illness HPI: Ms. Mcclure is a 78 year old female All Systems: The remainder of the systems were reviewed and are negative Physical Examination Vital Signs: Vital Signs, Last 4 Hours Temp Pulse Resp BP Pulse Ox 11/11/18 18:45 97.9 F 81 16 131/67 97 11/11/18 18:10 16 138/70 99 11/11/18 18:00 86 16 108/57 100 11/11/18 17:14 16 122/62 100 11/11/18 17:00 97.9 F 82 16 128/66 100 11/11/18 16:49 97.9 F 86 18 139/71 97 11/11/18 16:28 16 136/69 92 Results - Laboratory Findings CBC and BMP: 11/11/18 16:45 11/11/18 16:45 ABG ABG pH 7.36 pH Units (7.32-7.45) D 11/11/18 13:17 ABG pCO2 68 mmHg (35-45) H 11/11/18 13:17 ABG pO2 564 mmHg (85-104) H D 11/11/18 13:17 ABG O2 Saturation 100 % (95-98) H 11/11/18 13:17 PT/INR, D-dimer PT 11.6 Seconds (9.4-12.1) 11/11/18 11:03 D-Dimer 4983 ng/mLFEU (0-500) H 11/11/18 18:11 Abnormal lab findings: Abnormal lab results WBC 12.8 K/mcL (4.3-11.1) H 11/11/18 16:45 RBC 2.82 M/mcL (3.82-4.97) L 11/11/18 16:45 Hgb 9.6 g/dL (11.5-15.4) L 11/11/18 16:45 Hct 31.9 % (35.3-44.9) L 11/11/18 16:45 MCV 113.1 fL (83.0-100.0) H 11/11/18 16:45 MCH 34.0 pg (28.0-33.3) H 11/11/18 16:45 MCHC 30.1 g/dL (31.6-35.5) L 11/11/18 16:45 MPV 9.3 fL (9.4-12.4) L 11/11/18 16:45 Neutrophils # 11.0 K/mcL (1.6-8.9) H 11/11/18 16:45 Nucleated RBCs/100 WBC 1.4 /100 WBC (0) H 11/11/18 16:45 Platelet Estimate Slight Decrease (Normal) L 11/11/18 16:45 Anisocytosis 1+ (Not Present) A 11/11/18 16:45 Macrocytosis Present (Not Present) A 11/11/18 16:45 D-Dimer 4983 ng/mLFEU (0-500) H 11/11/18 18:11 ABG pCO2 68 mmHg (35-45) H 11/11/18 13:17 ABG pO2 564 mmHg (85-104) H D 11/11/18 13:17 ABG HCO3 39 mEq/L (21-27) H 11/11/18 13:17 ABG Total CO2 41 mEq/L (20-26) H 11/11/18 13:17 ABG O2 Saturation 100 % (95-98) H 11/11/18 13:17 ABG Base Excess 11 mEq/L (-2 to 3) H 11/11/18 13:17 Carbon Dioxide 40 mEq/L (23-29) H* 11/11/18 16:45 Glucose 224 mg/dL (70-105) H 11/11/18 16:45 POC Glucose 182 mg/dL (70-99) H 11/11/18 16:19 Calculated Osmolality 306 (280-300) H 11/11/18 16:45 Calcium 8.5 mg/dL (8.6-10.3) L 11/11/18 16:45 Phosphorus 6.2 mg/dL (2.7-4.5) H 11/11/18 10:54 AST 12 Units/L (13-39) L 11/11/18 10:54 Troponin I 0.21 ng/mL (< 0.04) H* 11/11/18 16:45 B-Natriuretic Peptide 371 pg/mL (Less than 100) H 11/11/18 11:03 Serum Total Protein 5.9 g/dL (6.4-8.9) L 11/11/18 10:54 Albumin 3.3 g/dL (3.5-5.7) L 11/11/18 10:54 Urine Clarity Cloudy (Clear) A 11/11/18 13:02 Urine Protein 30 mg/dL (Neg-Trace) H 11/11/18 13:02 Urine Microscopic WBC 15-30 per hpf (0-3) H 11/11/18 13:02 Ur Squamous Epith Cells Many per lpf (None-Few) H 11/11/18 13:02 Urine Yeast Many per hpf (None Seen) H 11/11/18 13:02 - Attending Attestation I saw and evaluated this patient and my medical decision-making was reviewed with the Resident Physician. I agree with the documented findings, disposition and treatment plan as described except to the extent set forth below. We independently had [id number] contact with the patient I spent 50 minutes of Critical Care time with this patient. It involved decision making of high complexity to assess, manipulate, and support vital organ system failure and/or to prevent further life threatening deterioration of the patient's condition. The time involved in the performance of separately reportable procedures was not counted toward critical care time. Patient seen and examined at bedside Labs, radiology, chart personally reviewed. Management was reviewed during multidisciplinary critical care rounds. WEATHER CLERK: Patient had a cardiac arrest be a after intubation and my exam patient is following commands to doing some some purposeful movements no need of hypothermia protocol. No obvious focal neurological deficit. CT head was neg ative. Pulm: Patient has acceptable oxygenation and ventilation patient was intubated because of acute on chronic hypoxic hypercapnic respiratory failure patient did not use her BiPAP in the long term patient was recently discharged after ICU stay for pneumonia secondary to influenza. To continue with the broad-spectrum antibiotics. Patient picture is complicated by possible acute coronary syndrome and worsening of acute on chronic diastolic heart failure patient has increased airway resistance after mechanical ventilation to start with the every other bronchodilators and monitor the response if needed we will need to paralyze the patient. Lung protective strategy settings were adjusted for adequate oxygenation and ventilation. Cards: Patient has global ST segment elevation in the EKG cardiology consult did for evaluation of acute coronary syndrome we will start on heparin drip. Patient was hemodynamically unstable most likely due to stunned myocardium after cardiac arrest the use levophed to keep map above 65. FEN-GI: To be nothing by mouth for now will advance diet by tomorrow Renal: As and output were reviewed ID: To do morel culture and cover with broad-spectrum antibiotics Heme/Onc: Labs reviewed Endo: Glucose Monitored Integ/MSK: Skin Care per routine ICU Nursing Protocol to prevent ulcers. Lines: All lines examined without evidence of infection : Dispo: Critically ill CODE:Full Code
[2018-11-11] MEDS: Norepinephrine 4 MG in D5% in Water 250 ML IVC SCH ×4 (14:48→23:56)
[2018-11-11] MEDS: Ipratropium/Albuterol Neb 3 ML IH PRN ×4 (15:10→18:09)
[2018-11-11 15:19] LABS: Basophils % 0.1 %; Eosinophils % 0.2 %; Hematocrit 27.1 % (35.3-44.9); Hemoglobin 8.2 g/dL (11.5-15.4); Immature Granulocytes % 1.5 % (0-4); Lymphocytes # 0.7 K/mcL (0.6-4.6); Lymphocytes % 5.3 %; Mean Corpuscular HGB Conc 30.3 g/dL (31.6-35.5); Mean Corpuscular Hemoglobin 34.6 pg (28.0-33.3); Mean Corpuscular Volume 114.3 fL (83.0-100.0); Mean Platelet Volume 9.9 fL (9.4-12.4); Monocytes # 0.6 K/mcL (0.0-1.3); Monocytes % 4.6 %; Neutrophils # 10.9 K/mcL (1.6-8.9); Nucleated Red Blood Cells 1.1 /100 WBC (0); Platelet Count 175 K/mcL (140-400); Red Blood Count 2.37 M/mcL (3.82-4.97); Red Cell Distribution Width 13.9 % (11.5-14.5); Segmented Neutrophils % 88.3 %
[2018-11-11 15:23] LABS: Anisocytosis 1+ (Not Present); Macrocytosis Present (Not Present); Platelet Estimate Normal (Normal)
[2018-11-11] MEDS ORDERED: Naloxone 0.4 MG/ML INJ IVP PRN (16:40)
[2018-11-11] MEDS ORDERED: Artificial Tears SOLN 15 ML BOTTLE BOTH EYES PRN (16:40)
[2018-11-11] MEDS ORDERED: Potassium Chloride 40 MEQ/200 ML BAG IVPB PRN (16:40)
[2018-11-11] MEDS ORDERED: Potassium Phosphate 44 MEQ in 0.9 % Sodium Chloride 250 ML IVPB PRN (16:40)
[2018-11-11 17:17] LABS: Basophils % 0.1 %; Eosinophils % 0.2 %; Hematocrit 31.9 % (35.3-44.9); Hemoglobin 9.6 g/dL (11.5-15.4); Immature Granulocytes % 0.9 % (0-4); Lymphocytes # 1.1 K/mcL (0.6-4.6); Lymphocytes % 8.3 %; Mean Corpuscular HGB Conc 30.1 g/dL (31.6-35.5); Mean Corpuscular Volume 113.1 fL (83.0-100.0); Mean Platelet Volume 9.3 fL (9.4-12.4); Monocytes # 0.6 K/mcL (0.0-1.3); Monocytes % 4.8 %; Nucleated Red Blood Cells 1.4 /100 WBC (0); Platelet Count 217 K/mcL (140-400); Red Blood Count 2.82 M/mcL (3.82-4.97); Red Cell Distribution Width 13.8 % (11.5-14.5); Segmented Neutrophils % 85.7 %
[2018-11-11 17:37] LABS: Platelet Estimate Slight Decrease (Normal)
[2018-11-11 17:38] LABS: Anisocytosis 1+ (Not Present); Macrocytosis Present (Not Present)
[2018-11-11 17:51] LABS: BUN/Creatinine Ratio 25 (6-26); Blood Urea Nitrogen 22 mg/dL (8-23); Calcium 8.5 mg/dL (8.6-10.3); Carbon Dioxide 40 mEq/L (23-29); Chloride 100 mEq/L (98-107); Glucose 224 mg/dL (70-105); Osmolality,Calculated 306 (280-300); Potassium 4.5 mEq/L (3.5-5.1); Sodium 143 mEq/L (136-145); Troponin I 0.21 ng/mL (< 0.04); eGFR For Non-African Americans > 60 (> 60)
--- NOTE | 2018-11-11 18:44 | Event Note ---
Date of Encounter: 11/11/18 Time of Encounter: 18:38 - Cardiology Event Note Called in regards to patient's EKG, patient with severe hypercapnia and hypoxic resp failure intubated in the ER with PEA arrest. Patient found unresponsive at the SNF early am by family member. Initial trop .05 currently 6 hours later was found to have trop of .21. EKG with Ischemic changes on presentation and currently has worsening ST (J point) elevations in precordial leads without reciprocal changes. On Levo and propofol drips. Patient on xarelto according to med list. Mild elevation of WBC with left shift. Stat ECHO pending to evaluate for RWMA. peak trop not significant likely not culpri for severe resp failure or hypotensive. CXray unremarkable without pulm edema or signs of cardiogenic shock. D-dimer pending despite xarelto. EKG suggestive of RV strain intermittently. Currently patient high risk LHC due to resp failure and hemodynamic instability.
[2018-11-11] MEDS ORDERED: *HR* Heparin 5,000 UNIT/ML VIAL IVP PRN ×2 (18:56)
[2018-11-11 20:00] LABS: Thyroid Stimulating Hormone 0.645 mcIU/mL (0.340-5.600)
[2018-11-11] MEDS: MethylPREDNISolone 40 MG/ML VIAL IVP SCH ×4 (20:54→23:16)
[2018-11-11] MEDS: Chlorhexidine Rinse 15 ML MOUTHWASH MM SCH (20:56)
[2018-11-11] MEDS: Artificial Tears SOLN 15 ML BOTTLE BOTH EYES SCH ×2 (20:56→23:16)
[2018-11-11] MEDS: Piperacillin/Tazobactam 3.375 GM in 0.9 % Sodium Chloride Mini Bag 100 ML IVPB SCH (20:57)
[2018-11-11 21:04] LABS: Adenovirus Not Detected (Not Detect); Coronavirus 229E Not Detected (Not Detect); Coronavirus HKU1 Not Detected (Not Detect); Coronavirus NL63 Not Detected (Not Detect); Coronavirus OC43 Not Detected (Not Detect); Human Metapneumovirus Not Detected (Not Detect); Human Rhinovirus/Enterovirus Not Detected (Not Detect)
[2018-11-11 21:06] LABS: Influenza A Untypeable Not Detected (Not Detect)
[2018-11-11 21:07] LABS: Bordetella Pertussis Not Detected (Not Detect); Chlamydophila pneumoniae Not Detected (Not Detect); Influenza A Subtype 2009 H1 DETECTED (Not Detect); Influenza B Not Detected (Not Detect); Mycoplasma pneumoniae Not Detected (Not Detect); Parainfluenza Virus 1 Not Detected (Not Detect); Parainfluenza Virus 2 Not Detected (Not Detect); Parainfluenza Virus 3 Not Detected (Not Detect); Parainfluenza Virus 4 Not Detected (Not Detect); Respiratory Syncytial Virus Not Detected (Not Detect)
[2018-11-11] MEDS: Heparin 25,000 UNIT/250 ML D5W 25,000 UNIT/250 ML IV.SOLN IVC SCH (21:29)
[2018-11-12] MEDS: Norepinephrine 8 MG in D5% in Water 500 ML IVC SCH (04:01)
[2018-11-12 04:05] LABS: VBG Ionized Calcium 1.04 mmol/L (1.15-1.35)
[2018-11-12 04:13] LABS: Basophils % 0.1 %; Eosinophils % 0.3 %; Hematocrit 29.2 % (35.3-44.9); Hemoglobin 9.2 g/dL (11.5-15.4); Immature Granulocytes % 0.9 % (0-4); Lymphocytes # 0.8 K/mcL (0.6-4.6); Lymphocytes % 7.3 %; Mean Corpuscular HGB Conc 31.5 g/dL (31.6-35.5); Mean Corpuscular Hemoglobin 33.7 pg (28.0-33.3); Mean Platelet Volume 10.1 fL (9.4-12.4); Monocytes # 0.3 K/mcL (0.0-1.3); Monocytes % 2.7 %; Neutrophils # 9.4 K/mcL (1.6-8.9); Nucleated Red Blood Cells 2.4 /100 WBC (0); Platelet Count 226 K/mcL (140-400); Red Blood Count 2.73 M/mcL (3.82-4.97); Red Cell Distribution Width 13.9 % (11.5-14.5); Segmented Neutrophils % 88.7 %
[2018-11-12 04:29] LABS: BUN/Creatinine Ratio 21 (6-26); Blood Urea Nitrogen 21 mg/dL (8-23); Calcium 8.4 mg/dL (8.6-10.3); Carbon Dioxide 36 mEq/L (23-29); Chloride 97 mEq/L (98-107); Glucose 202 mg/dL (70-105); Magnesium 1.6 mg/dL (1.6-2.6); Osmolality,Calculated 299 (280-300); Phosphorous 2.6 mg/dL (2.7-4.5); Potassium 4.3 mEq/L (3.5-5.1); Sodium 140 mEq/L (136-145); eGFR For Non-African Americans 53 (> 60)
[2018-11-12 04:32] LABS: Troponin I 0.43 ng/mL (< 0.04)
[2018-11-12] MEDS: Piperacillin/Tazobactam 3.375 GM in 0.9 % Sodium Chloride Mini Bag 100 ML IVPB SCH ×3 (04:59→20:02)
[2018-11-12] MEDS: FentaNYL (PF) 1,000 MCG in 0.9 % Sodium Chloride 80 ML IVC SCH ×2 (05:03→17:30)
[2018-11-12] MEDS: Artificial Tears SOLN 15 ML BOTTLE BOTH EYES SCH ×6 (05:03→23:00)
[2018-11-12 05:21] LABS: ABG Base Excess 13 mEq/L (-2 to 3); ABG HCO3 37 mEq/L (21-27); ABG Oxygen Saturation 98 % (95-98); ABG PCO2 42 mmHg (35-45); ABG PH 7.55 pH Units (7.32-7.45); ABG PO2 87 mmHg (85-104); ABG TCO2 38 mEq/L (20-26); Blood Gas Modality ASSIST CONTROL; Blood Gas PEEP 5 cm H2O; Blood Gas Respiration Rate 16; Blood Gas VT 400 cc
--- NOTE | 2018-11-12 06:53 | Discharge Summary ---
Orders not resulted at time of discharge: Pending orders 11/11/18 10:54 ECG 12 lead ECG [ECG] Stat 11/11/18 10:55 Culture,Blood [BC] Stat 11/11/18 16:25 ECG 12 lead ECG [ECG] Stat 11/12/18 10:00 Heparin anti-factor XA UFH [COAG] Timed 11/13/18 04:00 BMP [Basic Metabolic Panel] AM 0400 Complete Blood Count [HEME] AM 0400 Ionized Calcium,venous blood DAILY Magnesium DAILY Phosphorous DAILY 11/14/18 04:00 BMP [Basic Metabolic Panel] AM 0400 Complete Blood Count [HEME] AM 0400 Ionized Calcium,venous blood DAILY Magnesium DAILY Phosphorous DAILY 11/15/18 04:00 BMP [Basic Metabolic Panel] AM 0400 Complete Blood Count [HEME] AM 0400 Ionized Calcium,venous blood DAILY Magnesium DAILY Phosphorous DAILY 11/16/18 04:00 BMP [Basic Metabolic Panel] AM 0400 Complete Blood Count [HEME] AM 0400 Ionized Calcium,venous blood DAILY Phosphorous DAILY Date of Encounter: 11/12/18 - Discharge Diagnosis (1) Shock circulatory Status: Acute (2) Cardiac arrest Status: Acute (3) Respiratory failure with hypoxia and hypercapnia Status: Acute Qualifiers: Chronicity: acute on chronic Qualified Code(s): J96.21 - Acute and chronic respiratory failure with hypoxia; J96.22 - Acute and chronic respiratory failure with hypercapnia (4) Elevated troponin I level Status: Acute (5) Acute exacerbation of chronic obstructive airways disease Status: Acute (6) HTN (hypertension) Status: Chronic Qualifiers: Hypertension type: essential hypertension Qualified Code(s): I10 - Essential (primary) hypertension (7) Encephalopathy Status: Resolved (8) Elevated d-dimer Status: Acute - Discharge Medications Prescriptions: No Action Folic Acid 1 mg PO DAILY rOPINIRole [Requip] 1 mg PO HS Ondansetron HCl [Zofran] 4 mg PO Q8H PRN PRN Reason: Nausea Ranitidine HCl [Acid Manager Of Housekeeping] 150 mg PO DAILY Budesonide/Formoterol 160/4.5 [Symbicort 160/4.5] 2 puff IH BID Diclofenac Sodium [Voltaren] 1 appl TP QID PRN PRN Reason: Pain Ipratropium/Albuterol Sulfate [Combivent Respimat 20-100 Mcg] 1 puff IH Q4H PRN PRN Reason: Shortness Of Breath Carvedilol [Coreg] 25 mg PO BID Albuterol Sulfate [Proair Hfa] 2 puff IH Q6H PRN PRN Reason: Shortness Of Breath Docusate [Colace] 100 mg PO DAILY Rivaroxaban [Xarelto] 20 mg PO QPM Gabapentin [Neurontin] 300 mg PO HS Cyanocobalamin (Vitamin B-12) [Vitamin B-12] 5,000 mcg PO DAILY Losartan Potassium [Cozaar] 50 mg PO DAILY Ipratropium [ATROVENT Inhaler] 2 puff IH [id number] PRN inhaler PRN Reason: Shortness Of Breath/Wheezing Benzonatate [Tessalon] 100 mg PO TID PRN capsule PRN Reason: Cough GuaiFENesin ER [Mucinex] 600 mg PO BID PRN tbbp.12hr PRN Reason: Congestion predniSONE [PredniSONE] 10 mg PO DAILY #10 tablet Quetiapine Fumarate [Seroquel] 25 mg PO HS tablet Alendronate Sodium [Fosamax] 70 mg PO TH Calcium Carbonate/Vitamin D3 [Calcium 600-Vit D3 800 Tablet] 1 each PO DAILY OxyCODONE/APAP 5/325 [Percocet 5/325 MG] 1 tab PO Q12H PRN PRN Reason: Moderate to Severe Pain Sodium Chloride for inhalation [Sodium Chloride, Saline 3 ML] 3 ml IH Q6H Acetaminophen [Tylenol] 500 mg PO Q6HR PRN PRN Reason: Mild Pain Home Medications: Budesonide/Formoterol 160/4.5 [Symbicort 160/4.5] 2 puff IH BID 10/23/16 [History] Diclofenac Sodium [Voltaren] 1 appl TP QID PRN 10/23/16 [History] Folic Acid 1 mg PO DAILY 10/23/16 [History] Ondansetron HCl [Zofran] 4 mg PO Q8H PRN 10/23/16 [History] Ranitidine HCl [Acid [employer]] 150 mg PO DAILY 10/23/16 [History] rOPINIRole [Requip] 1 mg PO HS 10/23/16 [History] Ipratropium/Albuterol Sulfate [Combivent Respimat 20-100 Mcg] 1 puff IH Q4H PRN 05/04/18 [History] Carvedilol [Coreg] 25 mg PO BID 07/02/18 [History] Albuterol Sulfate [Proair Hfa] 2 puff IH Q6H PRN 07/28/18 [History] Docusate [Colace] 100 mg PO DAILY 07/28/18 [History] Gabapentin [Neurontin] 300 mg PO HS 09/25/18 [History] Rivaroxaban [Xarelto] 20 mg PO QPM 09/25/18 [History] Cyanocobalamin (Vitamin B-12) [Vitamin B-12] 5,000 mcg PO DAILY 10/22/18 [History] Losartan Potassium [Cozaar] 50 mg PO DAILY 10/22/18 [History] Benzonatate [Tessalon] 100 mg PO TID PRN capsule 11/06/18 [Rx] GuaiFENesin ER [Mucinex] 600 mg PO BID PRN tbbp.12hr 11/06/18 [Rx] Ipratropium [ATROVENT Inhaler] 2 puff IH [id number] PRN inhaler 11/06/18 [Rx] Quetiapine Fumarate [Seroquel] 25 mg PO HS tablet 11/06/18 [Rx] predniSONE [PredniSONE] 10 mg PO DAILY #10 tablet 11/06/18 [Rx] Acetaminophen [Tylenol] 500 mg PO Q6HR PRN 11/11/18 [History] Alendronate Sodium [Fosamax] 70 mg PO TH 11/11/18 [History] Calcium Carbonate/Vitamin D3 [Calcium 600-Vit D3 800 Tablet] 1 each PO DAILY 11/11/18 [History] OxyCODONE/APAP 5/325 [Percocet 5/325 MG] 1 tab PO Q12H PRN 11/11/18 [History] Sodium Chloride for inhalation [Sodium Chloride, Saline 3 ML] 3 ml IH Q6H 11/11/18 [History] Allergies/Adverse Reactions: Allergy/AdvReac Type Severity Reaction Status Date / Time amlodipine [From [facility]] Allergy See Verified 10/22/18 09:42 Comments Labs on day of discharge: Labs from last 24 hours 11/12/18 11/12/18 11/12/18 05:17 04:03 03:25 WBC RBC Hgb Hct MCV MCH MCHC RDW Plt Count MPV Immature Gran % Seg Neutrophils % Lymphocytes % Monocytes % Eosinophils % Basophils % Neutrophils # Lymphocytes # Monocytes # Eosinophils # Basophils # Nucleated RBCs/100 WBC Platelet Estimate Anisocytosis Macrocytosis PT INR APTT D-Dimer Heparin Anti-Xa, Unfract 1.66 H* Sample Site Art Line ABG pH 7.55 H ABG pCO2 42 ABG pO2 87 ABG HCO3 37 H ABG Total CO2 38 H ABG O2 Saturation 98 ABG Base Excess 13 H Respiration Rate 16 O2 Delivery Device Adult Vent Blood Gas Modality ASSIST CONTROL Inspired O2 30.0 Tidal Volume 400 PEEP 5 Sodium Potassium Chloride Carbon Dioxide BUN Creatinine Est GFR ( Amer) Est GFR (Non-Af Amer) BUN/Creatinine Ratio Glucose POC Glucose Calculated Osmolality Lactic Acid Calcium Venous Ioniz Calcium 1.04 L Phosphorus Magnesium Total Bilirubin Direct Bilirubin Indirect Bilirubin AST ALT Alkaline Phosphatase Troponin I B-Natriuretic Peptide Serum Total Protein Albumin Globulin Albumin/Globulin Ratio TSH Random Cortisol Urine Color Urine Clarity Urine pH Ur Specific [place] Urine Protein Urine Glucose (UA) Urine Ketones Urine Blood Urine Nitrite Urine Bilirubin Urine Urobilinogen Ur Leukocyte Esterase Urine Microscopic RBC Urine Microscopic WBC Ur Squamous Epith Cells Urine Bacteria Urine Yeast Ur Culture Indicated? Nasal Screen MRSA (PCR) Urine Opiates Screen Ur Barbiturates Screen Ur Phencyclidine Scrn Ur Amphetamines Screen U Benzodiazepines Scrn Urine Cocaine Screen U Marijuana (THC) Screen Ur Drug Screen Interp Chlamy pneumoniae PCR Adenovirus (PCR) B. pertussis DNA (PCR) B.parapertussis DNA PCR Coronavirus OC43 (PCR) Coronavirus HKU1 (PCR) Coronavirus 229E (PCR) Coronavirus NL63 (PCR) Human Metapneumovir PCR Influenza A (H1) PCR Influ A (H1N1/09) PCR Influenza A (H3) PCR Influenza A Untype (PCR) Influenza Type B (PCR) M.pneumoniae DNA (PCR) Parainfluenza 1 (PCR) Parainfluenza 2 (PCR) Parainfluenza 3 (PCR) Parainfluenza 4 (PCR) RSV (PCR) Entero/Rhino (PCR) Specimen Rejected 11/12/18 11/12/18 11/11/18 03:25 03:25 22:53 WBC 10.5 RBC 2.73 L Hgb 9.2 L Hct 29.2 L MCV 107.0 H D MCH 33.7 H MCHC 31.5 L RDW 13.9 Plt Count 226 MPV 10.1 Immature Gran % 0.9 Seg Neutrophils % 88.7 Lymphocytes % 7.3 Monocytes % 2.7 Eosinophils % 0.3 Basophils % 0.1 Neutrophils # 9.4 H Lymphocytes # 0.8 Monocytes # 0.3 Eosinophils # 0.0 Basophils # 0.0 Nucleated RBCs/100 WBC 2.4 H Platelet Estimate Anisocytosis Macrocytosis PT INR APTT D-Dimer Heparin Anti-Xa, Unfract Sample Site ABG pH ABG pCO2 ABG pO2 ABG HCO3 ABG Total CO2 ABG O2 Saturation ABG Base Excess Respiration Rate O2 Delivery Device Blood Gas Modality Inspired O2 Tidal Volume PEEP Sodium 140 Potassium 4.3 Chloride 97 L Carbon Dioxide 36 H BUN 21 Creatinine 1.00 Est GFR ( Amer) > 60 Est GFR (Non-Af Amer) 53 L BUN/Creatinine Ratio 21 Glucose 202 H POC Glucose 143 H Calculated Osmolality 299 Lactic Acid Calcium 8.4 L Venous Ioniz Calcium Phosphorus 2.6 L Magnesium 1.6 Total Bilirubin Direct Bilirubin Indirect Bilirubin AST ALT Alkaline Phosphatase Troponin I 0.43 H* B-Natriuretic Peptide Serum Total Protein Albumin Globulin Albumin/Globulin Ratio TSH Random Cortisol Urine Color Urine Clarity Urine pH Ur Specific [place] Urine Protein Urine Glucose (UA) Urine Ketones Urine Blood Urine Nitrite Urine Bilirubin Urine Urobilinogen Ur Leukocyte Esterase Urine Microscopic RBC Urine Microscopic WBC Ur Squamous Epith Cells Urine Bacteria Urine Yeast Ur Culture Indicated? Nasal Screen MRSA (PCR) Urine Opiates Screen Ur Barbiturates Screen Ur Phencyclidine Scrn Ur Amphetamines Screen U Benzodiazepines Scrn Urine Cocaine Screen U Marijuana (THC) Screen Ur Drug Screen Interp Chlamy pneumoniae PCR Adenovirus (PCR) B. pertussis DNA (PCR) B.parapertussis DNA PCR Coronavirus OC43 (PCR) Coronavirus HKU1 (PCR) Coronavirus 229E (PCR) Coronavirus NL63 (PCR) Human Metapneumovir PCR Influenza A (H1) PCR Influ A (H1N1/09) PCR Influenza A (H3) PCR Influenza A Untype (PCR) Influenza Type B (PCR) M.pneumoniae DNA (PCR) Parainfluenza 1 (PCR) Parainfluenza 2 (PCR) Parainfluenza 3 (PCR) Parainfluenza 4 (PCR) RSV (PCR) Entero/Rhino (PCR) Specimen Rejected 11/11/18 11/11/18 11/11/18 21:00 19:50 19:50 WBC RBC Hgb Hct MCV MCH MCHC RDW Plt Count MPV Immature Gran % Seg Neutrophils % Lymphocytes % Monocytes % Eosinophils % Basophils % Neutrophils # Lymphocytes # Monocytes # Eosinophils # Basophils # Nucleated RBCs/100 WBC Platelet Estimate Anisocytosis Macrocytosis PT INR APTT D-Dimer Heparin Anti-Xa, Unfract Sample Site ABG pH ABG pCO2 ABG pO2 ABG HCO3 ABG Total CO2 ABG O2 Saturation ABG Base Excess Respiration Rate O2 Delivery Device Blood Gas Modality Inspired O2 Tidal Volume PEEP Sodium Potassium Chloride Carbon Dioxide BUN Creatinine Est GFR ( Amer) Est GFR (Non-Af Amer) BUN/Creatinine Ratio Glucose POC Glucose Calculated Osmolality Lactic Acid Calcium Venous Ioniz Calcium Phosphorus Magnesium Total Bilirubin Direct Bilirubin Indirect Bilirubin AST ALT Alkaline Phosphatase Troponin I 0.48 H* B-Natriuretic Peptide Serum Total Protein Albumin Globulin Albumin/Globulin Ratio TSH Random Cortisol Urine Color Urine Clarity Urine pH Ur Specific [place] Urine Protein Urine Glucose (UA) Urine Ketones Urine Blood Urine Nitrite Urine Bilirubin Urine Urobilinogen Ur Leukocyte Esterase Urine Microscopic RBC Urine Microscopic WBC Ur Squamous Epith Cells Urine Bacteria Urine Yeast Ur Culture Indicated? Nasal Screen MRSA (PCR) Negative Urine Opiates Screen Ur Barbiturates Screen Ur Phencyclidine Scrn Ur Amphetamines Screen U Benzodiazepines Scrn Urine Cocaine Screen U Marijuana (THC) Screen Ur Drug Screen Interp Chlamy pneumoniae PCR Not Detected Adenovirus (PCR) Not Detected B. pertussis DNA (PCR) Not Detected B.parapertussis DNA PCR Not Detected Coronavirus OC43 (PCR) Not Detected Coronavirus HKU1 (PCR) Not Detected Coronavirus 229E (PCR) Not Detected Coronavirus NL63 (PCR) Not Detected Human Metapneumovir PCR Not Detected Influenza A (H1) PCR Not Detected Influ A (H1N1/09) PCR DETECTED A Influenza A (H3) PCR Not Detected Influenza A Untype (PCR) Not Detected Influenza Type B (PCR) Not Detected M.pneumoniae DNA (PCR) Not Detected Parainfluenza 1 (PCR) Not Detected Parainfluenza 2 (PCR) Not Detected Parainfluenza 3 (PCR) Not Detected Parainfluenza 4 (PCR) Not Detected RSV (PCR) Not Detected Entero/Rhino (PCR) Not Detected Specimen Rejected 11/11/18 11/11/18 11/11/18 18:56 18:11 16:45 WBC RBC Hgb Hct MCV MCH MCHC RDW Plt Count MPV Immature Gran % Seg Neutrophils % Lymphocytes % Monocytes % Eosinophils % Basophils % Neutrophils # Lymphocytes # Monocytes # Eosinophils # Basophils # Nucleated RBCs/100 WBC Platelet Estimate Anisocytosis Macrocytosis PT INR APTT D-Dimer 4983 H Heparin Anti-Xa, Unfract 0.10 L Sample Site ABG pH ABG pCO2 ABG pO2 ABG HCO3 ABG Total CO2 ABG O2 Saturation ABG Base Excess Respiration Rate O2 Delivery Device Blood Gas Modality Inspired O2 Tidal Volume PEEP Sodium 143 Potassium 4.5 Chloride 100 Carbon Dioxide 40 H* BUN 22 Creatinine 0.88 Est GFR ( Amer) > 60 Est GFR (Non-Af Amer) > 60 BUN/Creatinine Ratio 25 Glucose 224 H POC Glucose Calculated Osmolality 306 H Lactic Acid Calcium 8.5 L Venous Ioniz Calcium Phosphorus Magnesium Total Bilirubin Direct Bilirubin Indirect Bilirubin AST ALT Alkaline Phosphatase Troponin I 0.21 H* B-Natriuretic Peptide Serum Total Protein Albumin Globulin Albumin/Globulin Ratio TSH 0.645 Random Cortisol 14.4 Urine Color Urine Clarity Urine pH Ur Specific [place] Urine Protein Urine Glucose (UA) Urine Ketones Urine Blood Urine Nitrite Urine Bilirubin Urine Urobilinogen Ur Leukocyte Esterase Urine Microscopic RBC Urine Microscopic WBC Ur Squamous Epith Cells Urine Bacteria Urine Yeast Ur Culture Indicated? Nasal Screen MRSA (PCR) Urine Opiates Screen Ur Barbiturates Screen Ur Phencyclidine Scrn Ur Amphetamines Screen U Benzodiazepines Scrn Urine Cocaine Screen U Marijuana (THC) Screen Ur Drug Screen Interp Chlamy pneumoniae PCR Adenovirus (PCR) B. pertussis DNA (PCR) B.parapertussis DNA PCR Coronavirus OC43 (PCR) Coronavirus HKU1 (PCR) Coronavirus 229E (PCR) Coronavirus NL63 (PCR) Human Metapneumovir PCR Influenza A (H1) PCR Influ A (H1N1/09) PCR Influenza A (H3) PCR Influenza A Untype (PCR) Influenza Type B (PCR) M.pneumoniae DNA (PCR) Parainfluenza 1 (PCR) Parainfluenza 2 (PCR) Parainfluenza 3 (PCR) Parainfluenza 4 (PCR) RSV (PCR) Entero/Rhino (PCR) Specimen Rejected 11/11/18 11/11/18 11/11/18 16:45 16:19 15:49 WBC 12.8 H RBC 2.82 L Hgb 9.6 L Hct 31.9 L MCV 113.1 H MCH 34.0 H MCHC 30.1 L RDW 13.8 Plt Count 217 MPV 9.3 L Immature Gran % 0.9 Seg Neutrophils % 85.7 Lymphocytes % 8.3 Monocytes % 4.8 Eosinophils % 0.2 Basophils % 0.1 Neutrophils # 11.0 H Lymphocytes # 1.1 Monocytes # 0.6 Eosinophils # 0.0 Basophils # 0.0 Nucleated RBCs/100 WBC 1.4 H Platelet Estimate Slight Decrease L Anisocytosis 1+ A Macrocytosis Present A PT INR APTT D-Dimer Heparin Anti-Xa, Unfract Sample Site ABG pH ABG pCO2 ABG pO2 ABG HCO3 ABG Total CO2 ABG O2 Saturation ABG Base Excess Respiration Rate O2 Delivery Device Blood Gas Modality Inspired O2 Tidal Volume PEEP Sodium Potassium Chloride Carbon Dioxide BUN Creatinine Est GFR ( Amer) Est GFR (Non-Af Amer) BUN/Creatinine Ratio Glucose POC Glucose 182 H 160 H Calculated Osmolality Lactic Acid Calcium Venous Ioniz Calcium Phosphorus Magnesium Total Bilirubin Direct Bilirubin Indirect Bilirubin AST ALT Alkaline Phosphatase Troponin I B-Natriuretic Peptide Serum Total Protein Albumin Globulin Albumin/Globulin Ratio TSH Random Cortisol Urine Color Urine Clarity Urine pH Ur Specific [place] Urine Protein Urine Glucose (UA) Urine Ketones Urine Blood Urine Nitrite Urine Bilirubin Urine Urobilinogen Ur Leukocyte Esterase Urine Microscopic RBC Urine Microscopic WBC Ur Squamous Epith Cells Urine Bacteria Urine Yeast Ur Culture Indicated? Nasal Screen MRSA (PCR) Urine Opiates Screen Ur Barbiturates Screen Ur Phencyclidine Scrn Ur Amphetamines Screen U Benzodiazepines Scrn Urine Cocaine Screen U Marijuana (THC) Screen Ur Drug Screen Interp Chlamy pneumoniae PCR Adenovirus (PCR) B. pertussis DNA (PCR) B.parapertussis DNA PCR Coronavirus OC43 (PCR) Coronavirus HKU1 (PCR) Coronavirus 229E (PCR) Coronavirus NL63 (PCR) Human Metapneumovir PCR Influenza A (H1) PCR Influ A (H1N1/09) PCR Influenza A (H3) PCR Influenza A Untype (PCR) Influenza Type B (PCR) M.pneumoniae DNA (PCR) Parainfluenza 1 (PCR) Parainfluenza 2 (PCR) Parainfluenza 3 (PCR) Parainfluenza 4 (PCR) RSV (PCR) Entero/Rhino (PCR) Specimen Rejected 11/11/18 11/11/18 11/11/18 14:43 13:17 13:02 WBC 12.3 H RBC 2.37 L Hgb 8.2 L Hct 27.1 L MCV 114.3 H D MCH 34.6 H MCHC 30.3 L RDW 13.9 Plt Count 175 MPV 9.9 Immature Gran % 1.5 Seg Neutrophils % 88.3 Lymphocytes % 5.3 Monocytes % 4.6 Eosinophils % 0.2 Basophils % 0.1 Neutrophils # 10.9 H Lymphocytes # 0.7 Monocytes # 0.6 Eosinophils # 0.0 Basophils # 0.0 Nucleated RBCs/100 WBC 1.1 H Platelet Estimate Normal Anisocytosis 1+ A Macrocytosis Present A PT INR APTT D-Dimer Heparin Anti-Xa, Unfract Sample Site Art Line ABG pH 7.36 D ABG pCO2 68 H ABG pO2 564 H D ABG HCO3 39 H ABG Total CO2 41 H ABG O2 Saturation 100 H ABG Base Excess 11 H Respiration Rate 16 O2 Delivery Device Adult Vent Blood Gas Modality ASSIST CONTROL Inspired O2 Tidal Volume 400 PEEP Sodium Potassium Chloride Carbon Dioxide BUN Creatinine Est GFR ( Amer) Est GFR (Non-Af Amer) BUN/Creatinine Ratio Glucose POC Glucose Calculated Osmolality Lactic Acid Calcium Venous Ioniz Calcium Phosphorus Magnesium Total Bilirubin Direct Bilirubin Indirect Bilirubin AST ALT Alkaline Phosphatase Troponin I B-Natriuretic Peptide Serum Total Protein Albumin Globulin Albumin/Globulin Ratio TSH Random Cortisol Urine Color Urine Clarity Urine pH Ur Specific [place] Urine Protein Urine Glucose (UA) Urine Ketones Urine Blood Urine Nitrite Urine Bilirubin Urine Urobilinogen Ur Leukocyte Esterase Urine Microscopic RBC Urine Microscopic WBC Ur Squamous Epith Cells Urine Bacteria Urine Yeast Ur Culture Indicated? Nasal Screen MRSA (PCR) Urine Opiates Screen Negative Ur Barbiturates Screen Negative Ur Phencyclidine Scrn Negative Ur Amphetamines Screen Negative U Benzodiazepines Scrn Negative Urine Cocaine Screen Negative U Marijuana (THC) Screen Negative Ur Drug Screen Interp See Below Chlamy pneumoniae PCR Adenovirus (PCR) B. pertussis DNA (PCR) B.parapertussis DNA PCR Coronavirus OC43 (PCR) Coronavirus HKU1 (PCR) Coronavirus 229E (PCR) Coronavirus NL63 (PCR) Human Metapneumovir PCR Influenza A (H1) PCR Influ A (H1N1/09) PCR Influenza A (H3) PCR Influenza A Untype (PCR) Influenza Type B (PCR) M.pneumoniae DNA (PCR) Parainfluenza 1 (PCR) Parainfluenza 2 (PCR) Parainfluenza 3 (PCR) Parainfluenza 4 (PCR) RSV (PCR) Entero/Rhino (PCR) Specimen Rejected 11/11/18 11/11/18 11/11/18 13:02 11:53 11:28 WBC RBC Hgb Hct MCV MCH MCHC RDW Plt Count MPV Immature Gran % Seg Neutrophils % Lymphocytes % Monocytes % Eosinophils % Basophils % Neutrophils # Lymphocytes # Monocytes # Eosinophils # Basophils # Nucleated RBCs/100 WBC Platelet Estimate Anisocytosis Macrocytosis PT INR APTT D-Dimer Heparin Anti-Xa, Unfract Sample Site Art Line ABG pH 7.52 H D ABG pCO2 57 H D ABG pO2 430 H D ABG HCO3 47 H ABG Total CO2 49 H ABG O2 Saturation 100 H ABG Base Excess 21 H Respiration Rate 24 O2 Delivery Device Adult Vent Blood Gas Modality ASSIST CONTROL Inspired O2 100.0 Tidal Volume 400 PEEP 5 Sodium Potassium Chloride Carbon Dioxide BUN Creatinine Est GFR ( Amer) Est GFR (Non-Af Amer) BUN/Creatinine Ratio Glucose POC Glucose Calculated Osmolality Lactic Acid Calcium Venous Ioniz Calcium Phosphorus Magnesium Total Bilirubin Direct Bilirubin Indirect Bilirubin AST ALT Alkaline Phosphatase Troponin I B-Natriuretic Peptide Serum Total Protein Albumin Globulin Albumin/Globulin Ratio TSH Random Cortisol Urine Color Yellow Urine Clarity Cloudy A Urine pH 5.5 Ur Specific [place] 1.023 Urine Protein 30 H Urine Glucose (UA) Normal Urine Ketones Negative Urine Blood Negative Urine Nitrite Negative Urine Bilirubin Negative Urine Urobilinogen Normal Ur Leukocyte Esterase Negative Urine Microscopic RBC 0-3 Urine Microscopic WBC 15-30 H Ur Squamous Epith Cells Many H Urine Bacteria None Seen Urine Yeast Many H Ur Culture Indicated? NO Nasal Screen MRSA (PCR) Urine Opiates Screen Ur Barbiturates Screen Ur Phencyclidine Scrn Ur Amphetamines Screen U Benzodiazepines Scrn Urine Cocaine Screen U Marijuana (THC) Screen Ur Drug Screen Interp Chlamy pneumoniae PCR Adenovirus (PCR) B. pertussis DNA (PCR) B.parapertussis DNA PCR Coronavirus OC43 (PCR) Coronavirus HKU1 (PCR) Coronavirus 229E (PCR) Coronavirus NL63 (PCR) Human Metapneumovir PCR Influenza A (H1) PCR Influ A (H1N1/09) PCR Influenza A (H3) PCR Influenza A Untype (PCR) Influenza Type B (PCR) M.pneumoniae DNA (PCR) Parainfluenza 1 (PCR) Parainfluenza 2 (PCR) Parainfluenza 3 (PCR) Parainfluenza 4 (PCR) RSV (PCR) Entero/Rhino (PCR) Specimen Rejected MCV Delta 11/11/18 11/11/18 11/11/18 11:14 11:03 11:03 WBC RBC Hgb Hct MCV MCH MCHC RDW Plt Count MPV Immature Gran % Seg Neutrophils % Lymphocytes % Monocytes % Eosinophils % Basophils % Neutrophils # Lymphocytes # Monocytes # Eosinophils # Basophils # Nucleated RBCs/100 WBC Platelet Estimate Anisocytosis Macrocytosis PT INR APTT D-Dimer Heparin Anti-Xa, Unfract Sample Site ABG pH 7.14 L* ABG pCO2 146 H* ABG pO2 30 L* ABG HCO3 50 H ABG Total CO2 > 50 H ABG O2 Saturation 35 L ABG Base Excess 15 H Respiration Rate O2 Delivery Device Blood Gas Modality Inspired O2 Tidal Volume PEEP Sodium Potassium Chloride Carbon Dioxide BUN Creatinine Est GFR ( Amer) Est GFR (Non-Af Amer) BUN/Creatinine Ratio Glucose POC Glucose 161 H Calculated Osmolality Lactic Acid Calcium Venous Ioniz Calcium Phosphorus Magnesium Total Bilirubin Direct Bilirubin Indirect Bilirubin AST ALT Alkaline Phosphatase Troponin I B-Natriuretic Peptide 371 H Serum Total Protein Albumin Globulin Albumin/Globulin Ratio TSH Random Cortisol Urine Color Urine Clarity Urine pH Ur Specific [place] Urine Protein Urine Glucose (UA) Urine Ketones Urine Blood Urine Nitrite Urine Bilirubin Urine Urobilinogen Ur Leukocyte Esterase Urine Microscopic RBC Urine Microscopic WBC Ur Squamous Epith Cells Urine Bacteria Urine Yeast Ur Culture Indicated? Nasal Screen MRSA (PCR) Urine Opiates Screen Ur Barbiturates Screen Ur Phencyclidine Scrn Ur Amphetamines Screen U Benzodiazepines Scrn Urine Cocaine Screen U Marijuana (THC) Screen Ur Drug Screen Interp Chlamy pneumoniae PCR Adenovirus (PCR) B. pertussis DNA (PCR) B.parapertussis DNA PCR Coronavirus OC43 (PCR) Coronavirus HKU1 (PCR) Coronavirus 229E (PCR) Coronavirus NL63 (PCR) Human Metapneumovir PCR Influenza A (H1) PCR Influ A (H1N1/09) PCR Influenza A (H3) PCR Influenza A Untype (PCR) Influenza Type B (PCR) M.pneumoniae DNA (PCR) Parainfluenza 1 (PCR) Parainfluenza 2 (PCR) Parainfluenza 3 (PCR) Parainfluenza 4 (PCR) RSV (PCR) Entero/Rhino (PCR) Specimen Rejected 11/11/18 11/11/18 11/11/18 11:03 11:03 10:54 WBC RBC Hgb Hct MCV MCH MCHC RDW Plt Count MPV Immature Gran % Seg Neutrophils % Lymphocytes % Monocytes % Eosinophils % Basophils % Neutrophils # Lymphocytes # Monocytes # Eosinophils # Basophils # Nucleated RBCs/100 WBC Platelet Estimate Anisocytosis Macrocytosis PT 11.6 INR 1.0 APTT 29.2 D-Dimer Heparin Anti-Xa, Unfract Sample Site ABG pH ABG pCO2 ABG pO2 ABG HCO3 ABG Total CO2 ABG O2 Saturation ABG Base Excess Respiration Rate O2 Delivery Device Blood Gas Modality Inspired O2 Tidal Volume PEEP Sodium 144 Potassium 4.7 Chloride 97 L Carbon Dioxide > 45 H* BUN 22 Creatinine 0.91 Est GFR ( Amer) > 60 Est GFR (Non-Af Amer) 60 BUN/Creatinine Ratio 24 Glucose 181 H POC Glucose Calculated Osmolality 306 H Lactic Acid 0.7 Calcium 9.5 Venous Ioniz Calcium Phosphorus 6.2 H Magnesium 2.1 Total Bilirubin 0.3 Direct Bilirubin 0.0 Indirect Bilirubin 0.3 AST 12 L ALT 23 Alkaline Phosphatase 42 Troponin I 0.05 H* B-Natriuretic Peptide Serum Total Protein 5.9 L Albumin 3.3 L Globulin 2.6 Albumin/Globulin Ratio 1.3 TSH Random Cortisol Urine Color Urine Clarity Urine pH Ur Specific [place] Urine Protein Urine Glucose (UA) Urine Ketones Urine Blood Urine Nitrite Urine Bilirubin Urine Urobilinogen Ur Leukocyte Esterase Urine Microscopic RBC Urine Microscopic WBC Ur Squamous Epith Cells Urine Bacteria Urine Yeast Ur Culture Indicated? Nasal Screen MRSA (PCR) Urine Opiates Screen Ur Barbiturates Screen Ur Phencyclidine Scrn Ur Amphetamines Screen U Benzodiazepines Scrn Urine Cocaine Screen U Marijuana (THC) Screen Ur Drug Screen Interp Chlamy pneumoniae PCR Adenovirus (PCR) B. pertussis DNA (PCR) B.parapertussis DNA PCR Coronavirus OC43 (PCR) Coronavirus HKU1 (PCR) Coronavirus 229E (PCR) Coronavirus NL63 (PCR) Human Metapneumovir PCR Influenza A (H1) PCR Influ A (H1N1/09) PCR Influenza A (H3) PCR Influenza A Untype (PCR) Influenza Type B (PCR) M.pneumoniae DNA (PCR) Parainfluenza 1 (PCR) Parainfluenza 2 (PCR) Parainfluenza 3 (PCR) Parainfluenza 4 (PCR) RSV (PCR) Entero/Rhino (PCR) Specimen Rejected Preliminary micro results at discharge 11/11/18 10:55 Blood Culture - Preliminary Peripheral Venipuncture Culture is incubating and being continuously monitored for growth. Final report to follow. 11/11/18 11:03 Blood Culture - Preliminary Peripheral Venipuncture Culture is incubating and being continuously monitored for growth. Final report to follow. - Impressions ITS Impressions Chest X-Ray 11/11/18 10:54 IMPRESSION: Endotracheal tube is high in position and should be advanced approximately 4 cm. Trace pleural effusions. D/ / Pedro Davenport MD / Pedro Davenport MD Interpreting Provider: Pedro Davenport MD Head CT 11/11/18 10:54 IMPRESSION: Atrophy and mild small vessel ischemic disease. Right maxillary sinus disease. D/ / Pedro Davenport MD / Pedro Davenport MD Interpreting Provider: Pedro Davenport MD Chest X-Ray 11/11/18 14:35 IMPRESSION: Endotracheal tube has been advanced with the tip approximately 15 mm above the level of the bo. Consider minimally retracting. D/ / 11/11/2018 14:54:50 Reuben Ferguson MD / Shy Davis Interpreting Provider: Reuben Ferguson MD X-Ray 11/11/18 16:45 IMPRESSION: Orogastric tube is coiled within the gastric fundus. D/ / Carmelo Zapata MD / Carmelo Zapata MD Interpreting Provider: Carmelo Zapata MD Date of admission: 11/11/18 15:32 Primary care physician: Aidan Huddleston MD Consults: 11/11/18 16:43 Consult to Nutrition [CONS] Stat Comment: Consulting Provider: NUTRITION Reason for Dietary Consult: Tube Feed Start & Manage 11/11/18 18:24 Consult to Cardiology [CONS] Stat Comment: Consulting Provider: Cardiology Shelli Reason for Consult: acute respiratory failure, elevated troponins, s/p PEA arrest, ST elevations Call Completed: Yes - Patient Status Disposition: - Discharge Instructions Follow Up With: Aidan Huddleston MD [Primary Care Provider] - - Hospital Course Hospital course: Ms. Mcclure is a 78 year old female - Time Spent with Patient Total time spent providing and/or coordinating discharge services: Physical Examination Vital Signs: Vital Signs, Last 4 Hours Temp Pulse Resp BP Pulse Ox 11/12/18 06:00 61 16 133/64 100 11/12/18 05:28 16 130/62 100 11/12/18 05:00 65 16 126/63 100 11/12/18 03:59 65 16 120/61 100 11/12/18 03:55 98.5 F 11/12/18 03:47 16 109/57 100 11/12/18 03:00 62 16 171/83 100 Eyes: icteric ENT: oropharynx dry Effort: other (No respiratory effort) Cardiovascular: other (No pulses or heart tones auscultated) Gastrointestinal: absent bowel sounds Integumentary: other (progression of RLE cyanosis and abdominal cyanosis) other (pupils fixed and dilated)
--- NOTE | 2018-11-12 06:56 | Pulmonology Progress Note ---
<Maday Orozco M - Last Filed: 11/12/18 15:32> Date of Encounter: 11/12/18 Time of Encounter: 09:33 Assessment and Plan (1) Pulmonary emboli Current Visit: Yes Status: Acute * CT angio chest obtained this morning, Per radiology patient has right-sided segmental and subsegmental emboli * Patient on heparin drip * Does have breakthrough PE on outpatient Xarelto Qualifiers: Pulmonary embolism type: other Chronicity: acute Acute cor pulmonale presence: without acute cor pulmonale Qualified Code(s): I26.99 - Other pulmonary embolism without acute cor pulmonale (2) Shock circulatory Current Visit: Yes Status: Acute * Uncertain etiology for requirement of pressors but differential to include cardiogenic and septic * Echocardiogram obtained on 11/11/18 showed basal inferior septal wall hypokinesis but ejection fraction was not able to be assessed. No significant valvular dysfunction. Will likely require repeat echo with enhancement. * Patient continues to require Levophed and did have episode of bradycardia while undergoing CTA * Continue propofol and fentanyl for sedation with plan to decrease propofol as the patient tolerates (3) Cardiac arrest Current Visit: Yes Status: Resolved * Patient had 2 episodes of PEA arrest and was given 2 amp bicarb, epinephrine, and 1mg atropine in the ED * Patient has had several different morphologies seen on EKG including bigeminy, sinus tachycardia, and ST elevations in V1-V4. * Echo performed yesterday showed evidence of basal inferior septal wall hypokinesis but otherwise was unable to visualize the rest of the wall segments and could not determine ejection fraction * Repeat echo today showed EF of 50-55% with mild segmental left ventricular systolic dysfunction with mid anterior septal wall hypokinesis * Troponin initially 0.05, repeat 0.21, 0.48 and 0.43 * Cardiology consultation pending (4) Respiratory failure with hypoxia and hypercapnia Current Visit: Yes Status: Acute * On initial presentation the patient's pulse ox was reportedly in the 30s therefore she was intubated * Initial ABG shows significant acidosis with hypercarbia with pH of 7.14 and PCO2 of 146, today the patient is alkalotic and therefore will change her vent settings * Patient's presentation likely secondary to under utilization of her BiPAP with resultant hypercarbia and acidosis worsened by her COPD * Patient has influenza positive but unsure whether this is reinfection versus continued to positive result from previous influenza. The patient's serology is similar to her recent hospitalization which was treated with Tamiflu. At this time we will hold off on treating with Tamiflu as there are new pulmonary emboli which are the more likely cause of her acute respiratory failure * Day 2 Zosyn, nasal MRSA negative therefore will discontinue vancomycin * Given the patient's instability and continuance to rely on vasopressors will hold off on extubation and reevaluate tomorrow * Qualifiers: Chronicity: acute on chronic Qualified Code(s): J96.21 - Acute and chronic respiratory failure with hypoxia; J96.22 - Acute and chronic respiratory failure with hypercapnia (5) Elevated troponin I level Current Visit: Yes Status: Acute * Upon presentation to the ED the patient was intubated, Peak Trop 0.48 * EKG intermittently shows ST elevation in V1-V4 without reciprocal changes but morphology continues to change throughout the course of her stay * Discussed case with network cabler, Dr. Porter who determined her to be unstable for acute intervention * Cardiology consult today showed no convincing evidence of cardiac ischemia and believe primary concern to be PE (6) Acute exacerbation of chronic obstructive airways disease Current Visit: Yes Status: Acute * Patient was recently discharged from the hospital on 11/07 status post influenza and pneumonia * Will give duonebs as necessary, no wheezing today (7) Prediabetes Current Visit: Yes Status: Acute * HbA1c on 10/28/18 was5.9 * Hyperglycemia on multiple evaluations * Will add low dose SSI * GI prophylaxis until extubated and able to eat * Nutrition consult for tube feeds (8) Encephalopathy Current Visit: Yes Status: Resolved * Likely secondary to hypercarbia * Patient sedated but making purposeful movement prior to initiation of fentanyl and propofol (9) HTN (hypertension) Current Visit: No Status: Chronic * Patient requiring vasopressors and therefore will hold home antihypertensives at this time Qualifiers: Hypertension type: essential hypertension Qualified Code(s): I10 - Essential (primary) hypertension Subjective Interval history: Ms. Mcclure is a 78 year old female with history of COPD, Rheumatoid arthritis, atrial fibrillation, DVT on Xarelto, CKD, and diastolic heart failure with preserved ejection fraction who was recently discharged from [facility] on 11/07/18 after a 20 day stay for COPD exacerbation complicated by influenza A and pneumonia. She was tolerating BiPAP at night and was sent to nursing facility where she was to continue utilizing BiPAP at night. Per reports, on 11/11/18 she was found not using BiPAP overnight and was found to be unresponsive, altered and foaming at the mouth. When she arrived to the emergency department on 11/11/18 her oxygen saturation was significantly low and she was obtunded and not responsive to painful stimuli. The patient was therefore intubated and following intubation was significantly hypotensive without pulses. The patient had PEA arrest with ROSC after approximately 4 minutes. The patient was then started on levophed via right femoral central venous catheter. Arterial line was placed. Initial ABG shows pH of 7.1 which improved to 7.5 after 2 A of bicarbonate. During stabilization in the ED she did have another round of ACLS after inability to assess blood pressure via A line and no pulse. Levophed was therefore increased and additionally she was given 100 g of epinephrine as well as 1 milligram of atropine for bradycardia. The patient was found to have ST elevations in V1-4 without recipricol changes and was deemed to be unstable for acute cardiac intervention. CT angio chest showed right sided segmental and subsegmental PE. The patient was initiated on heparin drip and continued on levophed for blood pressure support. Today the patient is intermittently alert and able to nod yes or no. She continues to require vasopressors and therefore will hold off on trial of extubation until more stable. Objective PUL Vital signs: Last Vital Signs Temp 98.5 F 11/12/18 03:55 Pulse 61 11/12/18 06:00 Resp 16 11/12/18 06:00 BP 133/64 11/12/18 06:00 Pulse Ox 100 11/12/18 06:00 General appearance: no acute distress Eyes: nonicteric ENT: oropharynx moist Neck: supple Effort: normal (on mechanical ventilation) Auscultation: bilateral: clear Cardiovascular: regular rate and rhythm Gastrointestinal: normoactive bowel sounds Integumentary: normal Extremities: no cyanosis Musculoskeletal: no deformities non-focal exam, other (sedated and intubated) Ventilator Settings Ventilator Settings: Ventilator Settings, Last 8 Hours Ventilator Tidal Volume 400 Setting Ventilator Tidal Volume 400 Setting Ventilator Tidal Volume 400 Setting Ventilator Tidal Volume 400 Setting Ventilator Tidal Volume 400 Setting Ventilator Tidal Volume 400 Setting Ventilator Tidal Volume 400 Setting Ventilator Tidal Volume 400 Setting Ventilator Tidal Volume 400 Setting Ventilator Tidal Volume 400 Setting Ventilator Tidal Volume 400 Setting Ventilator Tidal Volume 400 Setting Ventilator Tidal Volume 400 Setting Ventilator Respiratory Rate 16 Setting Ventilator Respiratory Rate 16 Setting Ventilator Respiratory Rate 16 Setting Ventilator Respiratory Rate 16 Setting Ventilator Respiratory Rate 16 Setting Ventilator Respiratory Rate 16 Setting Ventilator Respiratory Rate 16 Setting Ventilator Respiratory Rate 16 Setting Ventilator Respiratory Rate 16 Setting Ventilator Respiratory Rate 16 Setting Ventilator Respiratory Rate 16 Setting Ventilator Respiratory Rate 16 Setting Ventilator Respiratory Rate 16 Setting Actual Respiratory Rate 16 Actual Respiratory Rate 16 Actual Respiratory Rate 16 Actual Respiratory Rate 16 Actual Respiratory Rate 16 Actual Respiratory Rate 16 Actual Respiratory Rate 16 Actual Respiratory Rate 16 Actual Respiratory Rate 16 Actual Respiratory Rate 16 Actual Respiratory Rate 16 Actual Respiratory Rate 16 Positive End Expiratory 5 Pressure Positive End Expiratory 5 Pressure Positive End Expiratory 5 Pressure Positive End Expiratory 5 Pressure Positive End Expiratory 5 Pressure Positive End Expiratory 5 Pressure Positive End Expiratory 5 Pressure Positive End Expiratory 5 Pressure Positive End Expiratory 5 Pressure Positive End Expiratory 5 Pressure Positive End Expiratory 5 Pressure Positive End Expiratory 5 Pressure Positive End Expiratory 5 Pressure Peak Inspiratory Airway 38 Pressure Peak Inspiratory Airway 44 Pressure Peak Inspiratory Airway 44 Pressure Peak Inspiratory Airway 43 Pressure Peak Inspiratory Airway 43 Pressure Peak Inspiratory Airway 50 Pressure Peak Inspiratory Airway 50 Pressure Peak Inspiratory Airway 50 Pressure Peak Inspiratory Airway 50 Pressure Peak Inspiratory Airway 48 Pressure Peak Inspiratory Airway 48 Pressure Peak Inspiratory Airway 53 Pressure Results - Laboratory Findings CBC and BMP: 11/12/18 03:25 11/12/18 03:25 ABG ABG pH 7.55 pH Units (7.32-7.45) H 11/12/18 05:17 ABG pCO2 42 mmHg (35-45) 11/12/18 05:17 ABG pO2 87 mmHg (85-104) 11/12/18 05:17 ABG O2 Saturation 98 % (95-98) 11/12/18 05:17 PT/INR, D-dimer PT 11.6 Seconds (9.4-12.1) 11/11/18 11:03 D-Dimer 4983 ng/mLFEU (0-500) H 11/11/18 18:11 Abnormal lab findings: Abnormal lab results RBC 2.73 M/mcL (3.82-4.97) L 11/12/18 03:25 Hgb 9.2 g/dL (11.5-15.4) L 11/12/18 03:25 Hct 29.2 % (35.3-44.9) L 11/12/18 03:25 MCV 107.0 fL (83.0-100.0) H D 11/12/18 03:25 MCH 33.7 pg (28.0-33.3) H 11/12/18 03:25 MCHC 31.5 g/dL (31.6-35.5) L 11/12/18 03:25 Neutrophils # 9.4 K/mcL (1.6-8.9) H 11/12/18 03:25 Nucleated RBCs/100 WBC 2.4 /100 WBC (0) H 11/12/18 03:25 Platelet Estimate Slight Decrease (Normal) L 11/11/18 16:45 Anisocytosis 1+ (Not Present) A 11/11/18 16:45 Macrocytosis Present (Not Present) A 11/11/18 16:45 D-Dimer 4983 ng/mLFEU (0-500) H 11/11/18 18:11 Heparin Anti-Xa, Unfract 1.66 IU/mL (0.30-0.70) H* 11/12/18 03:25 ABG pH 7.55 pH Units (7.32-7.45) H 11/12/18 05:17 ABG HCO3 37 mEq/L (21-27) H 11/12/18 05:17 ABG Total CO2 38 mEq/L (20-26) H 11/12/18 05:17 ABG Base Excess 13 mEq/L (-2 to 3) H 11/12/18 05:17 Chloride 97 mEq/L (98-107) L 11/12/18 03:25 Carbon Dioxide 36 mEq/L (23-29) H 11/12/18 03:25 Est GFR (Non-Af Amer) 53 (> 60) L 11/12/18 03:25 Glucose 202 mg/dL (70-105) H 11/12/18 03:25 POC Glucose 143 mg/dL (70-99) H 11/11/18 22:53 Calcium 8.4 mg/dL (8.6-10.3) L 11/12/18 03:25 Venous Ioniz Calcium 1.04 mmol/L (1.15-1.35) L 11/12/18 04:03 Phosphorus 2.6 mg/dL (2.7-4.5) L 11/12/18 03:25 AST 12 Units/L (13-39) L 11/11/18 10:54 Troponin I 0.43 ng/mL (< 0.04) H* 11/12/18 03:25 B-Natriuretic Peptide 371 pg/mL (Less than 100) H 11/11/18 11:03 Serum Total Protein 5.9 g/dL (6.4-8.9) L 11/11/18 10:54 Albumin 3.3 g/dL (3.5-5.7) L 11/11/18 10:54 Urine Clarity Cloudy (Clear) A 11/11/18 13:02 Urine Protein 30 mg/dL (Neg-Trace) H 11/11/18 13:02 Urine Microscopic WBC 15-30 per hpf (0-3) H 11/11/18 13:02 Ur Squamous Epith Cells Many per lpf (None-Few) H 11/11/18 13:02 Urine Yeast Many per hpf (None Seen) H 11/11/18 13:02 Influ A (H1N1/09) PCR DETECTED (Not Detect) A 11/11/18 19:50 - Microbiology Findings Microbiology Findings: Microbiology, Last 48 Hours 11/11/18 10:55 Blood Culture - Preliminary Peripheral Venipuncture Culture is incubating and being continuously monitored for growth. Final report to follow. 11/11/18 11:03 Blood Culture - Preliminary Peripheral Venipuncture Culture is incubating and being continuously m onitored for growth. Final report to follow. - Diagnostic Findings CT scan - chest: report reviewed, image reviewed - Clinical Findings Intake & Output: Intake & Output 11/11/18 11/11/18 11/12/18 15:59 23:59 07:59 Intake Total 1000 / 1000 862 / 862 640 / 640 Output Total 425 / 425 50 / 50 Balance 1000 / 1000 437 / 437 590 / 590 Weight 99.79 kg 93.4 kg Consult Discharge Plan - Plan Referrals: Aidan Huddleston MD [Primary Care Provider] - - Patient Status Disposition: Admitted As Inpatient - Discharge Instructions Follow Up With: Aidan Huddleston MD [Primary Care Provider] - <Myron Castellanos - Last Filed: 11/12/18 21:09> Date of Encounter: 11/12/18 Objective PUL Vital signs: Last Vital Signs Temp 97.9 F 11/12/18 19:00 Pulse 61 11/12/18 21:03 Resp 12 11/12/18 21:03 BP 97/48 11/12/18 21:03 Pulse Ox 94 11/12/18 21:03 Ventilator Settings Ventilator Settings: Ventilator Settings, Last 8 Hours Ventilator Tidal Volume 400 Setting Ventilator Tidal Volume 400 Setting Ventilator Tidal Volume 400 Setting Ventilator Tidal Volume 400 Setting Ventilator Tidal Volume 400 Setting Ventilator Tidal Volume 400 Setting Ventilator Tidal Volume 400 Setting Ventilator Tidal Volume 400 Setting Ventilator Tidal Volume 400 Setting Ventilator Respiratory Rate 12 Setting Ventilator Respiratory Rate 12 Setting Ventilator Respiratory Rate 12 Setting Ventilator Respiratory Rate 12 Setting Ventilator Respiratory Rate 12 Setting Ventilator Respiratory Rate 12 Setting Ventilator Respiratory Rate 12 Setting Ventilator Respiratory Rate 12 Setting Ventilator Respiratory Rate 12 Setting Actual Respiratory Rate 12 Actual Respiratory Rate 12 Actual Respiratory Rate 12 Actual Respiratory Rate 12 Actual Respiratory Rate 12 Actual Respiratory Rate 12 Actual Respiratory Rate 12 Actual Respiratory Rate 12 Positive End Expiratory 5 Pressure Positive End Expiratory 5 Pressure Positive End Expiratory 5 Pressure Positive End Expiratory 5 Pressure Positive End Expiratory 5 Pressure Positive End Expiratory 5 Pressure Positive End Expiratory 5 Pressure Positive End Expiratory 5 Pressure Peak Inspiratory Airway 33 Pressure Peak Inspiratory Airway 33 Pressure Peak Inspiratory Airway 36 Pressure Peak Inspiratory Airway 33 Pressure Peak Inspiratory Airway 33 Pressure Peak Inspiratory Airway 33 Pressure Peak Inspiratory Airway 33 Pressure Peak Inspiratory Airway 34 Pressure Results - Laboratory Findings CBC and BMP: 11/12/18 03:25 11/12/18 03:25 ABG ABG pH 7.50 pH Units (7.32-7.45) H 11/12/18 15:56 ABG pCO2 47 mmHg (35-45) H 11/12/18 15:56 ABG pO2 80 mmHg (85-104) L 11/12/18 15:56 ABG O2 Saturation 97 % (95-98) 11/12/18 15:56 PT/INR, D-dimer PT 11.6 Seconds (9.4-12.1) 11/11/18 11:03 D-Dimer 4983 ng/mLFEU (0-500) H 11/11/18 18:11 Abnormal lab findings: Abnormal lab results RBC 2.73 M/mcL (3.82-4.97) L 11/12/18 03:25 Hgb 9.2 g/dL (11.5-15.4) L 11/12/18 03:25 Hct 29.2 % (35.3-44.9) L 11/12/18 03:25 MCV 107.0 fL (83.0-100.0) H D 11/12/18 03:25 MCH 33.7 pg (28.0-33.3) H 11/12/18 03:25 MCHC 31.5 g/dL (31.6-35.5) L 11/12/18 03:25 Neutrophils # 9.4 K/mcL (1.6-8.9) H 11/12/18 03:25 Nucleated RBCs/100 WBC 2.4 /100 WBC (0) H 11/12/18 03:25 Platelet Estimate Slight Decrease (Normal) L 11/11/18 16:45 Anisocytosis 1+ (Not Present) A 11/11/18 16:45 Macrocytosis Present (Not Present) A 11/11/18 16:45 D-Dimer 4983 ng/mLFEU (0-500) H 11/11/18 18:11 Heparin Anti-Xa, Unfract 1.37 IU/mL (0.30-0.70) H* 11/12/18 16:30 ABG pH 7.50 pH Units (7.32-7.45) H 11/12/18 15:56 ABG pCO2 47 mmHg (35-45) H 11/12/18 15:56 ABG pO2 80 mmHg (85-104) L 11/12/18 15:56 ABG HCO3 36 mEq/L (21-27) H 11/12/18 15:56 ABG Total CO2 38 mEq/L (20-26) H 11/12/18 15:56 ABG Base Excess 12 mEq/L (-2 to 3) H 11/12/18 15:56 Chloride 97 mEq/L (98-107) L 11/12/18 03:25 Carbon Dioxide 36 mEq/L (23-29) H 11/12/18 03:25 Est GFR (Non-Af Amer) 53 (> 60) L 11/12/18 03:25 Glucose 202 mg/dL (70-105) H 11/12/18 03:25 Calcium 8.4 mg/dL (8.6-10.3) L 11/12/18 03:25 Venous Ioniz Calcium 1.10 mmol/L (1.15-1.35) L 11/12/18 16:46 Phosphorus 2.6 mg/dL (2.7-4.5) L 11/12/18 03:25 AST 12 Units/L (13-39) L 11/11/18 10:54 Troponin I 0.43 ng/mL (< 0.04) H* 11/12/18 03:25 B-Natriuretic Peptide 371 pg/mL (Less than 100) H 11/11/18 11:03 Serum Total Protein 5.9 g/dL (6.4-8.9) L 11/11/18 10:54 Albumin 3.3 g/dL (3.5-5.7) L 11/11/18 10:54 Urine Clarity Cloudy (Clear) A 11/11/18 13:02 Urine Protein 30 mg/dL (Neg-Trace) H 11/11/18 13:02 Urine Microscopic WBC 15-30 per hpf (0-3) H 11/11/18 13:02 Ur Squamous Epith Cells Many per lpf (None-Few) H 11/11/18 13:02 Urine Yeast Many per hpf (None Seen) H 11/11/18 13:02 Influ A (H1N1/09) PCR DETECTED (Not Detect) A 11/11/18 19:50 - Microbiology Findings Microbiology Findings: Microbiology, Last 48 Hours 11/11/18 10:55 Blood Culture - Preliminary Peripheral Venipuncture Culture is incubating and being continuously monitored for growth. Final report to follow. 11/11/18 11:03 Blood Culture - Preliminary Peripheral Venipuncture Culture is incubating and being continuously monitored for growth. Final report to follow. - Clinical Findings Intake & Output: Intake & Output 11/12/18 11/12/18 11/12/18 07:59 15:59 23:59 Intake Total 3558 / 3558 518 / 518 372 / 372 Output Total 50 / 50 226 / 226 325 / 325 Balance 3508 / 3508 292 / 292 47 / 47 - Attending Attestation - Attending Attestation I saw and evaluated this patient and my medical decision-making was reviewed with the Resident Physician. I agree with the documented findings, disposition and treatment plan as described except to the extent set forth below. We independently had [id number] contact with the patient I spent 45 minutes of Critical Care time with this patient. It involved decision making of high complexity to assess, manipulate, and support vital organ system failure and/or to prevent further life threatening deterioration of the patient's condition. The time involved in the performance of separately reportable procedures was not counted toward critical care time. Patient seen and examined at bedside Labs, radiology, chart personally reviewed. Management was reviewed during multidisciplinary critical care rounds. BACTERIOLOGIST SOIL: Patient had a cardiac arrest be a after intubation and my exam patient is following commands to doing some some purposeful movements no need of hypothermia protocol. No obvious focal neurological deficit. CT head was negative. 11/12 Patient is waking up following commands no acute focal neurological deficit Pulm: Patient has acceptable oxygenation and ventilation patient was intubated because of acute on chronic hypoxic hypercapnic respiratory failure patient did not use her BiPAP in the skilled nursing patient was recently discharged after ICU stay for pneumonia secondary to influenza. To continue with the broad-spectrum antibiotics. Patient picture is complicated by possible acute coronary syndrome and worsening of acute on chronic diastolic heart failure patient has increased airway resistance after mechanical ventilation to start with the every other bronchodilators and monitor the response if needed we will need to paralyze the patient. Lung protective strategy settings were adjusted for adequate oxygenation and ventilation. 11/12 Patient has acceptable oxygenation and ventilation Cards: Patient has global ST segment elevation in the EKG cardiology consult did for evaluation of acute coronary syndrome we will start on heparin drip. Patient was hemodynamically unstable most likely due to stunned myocardium after cardiac arrest the use levophed to keep map above 65. 11/12 Patient had PE with hypoxic and hypercarbic respiratory failure that would have cause this supply demand mismatch cardiac cause as the primary cause is low probability FEN-GI: Diet according to Nutrition Renal: As and output were reviewed ID: To do morel culture and cover with broad-spectrum antibiotics Heme/Onc: Labs reviewed Endo: Glucose Monitored Integ/MSK: Skin Care per routine ICU Nursing Protocol to prevent ulcers. Lines: All lines examined without evidence of infection : Dispo: Critically ill CODE:Full Code
[2018-11-12] MEDS: EPINEPHrine 5 MG in D5% in Water 250 ML IVC SCH ×2 (07:43→13:30)
[2018-11-12] MEDS ORDERED: Isovue-370 500 ML BOTTLE IVP ONE (08:01)
[2018-11-12] MEDS: Pantoprazole 40 MG VIAL IVP SCH (08:08)
[2018-11-12] MEDS: MethylPREDNISolone 40 MG/ML VIAL IVP SCH ×3 (08:08→23:00)
[2018-11-12] MEDS: Chlorhexidine Rinse 15 ML MOUTHWASH MM SCH ×2 (08:08→19:40)
[2018-11-12] MEDS ORDERED: Perflutren Lipid Microsphere 1.3 ML in 0.9 % Sodium Chloride 8.7 ML IVP ONE (10:23)
[2018-11-12] MEDS ORDERED: Dextrose Gel 15 GM/37.5 ML TUBE PO PRN ×2 (11:05)
[2018-11-12] MEDS ORDERED: D5% in Water 1,000 ML IVC PRN (11:05)
[2018-11-12] MEDS ORDERED: *HR* Dextrose 50 % in Water (Syg) 50 ML SYRINGE IVP PRN (11:05)
[2018-11-12] MEDS: Heparin 25,000 UNIT/250 ML D5W 25,000 UNIT/250 ML IV.SOLN IVC SCH (13:29)
[2018-11-12] MEDS: Insulin LISPRO 300 UNITS/3 ML VIAL SQ SCH ×4 (13:29→23:00)
--- NOTE | 2018-11-12 14:09 | Cardiology Consult Note ---
<Dashawn Kauffman - Last Filed: 11/12/18 13:57> Date of Encounter: 11/12/18 Time of Encounter: 09:45 Assessment and Plan (1) Respiratory failure with hypoxia and hypercapnia Current Visit: Yes Status: Acute Likely 2/2 BiPAP non-compliance as well as right upper and right lower PEs Presenting ABG showed pH 7.14 with pCO2 146 and pO2 30. HCO3 50. Management per critical care. Currently on Heparin drip for PEs Qualifiers: Chronicity: acute on chronic Qualified Code(s): J96.21 - Acute and chronic respiratory failure with hypoxia; J96.22 - Acute and chronic respiratory failure with hypercapnia (2) Elevated troponin Current Visit: Yes Status: Acute Trended 0.05 -> 0.21 -> 0.48 -> 0.43 Likely multifactorial with hypoxia, PEs, and CPR. EKGs are without any diagnostic ischemia. ST segment elevations are noted in V1- V4, but are accompanied by q-waves and no reciprocal depressions are noted. Obtained repeat echo as the one performed on 11/11 was suboptimal and not all segments were well visualized. Limited echo with contrast today revealed LVEF 50-55% with mild segmental LV systolic dysfunction. Will discuss these new findings with attending however suspect management will not change significantly. Continue management of multiple PEs despite Xarelto, and managment of acute on chronic respiratory failure with hypoxia and hypercapnia (3) Cardiac arrest Current Visit: Yes Status: Resolved Underwent 2 separate rounds of ACLS with CPR for PEA arrest (4) Pulmonary emboli Current Visit: Yes Status: Acute Acute right upper and right lower PEs visualized on Chest CTA D-dimer was elevated at 4983 Pt was reportedly on Xarelto prior to admission, question compliance Qualifiers: Pulmonary embolism type: other Chronicity: acute Acute cor pulmonale presence: without acute cor pulmonale Qualified Code(s): I26.99 - Other pulmonary embolism without acute cor pulmonale (5) COPD (chronic obstructive pulmonary disease) Current Visit: Yes Status: Chronic as above Qualifiers: COPD type: COPD with acute exacerbation Qualified Code(s): J44.1 - Chronic obstructive pulmonary disease with (acute) exacerbation (6) HTN (hypertension) Current Visit: No Status: Chronic currently hypotensive requiring Levophed Qualifiers: Hypertension type: essential hypertension Qualified Code(s): I10 - Essenti al (primary) hypertension (7) Diastolic heart failure with preserved ejection fraction Current Visit: Yes Status: Chronic Echo repeated with Definity contrast since echo on 11/11 was - LVEF 50-55% - Mild segmental LV systolic dysfunction LVEF on echo from 10/23/18 was 60%, and mild LV diastolic dysfunction was noted at that time Discussing results with attending (8) Obesity Current Visit: Yes Status: Chronic Chronic issue Qualifiers: Obesity type: due to excess calories Obesity classification: adult class 2 (BMI 35 - 39.9) Serious obesity comorbidity presence: unspecified whether serious comorbidity present Body mass index: BMI 36.0-36.9 Qualified Code(s): E66.09 - Other obesity due to excess calories; Z68.36 - Body mass index (BMI) 36.0-36.9, adult Discussion w patient/family: The assessment and plan as outlined above was discussed with the patient and/or family members who expressed understanding and agreement. All questions were answered. Thank you for involving us in the care of your patient. Please call with any questions. History of Present Illness Consult date: 11/11/18 Requesting physician: Maday Orozco Consult reason: PEA arrest, elevated trops, ST elevations on EKG Chief complaint: Altered mental status History of present illness: Ms. Mcclure is a 78 year old female with PMH of arthritis, COPD, CHF, DVT on Xarel to, HLD, HTN, osteoporosis, PE, and renal disease. She was recently discharged from [facility] on 11/07/18 following a COPD exacerbation 2/2 Influeza A and pneumonia. At that time she was recommended BiPAP while sleeping. She was discharged to an ECF. Per ECF reports she was found to be unresponsive and foaming at this mouth on the 11/11. EMS transported pt to the ED. Upon arrival to [facility] ED she was found to have an SpO2 of 30% on room air. She was subsequently intubated, afterwards was noted to be hypotensive without palpable pulses. Underwent CPR at that time and a central line was placed. Pt was started on Levophed. CPR was initiated again for another episode of PEA arrest. ROSC was achieved after 2 minutes of ACLS with 1mg Epi. Pt was subsequently transferred to ICU for further care. EKG revealed ST segment elevations in septal and anterior leads without reciprocal changes. On-call cardiology was contacted and Dr. Porter recommended d-dimer, echo, and trending troponins. Pt seen and examined at bedside this morning. Remains intubated and requiring Levophed. Past Med Surg Social Fam HX - Past Medical History Medical history: arthritis, atrial fibrillation, CHF, COPD, DVT, hyperlipidemia, hypertension, osteoporosis, pulmonary embolus, RA, renal disease, other Additional medical history: unspecified lung problem Psychiatric history: no psych history - Past Surgical History Surgical History: non-contributory Additional surgical history: back stimulator, carpal tunnel surgery - Social History Smoking Status: Former smoker Smokeless Tobacco Status: No Alcohol use: none Drug use: none - Family History Father Adopted: No Family Member Ethnicity: Non- Living Status: Hx Family Cardiac Disorders: Yes Hx Family Respiratory Disorders: Yes Hx Family Cancer: Yes Hx Family GI Disorders: Yes Hx Family Endocrine Disorder: Yes Hx Family Neuromuscular Disorders: No Hx Family Neurologic Disorders: Yes Hx Family HEENT Disorders: No Hx Family Autoimmune Disorders: Yes (arthritis) Mother Hx Family Cardiac Disorders: Yes (HTN) Medications and Allergies Budesonide/Formoterol 160/4.5 [Symbicort 160/4.5] 2 puff IH BID 10/23/16 [History] Diclofenac Sodium [Voltaren] 1 appl TP QID PRN 10/23/16 [History] Folic Acid 1 mg PO DAILY 10/23/16 [History] Ondansetron HCl [Zofran] 4 mg PO Q8H PRN 10/23/16 [History] Ranitidine HCl [Acid [employer]] 150 mg PO DAILY 10/23/16 [History] rOPINIRole [Requip] 1 mg PO HS 10/23/16 [History] Ipratropium/Albuterol Sulfate [Combivent Respimat 20-100 Mcg] 1 puff IH Q4H PRN 05/04/18 [History] Carvedilol [Coreg] 25 mg PO BID 07/02/18 [History] Albuterol Sulfate [Proair Hfa] 2 puff IH Q6H PRN 07/28/18 [History] Docusate [Colace] 100 mg PO DAILY 07/28/18 [History] Gabapentin [Neurontin] 300 mg PO HS 09/25/18 [History] Rivaroxaban [Xarelto] 20 mg PO QPM 09/25/18 [History] Cyanocobalamin (Vitamin B-12) [Vitamin B-12] 5,000 mcg PO DAILY 10/22/18 [History] Losartan Potassium [Cozaar] 50 mg PO DAILY 10/22/18 [History] Benzonatate [Tessalon] 100 mg PO TID PRN capsule 11/06/18 [Rx] GuaiFENesin ER [Mucinex] 600 mg PO BID PRN tbbp.12hr 11/06/18 [Rx] Ipratropium [ATROVENT Inhaler] 2 puff IH [id number] PRN inhaler 11/06/18 [Rx] Quetiapine Fumarate [Seroquel] 25 mg PO HS tablet 11/06/18 [Rx] predniSONE [PredniSONE] 10 mg PO DAILY #10 tablet 11/06/18 [Rx] Acetaminophen [Tylenol] 500 mg PO Q6HR PRN 11/11/18 [History] Alendronate Sodium [Fosamax] 70 mg PO TH 11/11/18 [History] Calcium Carbonate/Vitamin D3 [Calcium 600-Vit D3 800 Tablet] 1 each PO DAILY 11/11/18 [History] OxyCODONE/APAP 5/325 [Percocet 5/325 MG] 1 tab PO Q12H PRN 11/11/18 [History] Sodium Chloride for inhalation [Sodium Chloride, Saline 3 ML] 3 ml IH Q6H 11/11/18 [History] Allergy/AdvReac Type Severity Reaction Status Date / Time amlodipine [From [facility]] Allergy See Verified 10/22/18 09:42 Comments ROS unobtainable: due to endotracheal tube, due to mental status All Systems Review: The remainder of the systems were reviewed and are negative Physical Examination Vital Signs, Last 4 Hours Temp Pulse Resp BP Pulse Ox 11/12/18 13:00 48 12 118/57 100 11/12/18 12:20 96.9 F L 11/12/18 12:00 50 12 137/60 100 11/12/18 11:00 52 12 124/57 95 11/12/18 10:00 53 16 99/45 100 General: Other (intubated and sedated) HEENT: Atraumatic, Normocephaly, Mucus Membranes Moist Neck: No JVD, Normal carotid pulses Cardiac: Reg Rate and Rhythm, Normal S1 and S2, No Murmur Lungs: Normal Breath Sounds, No Wheeze, Rales, Rhonchi Neuro: Other (unable to assess due to mental status ) Abdomen: Soft, Non-Tender Skin: No rashes noted on visualized skin Musculoskeletal: No Chest Wall Tenderness Extremities: No Clubbing, No Cyanosis, No Edema, Normal Pulses Results 11/12/18 03:25 11/12/18 03:25 Lab Results 11/11/18 11/11/18 11/11/18 14:43 16:45 16:45 WBC 12.3 H 12.8 H Hgb 8.2 L 9.6 L Hct 27.1 L 31.9 L Plt Count 175 217 D-Dimer Sodium 143 Potassium 4.5 Chloride 100 Carbon Dioxide 40 H* BUN 22 Creatinine 0.88 Glucose 224 H Calcium 8.5 L Magnesium Troponin I 0.21 H* TSH 0.645 11/11/18 11/11/18 11/12/18 18:11 21:00 03:25 WBC 10.5 Hgb 9.2 L Hct 29.2 L Plt Count 226 D-Dimer 4983 H Sodium Potassium Chloride Carbon Dioxide BUN Creatinine Glucose Calcium Magnesium Troponin I 0.48 H* TSH 11/12/18 03:25 WBC Hgb Hct Plt Count D-Dimer Sodium 140 Potassium 4.3 Chloride 97 L Carbon Dioxide 36 H BUN 21 Creatinine 1.00 Glucose 202 H Calcium 8.4 L Magnesium 1.6 Troponin I 0.43 H* TSH - Imaging and Cardiology Chest Xray: report reviewed, image reviewed Echo: report reviewed, image reviewed Other Results: CTA chest images and report reviewed - EKG Interpretation EKG results cardiology: personally reviewed, no diagnostic ischemia (q waves visualized in V1-[address]ations, however no reciprocal depressions were noted) Consult Discharge Plan - Plan Referrals: Aidan Huddleston MD [Primary Care Provider] - <Sera Hansen - Last Filed: 11/12/18 15:25> Date of Encounter: 11/12/18 - Attending Attestation I independently examined this patient and my medical decision-making was reviewed with the Resident Physician. I agree with the documented findings, disposition and treatment plan as described. Ms. Mcclure presents with PEA arrest in setting of hypercapnic respiratory failure and newly diagnosed PE. Troponin elevation etiology unclear and may be multifactorial - CPR, PE, respiratory failure. Echo on 11/11 demonstrated suboptimal imaging. Repeat Echo with Definity was personally reviewed - normal LV systolic function without segmental wall motion abnormality. No further cardiac testing is warranted at this time. Signing off. Please call with questions. Assessment and Plan Discussion w patient/family: The assessment and plan as outlined above was discussed with the patient and/or family members who expressed understanding and agreement. All questions were answered. Thank you for involving us in the care of your patient. Please call with any questions. History of Present Illness History of present illness: Ms. Mcclure is a 78 year old female All Systems Review: The remainder of the systems were reviewed and are negative Physical Examination Vital Signs, Last 4 Hours Temp Pulse Resp BP Pulse Ox 11/12/18 13:37 12 100 11/12/18 13:00 48 12 118/57 100 11/12/18 12:20 96.9 F L 11/12/18 12:00 50 12 137/60 100 Results 11/12/18 03:25 11/12/18 03:25 Lab Results 11/11/18 11/11/18 11/11/18 14:43 16:45 16:45 WBC 12.3 H 12.8 H Hgb 8.2 L 9.6 L Hct 27.1 L 31.9 L Plt Count 175 217 D-Dimer Sodium 143 Potassium 4.5 Chloride 100 Carbon Dioxide 40 H* BUN 22 Creatinine 0.88 Glucose 224 H Calcium 8.5 L Magnesium Troponin I 0.21 H* TSH 0.645 11/11/18 11/11/18 11/12/18 18:11 21:00 03:25 WBC 10.5 Hgb 9.2 L Hct 29.2 L Plt Count 226 D-Dimer 4983 H Sodium Potassium Chloride Carbon Dioxide BUN Creatinine Glucose Calcium Magnesium Troponin I 0.48 H* TSH 11/12/18 03:25 WBC Hgb Hct Plt Count D-Dimer Sodium 140 Potassium 4.3 Chloride 97 L Carbon Dioxide 36 H BUN 21 Creatinine 1.00 Glucose 202 H Calcium 8.4 L Magnesium 1.6 Troponin I 0.43 H* TSH
[2018-11-12 16:02] LABS: ABG Base Excess 12 mEq/L (-2 to 3); ABG HCO3 36 mEq/L (21-27); ABG Oxygen Saturation 97 % (95-98); ABG PCO2 47 mmHg (35-45); ABG PO2 80 mmHg (85-104); ABG TCO2 38 mEq/L (20-26); Blood Gas Modality ASSIST CONTROL; Blood Gas PEEP 5 cm H2O; Blood Gas Respiration Rate 12; Blood Gas VT 400 cc
--- NOTE | 2018-11-12 17:56 | Electrocardiograph Report ---
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
[2018-11-13] MEDS: Norepinephrine 8 MG in D5% in Water 500 ML IVC SCH (00:07)
[2018-11-13 03:10] LABS: VBG Ionized Calcium 1.12 mmol/L (1.15-1.35)
[2018-11-13 03:11] LABS: Basophils % 0.1 %; Hemoglobin 8.7 g/dL (11.5-15.4); Immature Granulocytes % 0.6 % (0-4); Lymphocytes # 0.4 K/mcL (0.6-4.6); Lymphocytes % 4.9 %; Mean Corpuscular HGB Conc 33.5 g/dL (31.6-35.5); Mean Corpuscular Hemoglobin 35.1 pg (28.0-33.3); Mean Corpuscular Volume 104.8 fL (83.0-100.0); Mean Platelet Volume 9.7 fL (9.4-12.4); Monocytes # 0.2 K/mcL (0.0-1.3); Monocytes % 2.4 %; Neutrophils # 7.3 K/mcL (1.6-8.9); Platelet Count 212 K/mcL (140-400); Red Blood Count 2.48 M/mcL (3.82-4.97); Red Cell Distribution Width 14.2 % (11.5-14.5)
[2018-11-13] MEDS: Artificial Tears SOLN 15 ML BOTTLE BOTH EYES SCH ×6 (03:14→23:27)
[2018-11-13 03:28] LABS: BUN/Creatinine Ratio 20 (6-26); Blood Urea Nitrogen 18 mg/dL (8-23); Calcium 8.3 mg/dL (8.6-10.3); Carbon Dioxide 34 mEq/L (23-29); Chloride 98 mEq/L (98-107); Glucose 153 mg/dL (70-105); Osmolality,Calculated 291 (280-300); Potassium 3.8 mEq/L (3.5-5.1); Sodium 138 mEq/L (136-145); eGFR For Non-African Americans > 60 (> 60)
[2018-11-13] MEDS: FentaNYL (PF) 1,000 MCG in 0.9 % Sodium Chloride 80 ML IVC SCH ×3 (03:48→23:08)
[2018-11-13] MEDS: Insulin LISPRO 300 UNITS/3 ML VIAL SQ SCH ×6 (03:48→23:36)
[2018-11-13] MEDS: Heparin 25,000 UNIT/250 ML D5W 25,000 UNIT/250 ML IV.SOLN IVC SCH (03:50)
[2018-11-13 04:34] LABS: Magnesium 2.2 mg/dL (1.6-2.6); Phosphorous 3.8 mg/dL (2.7-4.5)
[2018-11-13 04:47] LABS: ABG Base Excess 10 mEq/L (-2 to 3); ABG HCO3 36 mEq/L (21-27); ABG Oxygen Saturation 89 % (95-98); ABG PCO2 61 mmHg (35-45); ABG PH 7.38 pH Units (7.32-7.45); ABG PO2 60 mmHg (85-104); ABG TCO2 38 mEq/L (20-26); Blood Gas Modality VC; Blood Gas PEEP 5 cm H2O; Blood Gas Respiration Rate 12; Blood Gas VT 400 cc
[2018-11-13] MEDS: Piperacillin/Tazobactam 3.375 GM in 0.9 % Sodium Chloride Mini Bag 100 ML IVPB SCH ×3 (05:05→21:12)
--- NOTE | 2018-11-13 07:23 | Pulmonology Progress Note ---
<Maday Orozco - Last Filed: 11/13/18 17:37> Date of Encounter: 11/13/18 Time of Encounter: 07:22 Assessment and Plan (1) Pulmonary emboli Current Visit: Yes Status: Acute * Right-sided segmental and subsegmental emboli * Patient on heparin drip * Does have breakthrough PE on outpatient Xarelto Qualifiers: Pulmonary embolism type: other Chronicity: acute Acute cor pulmonale presence: without acute cor pulmonale Qualified Code(s): I26.99 - Other pulmonary embolism without acute cor pulmonale (2) Shock circulatory Current Visit: Yes Status: Acute * Cardiology consult did not believe EKGs ischemic in nature. Echo reveals an EF of 50-55% * Patient has been weaned off Levophed and has been intermittently hypertensive, responding well to hydralazine * Bradycardia and hypertension concurrently but no pupillary defects with concern for cushings - responded well to hydralazine, likely will replace with her home hypertensives with caution for bradycardia * Continue propofol and fentanyl for sedation with plan to decrease propofol as the patient tolerates with plan to convert propofol to Precedex for CPAP trial (3) Cardiac arrest Current Visit: Yes Status: Resolved * Patient had 2 episodes of PEA arrest and was given 2 amp bicarb, epinephrine, and 1mg atropine in the ED * Patient has had several different morphologies seen on EKG including bigeminy, sinus tachycardia, and ST elevations in V1-V4. * Repeat echo showed EF of 50-55% with mild segmental left ventricular systolic dysfunction with mid anterior septal wall hypokinesis * Troponin initially 0.05, repeat 0.21, 0.48 and 0.43 * Cardiology consultation appreciated and do not believe further cardiac testing is warranted at this time and believe it is likely secondary to hypercapnic respiratory failure and new PE (4) Respiratory failure with hypoxia and hypercapnia Current Visit: Yes Status: Acute * Patient's presentation likely secondary to under utilization of her BiPAP with resultant hypercarbia and acidosis worsened by her COPD * Patient has influenza positive but unsure whether this is reinfection versus continued to positive result from previous influenza. The patient's serology is similar to her recent hospitalization which was treated with Tamiflu. At this time we will hold off on treating with Tamiflu as there are new pulmonary emboli which are the more likely cause of her acute respiratory failure * Day 3 Zosyn, nasal MRSA negative * Attempting weaning of sedation and plan for CPAP trial for extubation Qualifiers: Chronicity: acute on chronic Qualified Code(s): J96.21 - Acute and chronic respiratory failure with hypoxia; J96.22 - Acute and chronic respiratory failure with hypercapnia (5) Elevated troponin I level Current Visit: Yes Status: Acute * Upon presentation to the ED the patient was intubated, Peak Trop 0.48 * EKG intermittently shows ST elevation in V1-V4 without reciprocal changes but morphology continues to change throughout the course of her stay * Cardiology consult today showed no convincing evidence of cardiac ischemia and believe primary etiology of symptoms to be PE (6) Acute exacerbation of chronic obstructive airways disease Current Visit: Yes Status: Acute * Patient was recently discharged from the hospital on 11/07 status post influenza and pneumonia * Will give duonebs as necessary, no wheezing today (7) Prediabetes Current Visit: Yes Status: Acute * HbA1c on 10/28/18 was 5.9 * Hyperglycemia on multiple evaluations * Will add low dose SSI, accucheck q6 * GI prophylaxis until extubated and able to eat * Nutrition consult for tube feeds (8) Encephalopathy Current Visit: Yes Status: Resolved * Likely secondary to hypercarbia * Patient sedated but making purposeful movement prior to initiation of fentanyl and propofol * Will add serquel, home medication due to anxiety (9) HTN (hypertension) Current Visit: No Status: Chronic * Patient requiring vasopressors intermittently, will resume home medications when able Qualifiers: Hypertension type: essential hypertension Qualified Code(s): I10 - Essential (primary) hypertension Subjective Interval history: Ms. Mcclure is a 78 year old female with history of COPD, Rheumatoid arthritis, atrial fibrillation, DVT on Xarelto, CKD, and diastolic heart failure with preserved ejection fraction who was recently discharged from [facility] on 11/07/18 after a 20 day stay for COPD exacerbation complicated by influenza A and pneumonia. She was tolerating BiPAP at night and was sent to nursing facility where she was to continue utilizing BiPAP at night. Per reports, on 11/11/18 she was found not using BiPAP overnight and was found to be unresponsive, altered and foaming at the mouth. When she arrived to the emergency department on 11/11/18 her oxygen saturation was significantly low and she was obtunded and not responsive to painful stimuli. The patient was therefore intubated and following intubation was significantly hypotensive without pulses. The patient had PEA arrest with ROSC after approximately 4 minutes. The patient was then started on levophed via right femoral central venous catheter. Arterial line was placed. Initial ABG shows pH of 7.1 which improved to 7.5 after 2 A of bicarbonate. During stabilization in the ED she did have another round of ACLS after inability to assess blood pressure via A l ine and no pulse. Levophed was therefore increased and additionally she was given 100 g of epinephrine as well as 1 milligram of atropine for bradycardia. The patient was found to have ST elevations in V1-4 without recipricol changes and was deemed to be unstable for acute cardiac intervention. CT angio chest showed right sided segmental and subsegmental PE. The patient was initiated on heparin drip and continued on levophed for blood pressure support. Today the patient is intermittently alert but continues to be intubated. She gets agitated when attempting CPAP trials. Objective PUL Vital signs: Last Vital Signs Temp 97.7 F 11/13/18 03:00 Pulse 58 11/13/18 06:00 Resp 12 11/13/18 06:03 BP 103/44 11/13/18 06:03 Pulse Ox 100 11/13/18 06:03 General appearance: no acute distress, asleep Eyes: nonicteric ENT: oropharynx moist Effort: normal Auscultation: bilateral: clear (ventilated) Cardiovascular: regular rate and rhythm Gastrointestinal: normoactive bowel sounds Integumentary: normal Extremities: no cyanosis non-focal exam, unable to assess due to mental status Ventilator Settings Ventilator Settings: Ventilator Settings, Last 8 Hours Ventilator Tidal Volume 400 Setting Ventilator Tidal Volume 400 Setting Ventilator Tidal Volume 400 Setting Ventilator Tidal Volume 400 Setting Ventilator Tidal Volume 400 Setting Ventilator Tidal Volume 400 Setting Ventilator Tidal Volume 400 Setting Ventilator Tidal Volume 400 Setting Ventilator Tidal Volume 400 Setting Ventilator Tidal Volume 400 Setting Ventilator Tidal Volume 400 Setting Ventilator Tidal Volume 400 Setting Ventilator Respiratory Rate 12 Setting Ventilator Respiratory Rate 12 Setting Ventilator Respiratory Rate 12 Setting Ventilator Respiratory Rate 12 Setting Ventilator Respiratory Rate 12 Setting Ventilator Respiratory Rate 12 Setting Ventilator Respiratory Rate 12 Setting Ventilator Respiratory Rate 12 Setting Ventilator Respiratory Rate 12 Setting Ventilator Respiratory Rate 12 Setting Ventilator Respiratory Rate 12 Setting Ventilator Respiratory Rate 12 Setting Actual Respiratory Rate 12 Actual Respiratory Rate 12 Actual Respiratory Rate 12 Actual Respiratory Rate 12 Actual Respiratory Rate 12 Actual Respiratory Rate 12 Actual Respiratory Rate 12 Actual Respiratory Rate 15 Actual Respiratory Rate 15 Actual Respiratory Rate 12 Actual Respiratory Rate 12 Positive End Expiratory 5 Pressure Positive End Expiratory 5 Pressure Positive End Expiratory 5 Pressure Positive End Expiratory 5 Pressure Positive End Expiratory 5 Pressure Positive End Expiratory 5 Pressure Positive End Expiratory 5 Pressure Positive End Expiratory 5 Pressure Positive End Expiratory 5 Pressure Positive End Expiratory 5 Pressure Positive End Expiratory 5 Pressure Positive End Expiratory 5 Pressure Peak Inspiratory Airway 38 Pressure Peak Inspiratory Airway 40 Pressure Peak Inspiratory Airway 40 Pressure Peak Inspiratory Airway 40 Pressure Peak Inspiratory Airway 43 Pressure Peak Inspiratory Airway 43 Pressure Peak Inspiratory Airway 35 Pressure Peak Inspiratory Airway 35 Pressure Peak Inspiratory Airway 35 Pressure Results - Laboratory Findings CBC and BMP: 11/13/18 03:00 11/13/18 03:00 ABG ABG pH 7.38 pH Units (7.32-7.45) 11/13/18 04:43 ABG pCO2 61 mmHg (35-45) H 11/13/18 04:43 ABG pO2 60 mmHg (85-104) L 11/13/18 04:43 ABG O2 Saturation 89 % (95-98) L 11/13/18 04:43 PT/INR, D-dimer PT 11.6 Seconds (9.4-12.1) 11/11/18 11:03 D-Dimer 4983 ng/mLFEU (0-500) H 11/11/18 18:11 Abnormal lab findings: Abnormal lab results RBC 2.48 M/mcL (3.82-4.97) L 11/13/18 03:00 Hgb 8.7 g/dL (11.5-15.4) L 11/13/18 03:00 Hct 26.0 % (35.3-44.9) L 11/13/18 03:00 MCV 104.8 fL (83.0-100.0) H 11/13/18 03:00 MCH 35.1 pg (28.0-33.3) H 11/13/18 03:00 Lymphocytes # 0.4 K/mcL (0.6-4.6) L 11/13/18 03:00 Nucleated RBCs/100 WBC 1.0 /100 WBC (0) H 11/13/18 03:00 Platelet Estimate Slight Decrease (Normal) L 11/11/18 16:45 Anisocytosis 1+ (Not Present) A 11/11/18 16:45 Macrocytosis Present (Not Present) A 11/11/18 16:45 D-Dimer 4983 ng/mLFEU (0-500) H 11/11/18 18:11 ABG pCO2 61 mmHg (35-45) H 11/13/18 04:43 ABG pO2 60 mmHg (85-104) L 11/13/18 04:43 ABG HCO3 36 mEq/L (21-27) H 11/13/18 04:43 ABG Total CO2 38 mEq/L (20-26) H 11/13/18 04:43 ABG O2 Saturation 89 % (95-98) L 11/13/18 04:43 ABG Base Excess 10 mEq/L (-2 to 3) H 11/13/18 04:43 Carbon Dioxide 34 mEq/L (23-29) H 11/13/18 03:00 Glucose 153 mg/dL (70-105) H 11/13/18 03:00 POC Glucose 126 mg/dL (70-99) H 11/12/18 22:45 Calcium 8.3 mg/dL (8.6-10.3) L 11/13/18 03:00 Venous Ioniz Calcium 1.12 mmol/L (1.15-1.35) L 11/13/18 03:06 AST 12 Units/L (13-39) L 11/11/18 10:54 Troponin I 0.43 ng/mL (< 0.04) H* 11/12/18 03:25 B-Natriuretic Peptide 371 pg/mL (Less than 100) H 11/11/18 11:03 Serum Total Protein 5.9 g/dL (6.4-8.9) L 11/11/18 10:54 Albumin 3.3 g/dL (3.5-5.7) L 11/11/18 10:54 Urine Clarity Cloudy (Clear) A 11/11/18 13:02 Urine Protein 30 mg/dL (Neg-Trace) H 11/11/18 13:02 Urine Microscopic WBC 15-30 per hpf (0-3) H 11/11/18 13:02 Ur Squamous Epith Cells Many per lpf (None-Few) H 11/11/18 13:02 Urine Yeast Many per hpf (None Seen) H 11/11/18 13:02 Influ A (H1N1/09) PCR DETECTED (Not Detect) A 11/11/18 19:50 - Microbiology Findings Microbiology Findings: Microbiology, Last 48 Hours 11/11/18 10:55 Blood Culture - Preliminary Peripheral Venipuncture Culture is incubating and being continuously monitored for growth. Final report to follow. 11/11/18 11:03 Blood Culture - Preliminary Peripheral Venipuncture Culture is incubating and being continuously m onitored for growth. Final report to follow. - Clinical Findings Intake & Output: Intake & Output 11/12/18 11/12/18 11/13/18 15:59 23:59 07:59 Intake Total 518 / 518 492 / 492 754 / 754 Output Total 226 / 226 475 / 475 150 / 150 Balance 292 / 292 604 / 604 Weight 93.7 kg 93.7 kg Consult Discharge Plan - Plan Referrals: Aidan Huddleston MD [Primary Care Provider] - <Myron Castellanos - Last Filed: 11/13/18 21:11> Date of Encounter: 11/13/18 Objective PUL Vital signs: Last Vital Signs Temp 97.6 F 11/13/18 20:05 Pulse 51 11/13/18 21:00 Resp 12 11/13/18 21:00 BP 129/58 11/13/18 21:00 Pulse Ox 100 11/13/18 21:00 Ventilator Settings Ventilator Settings: Ventilator Settings, Last 8 Hours Ventilator Tidal Volume 400 Setting Ventilator Tidal Volume 400 Setting Ventilator Tidal Volume 400 Setting Ventilator Tidal Volume 400 Setting Ventilator Respiratory Rate 12 Setting Ventilator Respiratory Rate 12 Setting Ventilator Respiratory Rate 12 Setting Ventilator Respiratory Rate 12 Setting Actual Respiratory Rate 12 Actual Respiratory Rate 12 Actual Respiratory Rate 12 Actual Respiratory Rate 12 Positive End Expiratory 5 Pressure Positive End Expiratory 5 Pressure Positive End Expiratory 5 Pressure Positive End Expiratory 5 Pressure Peak Inspiratory Airway 43 Pressure Peak Inspiratory Airway 45 Pressure Peak Inspiratory Airway 37 Pressure Peak Inspiratory Airway 44 Pressure Results - Laboratory Findings CBC and BMP: 11/13/18 03:00 11/13/18 03:00 ABG ABG pH 7.38 pH Units (7.32-7.45) 11/13/18 04:43 ABG pCO2 61 mmHg (35-45) H 11/13/18 04:43 ABG pO2 60 mmHg (85-104) L 11/13/18 04:43 ABG O2 Saturation 89 % (95-98) L 11/13/18 04:43 PT/INR, D-dimer PT 11.6 Seconds (9.4-12.1) 11/11/18 11:03 D-Dimer 4983 ng/mLFEU (0-500) H 11/11/18 18:11 Abnormal lab findings: Abnormal lab results RBC 2.48 M/mcL (3.82-4.97) L 11/13/18 03:00 Hgb 8.7 g/dL (11.5-15.4) L 11/13/18 03:00 Hct 26.0 % (35.3-44.9) L 11/13/18 03:00 MCV 104.8 fL (83.0-100.0) H 11/13/18 03:00 MCH 35.1 pg (28.0-33.3) H 11/13/18 03:00 Lymphocytes # 0.4 K/mcL (0.6-4.6) L 11/13/18 03:00 Nucleated RBCs/100 WBC 1.0 /100 WBC (0) H 11/13/18 03:00 Platelet Estimate Slight Decrease (Normal) L 11/11/18 16:45 Anisocytosis 1+ (Not Present) A 11/11/18 16:45 Macrocytosis Present (Not Present) A 11/11/18 16:45 D-Dimer 4983 ng/mLFEU (0-500) H 11/11/18 18:11 ABG pCO2 61 mmHg (35-45) H 11/13/18 04:43 ABG pO2 60 mmHg (85-104) L 11/13/18 04:43 ABG HCO3 36 mEq/L (21-27) H 11/13/18 04:43 ABG Total CO2 38 mEq/L (20-26) H 11/13/18 04:43 ABG O2 Saturation 89 % (95-98) L 11/13/18 04:43 ABG Base Excess 10 mEq/L (-2 to 3) H 11/13/18 04:43 Carbon Dioxide 34 mEq/L (23-29) H 11/13/18 03:00 Glucose 153 mg/dL (70-105) H 11/13/18 03:00 POC Glucose 148 mg/dL (70-99) H 11/13/18 20:09 Calcium 8.3 mg/dL (8.6-10.3) L 11/13/18 03:00 Venous Ioniz Calcium 1.12 mmol/L (1.15-1.35) L 11/13/18 03:06 AST 12 Units/L (13-39) L 11/11/18 10:54 Troponin I 0.43 ng/mL (< 0.04) H* 11/12/18 03:25 B-Natriuretic Peptide 371 pg/mL (Less than 100) H 11/11/18 11:03 Serum Total Protein 5.9 g/dL (6.4-8.9) L 11/11/18 10:54 Albumin 3.3 g/dL (3.5-5.7) L 11/11/18 10:54 Urine Clarity Cloudy (Clear) A 11/11/18 13:02 Urine Protein 30 mg/dL (Neg-Trace) H 11/11/18 13:02 Urine Microscopic WBC 15-30 per hpf (0-3) H 11/11/18 13:02 Ur Squamous Epith Cells Many per lpf (None-Few) H 11/11/18 13:02 Urine Yeast Many per hpf (None Seen) H 11/11/18 13:02 Influ A (H1N1/09) PCR DETECTED (Not Detect) A 11/11/18 19:50 - Clinical Findings Intake & Output: Intake & Output 11/13/18 11/13/18 11/13/18 07:59 15:59 23:59 Intake Total 754 / 754 650 / 650 400 / 400 Output Total 150 / 150 175 / 175 125 / 125 Balance 604 / 604 475 / 475 275 / 275 Weight 93.7 kg - Attending Attestation - Attending Attestation I saw and evaluated this patient and my medical decision-making was reviewed with the Resident Physician. I agree with the documented findings, disposition and treatment plan as described except to the extent set forth below. We independently had [id number] contact with the patient I spent 32 minutes of Critical Care time with this patient. It involved decision making of high complexity to assess, manipulate, and support vital organ system failure and/or to prevent further life threatening deterioration of the patient's condition. The time involved in the performance of separately reportable procedures was not counted toward critical care time. Patient seen and examined at bedside Labs, radiology, chart personally reviewed. Management was reviewed during multidisciplinary critical care rounds. 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 No obvious focal neurological deficit. CT head was negative. 11/12 Patient is waking up following commands no acute focal neurological deficit 11/13 patient is waking up following commands we will try to transition from propofol to Precedex as she has episodes of anxiety Pulm: Patient has acceptable oxygenation and ventilation patient was intubated because of acute on chronic hypoxic hypercapnic respiratory failure patient did not [facility] her [facility] patient was recently discharged after ICU stay for pneumonia secondary to influenza. To continue with the broad-spectrum antibiotics. Patient picture is complicated by possible acute coronary syndrome and worsening of acute on chronic diastolic heart failure patient has increased airway resistance after mechanical ventilation to start with the every other bronchodilators and monitor the response if needed we will need to paralyze the patient. Lung protective strategy settings were adjusted for adequate oxygenation and ventilation. 11/12 Patient has acceptable oxygenation and ventilation 11/13 patient has acceptable oxygenation and ventilation to keep her on acidotic side because of this chronic hypoxic and hypercapnic respiratory failure Cards: Patient has global ST segment elevation in the EKG cardiology consult did for evaluation of acute coronary syndrome we will start on heparin drip. Patient was hemodynamically unstable most likely due to stunned myocardium after cardiac arrest the use levophed to keep map above 65. 11/12 Patient had PE with hypoxic and hypercarbic respiratory failure that would have cause this supply demand mismatch cardiac cause as the primary cause is low probability 11/13 patient shock is resolved she is getting in to correlate for pulmonary embolism. FEN-GI: Diet according to Nutrition Renal: As and output were reviewed ID: Patient had previous H1N1 pneumonia but still it is positive for the literature and CBC there is no recommendation how long the H1N1 is positive will not treat during this admission but will cover with broad-spectrum antibiotics. Heme/Onc: Labs reviewed Endo: Glucose Monitored Integ/MSK: Skin Care per routine ICU Nursing Protocol to prevent ulcers. Lines: All lines examined without evidence of infection : Dispo: Critically ill CODE:Full Code
[2018-11-13] MEDS: Pantoprazole 40 MG VIAL IVP SCH (08:15)
[2018-11-13] MEDS: MethylPREDNISolone 40 MG/ML VIAL IVP SCH ×3 (08:15→23:27)
[2018-11-13] MEDS: Chlorhexidine Rinse 15 ML MOUTHWASH MM SCH ×2 (08:15→20:30)
[2018-11-13] MEDS: Dexmedetomidine HCl 400 MCG/100 ML MLS IVC SCH ×2 (12:08→18:54)
[2018-11-13] MEDS ORDERED: Furosemide 20 MG/2 ML VIAL IVP ONE ×2 (15:49→15:50)
--- NOTE | 2018-11-13 17:52 | Electrocardiograph Report ---
[address] [place] [address] Test Date: 2018-11-11 Pat Name: Zulma Mcclure Department: 109 Room: [facility] Gender: F [employer] Dean: SHARMAINE : 1940 Requested By: Maday Orozco Order Number: [id number] Reading MD: Sera Hansen Measurements Intervals [place] Rate: 86 P: 63 SD: 151 QRS: 44 QRSD: 85 T: 90 QT: 350 QTc: 394 Interpretive Statements SINUS RHYTHM ANTEROSEPTAL MYOCARDIAL INFARCTION, AGE INDETERMINATE Electronically Signed On 11-13-2018 17:50:55 EDT by Sera Hansen
--- NOTE | 2018-11-13 17:53 | Electrocardiograph Report ---
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
--- NOTE | 2018-11-13 17:57 | Electrocardiograph Report ---
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
--- NOTE | 2018-11-13 17:59 | Electrocardiograph Report ---
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
[2018-11-14] MEDS: Artificial Tears SOLN 15 ML BOTTLE BOTH EYES SCH ×2 (03:43→08:06)
[2018-11-14] MEDS: Heparin 25,000 UNIT/250 ML D5W 25,000 UNIT/250 ML IV.SOLN IVC SCH ×2 (03:46→17:26)
[2018-11-14] MEDS: Norepinephrine 8 MG in D5% in Water 500 ML IVC SCH (03:46)
[2018-11-14 04:19] LABS: ABG Base Excess 11 mEq/L (-2 to 3); ABG HCO3 36 mEq/L (21-27); ABG Oxygen Saturation 97 % (95-98); ABG PCO2 50 mmHg (35-45); ABG PH 7.46 pH Units (7.32-7.45); ABG PO2 92 mmHg (85-104); ABG TCO2 37 mEq/L (20-26); Blood Gas Modality VC; Blood Gas PEEP 5 cm H2O; Blood Gas Respiration Rate 12; Blood Gas VT 400 cc
[2018-11-14 04:35] LABS: Hematocrit 27.5 % (35.3-44.9); Hemoglobin 9.3 g/dL (11.5-15.4); Immature Granulocytes % 0.5 % (0-4); Lymphocytes # 0.3 K/mcL (0.6-4.6); Lymphocytes % 4.2 %; Mean Corpuscular HGB Conc 33.8 g/dL (31.6-35.5); Mean Corpuscular Hemoglobin 33.9 pg (28.0-33.3); Mean Corpuscular Volume 100.4 fL (83.0-100.0); Mean Platelet Volume 9.9 fL (9.4-12.4); Monocytes # 0.3 K/mcL (0.0-1.3); Monocytes % 5.1 %; Nucleated Red Blood Cells 1.7 /100 WBC (0); Platelet Count 223 K/mcL (140-400); Red Blood Count 2.74 M/mcL (3.82-4.97); Red Cell Distribution Width 14.7 % (11.5-14.5); Segmented Neutrophils % 90.2 %
[2018-11-14 04:41] LABS: VBG Ionized Calcium 1.06 mmol/L (1.15-1.35)
[2018-11-14] MEDS: Insulin LISPRO 300 UNITS/3 ML VIAL SQ SCH ×6 (04:42→23:40)
[2018-11-14] MEDS: Piperacillin/Tazobactam 3.375 GM in 0.9 % Sodium Chloride Mini Bag 100 ML IVPB SCH ×3 (04:52→21:05)
[2018-11-14 04:56] LABS: BUN/Creatinine Ratio 24 (6-26); Blood Urea Nitrogen 23 mg/dL (8-23); Calcium 8.4 mg/dL (8.6-10.3); Carbon Dioxide 30 mEq/L (23-29); Chloride 99 mEq/L (98-107); Glucose 180 mg/dL (70-105); Magnesium 2.3 mg/dL (1.6-2.6); Osmolality,Calculated 294 (280-300); Phosphorous 3.9 mg/dL (2.7-4.5); Potassium 3.5 mEq/L (3.5-5.1); Sodium 138 mEq/L (136-145); eGFR For Non-African Americans 56 (> 60)
[2018-11-14] MEDS ORDERED: Potassium Chloride Elixir 20 MEQ/15 ML UDC PO PRN (04:58)
[2018-11-14] MEDS: Dexmedetomidine HCl 400 MCG/100 ML MLS IVC SCH ×3 (06:26→22:48)
[2018-11-14] MEDS: MethylPREDNISolone 40 MG/ML VIAL IVP SCH ×3 (08:03→23:27)
[2018-11-14] MEDS: Chlorhexidine Rinse 15 ML MOUTHWASH MM SCH (08:03)
[2018-11-14] MEDS: Pantoprazole 40 MG VIAL IVP SCH (08:03)
[2018-11-14] MEDS ORDERED: Furosemide 40 MG/4 ML VIAL IVP ONE (08:30)
[2018-11-14] MEDS ORDERED: Furosemide 40 MG/4 ML VIAL ONE (08:48)
[2018-11-14 10:58] LABS: VBG Ionized Calcium 1.19 mmol/L (1.15-1.35)
--- NOTE | 2018-11-14 12:33 | Pulmonology Progress Note ---
Date of Encounter: 11/14/18 Time of Encounter: 12:33 Assessment and Plan (1) Acute on chronic respiratory failure with hypoxia and hypercapnia Current Visit: Yes Status: Acute Patient seen and examined at bedside Labs, radiology, chart personally reviewed. Management was reviewed during multidisciplinary critical care rounds. Below Reflects my systems basis assessment and plan [employer]: Metabolic encephalopathy secondary to hypercapnia patient able to follow commands she is status post cardiac arrest does not appear to have any gross neurological defects from this but will need to be followed and evaluated in the upcoming days to weeks for any neurocognitive sequelae Pulm: Acute on chronic hypoxic hypercapnic respiratory failure. This is likely secondary to COPD exacerbation and possibly pneumonia she also had acute to pulmonary embolus. Acceptable gas exchange today on vent acceptable weaning parameters plan for vent liberation Cards: Status post cardiac arrest echocardiogram without regional wall motion abnormalities cardiology evaluated the patient developed this secondary to respiratory failure and pulmonary embolus blood pressure monitored and actually hypertensive today and plan to start antihypertensive regimen She is a history of heart failure with preserved ejection fraction will increase diuresis GI: GI prophylaxis given while on vent Nutrition: Nothing by mouth for now Renal: UOP Monitored, Cont to Trend sCr and monitor Electrolytes. ID: Recent to influenza A and was treated suspected bacterial coinfection and broad-spectrumantibiotics and I suspect this can bede-escalated or stopped in the [id number] if clinically continues to improve Heme/Onc: Continue heparin infusion for acute pulmonary embolus Endo: Glucose Monitored Integ/MSK: Skin Care per routine ICU Nursing Protocol to prevent ulcers. Lines: All lines examined without evidence of infection : Dispo: Remain in ICU for vent management CODE: Full code (2) Acute exacerbation of chronic obstructive airways disease Current Visit: Yes Status: Acute (3) Encephalopathy Current Visit: Yes Status: Resolved (4) Influenza A Current Visit: No Status: Acute (5) Diastolic heart failure with preserved ejection fraction Current Visit: Yes Status: Chronic (6) Cardiac arrest Current Visit: Yes Status: Resolved (7) Elevated troponin I level Current Visit: Yes Status: Acute Subjective Principal diagnosis: Respiratory Failue Interval history: This shows his had decreasing respiratory requirements while on the ventilator she did well on CPAP trial today Objective PUL Vital signs: Last Vital Signs Temp 96.1 F L 11/14/18 11:35 Pulse 94 11/14/18 10:00 Resp 20 11/14/18 10:00 BP 170/86 11/14/18 10:00 Pulse Ox 98 11/14/18 10:00 General appearance: no acute distress Eyes: nonicteric ENT: other (Endotracheal tube noted satisfactory position) Neck: supple, JVD Auscultation: bilateral: diminished breath sounds, rales (In the lung bases) Cardiovascular: regular rate and rhythm Gastrointestinal: normoactive bowel sounds, soft, non-tender Integumentary: other (No evolving evidence of rash or ecchymotic changes) Extremities: edema Musculoskeletal: no deformities non-focal exam, pupils equal and round anxious Ventilator Settings Ventilator Settings: Ventilator Settings, Last 8 Hours Ventilator Tidal Volume 400 Setting Ventilator Tidal Volume 400 Setting Ventilator Tidal Volume 400 Setting Ventilator Respiratory Rate 12 Setting Ventilator Respiratory Rate 12 Setting Ventilator Respiratory Rate 12 Setting Actual Respiratory Rate 17 Actual Respiratory Rate 15 Actual Respiratory Rate 12 Positive End Expiratory 5 Pressure Positive End Expiratory 5 Pressure Positive End Expiratory 5 Pressure Positive End Expiratory 5 Pressure Positive End Expiratory 5 Pressure Peak Inspiratory Airway 13 Pressure Peak Inspiratory Airway 15 Pressure Peak Inspiratory Airway 42 Pressure Results - Laboratory Findings CBC and BMP: 11/14/18 04:20 11/14/18 10:30 ABG ABG pH 7.46 pH Units (7.32-7.45) H 11/14/18 04:16 ABG pCO2 50 mmHg (35-45) H 11/14/18 04:16 ABG pO2 92 mmHg (85-104) 11/14/18 04:16 ABG O2 Saturation 97 % (95-98) 11/14/18 04:16 PT/INR, D-dimer PT 11.6 Seconds (9.4-12.1) 11/11/18 11:03 D-Dimer 4983 ng/mLFEU (0-500) H 11/11/18 18:11 Abnormal lab findings: Abnormal lab results RBC 2.74 M/mcL (3.82-4.97) L 11/14/18 04:20 Hgb 9.3 g/dL (11.5-15.4) L 11/14/18 04:20 Hct 27.5 % (35.3-44.9) L 11/14/18 04:20 MCV 100.4 fL (83.0-100.0) H 11/14/18 04:20 MCH 33.9 pg (28.0-33.3) H 11/14/18 04:20 RDW 14.7 % (11.5-14.5) H 11/14/18 04:20 Lymphocytes # 0.3 K/mcL (0.6-4.6) L 11/14/18 04:20 Nucleated RBCs/100 WBC 1.7 /100 WBC (0) H 11/14/18 04:20 Platelet Estimate Slight Decrease (Normal) L 11/11/18 16:45 Anisocytosis 1+ (Not Present) A 11/11/18 16:45 Macrocytosis Present (Not Present) A 11/11/18 16:45 D-Dimer 4983 ng/mLFEU (0-500) H 11/11/18 18:11 ABG pH 7.46 pH Units (7.32-7.45) H 11/14/18 04:16 ABG pCO2 50 mmHg (35-45) H 11/14/18 04:16 ABG HCO3 36 mEq/L (21-27) H 11/14/18 04:16 ABG Total CO2 37 mEq/L (20-26) H 11/14/18 04:16 ABG Base Excess 11 mEq/L (-2 to 3) H 11/14/18 04:16 Carbon Dioxide 30 mEq/L (23-29) H 11/14/18 04:20 Est GFR (Non-Af Amer) 56 (> 60) L 11/14/18 04:20 Glucose 180 mg/dL (70-105) H 11/14/18 04:20 Calcium 8.4 mg/dL (8.6-10.3) L 11/14/18 04:20 AST 12 Units/L (13-39) L 11/11/18 10:54 Troponin I 0.43 ng/mL (< 0.04) H* 11/12/18 03:25 B-Natriuretic Peptide 371 pg/mL (Less than 100) H 11/11/18 11:03 Serum Total Protein 5.9 g/dL (6.4-8.9) L 11/11/18 10:54 Albumin 3.3 g/dL (3.5-5.7) L 11/11/18 10:54 Urine Clarity Cloudy (Clear) A 11/11/18 13:02 Urine Protein 30 mg/dL (Neg-Trace) H 11/11/18 13:02 Urine Microscopic WBC 15-30 per hpf (0-3) H 11/11/18 13:02 Ur Squamous Epith Cells Many per lpf (None-Few) H 11/11/18 13:02 Urine Yeast Many per hpf (None Seen) H 11/11/18 13:02 Influ A (H1N1/09) PCR DETECTED (Not Detect) A 11/11/18 19:50 - Diagnostic Findings Chest x-ray: report reviewed, image reviewed - Clinical Findings Intake & Output: Intake & Output 11/13/18 11/14/18 11/14/18 23:59 07:59 15:59 Intake Total 883 / 883 1015.2 / 1015.2 147 / 147 Output Total 225 / 225 200 / 200 1300 / 1300 Balance 658 / 658 815.2 / 815.2 -1153 / -1153 Weight 96.6 kg Consult Discharge Plan - Plan Referrals: Aidan Huddleston MD [Primary Care Provider] -
[2018-11-14] MEDS: *HR* Metoprolol 5 MG/5 ML VIAL IVP SCH ×3 (12:59→23:27)
[2018-11-15 04:02] LABS: Hematocrit 29.8 % (35.3-44.9); Hemoglobin 9.6 g/dL (11.5-15.4); Immature Granulocytes % 0.7 % (0-4); Lymphocytes # 0.2 K/mcL (0.6-4.6); Lymphocytes % 2.4 %; Mean Corpuscular HGB Conc 32.2 g/dL (31.6-35.5); Mean Corpuscular Hemoglobin 34.3 pg (28.0-33.3); Mean Corpuscular Volume 106.4 fL (83.0-100.0); Monocytes # 0.4 K/mcL (0.0-1.3); Monocytes % 4.8 %; Nucleated Red Blood Cells 0.5 /100 WBC (0); Platelet Count 219 K/mcL (140-400); Red Cell Distribution Width 15.4 % (11.5-14.5); Segmented Neutrophils % 92.1 %
[2018-11-15 04:03] LABS: Neutrophils # 7.5 K/mcL (1.6-8.9)
[2018-11-15 04:04] LABS: VBG Ionized Calcium 1.12 mmol/L (1.15-1.35)
[2018-11-15 04:14] LABS: Calcium 8.6 mg/dL (8.6-10.3); Magnesium 2.4 mg/dL (1.6-2.6); Phosphorous 4.8 mg/dL (2.7-4.5); Potassium 4.4 mEq/L (3.5-5.1)
[2018-11-15] MEDS: Insulin LISPRO 300 UNITS/3 ML VIAL SQ SCH ×6 (04:29→21:25)
[2018-11-15 04:35] LABS: Platelet Estimate Normal (Normal)
[2018-11-15] MEDS: Dexmedetomidine HCl 400 MCG/100 ML MLS IVC SCH ×4 (05:00→13:33)
[2018-11-15] MEDS: *HR* Metoprolol 5 MG/5 ML VIAL IVP SCH (05:36)
[2018-11-15] MEDS: Piperacillin/Tazobactam 3.375 GM in 0.9 % Sodium Chloride Mini Bag 100 ML IVPB SCH ×3 (05:38→22:01)
--- NOTE | 2018-11-15 07:38 | Pulmonology Progress Note ---
<Cameron Begum W - Last Filed: 11/15/18 11:58> Date of Encounter: 11/15/18 Assessment and Plan (1) Acute on chronic respiratory failure with hypoxia and hypercapnia Current Visit: Yes Status: Acute (2) Acute exacerbation of chronic obstructive airways disease Current Visit: Yes Status: Acute (3) Encephalopathy Current Visit: Yes Status: Resolved (4) Influenza A Current Visit: No Status: Acute (5) Diastolic heart failure with preserved ejection fraction Current Visit: Yes Status: Chronic (6) Cardiac arrest Current Visit: Yes Status: Resolved (7) Elevated troponin I level Current Visit: Yes Status: Acute Objective PUL Vital signs: Last Vital Signs Temp 98.1 F 11/15/18 11:00 Pulse 94 11/15/18 11:20 Resp 20 11/15/18 11:23 BP 145/63 11/15/18 11:00 Pulse Ox 99 11/15/18 11:23 Results - Laboratory Findings CBC and BMP: 11/15/18 03:40 11/15/18 03:40 ABG ABG pH 7.46 pH Units (7.32-7.45) H 11/14/18 04:16 ABG pCO2 50 mmHg (35-45) H 11/14/18 04:16 ABG pO2 92 mmHg (85-104) 11/14/18 04:16 ABG O2 Saturation 97 % (95-98) 11/14/18 04:16 PT/INR, D-dimer PT 11.6 Seconds (9.4-12.1) 11/11/18 11:03 D-Dimer 4983 ng/mLFEU (0-500) H 11/11/18 18:11 Abnormal lab findings: Abnormal lab results RBC 2.80 M/mcL (3.82-4.97) L 11/15/18 03:40 Hgb 9.6 g/dL (11.5-15.4) L 11/15/18 03:40 Hct 29.8 % (35.3-44.9) L 11/15/18 03:40 MCV 106.4 fL (83.0-100.0) H D 11/15/18 03:40 MCH 34.3 pg (28.0-33.3) H 11/15/18 03:40 RDW 15.4 % (11.5-14.5) H 11/15/18 03:40 Lymphocytes # 0.2 K/mcL (0.6-4.6) L 11/15/18 03:40 Nucleated RBCs/100 WBC 0.5 /100 WBC (0) H 11/15/18 03:40 Anisocytosis 1+ (Not Present) A 11/11/18 16:45 Macrocytosis Present (Not Present) A 11/11/18 16:45 D-Dimer 4983 ng/mLFEU (0-500) H 11/11/18 18:11 ABG pH 7.46 pH Units (7.32-7.45) H 11/14/18 04:16 ABG pCO2 50 mmHg (35-45) H 11/14/18 04:16 ABG HCO3 36 mEq/L (21-27) H 11/14/18 04:16 ABG Total CO2 37 mEq/L (20-26) H 11/14/18 04:16 ABG Base Excess 11 mEq/L (-2 to 3) H 11/14/18 04:16 Carbon Dioxide 36 mEq/L (23-29) H 11/15/18 03:40 BUN 26 mg/dL (8-23) H 11/15/18 03:40 Est GFR ( Amer) 55 (> 60) L 11/15/18 03:40 Est GFR (Non-Af Amer) 46 (> 60) L 11/15/18 03:40 Glucose 120 mg/dL (70-105) H 11/15/18 03:40 POC Glucose 126 mg/dL (70-99) H 11/15/18 10:43 Venous Ioniz Calcium 1.12 mmol/L (1.15-1.35) L 11/15/18 04:01 Phosphorus 4.8 mg/dL (2.7-4.5) H 11/15/18 03:40 AST 12 Units/L (13-39) L 11/11/18 10:54 Troponin I 0.43 ng/mL (< 0.04) H* 11/12/18 03:25 B-Natriuretic Peptide 371 pg/mL (Less than 100) H 11/11/18 11:03 Serum Total Protein 5.9 g/dL (6.4-8.9) L 11/11/18 10:54 Albumin 3.3 g/dL (3.5-5.7) L 11/11/18 10:54 Urine Clarity Cloudy (Clear) A 11/11/18 13:02 Urine Protein 30 mg/dL (Neg-Trace) H 11/11/18 13:02 Urine Microscopic WBC 15-30 per hpf (0-3) H 11/11/18 13:02 Ur Squamous Epith Cells Many per lpf (None-Few) H 11/11/18 13:02 Urine Yeast Many per hpf (None Seen) H 11/11/18 13:02 Influ A (H1N1/) PCR DETECTED (Not Detect) A 11/11/18 19:50 - Clinical Findings Intake & Output: Intake & Output 11/14/18 11/15/18 11/15/18 23:59 07:59 15:59 Intake Total 295 / 295 260.8 / 260.8 225 / 225 Output Total 500 / 500 200 / 200 100 / 100 Balance -205 / -205 60.8 / 60.8 125 / 125 Weight 93.9 kg Consult Discharge Plan - Plan Referrals: Aidan Huddleston MD [Primary Care Provider] - - Attending Attestation I examined this patient and my medical decision-making was reviewed with the Resident Physician. I agree with the documented findings, disposition and treatment plan as described except to the extent set forth below. We independently had [id number] contact with the patient Patient seen and examined at bedside Labs, radiology, chart personally reviewed. Management was reviewed during multidisciplinary critical care rounds. [employer]: Awake and alert no focal deficits continue to titrate anxiolytics Pulm: Acute on chronic hypoxic hypercapnic respiratory failure improving continue treatment for COPD exacerbation and possible pneumonia complicated by CHF; continue BiPAP at night for MATA Cards: Show monitored and stable restart home antihypertensives and to continue diuresis GI: GI prophylaxis can be discontinued now that she is no longer on the vent Nutrition: Advance diet as tolerated Renal: UOP Monitored, Cont to Trend sCr and monitor Electrolytes. ID: She is on antibiotics and will de-escalate based upon culture and sensitivities Heme/Onc: Continue heparin infusion she will likely need hematology consultation to discuss if she should continue NOAC at discharge given the pulmonary embolus while she was taking this medication although there is question if there is compliance Endo: Glucose Monitored Integ/MSK: Skin Care per routine ICU Nursing Protocol to prevent ulcers. Lines: All lines examined without evidence of infection : Dispo: Stable for transfer to [facility] telemetry for ongoing care CODE: Full <Maday Orozco - Last Filed: 11/15/18 12:46> Date of Encounter: 11/15/18 Time of Encounter: 07:38 Assessment and Plan (1) Pulmonary emboli Current Visit: Yes Status: Acute * Right-sided segmental and subsegmental emboli * Question compliance with Xarelto questionable she was noncompliant with BiPAP and will likely require determination of compliance to determine need for transition from Xarelto to new medication or continuing this medication * For the time being we will continue the patient on heparin drip until this determination can be made * Extubated yesterday, stable for transfer to floor today * PT/OT Qualifiers: Pulmonary embolism type: other Chronicity: acute Acute cor pulmonale presence: without acute cor pulmonale Qualified Code(s): I26.99 - Other pulmonary embolism without acute cor pulmonale (2) Shock circulatory Current Visit: Yes Status: Acute * Cardiology consult did not believe EKGs ischemic in nature. Echo reveals an EF of 50-55% * Resumed home medications * Patient is now extubated and doing well on nasal cannula * Does have significant anxiety and has been requiring Precedex, will add Ativan when necessary in an attempt to wean from Precedex (3) Cardiac arrest Current Visit: Yes Status: Resolved * Patient had 2 episodes of PEA arrest and was given 2 amp bicarb, epinephrine, and 1mg atropine in the ED * Patient has had several different morphologies seen on EKG including bigeminy, sinus tachycardia, and ST elevations in V1-V4. * Repeat echo showed EF of 50-55% with mild segmental left ventricular systolic dysfunction with mid anterior septal wall hypokinesis * Troponin initially 0.05, repeat 0.21, 0.48 and 0.43 * Cardiology consultation appreciated and do not believe further cardiac testing is warranted at this time and believe it is likely secondary to hypercapnic respiratory failure and new PE (4) Elevated troponin I level Current Visit: Yes Status: Acute * Upon presentation to the ED the patient was intubated, Peak Trop 0.48 * EKG intermittently shows ST elevation in V1-V4 without reciprocal changes but morphology continues to change throughout the course of her stay * Cardiology consulted, showed no convincing evidence of cardiac ischemia and believe primary etiology of symptoms to be PE (5) Respiratory failure with hypoxia and hypercapnia Current Visit: Yes Status: Acute * Patient's presentation likely secondary to under utilization of her BiPAP with resultant hypercarbia and acidosis worsened by her COPD * Patient has influenza positive but unsure whether this is reinfection versus c ontinued to positive result from previous influenza. The patient's serology is similar to her recent hospitalization which was treated with Tamiflu. At this time we will hold off on treating with Tamiflu as there are new pulmonary emboli which are the more likely cause of her acute respiratory failure * Day 5 Zosyn, likely plan for 7 day course - to stop on 11/07/18 * nasal MRSA negative Qualifiers: Chronicity: acute on chronic Qualified Code(s): J96.21 - Acute and chronic respiratory failure with hypoxia; J96.22 - Acute and chronic respiratory failure with hypercapnia (6) Acute exacerbation of chronic obstructive airways disease Current Visit: Yes Status: Acute * Patient was recently discharged from the hospital on 11/07 status post influenza and pneumonia * Will give duonebs scheduled q 4 given decreased breath sounds and poor inspiratory effort * Was on methyprednisolone 40mg IV q 8, will decrease to prednisone 40mg daily, likely will require extended taper, 7 days 40mg, 7 days 30mg, 7 days 20mg and 7 days 10mg * Home mucinex added (7) Prediabetes Current Visit: Yes Status: Acute * HbA1c on 10/28/18 was 5.9 * Hyperglycemia on multiple evaluations * Will add low dose SSI and increase as her diet increases, today to full liquid (8) Encephalopathy Current Visit: Yes Status: Resolved * Likely secondary to hypercarbia * Improved, alert and oriented x3 today (9) HTN (hypertension) Current Visit: Yes Status: Chronic * Will resume home anti-hypertensives, off vasopressors but continues on precedex for anxiety Qualifiers: Hypertension type: essential hypertension Qualified Code(s): I10 - Essent ial (primary) hypertension (10) Anxiety Current Visit: Yes Status: Acute * Continuing to require precedex as when she decreases this, she gets significantly hypertensive, tachycardic, and tachypnic * Will add prn ativan to attempt weaning from precedex * Not on anxiolytic at home (11) Pulmonary nodules/lesions, multiple Current Visit: Yes Status: Acute * Seen on CTA 11/12/18 * Radiologist recommends repeat CT scan in 3-6 months Subjective Principal diagnosis: Respiratory Failue Interval history: Ms. Mcclure is a 78 year old female with history of COPD, Rheumatoid arthritis, atrial fibrillation, DVT on Xarelto, CKD, and diastolic heart failure with preserved ejection fraction who was recently discharged from [facility] on 11/07/18 after a 20 day stay for COPD exacerbation complicated by influenza A and pneumonia. She was tolerating BiPAP at night and was sent to nursing facility where she was to continue utilizing BiPAP at night. Per reports, on 11/11/18 she was found not using BiPAP overnight and was found to be unresponsive, altered and foaming at the mouth. When she arrived to the emergency department on 11/11/18 her oxygen saturation was significantly low and she was obtunded and not responsive to painful stimuli. The patient was therefore intubated and following intubation was significantly hypotensive without pulses. The patient had PEA arrest with ROSC after approximately 4 minutes. The patient was then started on levophed via right femoral central venous catheter. Arterial line was placed. Initial ABG shows pH of 7.1 which improved to 7.5 after 2 A of bicarbonate. During stabilization in the ED she did have another round of ACLS after inability to assess blood pressure via A line and no pulse. Levophed was therefore increased and additionally she was given 100 g of epinephrine as well as 1 milligram of atropine for bradycardia. The patient was found to have ST elevations in V1-4 without recipricol changes and was deemed to be unstable for acute cardiac intervention. CT angio chest showed right sided segmental and subsegmental PE. The patient was initiated on heparin drip and is off any vasopressors. The patient was extubated yesterday, 11/14/18. Patient today complains of difficulty bringing up phlegm and feels she wants to cough. She otherwise denies any complaints. Objective PUL Vital signs: Last Vital Signs Temp 97.4 F L 11/15/18 04:34 Pulse 67 11/15/18 06:00 Resp 17 11/15/18 06:00 BP 132/67 11/15/18 06:00 Pulse Ox 100 11/15/18 06:00 General appearance: no acute distress Eyes: nonicteric ENT: oropharynx moist, other (Hoarse voice) Neck: supple Effort: normal Auscultation: bilateral: diminished breath sounds Cardiovascular: regular rate and rhythm Gastrointestinal: normoactive bowel sounds Integumentary: normal Extremities: no cyanosis Musculoskeletal: no deformities normal mental status, non-focal exam mood appropriate, affect normal Results - Laboratory Findings CBC and BMP: 11/15/18 03:40 11/15/18 03:40 ABG ABG pH 7.46 pH Units (7.32-7.45) H 11/14/18 04:16 ABG pCO2 50 mmHg (35-45) H 11/14/18 04:16 ABG pO2 92 mmHg (85-104) 11/14/18 04:16 ABG O2 Saturation 97 % (95-98) 11/14/18 04:16 PT/INR, D-dimer PT 11.6 Seconds (9.4-12.1) 11/11/18 11:03 D-Dimer 4983 ng/mLFEU (0-500) H 11/11/18 18:11 Abnormal lab findings: Abnormal lab results RBC 2.80 M/mcL (3.82-4.97) L 11/15/18 03:40 Hgb 9.6 g/dL (11.5-15.4) L 11/15/18 03:40 Hct 29.8 % (35.3-44.9) L 11/15/18 03:40 MCV 106.4 fL (83.0-100.0) H D 11/15/18 03:40 MCH 34.3 pg (28.0-33.3) H 11/15/18 03:40 RDW 15.4 % (11.5-14.5) H 11/15/18 03:40 Lymphocytes # 0.2 K/mcL (0.6-4.6) L 11/15/18 03:40 Nucleated RBCs/100 WBC 0.5 /100 WBC (0) H 11/15/18 03:40 Anisocytosis 1+ (Not Present) A 11/11/18 16:45 Macrocytosis Present (Not Present) A 11/11/18 16:45 D-Dimer 4983 ng/mLFEU (0-500) H 11/11/18 18:11 ABG pH 7.46 pH Units (7.32-7.45) H 11/14/18 04:16 ABG pCO2 50 mmHg (35-45) H 11/14/18 04:16 ABG HCO3 36 mEq/L (21-27) H 11/14/18 04:16 ABG Total CO2 37 mEq/L (20-26) H 11/14/18 04:16 ABG Base Excess 11 mEq/L (-2 to 3) H 11/14/18 04:16 Carbon Dioxide 36 mEq/L (23-29) H 11/15/18 03:40 BUN 26 mg/dL (8-23) H 11/15/18 03:40 Est GFR ( Amer) 55 (> 60) L 11/15/18 03:40 Est GFR (Non-Af Amer) 46 (> 60) L 11/15/18 03:40 Glucose 120 mg/dL (70-105) H 11/15/18 03:40 POC Glucose 122 mg/dL (70-99) H 11/15/18 07:28 Venous Ioniz Calcium 1.12 mmol/L (1.15-1.35) L 11/15/18 04:01 Phosphorus 4.8 mg/dL (2.7-4.5) H 11/15/18 03:40 AST 12 Units/L (13-39) L 11/11/18 10:54 Troponin I 0.43 ng/mL (< 0.04) H* 11/12/18 03:25 B-Natriuretic Peptide 371 pg/mL (Less than 100) H 11/11/18 11:03 Serum Total Protein 5.9 g/dL (6.4-8.9) L 11/11/18 10:54 Albumin 3.3 g/dL (3.5-5.7) L 11/11/18 10:54 Urine Clarity Cloudy (Clear) A 11/11/18 13:02 Urine Protein 30 mg/dL (Neg-Trace) H 11/11/18 13:02 Urine Microscopic WBC 15-30 per hpf (0-3) H 11/11/18 13:02 Ur Squamous Epith Cells Many per lpf (None-Few) H 11/11/18 13:02 Urine Yeast Many per hpf (None Seen) H 11/11/18 13:02 Influ A (H1N1/) PCR DETECTED (Not Detect) A 11/11/18 19:50 - Clinical Findings Intake & Output: Intake & Output 11/14/18 11/14/18 11/15/18 15:59 23:59 07:59 Intake Total 147 / 147 295 / 295 260.8 / 260.8 Output Total 2200 / 2200 500 / 500 100 / 100 Balance -2052 / -2052 - / - 160.8 / 160.8 Weight 93.9 kg
[2018-11-15] MEDS: Pantoprazole 40 MG VIAL IVP SCH (08:24)
[2018-11-15] MEDS: MethylPREDNISolone 40 MG/ML VIAL IVP SCH (08:24)
[2018-11-15] MEDS: Heparin 25,000 UNIT/250 ML D5W 25,000 UNIT/250 ML IV.SOLN IVC SCH ×3 (08:26→21:09)
[2018-11-15] MEDS ORDERED: Furosemide 40 MG TABLET PO SCH (09:00)
[2018-11-15] MEDS ORDERED: *HR* OxyCODONE/APAP 5/325 TABLET PO PRN (09:41)
[2018-11-15] MEDS ORDERED: *HR* LORazepam 1 MG TABLET PO PRN ×2 (10:47→11:24)
[2018-11-15] MEDS ORDERED: Dextrose Gel 15 GM/37.5 ML TUBE PO PRN ×2 (11:24)
[2018-11-15] MEDS ORDERED: *HR* Heparin 5,000 UNIT/ML VIAL IVP PRN (11:24)
[2018-11-15] MEDS ORDERED: D5% in Water 1,000 ML IVC PRN (11:24)
[2018-11-15] MEDS ORDERED: *HR* Dextrose 50 % in Water (Syg) 50 ML SYRINGE IVP PRN (11:24)
[2018-11-15] MEDS ORDERED: Naloxone 0.4 MG/ML INJ IVP PRN (11:24)
[2018-11-15] MEDS ORDERED: Ipratropium/Albuterol Neb 3 ML IH SCH (12:00)
[2018-11-15] MEDS: Ipratropium/Albuterol Neb 3 ML IH SCH ×3 (15:13→20:11)
[2018-11-15] MEDS: Gabapentin 300 MG CAPSULE PO SCH (20:56)
[2018-11-15] MEDS ORDERED: Gabapentin 300 MG CAPSULE PO SCH (21:00)
[2018-11-16] MEDS: Ipratropium/Albuterol Neb 3 ML IH SCH ×6 (00:05→20:04)
[2018-11-16] MEDS: Insulin LISPRO 300 UNITS/3 ML VIAL SQ SCH ×6 (00:30→22:13)
[2018-11-16 04:51] LABS: Hematocrit 28.4 % (35.3-44.9); Mean Corpuscular HGB Conc 31.7 g/dL (31.6-35.5); Mean Corpuscular Hemoglobin 33.8 pg (28.0-33.3); Mean Corpuscular Volume 106.8 fL (83.0-100.0); Platelet Count 219 K/mcL (140-400); Red Blood Count 2.66 M/mcL (3.82-4.97); Red Cell Distribution Width 15.5 % (11.5-14.5)
[2018-11-16 04:57] LABS: Alanine Aminotransferase 42 Units/L (7-52); Albumin 2.9 g/dL (3.5-5.7); Albumin/Globulin Ratio 1.4 (1.1-2.2); Alkaline Phosphatase 39 Units/L (34-104); Aspartate Amino Transferase 22 Units/L (13-39); BUN/Creatinine Ratio 26 (6-26); Bilirubin,Total 0.6 mg/dL (0.3-1.0); Blood Urea Nitrogen 27 mg/dL (8-23); Calcium 8.5 mg/dL (8.6-10.3); Carbon Dioxide 39 mEq/L (23-29); Chloride 97 mEq/L (98-107); Globulin 2.1 g/dL (2.4-3.5); Glucose 84 mg/dL (70-105); Osmolality,Calculated 296 (280-300); Potassium 3.7 mEq/L (3.5-5.1); Sodium 141 mEq/L (136-145); eGFR For Non-African Americans 51 (> 60)
[2018-11-16] MEDS: Piperacillin/Tazobactam 3.375 GM in 0.9 % Sodium Chloride Mini Bag 100 ML IVPB SCH ×3 (05:38→21:21)
[2018-11-16] MEDS: *HR* OxyCODONE/APAP 5/325 TABLET PO PRN (05:43)
[2018-11-16] MEDS: predniSONE 20 MG TABLET PO SCH (07:40)
[2018-11-16] MEDS: Folic Acid 1 MG TABLET PO SCH (07:41)
[2018-11-16] MEDS: Famotidine 20 MG TABLET PO SCH (07:41)
[2018-11-16] MEDS: Furosemide 40 MG TABLET PO SCH (07:41)
[2018-11-16] MEDS ORDERED: predniSONE 20 MG TABLET PO SCH (09:00)
--- NOTE | 2018-11-16 15:28 | Oncology Inp Consult Note ---
<Justice Farah - Last Filed: 11/16/18 15:48> Date of Encounter: 11/16/18 Time of Encounter: 15:48 - Data of Consult Requesting Physician: Fernando Norman Primary Care Provider: Aidan Huddleston MD Medications and Allergies Budesonide/Formoterol 160/4.5 [Symbicort 160/4.5] 2 puff IH BID 10/23/16 [History] Diclofenac Sodium [Voltaren] 1 appl TP QID PRN 10/23/16 [History] Folic Acid 1 mg PO DAILY 10/23/16 [History] Ondansetron HCl [Zofran] 4 mg PO Q8H PRN 10/23/16 [History] Ranitidine HCl [Acid Drug Abuse Counselor] 150 mg PO DAILY 10/23/16 [History] rOPINIRole [Requip] 1 mg PO HS 10/23/16 [History] Ipratropium/Albuterol Sulfate [Combivent Respimat 20-100 Mcg] 1 puff IH Q4H PRN 05/04/18 [History] Carvedilol [Coreg] 25 mg PO BID 07/02/18 [History] Albuterol Sulfate [Proair Hfa] 2 puff IH Q6H PRN 07/28/18 [History] Docusate [Colace] 100 mg PO DAILY 07/28/18 [History] Gabapentin [Neurontin] 300 mg PO HS 09/25/18 [History] Rivaroxaban [Xarelto] 20 mg PO QPM 09/25/18 [History] Cyanocobalamin (Vitamin B-12) [Vitamin B-12] 5,000 mcg PO DAILY 10/22/18 [History] Losartan Potassium [Cozaar] 50 mg PO DAILY 10/22/18 [History] Benzonatate [Tessalon] 100 mg PO TID PRN capsule 11/06/18 [Rx] GuaiFENesin ER [Mucinex] 600 mg PO BID PRN tbbp.12hr 11/06/18 [Rx] Ipratropium [ATROVENT Inhaler] 2 puff IH [id number] PRN inhaler 11/06/18 [Rx] Quetiapine Fumarate [Seroquel] 25 mg PO HS tablet 11/06/18 [Rx] predniSONE [PredniSONE] 10 mg PO DAILY #10 tablet 11/06/18 [Rx] Acetaminophen [Tylenol] 500 mg PO Q6HR PRN 11/11/18 [History] Alendronate Sodium [Fosamax] 70 mg PO TH 11/11/18 [History] Calcium Carbonate/Vitamin D3 [Calcium 600-Vit D3 800 Tablet] 1 each PO DAILY 11/11/18 [History] OxyCODONE/APAP 5/325 [Percocet 5/325 MG] 1 tab PO Q12H PRN 11/11/18 [History] Sodium Chloride for inhalation [Sodium Chloride, Saline 3 ML] 3 ml IH Q6H 11/11/18 [History] Allergy/AdvReac Type Severity Reaction Status Date / Time amlodipine [From [facility]] Allergy See Verified 10/22/18 09:42 Comments Consult Discharge Plan - Plan Referrals: Aidan Huddleston MD [Primary Care Provider] - Inpatient Charges Provider: Dr. Toya Farah Consult - Inpatient: [id number] - Attending Attestation I examined this patient and my medical decision-making was reviewed with the Advanced Practice Nurse. I agree with the documented findings, disposition and treatment plan as described except to the extent set forth below. -Would recommend bridging with Eliquis at discharge with the starter pack. -Will check B12 level, folate level, iron studies, and SPEP -We will arrange outpatient follow up with <Viviane Molina - Last Filed: 11/16/18 17:16> Date of Encounter: 11/16/18 Assessment and Plan (1) Pulmonary nodules/lesions, multiple Status: Acute Assessment and plan: CTA chest revealed Multiple scattered nonspecific subcentimeter pulmonary nodules throughout both lungs, the largest measuring 6 mm within the right upper lobe. Former smoker Plan: Repeat CT chest as outpatient, likely in 3-6 months time or otherwise specified by Dr. Farah (2) Pulmonary emboli Status: Acute Assessment and plan: CTA of the chest on 11/12/2018 revealed Acute right upper and right lower lobe pulmonary emboli, Small bilateral pleural effusions with mild dependent opacity within the bilateral lower lobes, Multiple scattered nonspecific subcentimeter pulmonary nodules throughout both lungs, the largest measuring 6 mm within the right upper lobe. Patient has h/o DVT several years ago, was initially on coumadin and then transitioned to Xarelto Compliance of medication is of question according to family, according to family they were unsure of nursing facilities compliance in administering medication BLE venous doppler 10/26/2018 negative Plan: Recommend transition to Eliquis starter pack In the setting of two thrombotic events patient will need indefinite anticoagulation Check BLE venous dopplers for baseline Qualifiers: Pulmonary embolism type: other Chronicity: acute Acute cor pulmonale presence: without acute cor pulmonale Qualified Code(s): I26.99 - Other pulmonary embolism without acute cor pulmonale (3) Anemia Status: Acute Assessment and plan: Chronic macrocytic anemia, MCV 106 today Plan: Check B12, folate, iron profile, ferritin, SPEP, serum free light chains, blood smear Further recommendations as outpatient, if etiology of macrocytic anemia cannot be determined could consider BMB as outpatient Qualifiers: Qualified Code(s): D64.9 - Anemia, unspecified - Data of Consult Patient: new to practice Consult date: 11/16/18 Requesting Physician: Fernando Norman Primary Care Provider: Aidan Huddleston MD - Consult Narrative Reason for consult: Acute PE History of present illness: Ms. Mcclure is a 78-year-old female with past medical history significant for COPD, Rheumatoid arthritis, atrial fibrillation, DVT, CKD, and diastolic heart failure with preserved ejection fraction who was recently discharged from [facility] on 11/07/18 after a 20 day stay for COPD exacerbation complicated by influenza A and pneumonia. Her report she was found unresponsive, altered and foaming of mouth that care home while not wearing her BiPAP. When she arrived to the emergency room she was noted to be hypoxic, obtunded and did not want to painful stimuli. She was intubated and developed PEA, and a central line was placed. Pt was started on Levophed. CPR was initiated again for another episode of PEA arrest. ROSC was achieved after 2 minutes of ACLS with 1mg Epi. She had a CTA of the chest on 11/12/2018 which revealed Acute right upper and right lower lobe pulmonary emboli, Small bilateral pleural effusions with mild dependent opacity within the bilateral lower lobes, Multiple scattered nonspecific subcentimeter pulmonary nodules throughout both lungs, the largest measuring 6 mm within the right upper lobe. Past Med Surg Social Fam HX - Past Medical History Medical history: arthritis, atrial fibrillation, CHF, COPD, DVT, hyperlipidemia, hypertension, osteoporosis, pulmonary embolus, RA, renal disease, other Additional medical history: unspecified lung problem Psychiatric history: no psych history - Past Surgical History Surgical History: non-contributory Additional surgical history: back stimulator, carpal tunnel surgery - Social History Smoking Status: Former smoker Smokeless Tobacco Status: No Alcohol use: none Drug use: none - Family History Father Adopted: No Family Member Ethnicity: Non- Living Status: Hx Family Cardiac Disorders: Yes Hx Family Respiratory Disorders: Yes Hx Family Cancer: Yes Hx Family GI Disorders: Yes Hx Family Endocrine Disorder: Yes Hx Family Neuromuscular Disorders: No Hx Family Neurologic Disorders: Yes Hx Family HEENT Disorders: No Hx Family Autoimmune Disorders: Yes (arthritis) Mother Hx Family Cardiac Disorders: Yes (HTN) Constitutional: Present: fatigue, weakness. Absent: chills, fever(s) Eyes: Absent: change in vision Nose, mouth and throat: Absent: dysphagia, odynophagia Cardiovascular: Present: as per HPI. Absent: chest pain Respiratory: Present: dyspnea on exertion Gastrointestinal: Absent: abdominal pain, nausea, vomiting Genitourinary: Absent: dysuria Musculoskeletal: Present: muscle weakness Integumentary: Present: wounds Neurological: Present: as per HPI Psychiatric: Present: as per HPI Hematologic/Lymphatic: Present: as per HPI Oncology - Exam - Constitutional General appearance: cooperative, no acute distress, no febrile - Head Head exam: Present: atraumatic - ENT ENT exam: Present: mucous membranes moist, normal oropharynx - Respiratory Respiratory exam: Present: decreased breath sounds, CTAB. Absent: respiratory distress - Cardiovascular Cardiovascular exam: Present: RRR, +S1, +S2 - GI/Abdominal GI/Abdominal exam: Present: normal bowel sounds, soft. Absent: tenderness - Extremities Exam Extremities exam: Present: normal inspection. Absent: calf tenderness - Neurological Exam Neurological exam: Present: alert, oriented X3, no focal deficits, strengths equal and symetr throughout - Psychiatric Psychiatric exam: Present: normal affect, normal mood - Skin Skin exam: Present: dry, normal color, warm
--- NOTE | 2018-11-16 19:21 | Internal Med Progress Note ---
Hospitalist Progress Note - Encounter Date of Encounter: 11/16/18 Time of Encounter: 11:00 - Subjective Interval History: Patient requiring less O2 mentation currently on 4 L - Exam Vitals: Temp Pulse Resp BP Pulse Ox 98.8 F 91 16 164/78 100 11/16/18 15:46 11/16/18 15:46 11/16/18 15:46 11/16/18 15:46 11/16/18 15:46 Exam: Gen.: Nonacute distress, alert and oriented 3 ENT: Mucosal membranes moist Respiratory: Lungs are clear to auscultation bilaterally without any wheezing rhonchi or rales Cardiovascular: Normal S1 and S2 regular rate rhythm no murmurs rubs or gallops Abdomen: Soft, nontender and nondistended with positive bowel sounds Extremities: No lower extremity edema Skin: Normal color - Assessment and Plan (1) Pulmonary emboli Current Visit: Yes Status: Acute Assessment and Plan: Patient found to have acute right upper and right lower pulmonary emboli on CT angiogram of the chest. Will continue heparin drip with bridging to Eliquis on discharge was started pack. (2) Respiratory failure with hypoxia and hypercapnia Current Visit: Yes Status: Acute Assessment and Plan: Patient requiring less O2 supplementation currently on 4 L; baseline 2 L (3) Cardiac arrest Current Visit: Yes Status: Resolved Assessment and Plan: Underwent 2 separate rounds of ACLS with CPR for PEA arrest (4) Elevated troponin Current Visit: Yes Status: Acute Assessment and Plan: Secondary to the above (5) COPD (chronic obstructive pulmonary disease) Current Visit: Yes Status: Chronic Assessment and Plan: Will continue by mouth prednisone with scheduled DuoNeb's (6) HTN (hypertension) Current Visit: Yes Status: Chronic Assessment and Plan: Will continue home medications (7) Diastolic heart failure with preserved ejection fraction Current Visit: Yes Status: Chronic Assessment and Plan: Will continue home dose of Lasix DVT Prophylaxis: Heparin drip - Time Spent with Patient Total time spent is greater than 50% in coordination of care (as documented) at patient's floor/unit and/or counseling patient: Internal Medicine: Result - Labs CBC & Chem 7: 11/16/18 04:09 11/16/18 04:09 Labs: Short CBC 11/16/18 Range/Units 04:09 WBC 6.4 (4.3-11.1) K/mcL Hgb 9.0 L (11.5-15.4) g/dL Hct 28.4 L (35.3-44.9) % Plt Count 219 (140-400) K/mcL BMP 11/16/18 04:09 Sodium 141 Potassium 3.7 Chloride 97 L Carbon Dioxide 39 H BUN 27 H Creatinine 1.05 Glucose 84 Calcium 8.5 L Liver Function 11/16/18 Range/Units 04:09 Total Bilirubin 0.6 (0.3-1.0) mg/dL AST 22 (13-39) Units/L ALT 42 (7-52) Units/L Alkaline Phosphatase 39 (34-104) Units/L Albumin 2.9 L (3.5-5.7) g/dL - ABG Interpretation ABG results: ABG ABG pH 7.46 pH Units (7.32-7.45) H 11/14/18 04:16 ABG pCO2 50 mmHg (35-45) H 11/14/18 04:16 ABG pO2 92 mmHg (85-104) 11/14/18 04:16 ABG O2 Saturation 97 % (95-98) 11/14/18 04:16 PT/INR, D-dimer PT 11.6 Seconds (9.4-12.1) 11/11/18 11:03 D-Dimer 4983 ng/mLFEU (0-500) H 11/11/18 18:11 Consult Discharge Plan - Plan Referrals: Aidan Huddleston MD [Primary Care Provider] - (1) Pulmonary emboli Qualifiers: Pulmonary embolism type: other Chronicity: acute Acute cor pulmonale presence: without acute cor pulmonale Qualified Code(s): I26.99 - Other pulmonary embolism without acute cor pulmonale (2) Respiratory failure with hypoxia and hypercapnia Qualifiers: Chronicity: acute on chronic Qualified Code(s): J96.21 - Acute and chronic respiratory failure with hypoxia; J96.22 - Acute and chronic respiratory failure with hypercapnia (5) COPD (chronic obstructive pulmonary disease) Qualifiers: COPD type: COPD with acute exacerbation Qualified Code(s): J44.1 - Chronic obstructive pulmonary disease with (acute) exacerbation (6) HTN (hypertension) Qualifiers: Hypertension type: essential hypertension Qualified Code(s): I10 - Essential (primary) hypertension
[2018-11-16] MEDS: Gabapentin 300 MG CAPSULE PO SCH (21:21)
[2018-11-17] MEDS: Ipratropium/Albuterol Neb 3 ML IH SCH ×6 (00:17→19:55)
[2018-11-17] MEDS: Heparin 25,000 UNIT/250 ML D5W 25,000 UNIT/250 ML IV.SOLN IVC SCH ×2 (04:11→20:28)
[2018-11-17 04:25] LABS: Hematocrit 26.6 % (35.3-44.9); Hemoglobin 8.6 g/dL (11.5-15.4); Mean Corpuscular HGB Conc 32.3 g/dL (31.6-35.5); Mean Corpuscular Hemoglobin 34.1 pg (28.0-33.3); Mean Corpuscular Volume 105.6 fL (83.0-100.0); Mean Platelet Volume 9.9 fL (9.4-12.4); Platelet Count 196 K/mcL (140-400); Red Blood Count 2.52 M/mcL (3.82-4.97); Red Cell Distribution Width 15.2 % (11.5-14.5)
[2018-11-17 04:48] LABS: % Iron Saturation 26 % (15-50); Iron 65 mcg/dL (50-170); Transferrin 180 mg/dL (203-362)
[2018-11-17 04:52] LABS: Alanine Aminotransferase 44 Units/L (7-52); Albumin 2.8 g/dL (3.5-5.7); Albumin/Globulin Ratio 1.3 (1.1-2.2); Alkaline Phosphatase 38 Units/L (34-104); Aspartate Amino Transferase 19 Units/L (13-39); BUN/Creatinine Ratio 21 (6-26); Bilirubin,Total 0.5 mg/dL (0.3-1.0); Blood Urea Nitrogen 21 mg/dL (8-23); Calcium 8.6 mg/dL (8.6-10.3); Carbon Dioxide 42 mEq/L (23-29); Chloride 96 mEq/L (98-107); Globulin 2.2 g/dL (2.4-3.5); Glucose 100 mg/dL (70-105); Osmolality,Calculated 297 (280-300); Potassium 3.2 mEq/L (3.5-5.1); Sodium 142 mEq/L (136-145); eGFR For Non-African Americans 52 (> 60)
[2018-11-17 05:04] LABS: Ferritin 200 ng/mL (10-120)
[2018-11-17 05:12] LABS: Folate > 22.3 ng/mL (3.0-16.0); Vitamin B12 > 1500 pg/mL (250-1100)
[2018-11-17] MEDS: Piperacillin/Tazobactam 3.375 GM in 0.9 % Sodium Chloride Mini Bag 100 ML IVPB SCH ×3 (06:40→21:02)
[2018-11-17] MEDS: Insulin LISPRO 300 UNITS/3 ML VIAL SQ SCH ×4 (09:54→20:27)
[2018-11-17] MEDS: Famotidine 20 MG TABLET PO SCH (10:01)
[2018-11-17] MEDS: predniSONE 20 MG TABLET PO SCH (10:01)
[2018-11-17] MEDS: Folic Acid 1 MG TABLET PO SCH (10:02)
[2018-11-17] MEDS: Furosemide 40 MG TABLET PO SCH (10:02)
[2018-11-17] MEDS: *HR* OxyCODONE/APAP 5/325 TABLET PO PRN (10:04)
--- NOTE | 2018-11-17 10:23 | Internal Med Progress Note ---
Hospitalist Progress Note - Encounter Date of Encounter: 11/17/18 Time of Encounter: 11:00 - Subjective Interval History: No issues or acute events overnight - Exam Vitals: Temp Pulse Resp BP Pulse Ox 98.4 F 87 18 158/81 91 11/17/18 08:08 11/17/18 08:08 11/17/18 08:08 11/17/18 08:08 11/17/18 08:08 Exam: Gen.: Nonacute distress, alert and oriented 3 ENT: Mucosal membranes moist Respiratory: Lungs are clear to auscultation bilaterally without any wheezing rhonchi or rales Cardiovascular: Normal S1 and S2 regular rate rhythm no murmurs rubs or gallops Abdomen: Soft, nontender and nondistended with positive bowel sounds Extremities: No lower extremity edema Skin: Normal color - Assessment and Plan (1) Pulmonary emboli Current Visit: Yes Status: Acute Assessment and Plan: Patient found to have acute right upper and right lower pulmonary emboli on CT angiogram of the chest. Will continue heparin drip with bridging to Eliquis on discharge was started pack per hematology/oncology recommendations (2) Respiratory failure with hypoxia and hypercapnia Current Visit: Yes Status: Acute Assessment and Plan: Patient requiring less O2 supplementation currently on 4 L; baseline 2 L (3) Cardiac arrest Current Visit: Yes Status: Resolved Assessment and Plan: Underwent 2 separate rounds of ACLS with CPR for PEA arrest (4) Elevated troponin Current Visit: Yes Status: Acute Assessment and Plan: Secondary to the above (5) COPD (chronic obstructive pulmonary disease) Current Visit: Yes Status: Chronic Assessment and Plan: Will continue by mouth prednisone with scheduled DuoNeb's Will continue day 7 of IV Zosyn for concerns of possible aspiration pneumonia due to patient being unresponsive with intubation (6) HTN (hypertension) Current Visit: Yes Status: Chronic Assessment and Plan: Will continue home medications (7) Diastolic heart failure with preserved ejection fraction Current Visit: Yes Status: Chronic Assessment and Plan: Will continue home dose of Lasix DVT Prophylaxis: Heparin drip - Time Spent with Patient Total time spent is greater than 50% in coordination of care (as documented) at patient's floor/unit and/or counseling patient: Internal Medicine: Result - Labs CBC & Chem 7: 11/17/18 04:10 11/17/18 04:10 Labs: Short CBC 11/17/18 Range/Units 04:10 WBC 5.7 (4.3-11.1) K/mcL Hgb 8.6 L (11.5-15.4) g/dL Hct 26.6 L (35.3-44.9) % Plt Count 196 (140-400) K/mcL BMP 11/17/18 04:10 Sodium 142 Potassium 3.2 L Chloride 96 L Carbon Dioxide 42 H* BUN 21 Creatinine 1.02 Glucose 100 Calcium 8.6 Liver Function 11/17/18 Range/Units 04:10 Total Bilirubin 0.5 (0.3-1.0) mg/dL AST 19 (13-39) Units/L ALT 44 (7-52) Units/L Alkaline Phosphatase 38 (34-104) Units/L Albumin 2.8 L (3.5-5.7) g/dL - ABG Interpretation ABG results: ABG ABG pH 7.46 pH Units (7.32-7.45) H 11/14/18 04:16 ABG pCO2 50 mmHg (35-45) H 11/14/18 04:16 ABG pO2 92 mmHg (85-104) 11/14/18 04:16 ABG O2 Saturation 97 % (95-98) 11/14/18 04:16 PT/INR, D-dimer PT 11.6 Seconds (9.4-12.1) 11/11/18 11:03 D-Dimer 4983 ng/mLFEU (0-500) H 11/11/18 18:11 Consult Discharge Plan - Plan Referrals: Aidan Huddleston MD [Primary Care Provider] - (1) Pulmonary emboli Qualifiers: Pulmonary embolism type: other Chronicity: acute Acute cor pulmonale presence: without acute cor pulmonale Qualified Code(s): I26.99 - Other pulmonary embolism without acute cor pulmonale (2) Respiratory failure with hypoxia and hypercapnia Qualifiers: Chronicity: acute on chronic Qualified Code(s): J96.21 - Acute and chronic respiratory failure with hypoxia; J96.22 - Acute and chronic respiratory failure with hypercapnia (5) COPD (chronic obstructive pulmonary disease) Qualifiers: COPD type: COPD with acute exacerbation Qualified Code(s): J44.1 - Chronic obstructive pulmonary disease with (acute) exacerbation (6) HTN (hypertension) Qualifiers: Hypertension type: essential hypertension Qualified Code(s): I10 - Essential (primary) hypertension
[2018-11-17 11:58] LABS: Eosinophils # 0.1 K/mcL (0.0-0.6); Eosinophils % 1.6 %; Lymphocytes # 0.8 K/mcL (0.6-4.6); Lymphocytes % 13.1 %; Monocytes # 0.6 K/mcL (0.0-1.3); Monocytes % 10.5 %; Neutrophils # 4.2 K/mcL (1.6-8.9); Segmented Neutrophils % 73.2 %
[2018-11-17 11:59] LABS: Immature Granulocytes % 1.6 % (0-4); Nucleated Red Blood Cells 0.4 /100 WBC (0)
[2018-11-17] MEDS: Dexmedetomidine HCl 400 MCG/100 ML MLS IVC SCH (18:44)
[2018-11-17] MEDS: Gabapentin 300 MG CAPSULE PO SCH (20:56)
[2018-11-18] MEDS: Ipratropium/Albuterol Neb 3 ML IH SCH ×7 (00:03→23:30)
[2018-11-18] MEDS: *HR* OxyCODONE/APAP 5/325 TABLET PO PRN ×2 (01:34→20:41)
[2018-11-18 01:55] LABS: Hematocrit 28.5 % (35.3-44.9); Hemoglobin 8.9 g/dL (11.5-15.4); Mean Corpuscular HGB Conc 31.2 g/dL (31.6-35.5); Mean Corpuscular Hemoglobin 34.2 pg (28.0-33.3); Mean Corpuscular Volume 109.6 fL (83.0-100.0); Platelet Count 213 K/mcL (140-400); Red Cell Distribution Width 15.1 % (11.5-14.5)
[2018-11-18 02:19] LABS: Alanine Aminotransferase 43 Units/L (7-52); Albumin/Globulin Ratio 1.4 (1.1-2.2); Alkaline Phosphatase 37 Units/L (34-104); Aspartate Amino Transferase 16 Units/L (13-39); BUN/Creatinine Ratio 14 (6-26); Bilirubin,Total 0.4 mg/dL (0.3-1.0); Blood Urea Nitrogen 14 mg/dL (8-23); Calcium 8.7 mg/dL (8.6-10.3); Carbon Dioxide 44 mEq/L (23-29); Chloride 97 mEq/L (98-107); Globulin 2.2 g/dL (2.4-3.5); Glucose 125 mg/dL (70-105); Osmolality,Calculated 298 (280-300); Potassium 3.4 mEq/L (3.5-5.1); Sodium 143 mEq/L (136-145); Total Protein 5.2 g/dL (6.4-8.9); eGFR For Non-African Americans 53 (> 60)
[2018-11-18 04:06] LABS: ABG Base Excess 20 mEq/L (-2 to 3); ABG HCO3 48 mEq/L (21-27); ABG Oxygen Saturation 99 % (95-98); ABG PCO2 84 mmHg (35-45); ABG PH 7.36 pH Units (7.32-7.45); ABG PO2 151 mmHg (85-104); ABG TCO2 > 50 mEq/L (20-26)
[2018-11-18] MEDS: Furosemide 40 MG TABLET PO SCH (09:04)
[2018-11-18] MEDS: Famotidine 20 MG TABLET PO SCH (09:04)
[2018-11-18] MEDS: predniSONE 20 MG TABLET PO SCH (09:04)
[2018-11-18] MEDS: Folic Acid 1 MG TABLET PO SCH (09:04)
[2018-11-18] MEDS: Insulin LISPRO 300 UNITS/3 ML VIAL SQ SCH ×4 (09:05→20:39)
--- NOTE | 2018-11-18 10:04 | Internal Med Progress Note ---
Hospitalist Progress Note - Encounter Date of Encounter: 11/18/18 Time of Encounter: 11:00 - Subjective Interval History: Discussion held with family and patient whose wishes are for patient to be discharged to a different penitentiary facility due to their concerns about her prior penitentiary facility. Case Management will see patient on 11/19/18 discussion on options. - Exam Vitals: Temp Pulse Resp BP Pulse Ox 98.2 F 69 14 133/74 100 11/18/18 07:59 11/18/18 07:59 11/18/18 07:59 11/18/18 07:59 11/18/18 07:59 Exam: Gen.: Nonacute distress, alert and oriented 3 ENT: Mucosal membranes moist Respiratory: Lungs are clear to auscultation bilaterally without any wheezing rhonchi or rales Cardiovascular: Normal S1 and S2 regular rate rhythm no murmurs rubs or gallops Abdomen: Soft, nontender and nondistended with positive bowel sounds Extremities: No lower extremity edema Skin: Normal color - Assessment and Plan (1) Goals of care, counseling/discussion Current Visit: No Status: Acute Assessment and Plan: Discussion held with family and patient whose wishes are for patient to be discharged to a different penitentiary facility due to their concerns about her prior penitentiary facility. Case Management will see patient on 11/19/18 discussion on options. Patient is now medically stable and awaiting placement to penitentiary facility (2) Pulmonary emboli Current Visit: Yes Status: Acute Assessment and Plan: Patient found to have acute right upper and right lower pulmonary emboli on CT angiogram of the chest. Will continue heparin drip with bridging to Eliquis on discharge with started pack per hematology/oncology recommendations (3) Respiratory failure with hypoxia and hypercapnia Current Visit: Yes Status: Acute Assessment and Plan: Resolved as patient now requiring close to baseline O2 requirements (4) Cardiac arrest Current Visit: Yes Status: Resolved Assessment and Plan: Underwent 2 separate rounds of ACLS with CPR for PEA arrest (5) Elevated troponin Current Visit: Yes Status: Acute Assessment and Plan: Secondary to the above (6) COPD (chronic obstructive pulmonary disease) Current Visit: Yes Status: Chronic Assessment and Plan: Will continue by mouth prednisone with scheduled DuoNeb's Will continue day 8 of IV Zosyn for concerns of possible aspiration pneumonia due to patient being unresponsive with intubation (7) HTN (hypertension) Current Visit: Yes Status: Chronic Assessment and Plan: Will continue home medications (8) Diastolic heart failure with preserved ejection fraction Current Visit: Yes Status: Chronic Assessment and Plan: Will continue home dose of Lasix DVT Prophylaxis: Heparin drip - Time Spent with Patient Total time spent is greater than 50% in coordination of care (as documented) at patient's floor/unit and/or counseling patient: Internal Medicine: Result - Labs CBC & Chem 7: 11/18/18 01:20 11/18/18 01:20 Labs: Short CBC 11/17/18 11/18/18 Range/Units 04:10 01:20 WBC 5.7 5.7 (4.3-11.1) K/mcL Hgb 8.6 L 8.9 L (11.5-15.4) g/dL Hct 26.6 L 28.5 L (35.3-44.9) % Plt Count 196 213 (140-400) K/mcL Neutrophils # 4.2 (1.6-8.9) K/mcL BMP 11/17/18 11/18/18 04:10 01:20 Sodium 142 143 Potassium 3.2 L 3.4 L Chloride 96 L 97 L Carbon Dioxide 42 H* 44 H* BUN 21 14 Creatinine 1.02 1.01 Glucose 100 125 H Calcium 8.6 8.7 Liver Function 11/17/18 11/18/18 Range/Units 04:10 01:20 Total Bilirubin 0.5 0.4 (0.3-1.0) mg/dL AST 19 16 (13-39) Units/L ALT 44 43 (7-52) Units/L Alkaline Phosphatase 38 37 (34-104) Units/L Albumin 2.8 L 3.0 L (3.5-5.7) g/dL - ABG Interpretation ABG results: ABG ABG pH 7.36 pH Units (7.32-7.45) 11/18/18 03:58 ABG pCO2 84 mmHg (35-45) H* 11/18/18 03:58 ABG pO2 151 mmHg (85-104) H 11/18/18 03:58 ABG O2 Saturation 99 % (95-98) H 11/18/18 03:58 PT/INR, D-dimer PT 11.6 Seconds (9.4-12.1) 11/11/18 11:03 D-Dimer 4983 ng/mLFEU (0-500) H 11/11/18 18:11 Consult Discharge Plan - Plan Referrals: Aidan Huddleston MD [Primary Care Provider] - (2) Pulmonary emboli Qualifiers: Pulmonary embolism type: other Chronicity: acute Acute cor pulmonale presence: without acute cor pulmonale Qualified Code(s): I26.99 - Other pulmonary embolism without acute cor pulmonale (3) Respiratory failure with hypoxia and hypercapnia Qualifiers: Chronicity: acute on chronic Qualified Code(s): J96.21 - Acute and chronic respiratory failure with hypoxia; J96.22 - Acute and chronic respiratory failure with hypercapnia (6) COPD (chronic obstructive pulmonary disease) Qualifiers: COPD type: COPD with acute exacerbation Qualified Code(s): J44.1 - Chronic obstructive pulmonary disease with (acute) exacerbation (7) HTN (hypertension) Qualifiers: Hypertension type: essential hypertension Qualified Code(s): I10 - Essential (primary) hypertension
[2018-11-18 12:59] LABS: ABG Base Excess 20 mEq/L (-2 to 3); ABG HCO3 47 mEq/L (21-27); ABG Oxygen Saturation 97 % (95-98); ABG PCO2 69 mmHg (35-45); ABG PH 7.44 pH Units (7.32-7.45); ABG PO2 90 mmHg (85-104); ABG TCO2 49 mEq/L (20-26)
[2018-11-18] MEDS: Heparin 25,000 UNIT/250 ML D5W 25,000 UNIT/250 ML IV.SOLN IVC SCH (19:59)
[2018-11-18] MEDS: Gabapentin 300 MG CAPSULE PO SCH (20:42)
[2018-11-19] MEDS: Ipratropium/Albuterol Neb 3 ML IH SCH ×5 (03:53→19:36)
[2018-11-19 04:18] LABS: Hematocrit 25.5 % (35.3-44.9); Hemoglobin 8.1 g/dL (11.5-15.4); Mean Corpuscular HGB Conc 31.8 g/dL (31.6-35.5); Mean Corpuscular Hemoglobin 34.2 pg (28.0-33.3); Mean Corpuscular Volume 107.6 fL (83.0-100.0); Mean Platelet Volume 9.8 fL (9.4-12.4); Platelet Count 210 K/mcL (140-400); Red Blood Count 2.37 M/mcL (3.82-4.97); Red Cell Distribution Width 15.1 % (11.5-14.5)
[2018-11-19 04:41] LABS: Alanine Aminotransferase 34 Units/L (7-52); Albumin 2.7 g/dL (3.5-5.7); Albumin/Globulin Ratio 1.3 (1.1-2.2); Alkaline Phosphatase 32 Units/L (34-104); Aspartate Amino Transferase 14 Units/L (13-39); BUN/Creatinine Ratio 17 (6-26); Bilirubin,Total 0.3 mg/dL (0.3-1.0); Blood Urea Nitrogen 16 mg/dL (8-23); Calcium 8.7 mg/dL (8.6-10.3); Carbon Dioxide 45 mEq/L (23-29); Chloride 95 mEq/L (98-107); Globulin 2.1 g/dL (2.4-3.5); Glucose 104 mg/dL (70-105); Osmolality,Calculated 295 (280-300); Potassium 3.2 mEq/L (3.5-5.1); Sodium 142 mEq/L (136-145); Total Protein 4.8 g/dL (6.4-8.9); eGFR For Non-African Americans 57 (> 60)
[2018-11-19] MEDS: Insulin LISPRO 300 UNITS/3 ML VIAL SQ SCH ×4 (09:28→20:30)
[2018-11-19] MEDS: predniSONE 20 MG TABLET PO SCH (09:28)
[2018-11-19] MEDS: Famotidine 20 MG TABLET PO SCH (09:28)
[2018-11-19] MEDS: Folic Acid 1 MG TABLET PO SCH (09:28)
[2018-11-19] MEDS: Furosemide 40 MG TABLET PO SCH (09:28)
--- NOTE | 2018-11-19 10:34 | Internal Med Progress Note ---
Hospitalist Progress Note - Encounter Date of Encounter: 11/19/18 Time of Encounter: 11:00 - Subjective Interval History: No acute events overnight while patient on BiPAP daily at bedtime Discussion held with family and patient whose wishes are for patient to be discharged to a different care home facility due to their concerns about her prior care home facility. Case Management will see patient today for discussion on options. - Exam Vitals: Temp Pulse Resp BP Pulse Ox 98.8 F 83 19 159/79 99 11/19/18 07:35 11/19/18 07:35 11/19/18 07:35 11/19/18 07:35 11/19/18 07:35 Exam: Gen.: Nonacute distress, alert and oriented 3 ENT: Mucosal membranes moist Respiratory: Lungs are clear to auscultation bilaterally without any wheezing rhonchi or rales Cardiovascular: Normal S1 and S2 regular rate rhythm no murmurs rubs or gallops Abdomen: Soft, nontender and nondistended with positive bowel sounds Extremities: No lower extremity edema Skin: Normal color - Assessment and Plan (1) Goals of care, counseling/discussion Current Visit: No Status: Acute Assessment and Plan: Discussion held with family and patient whose wishes are for patient to be discharged to a different care home facility due to their concerns about her prior care home facility. Case Management will see patient today for discussion on options. Patient is now medically stable and awaiting placement to care home facility (2) Pulmonary emboli Current Visit: Yes Status: Acute Assessment and Plan: Patient found to have acute right upper and right lower pulmonary emboli on CT angiogram of the chest. Will transition patient from heparin drip to Eliquis today and continue on discharge with started pack per hematology/oncology recommendations (3) Respiratory failure with hypoxia and hypercapnia Current Visit: Yes Status: Acute Assessment and Plan: Resolved as patient now requiring close to baseline O2 requirements (4) Cardiac arrest Current Visit: Yes Status: Resolved Assessment and Plan: Underwent 2 separate rounds of ACLS with CPR for PEA arrest (5) Elevated troponin Current Visit: Yes Status: Acute Assessment and Plan: Secondary to the above (6) COPD (chronic obstructive pulmonary disease) Current Visit: Yes Status: Chronic Assessment and Plan: Will continue by mouth prednisone with scheduled DuoNeb's Will continue day 9 of IV Zosyn for concerns of possible aspiration pneumonia due to patient being unresponsive with intubation She will require prolonged steroid taper on discharge (7) HTN (hypertension) Current Visit: Yes Status: Chronic Assessment and Plan: Will continue home medications (8) Diastolic heart failure with preserved ejection fraction Current Visit: Yes Status: Chronic Assessment and Plan: Will continue home dose of Lasix DVT Prophylaxis: Heparin drip - Time Spent with Patient Total time spent is greater than 50% in coordination of care (as documented) at patient's floor/unit and/or counseling patient: Internal Medicine: Result - Labs CBC & Chem 7: 11/19/18 04:00 11/19/18 04:00 Labs: Short CBC 11/19/18 Range/Units 04:00 WBC 5.9 (4.3-11.1) K/mcL Hgb 8.1 L (11.5-15.4) g/dL Hct 25.5 L (35.3-44.9) % Plt Count 210 (140-400) K/mcL BMP 11/19/18 04:00 Sodium 142 Potassium 3.2 L Chloride 95 L Carbon Dioxide 45 H* BUN 16 Creatinine 0.95 Glucose 104 Calcium 8.7 Liver Function 11/19/18 Range/Units 04:00 Total Bilirubin 0.3 (0.3-1.0) mg/dL AST 14 (13-39) Units/L ALT 34 (7-52) Units/L Alkaline Phosphatase 32 L (34-104) Units/L Albumin 2.7 L (3.5-5.7) g/dL - ABG Interpretation ABG results: ABG ABG pH 7.44 pH Units (7.32-7.45) 11/18/18 12:54 ABG pCO2 69 mmHg (35-45) H 11/18/18 12:54 ABG pO2 90 mmHg (85-104) 11/18/18 12:54 ABG O2 Saturation 97 % (95-98) 11/18/18 12:54 PT/INR, D-dimer PT 11.6 Seconds (9.4-12.1) 11/11/18 11:03 D-Dimer 4983 ng/mLFEU (0-500) H 11/11/18 18:11 Consult Discharge Plan - Plan Referrals: Aidan Huddleston MD [Primary Care Provider] - (2) Pulmonary emboli Qualifiers: Pulmonary embolism type: other Chronicity: acute Acute cor pulmonale presence: without acute cor pulmonale Qualified Code(s): I26.99 - Other pulmonary embolism without acute cor pulmonale (3) Respiratory failure with hypoxia and hypercapnia Qualifiers: Chronicity: acute on chronic Qualified Code(s): J96.21 - Acute and chronic respiratory failure with hypoxia; J96.22 - Acute and chronic respiratory failure with hypercapnia (6) COPD (chronic obstructive pulmonary disease) Qualifiers: COPD type: COPD with acute exacerbation Qualified Code(s): J44.1 - Chronic obstructive pulmonary disease with (acute) exacerbation (7) HTN (hypertension) Qualifiers: Hypertension type: essential hypertension Qualified Code(s): I10 - Essential (primary) hypertension
[2018-11-19] MEDS: Heparin 25,000 UNIT/250 ML D5W 25,000 UNIT/250 ML IV.SOLN IVC SCH (13:56)
[2018-11-19] MEDS: *HR* Heparin 5,000 UNIT/ML VIAL IVP PRN (13:57)
[2018-11-19] MEDS: Gabapentin 300 MG CAPSULE PO SCH (20:38)
[2018-11-20] MEDS: Ipratropium/Albuterol Neb 3 ML IH SCH ×6 (00:06→19:49)
[2018-11-20 01:55] LABS: Kappa Qnt Free Light Chains 1.37 mg/dL (0.33-1.94); Lambda Qnt Free Light Chains 1.29 mg/dL (0.57-2.63)
[2018-11-20] MEDS: *HR* Heparin 5,000 UNIT/ML VIAL IVP PRN (03:26)
[2018-11-20] MEDS: Furosemide 40 MG TABLET PO SCH (09:44)
[2018-11-20] MEDS: Folic Acid 1 MG TABLET PO SCH (09:44)
[2018-11-20] MEDS: predniSONE 20 MG TABLET PO SCH (09:44)
[2018-11-20] MEDS: Famotidine 20 MG TABLET PO SCH (09:45)
[2018-11-20] MEDS: Insulin LISPRO 300 UNITS/3 ML VIAL SQ SCH ×4 (09:47→22:47)
[2018-11-20 10:05] LABS: Alpha 2 Globulin (PEP) 0.66 g/dL (0.48-1.05); Beta Globulin (PEP) 0.68 g/dL (0.48-1.10)
--- NOTE | 2018-11-20 10:32 | Internal Med Progress Note ---
Hospitalist Progress Note - Encounter Date of Encounter: 11/20/18 Time of Encounter: 11:00 - Subjective Interval History: Awaiting placement to halfway facility; case management assisting - Exam Vitals: Temp Pulse Resp BP Pulse Ox 98.8 F 79 13 169/92 89 11/20/18 04:52 11/20/18 07:14 11/20/18 07:45 11/20/18 07:45 11/20/18 07:45 Exam: Gen.: Nonacute distress, alert and oriented 3 ENT: Mucosal membranes moist Respiratory: Lungs are clear to auscultation bilaterally without any wheezing rhonchi or rales Cardiovascular: Normal S1 and S2 regular rate rhythm no murmurs rubs or gallops Abdomen: Soft, nontender and nondistended with positive bowel sounds Extremities: No lower extremity edema Skin: Normal color - Assessment and Plan (1) Goals of care, counseling/discussion Current Visit: No Status: Acute Assessment and Plan: Patient is medically stable and awaiting placement to halfway facility; case management assisting (2) Pulmonary emboli Current Visit: Yes Status: Acute Assessment and Plan: Patient found to have acute right upper and right lower pulmonary emboli on CT angiogram of the chest. Will transition patient from heparin drip to Eliquis today and continue on discharge with started pack per hematology/oncology recommendations (3) Respiratory failure with hypoxia and hypercapnia Current Visit: Yes Status: Acute Assessment and Plan: Resolved as patient now requiring close to baseline O2 requirements (4) Cardiac arrest Current Visit: Yes Status: Resolved Assessment and Plan: Underwent 2 separate rounds of ACLS with CPR for PEA arrest (5) Elevated troponin Current Visit: Yes Status: Acute Assessment and Plan: Secondary to the above (6) COPD (chronic obstructive pulmonary disease) Current Visit: Yes Status: Chronic Assessment and Plan: Will continue by mouth prednisone with scheduled DuoNeb's Will continue day 9 of IV Zosyn for concerns of possible aspiration pneumonia due to patient being unresponsive with intubation She will require prolonged steroid taper on discharge (7) HTN (hypertension) Current Visit: Yes Status: Chronic Assessment and Plan: Will continue home medications (8) Diastolic heart failure with preserved ejection fraction Current Visit: Yes Status: Chronic Assessment and Plan: Will continue home dose of Lasix DVT Prophylaxis: Heparin drip - Time Spent with Patient Total time spent is greater than 50% in coordination of care (as documented) at patient's floor/unit and/or counseling patient: Internal Medicine: Result - Labs CBC & Chem 7: 11/20/18 11:50 11/20/18 11:50 - ABG Interpretation ABG results: ABG ABG pH 7.44 pH Units (7.32-7.45) 11/18/18 12:54 ABG pCO2 69 mmHg (35-45) H 11/18/18 12:54 ABG pO2 90 mmHg (85-104) 11/18/18 12:54 ABG O2 Saturation 97 % (95-98) 11/18/18 12:54 PT/INR, D-dimer PT 11.6 Seconds (9.4-12.1) 11/11/18 11:03 D-Dimer 4983 ng/mLFEU (0-500) H 11/11/18 18:11 Consult Discharge Plan - Plan Referrals: Aidan Huddleston MD [Primary Care Provider] - Justice Farah MD [Partnered Physician] - 12/11/18 10:00 am (2) Pulmonary emboli Qualifiers: Pulmonary embolism type: other Chronicity: acute Acute cor pulmonale presence: without acute cor pulmonale Qualified Code(s): I26.99 - Other pulmonary embolism without acute cor pulmonale (3) Respiratory failure with hypoxia and hypercapnia Qualifiers: Chronicity: acute on chronic Qualified Code(s): J96.21 - Acute and chronic respiratory failure with hypoxia; J96.22 - Acute and chronic respiratory failure with hypercapnia (6) COPD (chronic obstructive pulmonary disease) Qualifiers: COPD type: COPD with acute exacerbation Qualified Code(s): J44.1 - Chronic obstructive pulmonary disease with (acute) exacerbation (7) HTN (hypertension) Qualifiers: Hypertension type: essential hypertension Qualified Code(s): I10 - Essential (primary) hypertension
[2018-11-20 12:17] LABS: Basophils % 0.1 %; Eosinophils # 0.1 K/mcL (0.0-0.6); Eosinophils % 1.9 %; Hematocrit 27.5 % (35.3-44.9); Hemoglobin 8.6 g/dL (11.5-15.4); Immature Granulocytes % 1.1 % (0-4); Lymphocytes # 1.4 K/mcL (0.6-4.6); Lymphocytes % 19.3 %; Mean Corpuscular HGB Conc 31.3 g/dL (31.6-35.5); Mean Corpuscular Hemoglobin 34.1 pg (28.0-33.3); Mean Corpuscular Volume 109.1 fL (83.0-100.0); Monocytes # 0.8 K/mcL (0.0-1.3); Monocytes % 10.2 %; Nucleated Red Blood Cells 0.4 /100 WBC (0); Platelet Count 242 K/mcL (140-400); Red Blood Count 2.52 M/mcL (3.82-4.97); Red Cell Distribution Width 15.2 % (11.5-14.5); Segmented Neutrophils % 67.4 %
[2018-11-20 12:28] LABS: IFE Reflexed NOT DONE
[2018-11-20] MEDS: Apixaban 5 MG TABLET PO SCH ×2 (12:33→22:46)
[2018-11-20 12:45] LABS: BUN/Creatinine Ratio 17 (6-26); Blood Urea Nitrogen 14 mg/dL (8-23); Calcium 9.2 mg/dL (8.6-10.3); Carbon Dioxide > 45 mEq/L (23-29); Chloride 91 mEq/L (98-107); Glucose 105 mg/dL (70-105); Osmolality,Calculated 293 (280-300); Sodium 141 mEq/L (136-145); eGFR For Non-African Americans > 60 (> 60)
[2018-11-20] MEDS: Gabapentin 300 MG CAPSULE PO SCH (22:46)
[2018-11-21] MEDS: Ipratropium/Albuterol Neb 3 ML IH SCH ×7 (00:09→23:28)
[2018-11-21] MEDS: Insulin LISPRO 300 UNITS/3 ML VIAL SQ SCH ×4 (09:05→21:29)
[2018-11-21] MEDS: Furosemide 40 MG TABLET PO SCH (09:05)
[2018-11-21] MEDS: Folic Acid 1 MG TABLET PO SCH (09:05)
[2018-11-21] MEDS: Famotidine 20 MG TABLET PO SCH (09:05)
[2018-11-21] MEDS: predniSONE 20 MG TABLET PO SCH (09:05)
[2018-11-21] MEDS: Apixaban 5 MG TABLET PO SCH ×2 (09:05→21:28)
--- NOTE | 2018-11-21 18:29 | Discharge Summary ---
Orders not resulted at time of discharge: Pending orders 11/21/18 09:24 BMP [Basic Metabolic Panel] Routine Date of Encounter: 11/21/18 Time of Encounter: 11:00 - Discharge Diagnosis (1) Goals of care, counseling/discussion Priority: Secondary Status: Acute (2) Pulmonary emboli Priority: Primary Status: Acute Qualifiers: Pulmonary embolism type: other Chronicity: acute Acute cor pulmonale presence: without acute cor pulmonale Qualified Code(s): I26.99 - Other pulmonary embolism without acute cor pulmonale (3) Respiratory failure with hypoxia and hypercapnia Priority: Primary Status: Acute Qualifiers: Chronicity: acute on chronic Qualified Code(s): J96.21 - Acute and chronic respiratory failure with hypoxia; J96.22 - Acute and chronic respiratory failure with hypercapnia (4) Cardiac arrest Priority: Primary Status: Resolved (5) Elevated troponin Priority: Primary Status: Acute (6) COPD (chronic obstructive pulmonary disease) Priority: Primary Status: Chronic Qualifiers: COPD type: COPD with acute exacerbation Qualified Code(s): J44.1 - Chronic obstructive pulmonary disease with (acute) exacerbation (7) HTN (hypertension) Priority: Secondary Status: Chronic Qualifiers: Hypertension type: essential hypertension Qualified Code(s): I10 - Essential (primary) hypertension (8) Diastolic heart failure with preserved ejection fraction Priority: Secondary Status: Chronic Hospital course: Patient is a 78-year-old female with past medical history significant for COPD, Rheumatoid arthritis, atrial fibrillation, DVT, CKD, and diastolic heart failure with preserved ejection fraction who was recently discharged from [facility] on 11/07/18 after a 20 day stay for COPD exacerbation complicated by acute respiratory failure with intubation secondary to influenza A and pneumonia. Patient was extubated and later discharged to correction facility and was tolerating BiPAP at night. Per reports she was not found using BiPAP overnight and was found to be unresponsive, altered and foaming at the mouth. When she arrived to the emergency department her oxygen saturation was Significantly low and she was obtunded and not responsive to painful stimuli. The patient was therefore intubated and following intubation was significantly hypotensive without pulses. The patient had PEA arrest with ROS after approximately 4 minutes. The patient was then started on levophed via right femoral central venous catheter. Arterial line was placed. Initial ABG shows pH of 7.1 which improved to 7.5 after 2 A of bicarbonate. Patient was found to have acute right upper and right lower pulmonary emboli on CT angiogram of the chest and was started on heparin drip. During patients hospital stay she remained stable on BiPAP at bedtime and with O2 supplementation during the day. Patient was transitioned from heparin drip to Eliquis and is medically stable to be discharged to the correction facility for strengthening and reconditioning. - Time Spent with Patient Total time spent providing and/or coordinating discharge services: Time spent: Less than 30 minutes - Discharge Medications Prescriptions: New Apixaban [Eliquis] 5 mg PO BID tablet Apixaban [Eliquis] 10 mg PO BID tablet Furosemide [Lasix] 40 mg PO DAILY tablet predniSONE [PredniSONE] 40 mg PO DAILY 5 Days tablet Continue Folic Acid 1 mg PO DAILY rOPINIRole [Requip] 1 mg PO HS Ondansetron HCl [Zofran] 4 mg PO Q8H PRN PRN Reason: Nausea Ranitidine HCl [Acid Knockdown Man] 150 mg PO DAILY Budesonide/Formoterol 160/4.5 [Symbicort 160/4.5] 2 puff IH BID Diclofenac Sodium [Voltaren] 1 appl TP QID PRN PRN Reason: Pain Ipratropium/Albuterol Sulfate [Combivent Respimat 20-100 Mcg] 1 puff IH Q4H PRN PRN Reason: Shortness Of Breath Carvedilol [Coreg] 25 mg PO BID Albuterol Sulfate [Proair Hfa] 2 puff IH Q6H PRN PRN Reason: Shortness Of Breath Docusate [Colace] 100 mg PO DAILY Cyanocobalamin (Vitamin B-12) [Vitamin B-12] 5,000 mcg PO DAILY Losartan Potassium [Cozaar] 50 mg PO DAILY Ipratropium [ATROVENT Inhaler] 2 puff IH [id number] PRN inhaler PRN Reason: Shortness Of Breath/Wheezing Benzonatate [Tessalon] 100 mg PO TID PRN capsule PRN Reason: Cough GuaiFENesin ER [Mucinex] 600 mg PO BID PRN tbbp.12hr PRN Reason: Congestion Quetiapine Fumarate [Seroquel] 25 mg PO HS tablet Alendronate Sodium [Fosamax] 70 mg PO TH Calcium Carbonate/Vitamin D3 [Calcium 600-Vit D3 800 Tablet] 1 each PO DAILY Sodium Chloride for inhalation [Sodium Chloride, Saline 3 ML] 3 ml IH Q6H Acetaminophen [Tylenol] 500 mg PO Q6HR PRN PRN Reason: Mild Pain Gabapentin [Neurontin] 300 mg PO HS #5 capsule OxyCODONE/APAP 5/325 [Percocet 5/325 MG] 1 tab PO Q12H PRN 30 Days #10 tablet PRN Reason: Moderate to Severe Pain Discontinued Rivaroxaban [Xarelto] 20 mg PO QPM predniSONE [PredniSONE] 10 mg PO DAILY #10 tablet Home Medications: Budesonide/Formoterol 160/4.5 [Symbicort 160/4.5] 2 puff IH BID 10/23/16 [History] Diclofenac Sodium [Voltaren] 1 appl TP QID PRN 10/23/16 [History] Folic Acid 1 mg PO DAILY 10/23/16 [History] Ondansetron HCl [Zofran] 4 mg PO Q8H PRN 10/23/16 [History] Ranitidine HCl [Acid Knockdown Man] 150 mg PO DAILY 10/23/16 [History] rOPINIRole [Requip] 1 mg PO HS 10/23/16 [History] Ipratropium/Albuterol Sulfate [Combivent Respimat 20-100 Mcg] 1 puff IH Q4H PRN 05/04/18 [History] Carvedilol [Coreg] 25 mg PO BID 07/02/18 [History] Albuterol Sulfate [Proair Hfa] 2 puff IH Q6H PRN 07/28/18 [History] Docusate [Colace] 100 mg PO DAILY 07/28/18 [History] Cyanocobalamin (Vitamin B-12) [Vitamin B-12] 5,000 mcg PO DAILY 10/22/18 [History] Losartan Potassium [Cozaar] 50 mg PO DAILY 10/22/18 [History] Benzonatate [Tessalon] 100 mg PO TID PRN capsule 11/06/18 [Rx] GuaiFENesin ER [Mucinex] 600 mg PO BID PRN tbbp.12hr 11/06/18 [Rx] Ipratropium [ATROVENT Inhaler] 2 puff IH [id number] PRN inhaler 11/06/18 [Rx] Quetiapine Fumarate [Seroquel] 25 mg PO HS tablet 11/06/18 [Rx] Acetaminophen [Tylenol] 500 mg PO Q6HR PRN 11/11/18 [History] Alendronate Sodium [Fosamax] 70 mg PO TH 11/11/18 [History] Calcium Carbonate/Vitamin D3 [Calcium 600-Vit D3 800 Tablet] 1 each PO DAILY 11/11/18 [History] Sodium Chloride for inhalation [Sodium Chloride, Saline 3 ML] 3 ml IH Q6H 11/11/18 [History] Apixaban [Eliquis] 5 mg PO BID tablet 11/21/18 [Rx] Apixaban [Eliquis] 10 mg PO BID tablet 11/21/18 [Rx] Furosemide [Lasix] 40 mg PO DAILY tablet 11/21/18 [Rx] Gabapentin [Neurontin] 300 mg PO HS #5 capsule 11/21/18 [Rx] OxyCODONE/APAP 5/325 [Percocet 5/325 MG] 1 tab PO Q12H PRN 30 Days #10 tablet 11/21/18 [Rx] predniSONE [PredniSONE] 40 mg PO DAILY 5 Days tablet 11/21/18 [Rx] Allergies/Adverse Reactions: Allergy/AdvReac Type Severity Reaction Status Date / Time amlodipine [From [facility]] Allergy See Verified 10/22/18 09:42 Comments Date of admission: 11/11/18 15:32 Primary care physician: Aidan Huddleston MD Consults: 11/11/18 16:43 Consult to Nutrition [CONS] Stat Comment: Consulting Provider: NUTRITION Reason for Dietary Consult: Tube Feed Start & Manage 11/11/18 18:24 Consult to Cardiology [CONS] Stat Comment: Consulting Provider: Cardiology Sproul Reason for Consult: acute respiratory failure, elevated troponins, s/p PEA arrest, ST elevations Call Completed: Yes 11/15/18 10:45 Consult to Occupational Therapy [CONS] Routine Comment: Evaluate, develop and implement POC Reason for Consult: post-intubation, multiple hospitalizations Does patient have active BEDREST order?: No Is patient medically & hemodynamically stable?: Yes Consult to Physical Therapy [CONS] Routine Comment: Evaluate, develop and implement POC Reason for Consult: post intubation, at SNF Does patient have active BEDREST order?: No Is patient medically & hemodynamically stable?: Yes 11/16/18 10:00 Consult to Oncology Hematology [CONS] Routine Consulting Provider: Viviane Molina Reason for Consult: PE on Xarelto Call Completed: Yes - Constitutional Vitals: Temp Pulse Resp BP Pulse Ox 99.2 F 90 18 154/75 97 11/21/18 16:44 11/21/18 16:44 11/21/18 16:44 11/21/18 16:44 11/21/18 16:44 Exam: Gen.: Nonacute distress, alert and oriented 3 ENT: Mucosal membranes moist Respiratory: Lungs are clear to auscultation bilaterally without any wheezing rhonchi or rales Cardiovascular: Normal S1 and S2 regular rate rhythm no murmurs rubs or gallops Abdomen: Soft, nontender and nondistended with positive bowel sounds Extremities: No lower extremity edema Skin: Normal color - Patient Status Disposition: Transfer SNF - Discharge Instructions Follow Up With: Aidan Huddleston MD [Primary Care Provider] - Justice Farah MD [Partnered Physician] - 12/11/18 10:00 am
--- NOTE | 2018-11-21 18:30 | Physician Discharge Referral ---
ExtendedCare Referral Info Institutional Level of Care: Skilled - Diagnosis (1) Goals of care, counseling/discussion Status: Acute (2) Pulmonary emboli Status: Acute (3) Respiratory failure with hypoxia and hypercapnia Status: Acute (4) Cardiac arrest Status: Resolved (5) Elevated troponin Status: Acute (6) COPD (chronic obstructive pulmonary disease) Status: Chronic (7) HTN (hypertension) Status: Chronic (8) Diastolic heart failure with preserved ejection fraction Status: Chronic - Transfer Medications Prescriptions: Gabapentin [Neurontin] 300 mg PO HS #5 capsule OxyCODONE/APAP 5/325 [Percocet 5/325 MG] 1 tab PO Q12H PRN 30 Days #10 tablet PRN Reason: Moderate to Severe Pain Home Medications: Budesonide/Formoterol 160/4.5 [Symbicort 160/4.5] 2 puff IH BID 10/23/16 [History] Diclofenac Sodium [Voltaren] 1 appl TP QID PRN 10/23/16 [History] Folic Acid 1 mg PO DAILY 10/23/16 [History] Ondansetron HCl [Zofran] 4 mg PO Q8H PRN 10/23/16 [History] Ranitidine HCl [Acid Rn Dialysis] 150 mg PO DAILY 10/23/16 [History] rOPINIRole [Requip] 1 mg PO HS 10/23/16 [History] Ipratropium/Albuterol Sulfate [Combivent Respimat 20-100 Mcg] 1 puff IH Q4H PRN 05/04/18 [History] Carvedilol [Coreg] 25 mg PO BID 07/02/18 [History] Albuterol Sulfate [Proair Hfa] 2 puff IH Q6H PRN 07/28/18 [History] Docusate [Colace] 100 mg PO DAILY 07/28/18 [History] Cyanocobalamin (Vitamin B-12) [Vitamin B-12] 5,000 mcg PO DAILY 10/22/18 [History] Losartan Potassium [Cozaar] 50 mg PO DAILY 10/22/18 [History] Benzonatate [Tessalon] 100 mg PO TID PRN capsule 11/06/18 [Rx] GuaiFENesin ER [Mucinex] 600 mg PO BID PRN tbbp.12hr 11/06/18 [Rx] Ipratropium [ATROVENT Inhaler] 2 puff IH [id number] PRN inhaler 11/06/18 [Rx] Quetiapine Fumarate [Seroquel] 25 mg PO HS tablet 11/06/18 [Rx] Acetaminophen [Tylenol] 500 mg PO Q6HR PRN 11/11/18 [History] Alendronate Sodium [Fosamax] 70 mg PO TH 11/11/18 [History] Calcium Carbonate/Vitamin D3 [Calcium 600-Vit D3 800 Tablet] 1 each PO DAILY 11/11/18 [History] Sodium Chloride for inhalation [Sodium Chloride, Saline 3 ML] 3 ml IH Q6H 11/11/18 [History] Apixaban [Eliquis] 5 mg PO BID tablet 11/21/18 [Rx] Apixaban [Eliquis] 10 mg PO BID tablet 11/21/18 [Rx] Furosemide [Lasix] 40 mg PO DAILY tablet 11/21/18 [Rx] Gabapentin [Neurontin] 300 mg PO HS #5 capsule 11/21/18 [Rx] OxyCODONE/APAP 5/325 [Percocet 5/325 MG] 1 tab PO Q12H PRN 30 Days #10 tablet 11/21/18 [Rx] predniSONE [PredniSONE] 40 mg PO DAILY 5 Days tablet 11/21/18 [Rx] Allergies/Adverse Reactions: Allergy/AdvReac Type Severity Reaction Status Date / Time amlodipine [From [facility]] Allergy See Verified 10/22/18 09:42 Comments - Respiratory Orders Smoking Cessation: Smoking cessation has been advised. For more information, call the [place] Tobacco Quit Line at 8-193-CNTJ-NOW. CERTIFICATION: I certify that the transfer of the above named patient to an Extended Care Facility is necessary for the continuing treatment of the diagnosis listed. The above information is true and accurate reflection of patient's current condition. Confidential - Redisclosure prohibited without a patient's written consent.
[2018-11-21] MEDS: *HR* OxyCODONE/APAP 5/325 TABLET PO PRN (21:28)
[2018-11-21] MEDS: Gabapentin 300 MG CAPSULE PO SCH (21:29)
[2018-11-22] MEDS: Ipratropium/Albuterol Neb 3 ML IH SCH ×4 (03:53→15:18)
[2018-11-22 06:54] VITALS: BP 157/71
[2018-11-22] MEDS: predniSONE 20 MG TABLET PO SCH (08:53)
[2018-11-22] MEDS: Folic Acid 1 MG TABLET PO SCH (08:53)
[2018-11-22] MEDS: Furosemide 40 MG TABLET PO SCH (08:53)
[2018-11-22] MEDS: Famotidine 20 MG TABLET PO SCH (08:53)
[2018-11-22] MEDS: Insulin LISPRO 300 UNITS/3 ML VIAL SQ SCH ×2 (08:54→11:46)
[2018-11-22] MEDS: Apixaban 5 MG TABLET PO SCH (08:54)
[2018-11-22 09:37] LABS: BUN/Creatinine Ratio 16 (6-26); Blood Urea Nitrogen 15 mg/dL (8-23); Carbon Dioxide > 45 mEq/L (23-29); Chloride 92 mEq/L (98-107); Glucose 129 mg/dL (70-105); Osmolality,Calculated 297 (280-300); Potassium 3.3 mEq/L (3.5-5.1); Sodium 142 mEq/L (136-145); eGFR For Non-African Americans 60 (> 60)
[2018-11-27] MEDS ORDERED: Apixaban 5 MG TABLET PO SCH (09:00)
== END 2018-11-22 17:03 | DRG 208 ==
LOC: EMEROOARM 10:36 → ICNU 15:32 → SUATTDRO 15:32 → ICNU 16:43 → 2NENU 11-15 17:00
PROVIDERS: ADMIT Internal Medicine Pulmonary Disease; ATTEND Hospitalist

== ENCOUNTER 2019-06-03 10:50 | Inpatient (IN) ==
[2019-06-03] MEDS ORDERED: Ipratropium/Albuterol Neb 3 ML IH ONE (10:59)
[2019-06-03] MEDS ORDERED: Isovue-370 500 ML BOTTLE IVP ONE (11:03)
[2019-06-03] MEDS ORDERED: *HR* Metoprolol 5 MG/5 ML VIAL IVP ONE (11:12)
[2019-06-03 11:36] LABS: Basophils % 0.2 %; Eosinophils % 0.4 %; Hematocrit 42.5 % (35.3-44.9); Hemoglobin 12.9 g/dL (11.5-15.4); Immature Granulocytes % 0.7 % (0-4); Lymphocytes # 1.6 K/mcL (0.6-4.6); Lymphocytes % 29.7 %; Mean Corpuscular HGB Conc 30.4 g/dL (31.6-35.5); Mean Corpuscular Hemoglobin 33.9 pg (28.0-33.3); Mean Corpuscular Volume 111.5 fL (83.0-100.0); Mean Platelet Volume 9.5 fL (9.4-12.4); Monocytes # 0.6 K/mcL (0.0-1.3); Monocytes % 11.2 %; Neutrophils # 3.2 K/mcL (1.6-8.9); Platelet Count 203 K/mcL (140-400); Red Blood Count 3.81 M/mcL (3.82-4.97); Red Cell Distribution Width 13.4 % (11.5-14.5); Segmented Neutrophils % 57.8 %; White Blood Count 5.5 K/mcL (4.3-11.1)
[2019-06-03 11:42] LABS: VBG HCO3 47 mEq/L (21-27); VBG PCO2 84 mmHg (41-51); VBG PH 7.36 pH Units (7.32-7.42); VBG PO2 96 mmHg (25-50)
[2019-06-03 11:45] LABS: INR 0.9; Prothrombin Time 10.2 Seconds (9.4-12.1)
[2019-06-03 11:46] LABS: Activated Partial Thrombo Time 36.5 Seconds (26.0-36.0)
[2019-06-03 12:12] LABS: ABG PCO2 > 150 mmHg (35-45); ABG PH 7.11 pH Units (7.32-7.45); ABG PO2 208 mmHg (85-104)
[2019-06-03 12:14] LABS: Macrocytosis Present (Not Present); Platelet Estimate Normal (Normal)
[2019-06-03 12:15] LABS: Stomatocytes 1+ (Not Present)
[2019-06-03 12:22] LABS: Alanine Aminotransferase 10 Units/L (7-52); Albumin 4.2 g/dL (3.5-5.7); Albumin/Globulin Ratio 1.2 (1.1-2.2); Alkaline Phosphatase 44 Units/L (34-104); Aspartate Amino Transferase 20 Units/L (13-39); BUN/Creatinine Ratio 15 (6-26); Bilirubin,Direct 0.1 mg/dL (0.0-0.2); Bilirubin,Indirect 0.2 mg/dL (0.0-1.2); Bilirubin,Total 0.3 mg/dL (0.3-1.0); Blood Urea Nitrogen 12 mg/dL (8-23); Calcium 9.6 mg/dL (8.6-10.3); Carbon Dioxide 37 mEq/L (23-29); Chloride 90 mEq/L (98-107); Globulin 3.5 g/dL (2.4-3.5); Glucose 124 mg/dL (70-105); Osmolality,Calculated 285 (280-300); Phosphorous 4.2 mg/dL (2.7-4.5); Potassium 4.7 mEq/L (3.5-5.1); Sodium 137 mEq/L (136-145); Total Protein 7.7 g/dL (6.4-8.9); Troponin I < 0.03 ng/mL (< 0.04); eGFR For African Americans > 60 (> 60); eGFR For Non-African Americans > 60 (> 60)
[2019-06-03] MEDS ORDERED: 0.9 % Sodium Chloride 1,000 ML IV ONE (12:23)
[2019-06-03 13:10] LABS: Bilirubin,Urine Negative (Negative); Blood,Urine Negative (Negative); Clarity,Urine Clear (Clear); Color,Urine Yellow (Yellow); Glucose,Urine (UA) Normal (Normal); Ketones,Urine Negative (Negative); Leukocyte Esterase,Urine Negative (Negative); Nitrite,Urine Negative (Negative); Protein,Urine 30 mg/dL (Neg-Trace); Specific Gravity,Urine 1.016 (1.010-1.025); Urobilinogen,Urine Normal (Normal)
[2019-06-03 13:12] LABS: Bacteria,Urine Few per hpf (None-Few); Squamous Epithelial Cell,Urine Few per lpf (None-Few)
[2019-06-03] MEDS ORDERED: *HR* FentaNYL (PF) 100 MCG/2 ML VIAL IVP ONE (13:23)
[2019-06-03 14:02] LABS: ABG Base Excess 15 mEq/L (-2 to 3); ABG HCO3 48 mEq/L (21-27); ABG Oxygen Saturation 90 % (95-98); ABG PCO2 116 mmHg (35-45); ABG PH 7.22 pH Units (7.32-7.45); ABG PO2 76 mmHg (85-104); ABG TCO2 > 50 mEq/L (20-26)
[2019-06-03] MEDS ORDERED: methylPREDNISolone 125 MG/2 ML VIAL IVP ONE (14:32)
[2019-06-03] MEDS ORDERED: Naloxone 0.4 MG/ML INJ IVP PRN (14:51)
[2019-06-03] MEDS ORDERED: Ondansetron ODT 4 MG TAB.RAPDIS SL PRN ×2 (14:51→21:03)
[2019-06-03] MEDS ORDERED: *HR* Promethazine 25 MG/ML VIAL IVP PRN (14:51)
[2019-06-03] MEDS: Ipratropium/Albuterol Neb 3 ML IH SCH ×3 (15:50→23:22)
[2019-06-03] MEDS: Azithromycin 500 MG in 0.9 % Sodium Chloride 250 ML IVPB SCH (16:50)
[2019-06-03] MEDS ORDERED: Ipratropium 1 PUFF INHALER IH PRN (18:04)
[2019-06-03] MEDS ORDERED: *HR* Methotrexate 2.5 MG TABLET PO SCH (18:15)
[2019-06-03 19:28] LABS: VBG HCO3 51 mEq/L (21-27); VBG PCO2 82 mmHg (41-51); VBG PO2 196 mmHg (25-50)
[2019-06-03] MEDS ORDERED: cefTRIAXone 2,000 MG in Water for inj. (sterile) 20 ML IVP SCH (21:00)
[2019-06-03] MEDS ORDERED: Ipratropium/Albuterol Neb 3 ML IH PRN (21:02)
[2019-06-03] MEDS: cloNIDine HCl 0.1 MG TABLET PO SCH (21:39)
[2019-06-03] MEDS: Sennosides/Docusate Sodium TABLET PO SCH (21:39)
[2019-06-03] MEDS: Apixaban 5 MG TABLET PO SCH (21:40)
[2019-06-03] MEDS: sulfaSALAzine 500 MG TABLET PO SCH (21:40)
[2019-06-03] MEDS: rOPINIRole 1 MG TABLET PO SCH (21:43)
[2019-06-03] MEDS: Gabapentin 300 MG CAPSULE PO SCH (21:46)
[2019-06-03] MEDS ORDERED: Budesonide/Formoterol 160/4.5 1 PUFF INH IH PRN (23:00)
[2019-06-04 01:46] LABS: Basophils % 0.2 %; Immature Granulocytes % 0.2 % (0-4); Lymphocytes # 1.6 K/mcL (0.6-4.6); Lymphocytes % 34.2 %; Mean Corpuscular HGB Conc 30.6 g/dL (31.6-35.5); Mean Corpuscular Hemoglobin 33.6 pg (28.0-33.3); Mean Corpuscular Volume 110.1 fL (83.0-100.0); Mean Platelet Volume 9.7 fL (9.4-12.4); Monocytes # 0.4 K/mcL (0.0-1.3); Monocytes % 9.2 %; Neutrophils # 2.7 K/mcL (1.6-8.9); Platelet Count 187 K/mcL (140-400); Red Blood Count 3.18 M/mcL (3.82-4.97); Red Cell Distribution Width 13.3 % (11.5-14.5); Segmented Neutrophils % 56.2 %; White Blood Count 4.8 K/mcL (4.3-11.1)
[2019-06-04 01:55] LABS: Hemoglobin 10.7 g/dL (11.5-15.4)
[2019-06-04 02:08] LABS: BUN/Creatinine Ratio 17 (6-26); Blood Urea Nitrogen 14 mg/dL (8-23); Calcium 9.5 mg/dL (8.6-10.3); Carbon Dioxide > 45 mEq/L (23-29); Chloride 89 mEq/L (98-107); Glucose 81 mg/dL (70-105); Osmolality,Calculated 288 (280-300); Potassium 4.4 mEq/L (3.5-5.1); Sodium 139 mEq/L (136-145); eGFR For African Americans > 60 (> 60); eGFR For Non-African Americans > 60 (> 60)
[2019-06-04 02:47] LABS: Anisocytosis 1+ (Not Present); Macrocytosis Present (Not Present); Platelet Estimate Normal (Normal)
[2019-06-04] MEDS: Ipratropium/Albuterol Neb 3 ML IH SCH ×6 (03:21→23:49)
[2019-06-04] MEDS: Cyanocobalamin (B-12) 1,000 MCG TABLET PO SCH (07:58)
[2019-06-04] MEDS: Ascorbic Acid 500 MG TABLET PO SCH (08:00)
[2019-06-04] MEDS: Folic Acid 1 MG TABLET PO SCH (08:00)
[2019-06-04] MEDS: sulfaSALAzine 500 MG TABLET PO SCH ×2 (08:00→21:17)
[2019-06-04] MEDS ORDERED: MethylPREDNISolone 40 MG/ML VIAL IVP SCH (08:00)
[2019-06-04] MEDS: Apixaban 5 MG TABLET PO SCH ×2 (08:00→21:17)
[2019-06-04] MEDS: Furosemide 40 MG TABLET PO SCH ×2 (08:00→15:49)
[2019-06-04] MEDS: Multivit/Ca/Min/Fe/FA 1 TAB TABLET PO SCH (08:01)
[2019-06-04] MEDS: cloNIDine HCl 0.1 MG TABLET PO SCH ×2 (08:01→21:17)
[2019-06-04] MEDS: Sennosides/Docusate Sodium TABLET PO SCH ×2 (08:01→21:17)
[2019-06-04 14:40] LABS: Acinetobacter baumannii by PCR Not Detected (Not Detect); Candida albicans by PCR Not Detected (Not Detect); Candida glabrata by PCR Not Detected (Not Detect); Candida krusei by PCR Not Detected (Not Detect); Candida parapsilosis by PCR Not Detected (Not Detect); Candida tropicalis by PCR Not Detected (Not Detect); Enterobacter cloacae Cmplx PCR Not Detected (Not Detect); Enterobacteriaceae by PCR Not Detected (Not Detect); Enterococcus by PCR Not Detected (Not Detect); Escherichia coli by PCR Not Detected (Not Detect); Klebsiella oxytoca by PCR Not Detected (Not Detect); Klebsiella pneumoniae by PCR Not Detected (Not Detect); Proteus by PCR Not Detected (Not Detect); Pseudomonas aeruginosa by PCR Not Detected (Not Detect); Serratia marcescens by PCR Not Detected (Not Detect); Staphylococcus aureus by PCR Not Detected (Not Detect); Staphylococcus by PCR DETECTED (Not Detect); Streptococcus agalactiae(B)PCR Not Detected (Not Detect); Streptococcus by PCR Not Detected (Not Detect); Streptococcus pneumoniae PCR Not Detected (Not Detect); Streptococcus pyogenes (A) PCR Not Detected (Not Detect); blaKPC Carbapenem-Resist Gene Not Detected (Not Detect); mecA Methicillin-Resist Gene DETECTED (Not Detect); vanA/B Vancomycin-Resist Genes Not Detected (Not Detect)
[2019-06-04] MEDS ORDERED: Aminoglycoside Consult 1 EACH MC ONE (14:59)
[2019-06-04] MEDS ORDERED: Azithromycin 500 MG VIAL ONE (15:03)
[2019-06-04] MEDS: Azithromycin 500 MG in 0.9 % Sodium Chloride 250 ML IVPB SCH (15:47)
[2019-06-04] MEDS: rOPINIRole 1 MG TABLET PO SCH (21:16)
[2019-06-04] MEDS: Gabapentin 300 MG CAPSULE PO SCH (21:17)
[2019-06-04] MEDS ORDERED: Gadolinium Contrast Agent (WT Based) IV PRN (21:31)
[2019-06-04] MEDS ORDERED: *HR* OxyCODONE/APAP 5/325 TABLET PO ONE (22:23)
[2019-06-04] MEDS ORDERED: Acetaminophen 325 MG TABLET PO PRN (22:24)
[2019-06-05] MEDS: Ipratropium/Albuterol Neb 3 ML IH SCH ×5 (04:22→20:52)
[2019-06-05 08:20] LABS: Adenovirus Not Detected (Not Detect); Bordetella Pertussis Not Detected (Not Detect); Chlamydophila pneumoniae Not Detected (Not Detect); Coronavirus 229E Not Detected (Not Detect); Coronavirus HKU1 Not Detected (Not Detect); Coronavirus NL63 Not Detected (Not Detect); Coronavirus OC43 Not Detected (Not Detect); Human Metapneumovirus Not Detected (Not Detect); Human Rhinovirus/Enterovirus Not Detected (Not Detect); Influenza A Subtype 2009 H1 Not Detected (Not Detect); Influenza A Untypeable Not Detected (Not Detect); Influenza B Not Detected (Not Detect); Mycoplasma pneumoniae Not Detected (Not Detect); Parainfluenza Virus 1 Not Detected (Not Detect); Parainfluenza Virus 2 Not Detected (Not Detect); Parainfluenza Virus 3 Not Detected (Not Detect); Parainfluenza Virus 4 Not Detected (Not Detect); Respiratory Syncytial Virus Not Detected (Not Detect)
[2019-06-05 08:39] LABS: ABG Base Excess 19 mEq/L (-2 to 3); ABG HCO3 47 mEq/L (21-27); ABG Oxygen Saturation 93 % (95-98); ABG PCO2 69 mmHg (35-45); ABG PH 7.45 pH Units (7.32-7.45); ABG PO2 68 mmHg (85-104); ABG TCO2 49 mEq/L (20-26)
[2019-06-05] MEDS: Multivit/Ca/Min/Fe/FA 1 TAB TABLET PO SCH (09:06)
[2019-06-05] MEDS: predniSONE 20 MG TABLET PO SCH (09:06)
[2019-06-05] MEDS: cloNIDine HCl 0.1 MG TABLET PO SCH ×2 (09:07→19:58)
[2019-06-05] MEDS: Folic Acid 1 MG TABLET PO SCH (09:07)
[2019-06-05] MEDS: Ascorbic Acid 500 MG TABLET PO SCH (09:07)
[2019-06-05] MEDS: Furosemide 40 MG TABLET PO SCH (09:07)
[2019-06-05] MEDS: Sennosides/Docusate Sodium TABLET PO SCH ×2 (09:07→19:59)
[2019-06-05] MEDS: Apixaban 5 MG TABLET PO SCH ×2 (09:07→19:59)
[2019-06-05] MEDS: Cyanocobalamin (B-12) 1,000 MCG TABLET PO SCH (09:07)
[2019-06-05] MEDS: sulfaSALAzine 500 MG TABLET PO SCH ×2 (09:08→19:58)
[2019-06-05 09:28] LABS: BUN/Creatinine Ratio 17 (6-26); Blood Urea Nitrogen 17 mg/dL (8-23); Calcium 9.4 mg/dL (8.6-10.3); Carbon Dioxide > 45 mEq/L (23-29); Chloride 90 mEq/L (98-107); Glucose 122 mg/dL (70-105); Osmolality,Calculated 291 (280-300); Potassium 3.3 mEq/L (3.5-5.1); Sodium 139 mEq/L (136-145); eGFR For African Americans > 60 (> 60); eGFR For Non-African Americans 54 (> 60)
[2019-06-05] MEDS ORDERED: Potassium Chloride Elixir 20 MEQ/15 ML UDC PO ONE (12:40)
[2019-06-05] MEDS: Azithromycin 500 MG in 0.9 % Sodium Chloride 250 ML IVPB SCH (16:01)
[2019-06-05] MEDS: rOPINIRole 1 MG TABLET PO SCH (19:58)
[2019-06-05] MEDS: Gabapentin 300 MG CAPSULE PO SCH (19:59)
[2019-06-05] MEDS: *HR* OxyCODONE Immed Rel 5 MG TABLET PO PRN (20:00)
[2019-06-06] MEDS: Ipratropium/Albuterol Neb 3 ML IH SCH ×7 (00:14→23:19)
[2019-06-06 03:58] LABS: Hematocrit 32.8 % (35.3-44.9); Hemoglobin 10.1 g/dL (11.5-15.4); Mean Corpuscular HGB Conc 30.8 g/dL (31.6-35.5); Mean Corpuscular Hemoglobin 33.2 pg (28.0-33.3); Mean Corpuscular Volume 107.9 fL (83.0-100.0); Platelet Count 207 K/mcL (140-400); Red Blood Count 3.04 M/mcL (3.82-4.97); Red Cell Distribution Width 14.5 % (11.5-14.5); White Blood Count 5.8 K/mcL (4.3-11.1)
[2019-06-06 04:08] LABS: VBG HCO3 49 mEq/L (21-27); VBG PCO2 78 mmHg (41-51); VBG PH 7.41 pH Units (7.32-7.42); VBG PO2 83 mmHg (25-50)
[2019-06-06] MEDS: Budesonide/Formoterol 160/4.5 1 PUFF INH IH PRN ×2 (04:16→20:03)
[2019-06-06 04:19] LABS: BUN/Creatinine Ratio 18 (6-26); Blood Urea Nitrogen 16 mg/dL (8-23); Calcium 9.1 mg/dL (8.6-10.3); Carbon Dioxide 45 mEq/L (23-29); Chloride 92 mEq/L (98-107); Glucose 98 mg/dL (70-105); Osmolality,Calculated 287 (280-300); Potassium 3.8 mEq/L (3.5-5.1); Sodium 138 mEq/L (136-145); eGFR For African Americans > 60 (> 60); eGFR For Non-African Americans 60 (> 60)
[2019-06-06] MEDS: Cyanocobalamin (B-12) 1,000 MCG TABLET PO SCH (08:01)
[2019-06-06] MEDS: sulfaSALAzine 500 MG TABLET PO SCH ×2 (08:01→20:50)
[2019-06-06] MEDS: Apixaban 5 MG TABLET PO SCH ×2 (08:01→20:50)
[2019-06-06] MEDS: predniSONE 20 MG TABLET PO SCH (08:01)
[2019-06-06] MEDS: Ascorbic Acid 500 MG TABLET PO SCH (08:02)
[2019-06-06] MEDS: Multivit/Ca/Min/Fe/FA 1 TAB TABLET PO SCH (08:02)
[2019-06-06] MEDS: *HR* OxyCODONE Immed Rel 5 MG TABLET PO PRN ×2 (08:02→20:51)
[2019-06-06] MEDS: Sennosides/Docusate Sodium TABLET PO SCH ×2 (08:02→20:52)
[2019-06-06] MEDS: Folic Acid 1 MG TABLET PO SCH (08:02)
[2019-06-06] MEDS: cloNIDine HCl 0.1 MG TABLET PO SCH ×2 (08:02→20:50)
[2019-06-06] MEDS: Gabapentin 300 MG CAPSULE PO SCH (20:49)
[2019-06-06] MEDS: rOPINIRole 1 MG TABLET PO SCH (20:50)
[2019-06-07 01:04] LABS: VBG HCO3 41 mEq/L (21-27); VBG PCO2 56 mmHg (41-51); VBG PH 7.47 pH Units (7.32-7.42); VBG PO2 155 mmHg (25-50)
[2019-06-07 01:23] LABS: BUN/Creatinine Ratio 19 (6-26); Blood Urea Nitrogen 18 mg/dL (8-23); Carbon Dioxide 40 mEq/L (23-29); Chloride 95 mEq/L (98-107); Glucose 101 mg/dL (70-105); Osmolality,Calculated 280 (280-300); Potassium 4.1 mEq/L (3.5-5.1); Sodium 134 mEq/L (136-145); eGFR For African Americans > 60 (> 60); eGFR For Non-African Americans 58 (> 60)
[2019-06-07] MEDS: Ipratropium/Albuterol Neb 3 ML IH SCH ×3 (04:16→11:09)
[2019-06-07] MEDS: Budesonide/Formoterol 160/4.5 1 PUFF INH IH PRN (07:18)
[2019-06-07] MEDS: Apixaban 5 MG TABLET PO SCH (09:22)
[2019-06-07] MEDS: cloNIDine HCl 0.1 MG TABLET PO SCH (09:22)
[2019-06-07] MEDS: sulfaSALAzine 500 MG TABLET PO SCH (09:23)
[2019-06-07] MEDS: predniSONE 20 MG TABLET PO SCH (09:23)
[2019-06-07] MEDS: Multivit/Ca/Min/Fe/FA 1 TAB TABLET PO SCH (09:23)
[2019-06-07] MEDS: Folic Acid 1 MG TABLET PO SCH (09:23)
[2019-06-07] MEDS: Cyanocobalamin (B-12) 1,000 MCG TABLET PO SCH (09:24)
[2019-06-07] MEDS: Ascorbic Acid 500 MG TABLET PO SCH (09:24)
[2019-06-07] MEDS: Sennosides/Docusate Sodium TABLET PO SCH (09:24)
[2019-06-07 11:25] VITALS: BP 120/89
== END 2019-06-07 15:00 | disposition hospice, home (50) | DRG 189 ==
LOC: EMEROOARM 10:50 → 2NNU 10:50 → SUATTDRO 14:59 → 2NNU 15:45 → SUATTDRO 06-04 21:26
PROVIDERS: ADMIT Internal Medicine; ATTEND Internal Medicine

== ENCOUNTER 2019-07-02 14:34 | Inpatient (IN) ==
[2019-07-02 14:53] LABS: ABG Base Excess 13 mEq/L (-2 to 3); ABG HCO3 50 mEq/L (21-27); ABG Oxygen Saturation 92 % (95-98); ABG PCO2 149 mmHg (35-45); ABG PH 7.13 pH Units (7.32-7.45); ABG PO2 92 mmHg (85-104); ABG TCO2 > 50 mEq/L (20-26)
[2019-07-02] MEDS ORDERED: methylPREDNISolone 125 MG/2 ML VIAL IVP ONE (14:54)
[2019-07-02] MEDS ORDERED: Ipratropium/Albuterol Neb 3 ML IH ONE (14:54)
[2019-07-02 15:55] LABS: ABG Base Excess 15 mEq/L (-2 to 3); ABG HCO3 50 mEq/L (21-27); ABG Oxygen Saturation 86 % (95-98); ABG PCO2 130 mmHg (35-45); ABG PH 7.19 pH Units (7.32-7.45); ABG PO2 70 mmHg (85-104); ABG TCO2 > 50 mEq/L (20-26)
[2019-07-02 16:08] LABS: Albumin 4.2 g/dL (3.5-5.7); Albumin/Globulin Ratio 1.4 (1.1-2.2); Bilirubin,Indirect 0.2 mg/dL (0.0-1.0); Bilirubin,Total 0.2 mg/dL (0.3-1.0); Calcium 9.7 mg/dL (8.6-10.3); Globulin 2.9 g/dL (2.4-3.5); Potassium 4.4 mEq/L (3.5-5.1); Total Protein 7.1 g/dL (6.4-8.9); Troponin I 0.06 ng/mL (< 0.04)
[2019-07-02 16:13] LABS: Bilirubin,Urine Negative (Negative); Blood,Urine Negative (Negative); Clarity,Urine Clear (Clear); Color,Urine Yellow (Yellow); Glucose,Urine (UA) Normal (Normal); Ketones,Urine Negative (Negative); Leukocyte Esterase,Urine Negative (Negative); Nitrite,Urine Negative (Negative); PH,Urine 5.5 pH Units (5.0-8.0); Protein,Urine Trace mg/dL (Neg-Trace); Specific Gravity,Urine 1.016 (1.010-1.025); Urobilinogen,Urine Normal (Normal)
[2019-07-02] MEDS ORDERED: Acetaminophen 325 MG TABLET PO PRN (18:28)
[2019-07-02] MEDS ORDERED: Albuterol 2.5 MG/3 ML NEBULIZER IH PRN (18:28)
[2019-07-02] MEDS ORDERED: Naloxone 0.4 MG/ML INJ IVP PRN (18:28)
[2019-07-02] MEDS ORDERED: 0.9 % Sodium Chloride 1,000 ML IVC SCH (18:30)
[2019-07-02] MEDS ORDERED: *HR* OxyCODONE Immed Rel 5 MG TABLET PO PRN (18:37)
[2019-07-02 18:52] LABS: Basophils % 0.3 %; Hematocrit 39.2 % (35.3-44.9); Hemoglobin 11.8 g/dL (11.5-15.4); Immature Granulocytes % 0.3 % (0-4); Lymphocytes # 0.7 K/mcL (0.6-4.6); Lymphocytes % 18.4 %; Mean Corpuscular HGB Conc 30.1 g/dL (31.6-35.5); Mean Corpuscular Hemoglobin 34.5 pg (28.0-33.3); Mean Platelet Volume 10.1 fL (9.4-12.4); Monocytes # 0.2 K/mcL (0.0-1.3); Neutrophils # 2.9 K/mcL (1.6-8.9); Platelet Count 209 K/mcL (140-400); Red Blood Count 3.42 M/mcL (3.82-4.97); Red Cell Distribution Width 13.6 % (11.5-14.5)
[2019-07-02 18:56] LABS: Mean Corpuscular Volume 114.6 fL (83.0-100.0); White Blood Count 3.8 K/mcL (4.3-11.1)
[2019-07-02 19:20] LABS: Large Platelets Present (Not Present); Macrocytosis Present (Not Present); Platelet Estimate Normal (Normal); Polychromasia 1+ (Not Present); Stomatocytes 2+ (Not Present)
[2019-07-02] MEDS: Ipratropium/Albuterol Neb 3 ML IH SCH ×2 (20:03→23:24)
[2019-07-02] MEDS: Apixaban 5 MG TABLET PO SCH (20:29)
[2019-07-02] MEDS: cloNIDine HCl 0.1 MG TABLET PO SCH (20:29)
[2019-07-02 20:58] LABS: ABG Base Excess 17 mEq/L (-2 to 3); ABG HCO3 49 mEq/L (21-27); ABG Oxygen Saturation 95 % (95-98); ABG PCO2 100 mmHg (35-45); ABG PO2 93 mmHg (85-104); ABG TCO2 > 50 mEq/L (20-26); Blood Gas Modality NIV
[2019-07-02] MEDS ORDERED: Gabapentin 300 MG CAPSULE PO SCH (21:00)
[2019-07-02] MEDS: sulfaSALAzine 500 MG TABLET PO SCH (21:32)
[2019-07-03 03:22] LABS: Hematocrit 35.1 % (35.3-44.9); Hemoglobin 10.8 g/dL (11.5-15.4); Immature Granulocytes % 0.4 % (0-4); Lymphocytes # 2.3 K/mcL (0.6-4.6); Lymphocytes % 47.1 %; Mean Corpuscular HGB Conc 30.8 g/dL (31.6-35.5); Mean Corpuscular Hemoglobin 34.6 pg (28.0-33.3); Mean Corpuscular Volume 112.5 fL (83.0-100.0); Mean Platelet Volume 10.3 fL (9.4-12.4); Monocytes # 0.4 K/mcL (0.0-1.3); Monocytes % 8.4 %; Neutrophils # 2.2 K/mcL (1.6-8.9); Platelet Count 205 K/mcL (140-400); Red Blood Count 3.12 M/mcL (3.82-4.97); Red Cell Distribution Width 13.3 % (11.5-14.5); Segmented Neutrophils % 44.1 %; White Blood Count 4.9 K/mcL (4.3-11.1)
[2019-07-03 03:35] LABS: Platelet Estimate Normal (Normal)
[2019-07-03] MEDS: Ipratropium/Albuterol Neb 3 ML IH SCH ×6 (03:35→19:42)
[2019-07-03 03:36] LABS: Hypochromasia Present (Not Present); Stomatocytes 1+ (Not Present)
[2019-07-03 03:37] LABS: Large Platelets Present (Not Present); Macrocytosis Present (Not Present)
[2019-07-03 03:41] LABS: Albumin 3.3 g/dL (3.5-5.7); Albumin/Globulin Ratio 1.3 (1.1-2.2); Bilirubin,Indirect 0.4 mg/dL (0.0-1.0); Bilirubin,Total 0.4 mg/dL (0.3-1.0); Calcium 8.9 mg/dL (8.6-10.3); Globulin 2.5 g/dL (2.4-3.5); Magnesium 1.9 mg/dL (1.6-2.6); Phosphorous 3.3 mg/dL (2.7-4.5); Potassium 5.4 mEq/L (3.5-5.1); Total Protein 5.8 g/dL (6.4-8.9)
[2019-07-03 04:28] LABS: ABG Base Excess 18 mEq/L (-2 to 3); ABG HCO3 47 mEq/L (21-27); ABG Oxygen Saturation 92 % (95-98); ABG PCO2 77 mmHg (35-45); ABG PO2 67 mmHg (85-104); ABG TCO2 49 mEq/L (20-26)
[2019-07-03] MEDS ORDERED: Doxycycline 100 MG in 0.9 % Sodium Chloride Mini Bag 100 ML IVPB SCH (06:00)
[2019-07-03] MEDS ORDERED: methylPREDNISolone 125 MG/2 ML VIAL IVP SCH (06:00)
[2019-07-03] MEDS: Apixaban 5 MG TABLET PO SCH ×2 (07:43→20:32)
[2019-07-03] MEDS: sulfaSALAzine 500 MG TABLET PO SCH ×2 (07:44→20:32)
[2019-07-03] MEDS: cloNIDine HCl 0.1 MG TABLET PO SCH ×2 (07:45→20:33)
[2019-07-03] MEDS ORDERED: Sennosides/Docusate Sodium TABLET PO SCH (09:00)
[2019-07-03] MEDS ORDERED: Cyanocobalamin (B-12) 1,000 MCG TABLET PO SCH (09:00)
[2019-07-03] MEDS ORDERED: Folic Acid 1 MG TABLET PO SCH (09:00)
[2019-07-03] MEDS ORDERED: Cholecalciferol (D-3) 1,000 UNIT (25MCG) TABLET PO SCH (09:00)
[2019-07-03] MEDS ORDERED: *HR* OxyCODONE Immed Rel 5 MG TABLET PO PRN (11:14)
[2019-07-03] MEDS ORDERED: Acetaminophen 325 MG TABLET PO PRN (11:14)
[2019-07-03] MEDS ORDERED: Naloxone 0.4 MG/ML INJ IVP PRN (11:14)
[2019-07-03] MEDS ORDERED: Albuterol 2.5 MG/3 ML NEBULIZER IH PRN (11:14)
[2019-07-03] MEDS: Doxycycline 100 MG in 0.9 % Sodium Chloride Mini Bag 100 ML IVPB SCH (17:44)
[2019-07-03] MEDS: methylPREDNISolone 125 MG/2 ML VIAL IVP SCH (17:44)
[2019-07-03] MEDS ORDERED: rOPINIRole 1 MG TABLET PO SCH (21:00)
[2019-07-03] MEDS ORDERED: Gabapentin 300 MG CAPSULE PO SCH (21:00)
[2019-07-04] MEDS: Ipratropium/Albuterol Neb 3 ML IH SCH ×3 (00:05→07:15)
[2019-07-04] MEDS: Doxycycline 100 MG in 0.9 % Sodium Chloride Mini Bag 100 ML IVPB SCH (05:29)
[2019-07-04] MEDS: methylPREDNISolone 125 MG/2 ML VIAL IVP SCH (05:29)
[2019-07-04 05:43] LABS: BUN/Creatinine Ratio 20 (6-26); Blood Urea Nitrogen 19 mg/dL (8-23); Calcium 8.9 mg/dL (8.6-10.3); Carbon Dioxide 42 mEq/L (23-29); Chloride 96 mEq/L (98-107); Glucose 96 mg/dL (70-105); Osmolality,Calculated 294 (280-300); Potassium 4.6 mEq/L (3.5-5.1); Sodium 141 mEq/L (136-145); eGFR For African Americans > 60 (> 60); eGFR For Non-African Americans 58 (> 60)
[2019-07-04 06:19] LABS: Basophils % 0.1 %; Eosinophils % 0.3 %; Hematocrit 36.6 % (35.3-44.9); Hemoglobin 11.6 g/dL (11.5-15.4); Immature Granulocytes % 0.3 % (0-4); Lymphocytes # 2.8 K/mcL (0.6-4.6); Lymphocytes % 39.4 %; Mean Corpuscular HGB Conc 31.7 g/dL (31.6-35.5); Mean Corpuscular Hemoglobin 33.8 pg (28.0-33.3); Mean Corpuscular Volume 106.7 fL (83.0-100.0); Mean Platelet Volume 10.3 fL (9.4-12.4); Monocytes # 0.5 K/mcL (0.0-1.3); Neutrophils # 3.8 K/mcL (1.6-8.9); Nucleated Red Blood Cells 0.3 /100 WBC (0); Platelet Count 253 K/mcL (140-400); Red Blood Count 3.43 M/mcL (3.82-4.97); Red Cell Distribution Width 14.1 % (11.5-14.5); Segmented Neutrophils % 52.9 %; White Blood Count 7.2 K/mcL (4.3-11.1)
[2019-07-04 07:54] VITALS: BP 182/90
[2019-07-04] MEDS: Apixaban 5 MG TABLET PO SCH (08:35)
[2019-07-04] MEDS: cloNIDine HCl 0.1 MG TABLET PO SCH (08:35)
[2019-07-04] MEDS: sulfaSALAzine 500 MG TABLET PO SCH (08:38)
[2019-07-04] MEDS ORDERED: Folic Acid 1 MG TABLET PO SCH (09:00)
[2019-07-04] MEDS ORDERED: hydrALAZINE 25 MG TABLET PO SCH (09:00)
[2019-07-04] MEDS ORDERED: Cholecalciferol (D-3) 1,000 UNIT (25MCG) TABLET PO SCH (09:00)
[2019-07-04] MEDS ORDERED: Sennosides/Docusate Sodium TABLET PO SCH (09:00)
[2019-07-04] MEDS ORDERED: Cyanocobalamin (B-12) 1,000 MCG TABLET PO SCH (09:00)
[2019-07-04] MEDS ORDERED: MethylPREDNISolone 40 MG/ML VIAL IVP SCH (18:00)
== END 2019-07-04 10:53 | disposition home or self-care (01) | DRG 189 ==
LOC: EMEROOARM 14:34 → ICNU 18:41 → 3ANU 07-03 17:59
PROVIDERS: ADMIT Pediatrics; ATTEND Pediatrics